=== PATIENT | male | born 1955 | race Caucasian/White ===

== ENCOUNTER 2018-11-18 12:45 | Outpatient (CLI) | payer MEDICARE, BC | END 2018-11-18 23:59 | disposition home health service (06) | LOC: WOU 12:45 | PROVIDERS: ATTEND Podiatrist Foot & Ankle Surgery | DX: E11.621 Type 2 diabetes mellitus with foot ulcer (principal); L97.516 Non-pressure chronic ulcer of other part of right foot with bone involvement without evidence of necrosis; Z79.84 Long term (current) use of oral hypoglycemic drugs; E11.42 Type 2 diabetes mellitus with diabetic polyneuropathy; E11.22 Type 2 diabetes mellitus with diabetic chronic kidney disease; I12.9 Hypertensive chronic kidney disease with stage 1 through stage 4 chronic kidney disease, or unspecified chronic kidney disease; N18.9 Chronic kidney disease, unspecified; Z95.5 Presence of coronary angioplasty implant and graft; Z89.411 Acquired absence of right great toe | CPT/HCPCS: 11043; 11046; 87070; 87077; 87186; A6402 ×2 ==

== ENCOUNTER 2018-11-24 12:46 | Outpatient (CLI) | payer MEDICARE, BC | END 2018-11-24 23:59 | disposition home or self-care (01) | LOC: MRI 12:46 | PROVIDERS: ATTEND Podiatrist Foot & Ankle Surgery | DX: M86.171 Other acute osteomyelitis, right ankle and foot (principal); M19.071 Primary osteoarthritis, right ankle and foot | CPT/HCPCS: 73718-TC ==

== ENCOUNTER 2018-12-02 13:09 | Outpatient (CLI) | payer MEDICARE, BC ==
[2018-12-02 14:32] LABS: BASOPHILS % (AUTO) 0.1 % (0.0-2.0); EOSINOPHILS % (AUTO) 1.5 % (0.0-6.0); HEMATOCRIT 30 % (39-51); HEMOGLOBIN 10.5 g/dL (13.5-17.5); LYMPHOCYTES # (AUTO) 1.2 /CMM (0.8-4.8); LYMPHOCYTES % (AUTO) 18.6 % (20.0-44.0); MEAN CORPUSCULAR HGB CONC 35 g/dl (31.0-36.0); MEAN CORPUSCULAR VOLUME 85 fL (80-96); MONOCYTES # (AUTO) 0.4 /CMM (0.1-1.30); MONOCYTES % (AUTO) 6.1 % (2.0-12.0); NEUTROPHILS # (AUTO) 4.7 /CMM (1.8-8.9); NEUTROPHILS % (AUTO) 73.7 % (43.0-81.0); PLATELET COUNT (AUTO) 224 /CMM (150-450); RED BLOOD CELL COUNT(AUTO) 3.55 MIL/uL (4.5-6.0); WHITE BLOOD COUNT (AUTO) 6.4 K/uL (4.3-11.0)
[2018-12-02 14:40] LABS: ALBUMIN 3.6 g/dL (3.4-5.0); CALCIUM, SERUM 8.9 mg/dL (8.5-10.1); CREATININE 2.8 mg/dL (0.6-1.3); POTASSIUM 5.8 mmol/L (3.5-5.1)
[2018-12-02 14:42] LABS: PREALBUMIN 36.6 MG/DL (18.0-35.7)
== END 2018-12-02 23:59 | disposition home health service (06) ==
LOC: WOU 13:09
PROVIDERS: ATTEND Podiatrist Foot & Ankle Surgery
DX: Z01.818 Encounter for other preprocedural examination (principal); E11.69 Type 2 diabetes mellitus with other specified complication; M86.371 Chronic multifocal osteomyelitis, right ankle and foot; E87.5 Hyperkalemia; Z87.891 Personal history of nicotine dependence; Z89.411 Acquired absence of right great toe; E11.22 Type 2 diabetes mellitus with diabetic chronic kidney disease; I12.9 Hypertensive chronic kidney disease with stage 1 through stage 4 chronic kidney disease, or unspecified chronic kidney disease; M1A.3 Chronic gout due to renal impairment; N18.9 Chronic kidney disease, unspecified; E11.621 Type 2 diabetes mellitus with foot ulcer; L97.413 Non-pressure chronic ulcer of right heel and midfoot with necrosis of muscle; E11.42 Type 2 diabetes mellitus with diabetic polyneuropathy; R60.0 Localized edema
CPT/HCPCS: 11043; 11046; 36415; 71046; 80048; 82040; 83036; 84134; 85025; 85652; 86140; A6402 ×2; G0463

== ENCOUNTER 2018-12-09 13:15 | Outpatient (CLI) | payer MEDICARE, BC | END 2018-12-09 23:59 | disposition home health service (06) | LOC: WOU 13:15 | PROVIDERS: ATTEND Podiatrist Foot & Ankle Surgery | DX: E11.621 Type 2 diabetes mellitus with foot ulcer (principal); L97.414 Non-pressure chronic ulcer of right heel and midfoot with necrosis of bone; E11.42 Type 2 diabetes mellitus with diabetic polyneuropathy; R60.0 Localized edema; E11.69 Type 2 diabetes mellitus with other specified complication; M86.671 Other chronic osteomyelitis, right ankle and foot; Z79.84 Long term (current) use of oral hypoglycemic drugs | CPT/HCPCS: 11044; 11047; A6197; A6402 ×2 ==

== ENCOUNTER 2018-12-16 13:00 | Outpatient (CLI) | payer MEDICARE, BC ==
[2019-01-01] MEDS ORDERED: FERR325T23 PO (13:02)
== END 2018-12-16 23:59 | disposition home health service (06) ==
LOC: WOU 13:00
PROVIDERS: ATTEND Podiatrist Foot & Ankle Surgery
DX: E11.621 Type 2 diabetes mellitus with foot ulcer (principal); L97.414 Non-pressure chronic ulcer of right heel and midfoot with necrosis of bone; E11.69 Type 2 diabetes mellitus with other specified complication; M86.371 Chronic multifocal osteomyelitis, right ankle and foot; M1A.3 Chronic gout due to renal impairment; Z79.84 Long term (current) use of oral hypoglycemic drugs; Z79.899 Other long term (current) drug therapy; R60.0 Localized edema
CPT/HCPCS: 11044; 11047; 87070; 87075; A6197 ×2; A6402 ×3; 87186-TC

== ENCOUNTER → 2018-12-23 | Outpatient (CLI) | payer MEDICARE, BC ==
[~2018-12-23] MED LIST: ASPI-605 PO; CEFTRIAXONE 1 G VIAL IM ONE; GLIM4TAB2 PO; HYDR-4077 PO; METO-357 PO
== END | disposition home health service (06) ==
LOC: WOU 13:00
PROVIDERS: ATTEND Podiatrist Foot & Ankle Surgery
DX: E11.621 Type 2 diabetes mellitus with foot ulcer (principal); L97.516 Non-pressure chronic ulcer of other part of right foot with bone involvement without evidence of necrosis; E11.42 Type 2 diabetes mellitus with diabetic polyneuropathy; M20.41 Other hammer toe(s) (acquired), right foot; L03.115 Cellulitis of right lower limb; Z89.411 Acquired absence of right great toe; E11.69 Type 2 diabetes mellitus with other specified complication; M86.671 Other chronic osteomyelitis, right ankle and foot; Z79.84 Long term (current) use of oral hypoglycemic drugs
CPT/HCPCS: 11043; 11046; 96372; A6197; A6402 ×2; J0696

== ENCOUNTER 2018-12-27 14:22 | Inpatient (IN) | payer MEDICARE, BC ==
[~2018-12-27] VITALS: Ht 180.3 cm; Wt 113.4 kg
--- NOTE | 2018-12-27 14:22 | NUR ---
PT BIBSELF FOR R FOOT R/O OSTEOMYLETIS; PT AAOX4, -SOB, NAD NOTED, PT TO BED 10, VSS, PENDING MD MARIE
--- NOTE | 2018-12-27 14:53 | NUR ---
CALLED DR YANEZ TO HAVE A DR TO CALL. AWAITING A CALL BACK. DR YANEZ # [phone]
[2018-12-27] MEDS ORDERED: VANCOMYCIN 1 GM in IV NS 0.9% 250 ML IV STA (15:00)
[2018-12-27] MEDS ORDERED: HYDR-4077 PO (15:07)
[2018-12-27] MEDS ORDERED: GLIM4TAB2 PO (15:07)
[2018-12-27] MEDS ORDERED: ASPI-605 PO (15:07)
[2018-12-27] MEDS ORDERED: METO-357 PO (15:07)
[2018-12-27 15:20] LABS: BASOPHILS % (AUTO) 0.3 % (0.0-2.0); EOSINOPHILS % (AUTO) 1.1 % (0.0-6.0); HEMATOCRIT 27 % (39-51); HEMOGLOBIN 9.2 g/dL (13.5-17.5); LYMPHOCYTES # (AUTO) 1.2 /CMM (0.8-4.8); LYMPHOCYTES % (AUTO) 13.4 % (20.0-44.0); MEAN CORPUSCULAR HGB CONC 34 g/dl (31.0-36.0); MEAN CORPUSCULAR VOLUME 87 fL (80-96); MONOCYTES # (AUTO) 0.5 /CMM (0.1-1.30); NEUTROPHILS # (AUTO) 7.3 /CMM (1.8-8.9); NEUTROPHILS % (AUTO) 80.2 % (43.0-81.0); RED BLOOD CELL COUNT(AUTO) 3.13 MIL/uL (4.5-6.0); WHITE BLOOD COUNT (AUTO) 9.1 K/uL (4.3-11.0)
--- NOTE | 2018-12-27 15:21 | NUR ---
TEXTED DR. PORTER FOR MRI APPROVAL.
[2018-12-27 15:26] LABS: CALCIUM, SERUM 8.5 mg/dL (8.5-10.1); CREATININE 2.1 mg/dL (0.6-1.3); POTASSIUM 4.5 mmol/L (3.5-5.1)
[2018-12-27 15:31] LABS: C-REACTIVE PROTEIN 1.6 mg/dL (0.0-0.9)
--- NOTE | 2018-12-27 15:46 | NUR ---
PLEASE CALL VAL AT [phone]. SHE IS WONDERING IF DOING THE MRI ON FRIDAY WILL BE ACCEPTABLE. WILL ADVISE WHEN DR YANZE RETURNS CALL.
[2018-12-27 16:00] LABS: PLATELET COUNT (AUTO) 368 /CMM (150-450)
--- NOTE | 2018-12-27 16:09 | NUR ---
CALLED [facility]. MICROCOMPUTER TECHNICIAN WAS PAGED
--- NOTE | 2018-12-27 16:13 | NUR ---
SPOKE TO VAL AND INFORMED HER THAT THE MRI WAS TO BE COMPLETED ON FRIDAY (12/28)
--- NOTE | 2018-12-27 16:23 | NUR ---
MS BED 200 GIVEN
[2018-12-27] MEDS ORDERED: HYDROCODONE/APAP 5/325MG 1 EACH TABLET PO PRN (17:00)
[2018-12-27] MEDS ORDERED: DEXTROSE 50%-WATER 50 ML DISP.SYRIN IV PRN (17:00)
[2018-12-27] MEDS ORDERED: ONDANSETRON HCL/PF 4 MG/2 ML VIAL IVP PRN (17:00)
[2018-12-27] MEDS ORDERED: MAGNESIUM HYDROXIDE 30 ML UDC PO PRN (17:00)
[2018-12-27] MEDS ORDERED: HYDROCODONE/APAP 10/325MG 1 EA TABLET PO PRN (17:00)
[2018-12-27] MEDS ORDERED: ACETAMINOPHEN 325 MG TABLET PO PRN (17:00)
[2018-12-27] MEDS: hydrALAZINE HCL 50 MG TABLET PO SCH (17:00)
[2018-12-27] MEDS ORDERED: Z GUARD REMEDY 2 OZ OINT TP PRN (17:00)
[2018-12-27] MEDS ORDERED: CEFTRIAXONE 2 G in IV D5W 100 ML IV SCH (17:00)
[2018-12-27] MEDS ORDERED: MAG HYDROX/AL HYDROX/SIMETH 30 ML UDC PO PRN (17:00)
--- NOTE | 2018-12-27 17:11 | NUR ---
MRI APPROVED,LEAD FURNACE OPERATOR IS GOING TO [facility] G[facility] LEAD FURNACE OPERATOR SPOKE TO NURSE EZEQUIEL BROOKS OK TO DO TOMORROW AM.
--- NOTE | 2018-12-27 17:12 | NUR ---
REPORT GIVEN TO CHRISTY WOLF FOR TITI; PT WILL BE TRANSPORTED TO [facility]IA [facility]
[2018-12-27] MEDS: BLOOD SUGAR DIAGNOSTIC 1 EACH STRIP VI SCH ×2 (17:30→21:46)
[2018-12-27] MEDS ORDERED: FEE PK DOSING 1 MIN EA MC ONE (17:34)
[2018-12-27 18:35] LABS: APPEARANCE,URINE CLEAR (CLEAR); BILIRUBIN,URINE NEGATIVE (NEGATIVE); BLOOD, URINE NEGATIVE Ery/uL (NEGATIVE); COLOR,URINE YELLOW (YELLOW); KETONES,URINE NEGATIVE (NEGATIVE); LEUKOCYTE ESTERASE ,URINE NEGATIVE (NEGATIVE); NITRITE, URINE NEGATIVE (NEGATIVE); PROTEIN,URINE NEGATIVE (NEGATIVE); UGLUCOSE NEGATIVE (NEGATIVE); UROBILINOGEN,URINE 0.2 EU/dL (0.2)
--- NOTE | 2018-12-27 18:35 | NUR ---
MS RN NOTES PATIENT ADMITTED TO UNIT, ARRIVED VIA GURNEY, REPORT RECEIVED FROM LONDON WOLF. PATIENT AWAKE, ALERT AND ORIENTED X 3, VERBALLY RESPONSIVE AND RESPONDS TO VERBAL AND TACTILE STIMULI. NO ACUTE DISTRESS. NO C/O PAIN OR DISCOMFORT. PATIENT ADMITTED UNDER MEDICAL SUPERVISION OF CHRISTOPHER SINCLAIR BREAD RACKER,MADE AWARE OF PATIENT ARRIVAL. PATIENT ORIENTED TO UNIT, STAFF, PLAN OF CARE AND VERBALIZED UNDERSTANDING. IV INTACT AND PATENT. WILL ENDORSE TO INCOMING SHIFT FOR TITI. BED LOCKED AND IN LOW POSITION. BILATERAL UPPER SIDE RAILS UP AND LOCKED. CALL LIGHT WITHIN EASY REACH
[2018-12-27] MEDS: IV NS 0.9% 1,000 ML IV PRN (18:46)
[2018-12-27] MEDS ORDERED: VANCOMYCIN 0.75 GM in IV D5W 250 ML IV ONE (19:00)
[2018-12-27] MEDS: AMPICILLIN 1 GM in IV NS 0.9% 50 ML IV SCH (20:59)
[2018-12-27] MEDS: ENOXAPARIN SODIUM 40 MG/0.4 ML DISP.SYRIN SQ SCH (20:59)
[2018-12-27] MEDS ORDERED: LINEZOLID RTU BAG 600 MG in PREMIX 1 EA IV SCH (21:00)
[2018-12-27] MEDS: INSULIN REGULAR, HUMAN 100 UNIT/ML 3 ML VIAL SQ PRN (21:47)
--- NOTE | 2018-12-27 23:38 | NUR ---
RN MS OPENING NOTES RECEIVED PT IN BED, AWAKE ALERT ORIENTED X4, BREATHING EVEN AND UNLABORED ON ROOM AIR. NO COMPLAINT OF PAIN OR DISCOMFORT AT THIS TIME. IV ACCESS ON THE R HAND 20G WITH NS @75ML/HR. BED IN LOCKED POSITION, CALL LIGHT WITHIN REACH AT ALL TIMES. WILL CONTINUE TO MONITOR FREQUENTLY
--- NOTE | 2018-12-28 06:08 | NUR ---
RN MS CLOSING NOTES PT REMAINS IN BED, SLEEPING, EASILY AROUSED TO NAME CALL, BREATHING EVEN AND UNLABORED ON ROOM AIR. NO COMPLAINT OF PAIN OR DISCOMFORT AT THIS TIME. IV ACCESS ON THE R HAND 20G WITH NS @75ML/HR. BED IN LOCKED POSITION, CALL LIGHT WITHIN REACH AT ALL TIMES. WILL ENDORSE TO DAY NURSE FOR TITI
[2018-12-28 06:30] LABS: BASOPHILS % (AUTO) 0.4 % (0.0-2.0); EOSINOPHILS % (AUTO) 2.2 % (0.0-6.0); HEMATOCRIT 27 % (39-51); HEMOGLOBIN 9.3 g/dL (13.5-17.5); LYMPHOCYTES # (AUTO) 0.8 /CMM (0.8-4.8); LYMPHOCYTES % (AUTO) 14.4 % (20.0-44.0); MEAN CORPUSCULAR HGB CONC 35 g/dl (31.0-36.0); MEAN CORPUSCULAR VOLUME 85 fL (80-96); MONOCYTES # (AUTO) 0.3 /CMM (0.1-1.30); NEUTROPHILS # (AUTO) 4.4 /CMM (1.8-8.9); PLATELET COUNT (AUTO) 239 /CMM (150-450); RED BLOOD CELL COUNT(AUTO) 3.15 MIL/uL (4.5-6.0); WHITE BLOOD COUNT (AUTO) 5.8 K/uL (4.3-11.0)
[2018-12-28 06:36] LABS: CALCIUM, SERUM 8.1 mg/dL (8.5-10.1); MAGNESIUM 2.1 mg/dL (1.8-2.4); PHOSPHORUS 4.1 mg/dL (2.5-4.9); POTASSIUM 4.5 mmol/L (3.5-5.1)
[2018-12-28] MEDS: AMPICILLIN 1 GM in IV NS 0.9% 50 ML IV SCH ×3 (06:42→20:20)
[2018-12-28] MEDS: BLOOD SUGAR DIAGNOSTIC 1 EACH STRIP VI SCH ×4 (06:43→22:11)
[2018-12-28 06:50] LABS: THYROID STIMULATING HORMONE 5.818 uIU/mL (0.358-3.74)
--- NOTE | 2018-12-28 07:25 | NUR ---
MS/RN OPENING NOTE RECEIVED THE PATIENT IN BED. PATIENT AWAKE. ALERT AND ORIENTED X4. IN ROOM AIR AND DENIES SOB. RESPIRATION REGULAR AND UNLABORED. DENIES PAIN. THE PATIENT IN NO APPARENT DISTRESS. RIGHT HAND G 20 PATENT AND NORMAL SALINE INFUSING AT 75ML/HR AND NO S/S INFILTRATION NOTED. BED LOW AND LOCKED. SIDE RAILS UP X2. CALL LIGHT WITHIN REACH. WILL CONTINUE TO MONITOR.
[2018-12-28 08:39] VITALS: BP 152/76
[2018-12-28] MEDS: ASPIRIN EC 81 MG TABLET.DR PO SCH ×2 (09:00→09:26)
[2018-12-28] MEDS: PANTOPRAZOLE 40 MG TABLET.DR PO SCH (09:26)
[2018-12-28] MEDS: METOPROLOL SUCCINATE 50 MG TAB.SR.24H PO SCH (09:28)
[2018-12-28] MEDS: hydrALAZINE HCL 50 MG TABLET PO SCH ×3 (09:29→18:21)
--- NOTE | 2018-12-28 12:01 | NUR ---
MS/RN NOTE RECEIVED NEW ORDER FROM DR ZARAGOZA FOR CARDIAC CLEARANCE BY DR MOSLEY. THE ORDER READ BACK, VERIFIED. NOTED AND CARRIED OUT. LEFT MESSAGE WITH DR MOSLEY`S OFFICE.
[2018-12-28] MEDS: INSULIN REGULAR, HUMAN 100 UNIT/ML 3 ML VIAL SQ PRN (12:25)
[2018-12-28] MEDS ORDERED: VANCOMYCIN 1.25 GM in IV D5W 500 ML IV SCH (14:00)
[2018-12-28 16:00] VITALS: BP 146/79
[2018-12-28] MEDS: IV NS 0.9% 1,000 ML IV PRN (18:23)
--- NOTE | 2018-12-28 18:35 | NUR ---
MS/RN CLOSING NOTE THE PATIENT IS ALERT AND ORIENTED X4. DENIES PAIN. RESPIRATION REGULAR AND UNLABORED. IN ROOM AIR AND SATURATION IS AT 98%. DENIES SOB. THE PATIENT IN NO APPARENT DISTRESS. RIGT HAND G 20 PATENT AND NORMAL SALINE INFUSING AT 75ML/HR AND NO S/S INFILTRATION NOTED. BED LOW AND LOCKED. SIDE RAILS UP X3. CALL LIGHT WITHIN REACH. WILL ENDORSE TO WOUND CARE CENTER CONSULTANT.
--- NOTE | 2018-12-28 19:20 | NUR ---
RN MS OPENING NOTES RECEIVED PT SITTING UP IN BED, AWAKE ALERT ORIENTED X4, BREATHING EVEN AND UNLABORED ON ROOM AIR. NO COMPLAINT OF PAIN OR DISCOMFORT AT THIS TIME. IV ACCESS ON THE R HAND 20G WITH NS @75ML/HR. BED IN LOCKED POSITION, CALL LIGHT WITHIN REACH AT ALL TIMES. WILL CONTINUE TO MONITOR FREQUENTLY
[2018-12-28 19:49] VITALS: BP 158/74
[2018-12-28] MEDS: ENOXAPARIN SODIUM 40 MG/0.4 ML DISP.SYRIN SQ SCH (20:35)
[2018-12-28 20:46] VITALS: BP 158/74
[2018-12-29] MEDS: AMPICILLIN 1 GM in IV NS 0.9% 50 ML IV SCH ×3 (04:58→20:08)
--- NOTE | 2018-12-29 06:03 | NUR ---
RN MS CLOSING NOTES PT REMAINS IN BED, SLEEPING, EASILY AROUSED TO NAME CALL, BREATHING EVEN AND UNLABORED ON ROOM AIR. NO COMPLAINT OF PAIN OR DISCOMFORT AT THIS TIME. NPO AFTER MIDNIGHT FOR SX. IV ACCESS ON THE R HAND 20G WITH NS @75ML/HR. BED IN LOCKED POSITION, CALL LIGHT WITHIN REACH AT ALL TIMES. WILL ENDORSE TO DAY NURSE FOR TITI
[2018-12-29 06:21] LABS: BASOPHILS % (AUTO) 0.3 % (0.0-2.0); EOSINOPHILS % (AUTO) 2.7 % (0.0-6.0); HEMATOCRIT 28 % (39-51); HEMOGLOBIN 9.5 g/dL (13.5-17.5); LYMPHOCYTES # (AUTO) 1.1 /CMM (0.8-4.8); LYMPHOCYTES % (AUTO) 18.3 % (20.0-44.0); MEAN CORPUSCULAR HGB CONC 35 g/dl (31.0-36.0); MEAN CORPUSCULAR VOLUME 86 fL (80-96); MONOCYTES # (AUTO) 0.4 /CMM (0.1-1.30); MONOCYTES % (AUTO) 6.4 % (2.0-12.0); NEUTROPHILS # (AUTO) 4.3 /CMM (1.8-8.9); NEUTROPHILS % (AUTO) 72.3 % (43.0-81.0); PLATELET COUNT (AUTO) 243 /CMM (150-450); RED BLOOD CELL COUNT(AUTO) 3.21 MIL/uL (4.5-6.0); WHITE BLOOD COUNT (AUTO) 5.9 K/uL (4.3-11.0)
[2018-12-29 06:37] LABS: CALCIUM, SERUM 8.3 mg/dL (8.5-10.1); MAGNESIUM 2.1 mg/dL (1.8-2.4); PHOSPHORUS 3.6 mg/dL (2.5-4.9); POTASSIUM 4.6 mmol/L (3.5-5.1)
[2018-12-29] MEDS: BLOOD SUGAR DIAGNOSTIC 1 EACH STRIP VI SCH ×4 (06:38→22:03)
[2018-12-29] MEDS ORDERED: LIDOCAINE HCL/PF 1% 30 ML SDV ONE (07:20)
[2018-12-29] MEDS ORDERED: BUPIVACAINE MPF 0.5% W/EPI INJ 30 ML VIAL ONE (07:20)
[2018-12-29] MEDS ORDERED: ANESTHESIA TRAY IN PYXIS 1 EA TRAY MC ONE (07:20)
--- NOTE | 2018-12-29 07:20 | NUR ---
RN MS NOTES Patient received on room air, no sob noted. Patient is A/O x4, no s/s of pain at this time. Patient was taken to OR for a wound debridement. Right hand IV NS @ 75 mL per hour, patent and free flowing. Bed at the lowest setting, call light within reach.
[2018-12-29] MEDS ORDERED: VANCOMYCIN 1 GM VIAL ONE (07:53)
[2018-12-29] MEDS: ASPIRIN EC 81 MG TABLET.DR PO SCH (09:58)
[2018-12-29] MEDS: METOPROLOL SUCCINATE 50 MG TAB.SR.24H PO SCH (09:58)
[2018-12-29] MEDS: PANTOPRAZOLE 40 MG TABLET.DR PO SCH (09:58)
[2018-12-29] MEDS: hydrALAZINE HCL 50 MG TABLET PO SCH ×3 (09:59→17:01)
[2018-12-29] MEDS: DAKINS QUARTER STRENGTH (0.125%) 480 ML BOTTLE TOP SCH (09:59)
[2018-12-29] MEDS: INSULIN REGULAR, HUMAN 100 UNIT/ML 3 ML VIAL SQ PRN ×3 (11:19→22:11)
[2018-12-29] MEDS: SOD FERRIC GLUC 125 MG in IV NS 0.9% 100 ML IV SCH (14:12)
[2018-12-29 16:34] VITALS: BP 146/76
--- NOTE | 2018-12-29 17:58 | NUR ---
RN MS CLOSING NOTES Patient remains on room air, no sob noted. Patient remains a/o x4. Patient seen walking around even though he was told by the surgeon to have bedrest and keep the right leg elevated. Patient's right leg shows some bleeding, patient states that the surgeon told him to not touch the dressing for 8 days, and that it was going to be handled by the wound care clinic. Right hand #20 NS @ 75 mL per hour remains flowing. Patient's bed remains at the lowest setting, call light within reach, will give report to RN for TITI bedside.
--- NOTE | 2018-12-29 19:25 | NUR ---
RN MS OPENING NOTES RECEIVED PT LAYING IN BED, RIGHT FOOT ELEVATED. AWAKE ALERT ORIENTED X4, BREATHING EVEN AND UNLABORED ON ROOM AIR. NO COMPLAINT OF PAIN OR DISCOMFORT AT THIS TIME. IV ACCESS ON THE R HAND 20G WITH NS @75ML/HR. BED IN LOCKED POSITION, RE ENFORCED TEACHING ABOUT KEEPING R FOOT ELEVATED AND NON WEIGHT BARING CALL LIGHT WITHIN REACH AT ALL TIMES. WILL CONTINUE TO MONITOR FREQUENTLY
[2018-12-29 20:00] VITALS: BP 140/72
[2018-12-29] MEDS: ENOXAPARIN SODIUM 40 MG/0.4 ML DISP.SYRIN SQ SCH (20:08)
[2018-12-30] MEDS: AMPICILLIN 1 GM in IV NS 0.9% 50 ML IV SCH ×3 (04:45→21:00)
[2018-12-30 06:41] LABS: BASOPHILS % (AUTO) 0.2 % (0.0-2.0); EOSINOPHILS % (AUTO) 0.3 % (0.0-6.0); HEMATOCRIT 24 % (39-51); HEMOGLOBIN 8.2 g/dL (13.5-17.5); LYMPHOCYTES # (AUTO) 1.4 /CMM (0.8-4.8); LYMPHOCYTES % (AUTO) 14.5 % (20.0-44.0); MEAN CORPUSCULAR HGB CONC 34 g/dl (31.0-36.0); MEAN CORPUSCULAR VOLUME 86 fL (80-96); MONOCYTES # (AUTO) 0.6 /CMM (0.1-1.30); MONOCYTES % (AUTO) 5.7 % (2.0-12.0); NEUTROPHILS # (AUTO) 7.8 /CMM (1.8-8.9); NEUTROPHILS % (AUTO) 79.3 % (43.0-81.0); PLATELET COUNT (AUTO) 221 /CMM (150-450); WHITE BLOOD COUNT (AUTO) 9.8 K/uL (4.3-11.0)
[2018-12-30 06:50] LABS: CALCIUM, SERUM 7.9 mg/dL (8.5-10.1); CREATININE 2.2 mg/dL (0.6-1.3); MAGNESIUM 2.1 mg/dL (1.8-2.4); PHOSPHORUS 3.5 mg/dL (2.5-4.9); POTASSIUM 4.7 mmol/L (3.5-5.1)
[2018-12-30] MEDS: BLOOD SUGAR DIAGNOSTIC 1 EACH STRIP VI SCH ×4 (07:16→21:03)
[2018-12-30] MEDS: INSULIN REGULAR, HUMAN 100 UNIT/ML 3 ML VIAL SQ PRN ×3 (07:16→17:40)
--- NOTE | 2018-12-30 07:40 | NUR ---
MS RN OPENING NOTE RECEIVED PT IN BED, ALERT AND ORIENTED X 4. DENIES CHEST PAIN, SOB, N/V, BREATHING IS EVEN AND UNLABORED ON ROOM AIR, NO ACUTE DISTRESS NOTED AT THIS TIME. RIGHT HAND #20G IS INFUSING NS @ 75ML/HR WITHOUT REDNESS OR SWELLING. RIGHT FOOT NOTED WITH DRESSING AND CARLTON BANDAGE WITH SCANT SATIATION ON THE HEEL AT THIS TIME. REVIEWED INSTRUCTION OF NWB ON THE RIGHT FOOT AND TO ELEVATE AT ALL TIMES. PT VERBALIZED UNDERSTANDING. ALL NEEDS ATTENDED TO. BED IS LOCKED AND IN LOWEST POSITION, SIDE RAILS UP X2, BED ALARM ON, CALL LIGHT AND POSSESSIONS WITHIN REACH.
[2018-12-30 08:00] VITALS: BP 164/76
[2018-12-30] MEDS: ASPIRIN EC 81 MG TABLET.DR PO SCH (08:49)
[2018-12-30] MEDS: METOPROLOL SUCCINATE 50 MG TAB.SR.24H PO SCH (08:50)
[2018-12-30] MEDS: PANTOPRAZOLE 40 MG TABLET.DR PO SCH (08:50)
[2018-12-30] MEDS: DAKINS QUARTER STRENGTH (0.125%) 480 ML BOTTLE TOP SCH (08:50)
[2018-12-30] MEDS: hydrALAZINE HCL 50 MG TABLET PO SCH ×3 (08:50→17:35)
[2018-12-30] MEDS ORDERED: EPOETIN ALFA (20,000 UNIT) 20,000 UNIT/ML VIAL SQ ONE (11:00)
--- NOTE | 2018-12-30 11:57 | NUR ---
MS RN NOTE REQUESTED EPOGEN FROM PHARMACIST, AWAITING RECEIPT.
--- NOTE | 2018-12-30 14:50 | NUR ---
MS RN NOTE REQUESTED FERRLECIT FROM PHARMACIST, AWAITING RECEIPT.
--- NOTE | 2018-12-30 15:37 | NUR ---
MS RN NOTE REQUESTED FERRLECIT FROM PHARMACIST AGAIN, AWAITING RECEIPT
[2018-12-30] MEDS: SOD FERRIC GLUC 125 MG in IV NS 0.9% 100 ML IV SCH (15:50)
[2018-12-30 16:00] VITALS: BP 138/70
--- NOTE | 2018-12-30 18:20 | NUR ---
MS RN CLOSING NOTE PT IN BED, ALERT AND ORIENTED X 4. DENIES CHEST PAIN, SOB, N/V, BREATHING IS EVEN AND UNLABORED ON ROOM AIR, NO ACUTE DISTRESS NOTED AT THIS TIME. RIGHT HAND #20G SALINE LOCKED WITHOUT REDNESS OR SWELLING. RIGHT FOOT NOTED WITH DRESSING AND CARLTON BANDAGE, CHANGED BY TODAY AND IS CLEAN, DRY AND INTACT. REVIEWED INSTRUCTION OF NWB ON THE RIGHT FOOT AND TO ELEVATE AT ALL TIMES. PT VERBALIZED UNDERSTANDING. ASSISTED WITH ADLS, ALL NEEDS ATTENDED TO. BED IS LOCKED AND IN LOWEST POSITION, SIDE RAILS UP X2, BED ALARM ON, CALL LIGHT AND POSSESSIONS WITHIN REACH. WILL ENDORSE TO TICKER INSTALLER NURSE FOR CONTINUITY OF CARE.
--- NOTE | 2018-12-30 19:35 | NUR ---
RN INITIAL NOTES: RECEIVED REPORT FROM JUAN WOLF. PT S/P DEBRIDEMENT OF RIGHT FOOT ON 12/29/18, S/P DRESSING CHANGED TODAY BY DR CALI ZARAGOZA, SPLINT IN PLACED AND COVERED WITH CARLTON DRESSING, NO NOTICEABLE BLEEDING OR DRAINAGE NOTED. PT SITTING, A/O X4, ON RA, REFUSED USING HOSPITAL GOWN AND MORE COMFORTABLE WITH HIS STREET CLOTHES. IV ACCESS PATENT AND FLUSHING WELL, ON HL. PT HAS ULNA BOOTS AT BED SIDE AND CRUTCHES, PER PT HE WAS INSTRUCTED TO USE THOSE AT HOME. ALSO REMIND PT ABOUT NWB ON RLE/RIGHT FOOT, HE CLAIMED HE EXPLAINED TO DR LEIVA ABOUT HIM USING HIS HEEL TO PIVOT AND TRANSFER. ENCOURAGE PT TO KEEP RLE ELEVATED. DISCUSSED PLAN OF CARE TO PT. UNDERSTAND AND AGREE. SAFETY PRECAUTIONS FOR FALL INITIATED, CALL LIGHT IN REACH, WILL CONTINUE MONITORING PT.
[2018-12-30 20:00] VITALS: BP 141/80
[2018-12-30] MEDS: *INSULIN REGULAR(HUMULIN R)HUM 100 UNIT/ML VIAL SQ PRN (21:05)
--- NOTE | 2018-12-30 21:05 | NUR ---
ACCU CHECK 187: BLOOD SUGAR 187, 3 UNITS OF INSULIN GIVEN PER SLIDING SCALE, PT REQUESTED FOR EGG SAND WHICH AFTERWARDS. WILL MONITOR PT FOR ANY S/ S OF HYPOGLYCEMIA AND HYPERGLYCEMIA.
[2018-12-30] MEDS: ENOXAPARIN SODIUM 40 MG/0.4 ML DISP.SYRIN SQ SCH (21:25)
[2018-12-30 21:52] VITALS: BP 141/80
[2018-12-31] VITALS (8 sets, daily range): BP systolic 150–182; BP diastolic 62–88
--- NOTE | 2018-12-31 02:27 | NUR ---
RN NOTES: SEEN PT SLEEPING, APPEARS CALM AND COMFORTABLE, RLE OFFLOADED ON PILLOWS, URINAL WITHIN REACH
[2018-12-31] MEDS: AMPICILLIN 1 GM in IV NS 0.9% 50 ML IV SCH ×3 (05:10→21:10)
[2018-12-31] MEDS: BLOOD SUGAR DIAGNOSTIC 1 EACH STRIP VI SCH ×4 (06:04→21:10)
--- NOTE | 2018-12-31 06:04 | NUR ---
ACCU CHECK 129: BLOOD SUGAR CHECKED AND RESULT OBTAINED IS 129, NO INSULIN COVERAGE GIVEN PER SLIDING SCALE.
[2018-12-31 06:35] LABS: BASOPHILS % (AUTO) 0.5 % (0.0-2.0); EOSINOPHILS % (AUTO) 1.6 % (0.0-6.0); HEMATOCRIT 25 % (39-51); HEMOGLOBIN 8.7 g/dL (13.5-17.5); LYMPHOCYTES # (AUTO) 1.6 /CMM (0.8-4.8); LYMPHOCYTES % (AUTO) 28.1 % (20.0-44.0); MEAN CORPUSCULAR HGB CONC 35 g/dl (31.0-36.0); MEAN CORPUSCULAR VOLUME 86 fL (80-96); MONOCYTES # (AUTO) 0.4 /CMM (0.1-1.30); MONOCYTES % (AUTO) 7.2 % (2.0-12.0); NEUTROPHILS # (AUTO) 3.6 /CMM (1.8-8.9); NEUTROPHILS % (AUTO) 62.6 % (43.0-81.0); PLATELET COUNT (AUTO) 208 /CMM (150-450); RED BLOOD CELL COUNT(AUTO) 2.91 MIL/uL (4.5-6.0); WHITE BLOOD COUNT (AUTO) 5.8 K/uL (4.3-11.0)
--- NOTE | 2018-12-31 06:47 | NUR ---
RN CLOSING NOTES: PT IN BED, AWAKE, RLE OFFLOADED ON PILLOWS. RIGHT FOOT DRESSING REMAINS C/D/I, NO ACTIVE BLEEDING NOTED. IV ACCESS REMAINS PATENT AND FLUSHING WELL, ON HL. VS REMAINS STABLE, URINAL AT BED SIDE. SAFETY PRECAUTIONS FOR FALL INITIATED, CALL LIGHT IN REACH, WILL ENDORSE TO DAY RN FOR CONTINUITY OF CARE.
[2018-12-31 06:49] LABS: CALCIUM, SERUM 8.4 mg/dL (8.5-10.1); MAGNESIUM 2.1 mg/dL (1.8-2.4); PHOSPHORUS 4.3 mg/dL (2.5-4.9); POTASSIUM 4.8 mmol/L (3.5-5.1)
--- NOTE | 2018-12-31 07:31 | NUR ---
MS RN OPENING NOTES RECEIVED PT SITTING UP AT THE EDGE OF BED. PT IS A/O X4, AFEBRILE. RESPIRATIONS ARE EVEN AND UNLABORED, NOT IN ANY ACUTE DISTRESS NOTED. PT DENIES ANY PAIN AT THIS TIME, NO C/O SOB, N/V. IV SITE TO R HAND INTACT, NO INFILTRATION NOTED. DRESSING KEPT CLEAN AND DRY. ENCOURAGED PT TO USE CRUTCHES WHEN AMBULATING. SAFETY MEASURES ARE IN PLACE. INSTRUCTED PT TO USE CALL LIGHT WHEN ASSISTANCE IS NEEDED, CALL LIGHT IS LEFT WITHIN REACH. WILL MONITOR THROUGHOUT SHIFT FOR CONTINUITY OF CARE.
[2018-12-31] MEDS: ASPIRIN EC 81 MG TABLET.DR PO SCH (08:24)
[2018-12-31] MEDS: PANTOPRAZOLE 40 MG TABLET.DR PO SCH (08:24)
[2018-12-31] MEDS: METOPROLOL SUCCINATE 50 MG TAB.SR.24H PO SCH (08:24)
[2018-12-31] MEDS: hydrALAZINE HCL 50 MG TABLET PO SCH ×3 (08:25→17:34)
--- NOTE | 2018-12-31 08:33 | NUR ---
MS RN NOTES-- STOOL FOR OB COLLECTED. NOTIFIED CAMILO FROM LAB FOR GARNETT MECHANIC.
[2018-12-31] MEDS: DAKINS QUARTER STRENGTH (0.125%) 480 ML BOTTLE TOP SCH (09:00)
[2018-12-31 09:33] LABS: OCCULT BLOOD STOOL NEGATIVE (NEGATIVE)
--- NOTE | 2018-12-31 10:18 | NUR ---
MS RN NOTES-- PT REFUSED WOUND TX TO RIGHT FOOT AT THIS TIME. PER PT, "DOCTOR WILL CHANGE EVERY 2 DAYS." INFORMED PT THAT PER ORDERS IT STATES "DAILY." PER PT, "NO ITS NOT DRAINING, LETS CHANGE TOMORROW." WILL MONITOR FOR DRAINAGE.
--- NOTE | 2018-12-31 10:32 | NUR ---
MS RN NOTES RECEIVED PATIENT IN BED ALERT ORIENTED X 4. REPORT GIVEN BY OLIVER WOLF. NO ACUTE DISTRESS NOTED. BREATHING UNLABORED. IV ACCESS PATENT AND INTACT, NO REDNESS NO SWELLING NOTED. SAFETY MEASURES IN PLACE. CALL LIGHT WITHIN REACH. WILL CONTINUE TO MONITOR ACCORDINGLY.
[2018-12-31] MEDS: INSULIN REGULAR, HUMAN 100 UNIT/ML 3 ML VIAL SQ PRN (12:10)
[2018-12-31] MEDS: SOD FERRIC GLUC 125 MG in IV NS 0.9% 100 ML IV SCH (14:53)
--- NOTE | 2018-12-31 15:00 | NUR ---
MS RN NOTES PICC LINE INSERTED DOUBLE LUMEN BY PICC LINE NURSE BRITTNI ON LEFT UPPER ARM SECURED WITH TRANSPARENT DRESSING SIGNED AND DATED. PER BRITTNI OK TO USE PICC LINE. PATIENT TOLERATED WELL.
--- NOTE | 2018-12-31 19:00 | NUR ---
MS RN NOTES PATIENT IN BED ALERT ORIENTED X 4. NO ACUTE DISTRESS NOTED. BREATHING UNLABORED. IV ACCESS PATENT AND INTACT, NO REDNESS NO SWELLING NOTED. DUE MEDICATIONS GIVEN, NO ASE NOTED. NEEDS ATTENDED AND ANTICIPATED. KEPT CLEAN DRY AND COMFORTABLE. SAFETY MEASURES IN PLACE. CALL LIGHT WITHIN REACH. WILL ENDORSE TO NIGHT NURSE FOR CONTINUITY OF CARE.
--- NOTE | 2018-12-31 19:35 | NUR ---
rn notes: received report from bhakti edmond. pt in bed, asleep, snoring, appears calm and comfortable, non facial grimace noted, s/p picc line insertion, cliff double lumen, good blood return noted, line flushing well, placed on hl. s/p right foot wound debridement on 12/29, by dr farmer, dressing changed done yesterday by dr cartwright, dressing c/d/i, no active bleeding noted, safety precautions for fall initiated, call light in reach, will continue monitoring pt.
--- NOTE | 2018-12-31 20:00 | NUR ---
rn notes: educated pt regarding nwb on right foot, pt seems to be non compliant as he always chose to ambulates to the bathroom instead of using the provided urinal at bed side. accdg to pt's explanation, he had a discussion with dr josephine cartwright about his choice of using his heel/putting pressure on his heel and not on the plantar aspect where surgery was performed. despite providing education, pt still insisted that he does not want to use his ulna boots nor his crutches, he claimed he compared himself to an elephant who cannot hop . per pt he's been doing what his doing for 6months now so he's used to it.
--- NOTE | 2018-12-31 20:30 | NUR ---
rn notes: pt complained about room being too cold, provided 2 warm blankets, placed work order for engineering, contacted engineering dept at [phone], no answer, left a message
[2018-12-31] MEDS: *INSULIN REGULAR(HUMULIN R)HUM 100 UNIT/ML VIAL SQ PRN (21:14)
[2018-12-31] MEDS: ENOXAPARIN SODIUM 40 MG/0.4 ML DISP.SYRIN SQ SCH (21:15)
[2018-12-31] MEDS ORDERED: hydrALAZINE HCL 25 MG TABLET PO ONE (22:00)
--- NOTE | 2018-12-31 22:01 | NUR ---
RN NOTES: CONTACTED EPIC MD BRAKE REPAIR MECHANIC, RELAYED ABOUT PT'S BP, SITTIN/76 HR 58, SUPINE: 158/70 HR 58, PT DENIES ANY PAIN OR DISCOMFORT, WATCHING NEWS, PER MD " TO GIVE HYDRALAZINE 25MG TAB PO X 1 DOSE", ORDER READ BACK AND CARRIED OUT.
--- NOTE | 2018-12-31 22:14 | NUR ---
ONE TIME DOSE HYDRALAZINE: HYDRALAZINE 25MG TAB PO X1 DOSE ADMINISTERED FOR HIGH BLOOD PRESSURE. WILL CONTINUE TO MONITOR AND REASSESS PT.
[2019-01-01] MEDS: AMPICILLIN 1 GM in IV NS 0.9% 50 ML IV SCH ×2 (05:09→13:11)
[2019-01-01] MEDS: BLOOD SUGAR DIAGNOSTIC 1 EACH STRIP VI SCH ×3 (06:11→17:47)
[2019-01-01] MEDS: INSULIN REGULAR, HUMAN 100 UNIT/ML 3 ML VIAL SQ PRN ×3 (06:12→17:49)
--- NOTE | 2019-01-01 06:16 | NUR ---
rn notes: contacted engineering again to f/u with work order posted last night, per engr they will f/u
--- NOTE | 2019-01-01 06:41 | NUR ---
rn closing notes: pt dressing remains c/d/i, no active bleeding noted, offloaded on pillows. pt sleeping, appears comfortable. no sob noted. cliff picc line remains in placed, with good blood return noted, on hl. vs remains stable, needs attended. awaiting for final result of wound culture. safety precautions for fall remains engaged, call [facility] in reach, will endorse to day rn for continuity of care.
[2019-01-01 06:46] LABS: BASOPHILS % (AUTO) 0.4 % (0.0-2.0); HEMATOCRIT 27 % (39-51); LYMPHOCYTES # (AUTO) 1.5 /CMM (0.8-4.8); LYMPHOCYTES % (AUTO) 21.3 % (20.0-44.0); MEAN CORPUSCULAR HGB CONC 34 g/dl (31.0-36.0); MEAN CORPUSCULAR VOLUME 86 fL (80-96); MONOCYTES # (AUTO) 0.5 /CMM (0.1-1.30); MONOCYTES % (AUTO) 6.5 % (2.0-12.0); NEUTROPHILS # (AUTO) 4.9 /CMM (1.8-8.9); NEUTROPHILS % (AUTO) 69.8 % (43.0-81.0); PLATELET COUNT (AUTO) 233 /CMM (150-450); RED BLOOD CELL COUNT(AUTO) 3.12 MIL/uL (4.5-6.0)
[2019-01-01 06:54] LABS: CALCIUM, SERUM 8.6 mg/dL (8.5-10.1); CREATININE 1.9 mg/dL (0.6-1.3); PHOSPHORUS 3.9 mg/dL (2.5-4.9); POTASSIUM 4.5 mmol/L (3.5-5.1)
--- NOTE | 2019-01-01 07:10 | NUR ---
MS RN NOTES PATIENT IN BED EYES CLOSED EASY TO AROUSE. RESPOND TO VERBAL AND TACTILE STIMULI. NO ACUTE DISTRESS NOTED. BREATHING UNLABORED. IV ACCESS PATENT AND INTACT, NO REDNESS NO SWELLING NOTED. SAFETY MEASURES IN PLACE. CALL LIGHT WITHIN REACH. WILL CONTINUE TO MONITOR ACCORDINGLY.
[2019-01-01] MEDS: PANTOPRAZOLE 40 MG TABLET.DR PO SCH (07:45)
[2019-01-01 08:00] VITALS: BP 161/68
[2019-01-01] MEDS: ASPIRIN EC 81 MG TABLET.DR PO SCH (08:23)
[2019-01-01] MEDS: hydrALAZINE HCL 25 MG TABLET PO SCH ×3 (08:25→16:44)
[2019-01-01] MEDS: METOPROLOL SUCCINATE 50 MG TAB.SR.24H PO SCH (08:25)
[2019-01-01] MEDS: DAKINS QUARTER STRENGTH (0.125%) 480 ML BOTTLE TOP SCH (09:00)
--- NOTE | 2019-01-01 09:00 | NUR ---
MS RN NOTES RIGHT LOWER EXTREMITY DRESSING CLEAN, DRY AND INTACT. PATIENT SAID HE WILL WAIT FOR MD TO CHANGE DRESSING.
[2019-01-01] MEDS ORDERED: FERR325T23 PO (13:02)
[2019-01-01] MEDS: SOD FERRIC GLUC 125 MG in IV NS 0.9% 100 ML IV SCH (14:48)
[2019-01-01 16:00] VITALS: BP 166/72
--- NOTE | 2019-01-01 16:44 | NUR ---
MS RN NOTES PATIENT NOTED WITH ELEVATED BLOOD PRESSURE 164/74, HYDRALAZINE 50 MG GIVEN ORDERED. NOTIFIED DR THOMSON SAID PATIENT CAN GO HOME WHEN SBP BELOW 160. PATIENT IN STABLE CONDITION, ALERT ORIENTED X 4. WILL CONTINUE TO MONITOR PATIENT.
--- NOTE | 2019-01-01 19:00 | NUR ---
MS RN NOTES PATIENT IN BED ALERT ORIENTED X 4. NO ACUTE DISTRESS NOTED. BREATHING UNLABORED. NO COMPLAINT OF PAIN. IV ACCESS PATENT AND INTACT, NO REDNESS NO SWELLING NOTED. DUE MEDICATIONS GIVEN, NO ASE NOTED. NEEDS ATTENDED AND ANTICIPATED. KEPT CLEAN DRY AND COMFORTABLE.SAFETY MEASURES IN PLACE. CALL LIGHT WITHIN REACH. PATIENT FOR DISCHARGE HOME NOTED TO HAVE ELEVATED BLOOD PRESSURE, DR ARDON NOTIFIED SAID PATIENT MAY GO HOME IF SBP BELOW 160 ,WILL ENDORSE TO NIGHT NURSE FOR CONTINUITY OF CARE AND DISCHARGE..
--- NOTE | 2019-01-01 19:55 | NUR ---
MS PHOTOGRAPHIC ENGINEER NOTES PATIENT BP 166/78 AND INSISTENT ON GOING HOME DESPITE EXPLANATION OF RISKS AND BENEFITS. PATIENT DISCHARGED VIA AMA TO HOME WITH HOME HEALTH SERVICES. PATIENT REMAINS ALERT ORIENTED X 4 WITH NO ACUTE DISTRESS NOTED. BREATHING UNLABORED. DISCHARGE INSTRUCTIONS GIVEN TO THE PATIENT INCLUDING NEW PRESCRIPTIONS, FOLLOW UP WITH WOUND CENTER AND FOLLOW UP WITH MD AND PODIATRY, VERBALIZED UNDERSTANDING. ALL BELONGINGS ACCOUNTED FOR. LEFT UPPER ARM PICC LINE PATENT AND INTACT WITH TRANSPARENT DRESSING, NO REDNESS, NO BLEEDING, NO SWELLING NOTED. PATIENT REFUSED PHOTO TAKEN. RIGHT LOWER EXTREMITY DRESSING CLEAN , DRY AND INTACT. REMINDED PATIENT REGARDING NON WEIGHT BEARING ON RIGHT FOOT. DISCHARGE WITH CRUCTHES AND BOOTS. ASSISTED TO THE LOBBY, PICKED UP VIA PRIVATE CAR IN STABLE CONDITION.
[2019-01-01 20:43] VITALS: BP 166/72
== END 2019-01-01 19:55 | disposition home health service (06) | DRG 907 ==
LOC: ER 14:22 → MEDSG2 16:49
PROVIDERS: ADMIT Registered Nurse; ATTEND Student in an Organized Health Care Education/Training Program
PROC: 0Y6M0Z9 Detachment at Right Foot, Partial 1st Ray, Open Approach (ICD-10-PCS; principal; 2018-12-29)
PROC: 0Y6M0ZB Detachment at Right Foot, Partial 2nd Ray, Open Approach (ICD-10-PCS; 2018-12-29)
PROC: 0Y6M0ZC Detachment at Right Foot, Partial 3rd Ray, Open Approach (ICD-10-PCS; 2018-12-29)
PROC: 0Y6M0ZD Detachment at Right Foot, Partial 4th Ray, Open Approach (ICD-10-PCS; 2018-12-29)
PROC: 02HV33Z Insertion of Infusion Device into Superior Vena Cava, Percutaneous Approach (ICD-10-PCS; 2018-12-31)
PROC: B548ZZA Ultrasonography of Superior Vena Cava, Guidance (ICD-10-PCS; 2018-12-31)
DX: T81.89XA Other complications of procedures, not elsewhere classified, initial encounter (principal); N17.0 Acute kidney failure with tubular necrosis; M86.8X7 Other osteomyelitis, ankle and foot; E11.621 Type 2 diabetes mellitus with foot ulcer; E11.69 Type 2 diabetes mellitus with other specified complication; E11.22 Type 2 diabetes mellitus with diabetic chronic kidney disease; L97.519 Non-pressure chronic ulcer of other part of right foot with unspecified severity; I12.9 Hypertensive chronic kidney disease with stage 1 through stage 4 chronic kidney disease, or unspecified chronic kidney disease; N18.9 Chronic kidney disease, unspecified; I25.10 Atherosclerotic heart disease of native coronary artery without angina pectoris; Z95.5 Presence of coronary angioplasty implant and graft; E66.9 Obesity, unspecified; Z68.34 Body mass index [BMI] 34.0-34.9, adult; E11.610 Type 2 diabetes mellitus with diabetic neuropathic arthropathy; E11.51 Type 2 diabetes mellitus with diabetic peripheral angiopathy without gangrene; E11.42 Type 2 diabetes mellitus with diabetic polyneuropathy; D50.9 Iron deficiency anemia, unspecified; Y83.9 Surgical procedure, unspecified as the cause of abnormal reaction of the patient, or of later complication, without mention of misadventure at the time of the procedure; Y92.89 Other specified places as the place of occurrence of the external cause
CPT/HCPCS: 36415; 71045-TC; 73630-TC; 73718-TC; 73721-TC; 80048-TC; 80061-TC; 80202-TC; 81000-TC; 82272-TC; 82728-TC; 82962-TC; 83540-TC; 83735-TC; 84100-TC; 84439-TC; 84443-TC; 85025-TC; 85610-TC; 85652-TC; 86140-TC; 86850-TC; 87070-TC; 87081-TC; 87186-TC; 88305-TC; 88311-TC; 88312-TC; 93307-TC; 97116-TC; 97530-TC; A4216; A6253; A6403; C1751; G0378; J0290; J0696; J0885; J1650; J1815; J2020; J2916; J3370; J3490; J7030; J7040; J7050; J7060

== ENCOUNTER 2019-01-05 10:30 | Outpatient (CLI) | payer MEDICARE, BC ==
[~2019-01-05 10:30] MED LIST changes: -CEFTRIAXONE 1 G VIAL IM ONE; +FERR325T23 PO
== END 2019-01-05 23:59 | disposition home health service (06) ==
LOC: WOU 10:30
PROVIDERS: ATTEND Podiatrist Foot & Ankle Surgery
DX: E11.621 Type 2 diabetes mellitus with foot ulcer (principal); L97.516 Non-pressure chronic ulcer of other part of right foot with bone involvement without evidence of necrosis; E11.69 Type 2 diabetes mellitus with other specified complication; M86.671 Other chronic osteomyelitis, right ankle and foot; E11.42 Type 2 diabetes mellitus with diabetic polyneuropathy; Z79.84 Long term (current) use of oral hypoglycemic drugs; Z91.19 Patient's noncompliance with other medical treatment and regimen
CPT/HCPCS: 11043; 11046; A6402

== ENCOUNTER 2019-01-08 09:48 | Outpatient (CLI) | payer MEDICARE, BC | END 2019-01-08 23:59 | disposition home health service (06) | LOC: WOU 09:48 | PROVIDERS: ATTEND Podiatrist Foot & Ankle Surgery | DX: E11.621 Type 2 diabetes mellitus with foot ulcer (principal); L97.515 Non-pressure chronic ulcer of other part of right foot with muscle involvement without evidence of necrosis; E11.42 Type 2 diabetes mellitus with diabetic polyneuropathy; T81.30XA Disruption of wound, unspecified, initial encounter; Z91.19 Patient's noncompliance with other medical treatment and regimen; E11.69 Type 2 diabetes mellitus with other specified complication; M86.8X7 Other osteomyelitis, ankle and foot; B95.2 Enterococcus as the cause of diseases classified elsewhere; Z79.84 Long term (current) use of oral hypoglycemic drugs | CPT/HCPCS: 11042; 11045; A6402 ×3 ==

== ENCOUNTER 2019-01-13 08:45 | Outpatient (CLI) | payer MEDICARE, BC ==
[2019-01-13 09:56] LABS: PREALBUMIN 28.9 MG/DL (18.0-35.7)
[2019-01-13 10:00] LABS: ALBUMIN 3.5 g/dL (3.4-5.0); BILIRUBIN,TOTAL 0.3 mg/dL (0.2-1.0); CALCIUM, SERUM 8.6 mg/dL (8.5-10.1); CREATININE 2.2 mg/dL (0.6-1.3); POTASSIUM 4.6 mmol/L (3.5-5.1); TOTAL PROTEIN, SERUM 6.5 g/dL (6.4-8.2)
== END 2019-01-13 23:59 | disposition home health service (06) ==
LOC: WOU 08:45
PROVIDERS: ATTEND Specialist
DX: E11.621 Type 2 diabetes mellitus with foot ulcer (principal); L97.515 Non-pressure chronic ulcer of other part of right foot with muscle involvement without evidence of necrosis; E11.22 Type 2 diabetes mellitus with diabetic chronic kidney disease; I12.9 Hypertensive chronic kidney disease with stage 1 through stage 4 chronic kidney disease, or unspecified chronic kidney disease; N18.9 Chronic kidney disease, unspecified; E11.42 Type 2 diabetes mellitus with diabetic polyneuropathy; E11.69 Type 2 diabetes mellitus with other specified complication; M86.371 Chronic multifocal osteomyelitis, right ankle and foot; Z89.421 Acquired absence of other right toe(s); Z87.891 Personal history of nicotine dependence; Z79.84 Long term (current) use of oral hypoglycemic drugs
CPT/HCPCS: 36415; 80053; 83036; 84134; A6402 ×2; G0463

== ENCOUNTER 2019-01-19 11:50 | Outpatient (CLI) | payer MEDICARE, BC | END 2019-01-19 23:59 | disposition home health service (06) | LOC: WOU 11:50 | PROVIDERS: ATTEND Podiatrist Foot & Ankle Surgery | DX: E11.621 Type 2 diabetes mellitus with foot ulcer (principal); L97.513 Non-pressure chronic ulcer of other part of right foot with necrosis of muscle; E11.42 Type 2 diabetes mellitus with diabetic polyneuropathy; E11.69 Type 2 diabetes mellitus with other specified complication; M86.371 Chronic multifocal osteomyelitis, right ankle and foot; E11.22 Type 2 diabetes mellitus with diabetic chronic kidney disease; N18.9 Chronic kidney disease, unspecified; Z79.84 Long term (current) use of oral hypoglycemic drugs; Z89.421 Acquired absence of other right toe(s) | CPT/HCPCS: 11043 ==

== ENCOUNTER 2019-01-26 08:00 | Outpatient (CLI) | payer MEDICARE, BC | END 2019-01-26 23:59 | disposition home health service (06) | LOC: WOU 08:00 | PROVIDERS: ATTEND Podiatrist Foot & Ankle Surgery | DX: E11.621 Type 2 diabetes mellitus with foot ulcer (principal); L97.513 Non-pressure chronic ulcer of other part of right foot with necrosis of muscle; E11.42 Type 2 diabetes mellitus with diabetic polyneuropathy; E11.69 Type 2 diabetes mellitus with other specified complication; E11.22 Type 2 diabetes mellitus with diabetic chronic kidney disease; N18.9 Chronic kidney disease, unspecified; M86.371 Chronic multifocal osteomyelitis, right ankle and foot; Z79.84 Long term (current) use of oral hypoglycemic drugs; Z89.421 Acquired absence of other right toe(s) | CPT/HCPCS: 11043; 11046; 87070; A6253; 87186-TC ==

== ENCOUNTER 2019-02-02 10:15 | Outpatient (CLI) | payer MEDICARE, BC | END 2019-02-02 23:59 | disposition home health service (06) | LOC: WOU 10:15 | PROVIDERS: ATTEND Podiatrist Foot & Ankle Surgery | DX: E11.621 Type 2 diabetes mellitus with foot ulcer (principal); L97.813 Non-pressure chronic ulcer of other part of right lower leg with necrosis of muscle; E11.42 Type 2 diabetes mellitus with diabetic polyneuropathy; E11.69 Type 2 diabetes mellitus with other specified complication; M86.671 Other chronic osteomyelitis, right ankle and foot; Z79.84 Long term (current) use of oral hypoglycemic drugs | CPT/HCPCS: 11043; 97605-TC ==

== ENCOUNTER 2019-02-10 12:04 | Outpatient (CLI) | payer MEDICARE, BC | END 2019-02-10 23:59 | disposition home health service (06) | LOC: WOU 12:04 | PROVIDERS: ATTEND Podiatrist Foot & Ankle Surgery | DX: E11.621 Type 2 diabetes mellitus with foot ulcer (principal); L97.413 Non-pressure chronic ulcer of right heel and midfoot with necrosis of muscle; E11.42 Type 2 diabetes mellitus with diabetic polyneuropathy; Z89.431 Acquired absence of right foot; E11.69 Type 2 diabetes mellitus with other specified complication; M86.371 Chronic multifocal osteomyelitis, right ankle and foot; T81.31XA Disruption of external operation (surgical) wound, not elsewhere classified, initial encounter; E11.22 Type 2 diabetes mellitus with diabetic chronic kidney disease; N18.9 Chronic kidney disease, unspecified; Z79.84 Long term (current) use of oral hypoglycemic drugs | CPT/HCPCS: 11043; 11046; 97605; A4364 ==

== ENCOUNTER 2019-02-16 10:00 | Outpatient (CLI) | payer MEDICARE, BC ==
[2019-02-16 11:22] LABS: BASOPHILS % (AUTO) 0.4 % (0.0-2.0); EOSINOPHILS % (AUTO) 1.4 % (0.0-6.0); HEMATOCRIT 30 % (39-51); LYMPHOCYTES # (AUTO) 1.2 /CMM (0.8-4.8); LYMPHOCYTES % (AUTO) 17.4 % (20.0-44.0); MEAN CORPUSCULAR HGB CONC 34 g/dl (31.0-36.0); MEAN CORPUSCULAR VOLUME 83 fL (80-96); MONOCYTES # (AUTO) 0.5 /CMM (0.1-1.30); MONOCYTES % (AUTO) 6.6 % (2.0-12.0); NEUTROPHILS # (AUTO) 5.1 /CMM (1.8-8.9); NEUTROPHILS % (AUTO) 74.2 % (43.0-81.0); PLATELET COUNT (AUTO) 198 /CMM (150-450); WHITE BLOOD COUNT (AUTO) 6.9 K/uL (4.3-11.0)
[2019-02-16 11:26] LABS: C-REACTIVE PROTEIN 0.3 mg/dL (0.0-0.9); PREALBUMIN 26.9 MG/DL (18.0-35.7)
[2019-02-16 11:36] LABS: ALBUMIN 3.6 g/dL (3.4-5.0); CALCIUM, SERUM 8.6 mg/dL (8.5-10.1); CREATININE 2.1 mg/dL (0.6-1.3); POTASSIUM 4.6 mmol/L (3.5-5.1)
== END 2019-02-16 23:59 | disposition home health service (06) ==
LOC: WOU 10:00
PROVIDERS: ATTEND Podiatrist Foot & Ankle Surgery
DX: E11.621 Type 2 diabetes mellitus with foot ulcer (principal); L97.513 Non-pressure chronic ulcer of other part of right foot with necrosis of muscle; E11.42 Type 2 diabetes mellitus with diabetic polyneuropathy; E11.69 Type 2 diabetes mellitus with other specified complication; E11.22 Type 2 diabetes mellitus with diabetic chronic kidney disease; I12.9 Hypertensive chronic kidney disease with stage 1 through stage 4 chronic kidney disease, or unspecified chronic kidney disease; M86.371 Chronic multifocal osteomyelitis, right ankle and foot; N18.9 Chronic kidney disease, unspecified; Z79.84 Long term (current) use of oral hypoglycemic drugs
CPT/HCPCS: 11043; 36415; 80048; 82040; 83036; 84134; 85025; 85652; 86140; 97605; A4364

== ENCOUNTER 2019-02-17 13:58 | Outpatient (CLI) | payer MEDICARE, BC | END 2019-02-17 23:59 | disposition home or self-care (01) | LOC: WOU 13:58 | PROVIDERS: ATTEND Registered Nurse | DX: E11.69 Type 2 diabetes mellitus with other specified complication (principal); M86.8X7 Other osteomyelitis, ankle and foot; B95.2 Enterococcus as the cause of diseases classified elsewhere; B96.1 Klebsiella pneumoniae [K. pneumoniae] as the cause of diseases classified elsewhere; B96.89 Other specified bacterial agents as the cause of diseases classified elsewhere; Z16.342 Resistance to multiple antimycobacterial drugs; Z89.411 Acquired absence of right great toe; E11.620 Type 2 diabetes mellitus with diabetic dermatitis; L97.819 Non-pressure chronic ulcer of other part of right lower leg with unspecified severity; E11.22 Type 2 diabetes mellitus with diabetic chronic kidney disease; N18.9 Chronic kidney disease, unspecified | CPT/HCPCS: G0463 ==

== ENCOUNTER 2019-02-24 10:00 | Outpatient (CLI) | payer MEDICARE, BC | END 2019-02-24 23:59 | disposition home health service (06) | LOC: WOU 10:00 | PROVIDERS: ATTEND Specialist | DX: T81.31XA Disruption of external operation (surgical) wound, not elsewhere classified, initial encounter (principal); E11.621 Type 2 diabetes mellitus with foot ulcer; L97.413 Non-pressure chronic ulcer of right heel and midfoot with necrosis of muscle; E11.42 Type 2 diabetes mellitus with diabetic polyneuropathy; Z91.19 Patient's noncompliance with other medical treatment and regimen; Z89.411 Acquired absence of right great toe; Z87.891 Personal history of nicotine dependence; E11.69 Type 2 diabetes mellitus with other specified complication; M86.371 Chronic multifocal osteomyelitis, right ankle and foot; Z79.84 Long term (current) use of oral hypoglycemic drugs | CPT/HCPCS: 11043; 87070; 87075; 87077; 87186 ×4; 97605; A4364; G0463 ==

== ENCOUNTER 2019-03-02 10:30 | Outpatient (CLI) | payer MEDICARE, BC | END 2019-03-02 23:59 | disposition home health service (06) | LOC: WOU 10:30 | PROVIDERS: ATTEND Podiatrist Foot & Ankle Surgery | DX: E11.621 Type 2 diabetes mellitus with foot ulcer (principal); L97.513 Non-pressure chronic ulcer of other part of right foot with necrosis of muscle; Z79.84 Long term (current) use of oral hypoglycemic drugs; E11.22 Type 2 diabetes mellitus with diabetic chronic kidney disease; E11.42 Type 2 diabetes mellitus with diabetic polyneuropathy; E11.69 Type 2 diabetes mellitus with other specified complication; I12.9 Hypertensive chronic kidney disease with stage 1 through stage 4 chronic kidney disease, or unspecified chronic kidney disease; M86.371 Chronic multifocal osteomyelitis, right ankle and foot; N18.9 Chronic kidney disease, unspecified; Z89.421 Acquired absence of other right toe(s) | CPT/HCPCS: 11043; 97605-TC ==

== ENCOUNTER 2019-03-09 10:00 | Outpatient (CLI) | payer MEDICARE, BC | END 2019-03-09 23:59 | disposition home health service (06) | LOC: WOU 10:00 | PROVIDERS: ATTEND Podiatrist Foot & Ankle Surgery | DX: E11.621 Type 2 diabetes mellitus with foot ulcer (principal); L97.513 Non-pressure chronic ulcer of other part of right foot with necrosis of muscle; E11.69 Type 2 diabetes mellitus with other specified complication; E11.42 Type 2 diabetes mellitus with diabetic polyneuropathy; M86.371 Chronic multifocal osteomyelitis, right ankle and foot; E11.22 Type 2 diabetes mellitus with diabetic chronic kidney disease; I12.9 Hypertensive chronic kidney disease with stage 1 through stage 4 chronic kidney disease, or unspecified chronic kidney disease; N18.9 Chronic kidney disease, unspecified; Z79.84 Long term (current) use of oral hypoglycemic drugs; Z89.421 Acquired absence of other right toe(s) | CPT/HCPCS: 11043; 97605-TC ==

== ENCOUNTER 2019-03-16 10:00 | Outpatient (CLI) | payer MEDICARE, BC | END 2019-03-16 23:59 | disposition home health service (06) | LOC: WOU 10:00 | PROVIDERS: ATTEND Podiatrist Foot & Ankle Surgery | DX: E11.621 Type 2 diabetes mellitus with foot ulcer (principal); L97.513 Non-pressure chronic ulcer of other part of right foot with necrosis of muscle; E11.22 Type 2 diabetes mellitus with diabetic chronic kidney disease; I12.9 Hypertensive chronic kidney disease with stage 1 through stage 4 chronic kidney disease, or unspecified chronic kidney disease; E11.42 Type 2 diabetes mellitus with diabetic polyneuropathy; E11.69 Type 2 diabetes mellitus with other specified complication; M86.371 Chronic multifocal osteomyelitis, right ankle and foot; Z79.84 Long term (current) use of oral hypoglycemic drugs; N18.9 Chronic kidney disease, unspecified; Z87.891 Personal history of nicotine dependence; Z89.411 Acquired absence of right great toe | CPT/HCPCS: 11043; 11046; 97605; A4364 ==

== ENCOUNTER 2019-03-18 12:47 | Outpatient (CLI) | payer MEDICARE, BC | END 2019-03-18 23:59 | disposition home or self-care (01) | LOC: MRI 12:47 | PROVIDERS: ATTEND Podiatrist Foot & Ankle Surgery | DX: M86.171 Other acute osteomyelitis, right ankle and foot (principal); E11.621 Type 2 diabetes mellitus with foot ulcer; L97.519 Non-pressure chronic ulcer of other part of right foot with unspecified severity; I10 Essential (primary) hypertension | CPT/HCPCS: 73718-TC ==

== ENCOUNTER 2019-03-23 10:20 | Outpatient (CLI) | payer MEDICARE, BC | END 2019-03-23 23:59 | disposition home health service (06) | LOC: WOU 10:20 | PROVIDERS: ATTEND Podiatrist Foot & Ankle Surgery | DX: E11.621 Type 2 diabetes mellitus with foot ulcer (principal); L97.513 Non-pressure chronic ulcer of other part of right foot with necrosis of muscle; E11.69 Type 2 diabetes mellitus with other specified complication; E11.42 Type 2 diabetes mellitus with diabetic polyneuropathy; E11.22 Type 2 diabetes mellitus with diabetic chronic kidney disease; I12.9 Hypertensive chronic kidney disease with stage 1 through stage 4 chronic kidney disease, or unspecified chronic kidney disease; M86.371 Chronic multifocal osteomyelitis, right ankle and foot; N18.9 Chronic kidney disease, unspecified; Z87.891 Personal history of nicotine dependence; Z79.84 Long term (current) use of oral hypoglycemic drugs; Z89.421 Acquired absence of other right toe(s) | CPT/HCPCS: 11043; 97605; A4364 ==

== ENCOUNTER 2019-03-30 10:00 | Outpatient (CLI) | payer MEDICARE, BC ==
[~2019-03-30 10:00] MED LIST changes: -GLIM4TAB2 PO; +GLIM4TAB4 PO
== END 2019-03-30 23:59 | disposition home health service (06) ==
LOC: WOU 10:00
PROVIDERS: ATTEND Podiatrist Foot & Ankle Surgery
DX: E11.621 Type 2 diabetes mellitus with foot ulcer (principal); L97.513 Non-pressure chronic ulcer of other part of right foot with necrosis of muscle; E11.42 Type 2 diabetes mellitus with diabetic polyneuropathy; E11.69 Type 2 diabetes mellitus with other specified complication; M86.8X7 Other osteomyelitis, ankle and foot; Z79.84 Long term (current) use of oral hypoglycemic drugs; Z89.411 Acquired absence of right great toe; B95.2 Enterococcus as the cause of diseases classified elsewhere; B96.89 Other specified bacterial agents as the cause of diseases classified elsewhere
CPT/HCPCS: 11043

== ENCOUNTER 2019-04-06 10:10 | Outpatient (CLI) | payer MEDICARE, BC | END 2019-04-06 23:59 | disposition home health service (06) | LOC: WOU 10:10 | PROVIDERS: ATTEND Podiatrist Foot & Ankle Surgery | DX: E11.621 Type 2 diabetes mellitus with foot ulcer (principal); L97.513 Non-pressure chronic ulcer of other part of right foot with necrosis of muscle; E11.22 Type 2 diabetes mellitus with diabetic chronic kidney disease; E11.69 Type 2 diabetes mellitus with other specified complication; E11.42 Type 2 diabetes mellitus with diabetic polyneuropathy; N18.9 Chronic kidney disease, unspecified; M86.371 Chronic multifocal osteomyelitis, right ankle and foot; Z79.84 Long term (current) use of oral hypoglycemic drugs; Z89.411 Acquired absence of right great toe; Z91.19 Patient's noncompliance with other medical treatment and regimen | CPT/HCPCS: 11043 ==

== ENCOUNTER 2019-04-13 10:00 | Outpatient (CLI) | payer MEDICARE, BC ==
[~2019-04-13 10:00] MED LIST changes: +GLIM4TAB2 PO; -GLIM4TAB4 PO
== END 2019-04-13 23:59 | disposition home health service (06) ==
LOC: WOU 10:00
PROVIDERS: ATTEND Podiatrist Foot & Ankle Surgery
DX: E11.621 Type 2 diabetes mellitus with foot ulcer (principal); L97.513 Non-pressure chronic ulcer of other part of right foot with necrosis of muscle; E11.42 Type 2 diabetes mellitus with diabetic polyneuropathy; E11.69 Type 2 diabetes mellitus with other specified complication; E11.22 Type 2 diabetes mellitus with diabetic chronic kidney disease; I12.9 Hypertensive chronic kidney disease with stage 1 through stage 4 chronic kidney disease, or unspecified chronic kidney disease; M86.371 Chronic multifocal osteomyelitis, right ankle and foot; N18.9 Chronic kidney disease, unspecified; Z87.891 Personal history of nicotine dependence; Z79.84 Long term (current) use of oral hypoglycemic drugs; Z89.421 Acquired absence of other right toe(s)
CPT/HCPCS: 11043; 82962-TC

== ENCOUNTER 2019-04-20 09:35 | Outpatient (CLI) | payer MEDICARE, BC ==
[~2019-04-20 09:35] MED LIST changes: -GLIM4TAB2 PO; +GLIM4TAB4 PO
== END 2019-04-20 23:59 | disposition home health service (06) ==
LOC: WOU 09:35
PROVIDERS: ATTEND Podiatrist Foot & Ankle Surgery
DX: E11.621 Type 2 diabetes mellitus with foot ulcer (principal); L97.513 Non-pressure chronic ulcer of other part of right foot with necrosis of muscle; E11.69 Type 2 diabetes mellitus with other specified complication; M86.371 Chronic multifocal osteomyelitis, right ankle and foot; E11.22 Type 2 diabetes mellitus with diabetic chronic kidney disease; I12.9 Hypertensive chronic kidney disease with stage 1 through stage 4 chronic kidney disease, or unspecified chronic kidney disease; N18.9 Chronic kidney disease, unspecified; Z87.891 Personal history of nicotine dependence; Z79.84 Long term (current) use of oral hypoglycemic drugs; Z89.411 Acquired absence of right great toe; Z79.2 Long term (current) use of antibiotics
CPT/HCPCS: 11043

== ENCOUNTER 2019-04-22 11:52 | Outpatient (CLI) | payer MEDICARE, BC ==
[~2019-04-22 11:52] MED LIST changes: +GLIM4TAB2 PO; -GLIM4TAB4 PO
== END 2019-04-22 23:59 | disposition home or self-care (01) ==
LOC: MRI 11:52
PROVIDERS: ATTEND Podiatrist Foot & Ankle Surgery
DX: E11.621 Type 2 diabetes mellitus with foot ulcer (principal); I10 Essential (primary) hypertension
CPT/HCPCS: 73718-TC

== ENCOUNTER 2019-04-27 10:20 | Outpatient (CLI) | payer MEDICARE, BC | END 2019-04-27 23:59 | disposition home health service (06) | LOC: WOU 10:20 | PROVIDERS: ATTEND Podiatrist Foot & Ankle Surgery | DX: E11.621 Type 2 diabetes mellitus with foot ulcer (principal); L97.513 Non-pressure chronic ulcer of other part of right foot with necrosis of muscle; E11.69 Type 2 diabetes mellitus with other specified complication; E11.42 Type 2 diabetes mellitus with diabetic polyneuropathy; M86.371 Chronic multifocal osteomyelitis, right ankle and foot; E11.22 Type 2 diabetes mellitus with diabetic chronic kidney disease; N18.9 Chronic kidney disease, unspecified; Z79.84 Long term (current) use of oral hypoglycemic drugs; Z89.421 Acquired absence of other right toe(s) | CPT/HCPCS: 11043 ==

== ENCOUNTER 2019-04-28 08:43 | Outpatient (CLI) | payer MEDICARE, BC ==
[2019-04-28 10:55] LABS: BASOPHILS % (AUTO) 0.2 % (0.0-2.0); EOSINOPHILS % (AUTO) 1.5 % (0.0-6.0); HEMATOCRIT 36 % (39-51); HEMOGLOBIN 12.2 g/dL (13.5-17.5); LYMPHOCYTES # (AUTO) 1.4 /CMM (0.8-4.8); LYMPHOCYTES % (AUTO) 19.5 % (20.0-44.0); MEAN CORPUSCULAR HGB CONC 34 g/dl (31.0-36.0); MEAN CORPUSCULAR VOLUME 80 fL (80-96); MONOCYTES # (AUTO) 0.4 /CMM (0.1-1.30); NEUTROPHILS # (AUTO) 5.5 /CMM (1.8-8.9); NEUTROPHILS % (AUTO) 73.8 % (43.0-81.0); PLATELET COUNT (AUTO) 207 /CMM (150-450); RED BLOOD CELL COUNT(AUTO) 4.56 MIL/uL (4.5-6.0); WHITE BLOOD COUNT (AUTO) 7.4 K/uL (4.3-11.0)
[2019-04-28 11:01] LABS: PREALBUMIN 31.4 MG/DL (18.0-35.7)
[2019-04-28 11:02] LABS: ALANINE AMINOTRANSFERASE 29 U/L (12-78); ALBUMIN 3.9 g/dL (3.4-5.0); ALKALINE PHOSPHATASE 94 U/L (46-116); ASPARTATE AMINOTRANSFERASE 19 U/L (15-37); BILIRUBIN,TOTAL 0.3 mg/dL (0.2-1.0); CALCIUM, SERUM 8.5 mg/dL (8.5-10.1); CARBON DIOXIDE 22 mmol/L (21-32); CHLORIDE 101 mmol/L (98-107); CREATININE 2.3 mg/dL (0.6-1.3); GLUCOSE 210 mg/dL (74-106); POTASSIUM 4.6 mmol/L (3.5-5.1); SODIUM SERUM 135 mmol/L (136-145); TOTAL PROTEIN, SERUM 7.7 g/dL (6.4-8.2); UREA NITROGEN, BLOOD 44 mg/dL (7-18)
[2019-04-28 11:12] LABS: C-REACTIVE PROTEIN < 0.2 mg/dL (0.0-0.9)
== END 2019-04-28 23:59 | disposition home or self-care (01) ==
LOC: LAB 08:43
PROVIDERS: ATTEND Podiatrist Foot & Ankle Surgery
DX: Z01.818 Encounter for other preprocedural examination (principal); E11.621 Type 2 diabetes mellitus with foot ulcer; I10 Essential (primary) hypertension; Z95.5 Presence of coronary angioplasty implant and graft
CPT/HCPCS: 36415; 80053-TC; 84134-TC; 85025-TC; 85652-TC; 85730-TC; 86140-TC

== ENCOUNTER 2019-05-07 05:41 | Inpatient (IN) | payer MEDICARE, BC ==
[~2019-05-07] VITALS: Ht 182.9 cm; Wt 116.8 kg
[~2019-05-07 05:41] MED LIST changes: -GLIM4TAB2 PO; +GLIM4TAB4 PO
[2019-05-07 05:50] VITALS: BP 126/56
--- NOTE | 2019-05-07 05:50 | NUR ---
RN NOTES RECEIVED PT. FROM DAY SURGERY FOR RIGHT FOOT DEBRIDEMENT, A/OX4, AMBULATORY,.. ADMISSION INSTRUCTIONS WAS RENDERED.... RIGHT FOOT WITH DRESSING BUT PT. OPTED NOT TO OPEN THE DRESSING, CALL LIGHT WITHIN REACH, [id number], CONTINUE TO MONITOR
[2019-05-07 06:51] VITALS: BP 126/56
--- NOTE | 2019-05-07 07:00 | NUR ---
RN NOTES pt. send to OR... not in distress, v/s stable
[2019-05-07] MEDS ORDERED: BUPIVACAINE MPF 0.5% W/EPI INJ 30 ML VIAL ONE (07:16)
[2019-05-07] MEDS ORDERED: ANESTHESIA TRAY IN PYXIS 1 EA TRAY MC ONE (07:16)
[2019-05-07] MEDS ORDERED: LIDOCAINE HCL/PF 1% 30 ML SDV ONE (07:16)
--- NOTE | 2019-05-07 07:29 | NUR ---
MS RN OPENING NOTES RECEIVED REPORT FROM AERONAUTICS TEACHER NURSE, PATIENT ALREADY IN SURGERY.
[2019-05-07] MEDS ORDERED: HYDROMORPHONE INJ 2 MG/ML DISP.SYRIN ONE (07:37)
[2019-05-07] MEDS ORDERED: VANCOMYCIN 1 GM VIAL ONE (07:45)
--- NOTE | 2019-05-07 11:10 | NUR ---
MS RN NOTES PATIENT ARRIVED AT 11:00 ON UNIT WITH 2 BONDING SUPERVISOR VIA KENYA FROM SURGERY, REPORT RECEIVED FROM CHIKA WOLF. A/O X 4. ON RA. WITH IV ACCESS ON LEFT HAND #20. PATENT AND INTACT. DRESSING ON RIGHT FOOT WITH SPLINT, CLEAN, DRY AND INTACT. NO ACUTE SIGNS OF DISTRESS NOTED AT THIS TIME. PATIENT DENIES ANY PAIN OR DISCOMFORT. PATIENT WITH NEW ORDERS FROM DR. YANEZ, NOTED AND CARRIED OUT. PATIENT MADE AWARE AND VERBALIZED UNDERSTANDING. WILL CONTINUE TO MONITOR.
[2019-05-07 11:42] VITALS: BP 135/62
[2019-05-07 11:54] LABS: CALCIUM, SERUM 8.1 mg/dL (8.5-10.1); CREATININE 2.7 mg/dL (0.6-1.3); POTASSIUM 5.3 mmol/L (3.5-5.1)
[2019-05-07] MEDS ORDERED: ZOSYN IVPB 3.375 G in IV D5W 50ml IV SCH (12:00)
[2019-05-07] MEDS ORDERED: CLON1PAT14 (12:25)
[2019-05-07] MEDS ORDERED: FURO40TA5 PO (12:25)
[2019-05-07] MEDS ORDERED: FEE PK DOSING 1 MIN EA MC ONE (13:31)
[2019-05-07] MEDS: ZOSYN IVPB 2.25 G in IV D5W 50ml IV SCH ×3 (13:59→23:20)
[2019-05-07] MEDS: VANCOMYCIN 1 GM in IV D5W 250ml IV SCH (14:47)
[2019-05-07 16:00] VITALS: BP 117/56
--- NOTE | 2019-05-07 18:39 | NUR ---
MS RN CLOSING NOTES PATIENT IN BED RESTING COMFORTABLY IN MODERATE HIGH BACK REST. A/O X 4. ON RA, TOLERATING WELL. WITH IV ACCESS ON LEFT HAND #20. PATENT AND INTACT. DRESSING ON RIGHT FOOT WITH SPLINT, CLEAN, DRY AND INTACT. NO ACUTE SIGNS OF DISTRESS NOTED THROUGHOUT THE SHIFT. ALL NURSING NEEDS ATTENDED. SAFETY MEASURES IN PLACE, BED IN LOW LOCKED POSITION WITH SIDE RAILS UP X2. CALL LIGHT WITHIN EASY REACH. WILL ENDORSE TO UTILITY HELICOPTER REPAIRER NURSE FOR TITI.
--- NOTE | 2019-05-07 19:30 | NUR ---
MS RN NOTE: PATIENT RESTING IN BED, NO ACUTE DISTRESS NOTED. BREATHING EVEN AND UNLABORED, NO SOB NOTED. DRESSING TO RIGHT FOOT/LEG IN PLACE, NO BLEEDING NOTED. IV TO LEFT HAND IN PLACE. BED LOCKED AND IN LOWEST POSITION, CALL LIGHT IN REACH. WILL CONTINUE TO MONITOR.
[2019-05-07 20:00] VITALS: BP 151/77
[2019-05-07] MEDS ORDERED: ONDANSETRON HCL/PF 4 MG/2 ML VIAL IV PRN (21:30)
[2019-05-07] MEDS ORDERED: HYDROMORPHONE 1 MG/1 ML DISP.SYRIN IV PRN (21:30)
[2019-05-07] MEDS ORDERED: DEXTROSE 50%-WATER 50 ML DISP.SYRIN IV PRN (21:30)
[2019-05-07] MEDS: BLOOD SUGAR DIAGNOSTIC 1 EACH STRIP IN SCH (21:32)
[2019-05-07] MEDS: INSULIN REGULAR, HUMAN 100 UNIT/ML 3 ML VIAL SQ PRN (21:39)
--- NOTE | 2019-05-07 21:45 | NUR ---
MS RN NOTE: PATIENT COMPLAINS OF PAIN TO RIGHT FOOT/LEG 03/09, DILAUDID 1MG IV GIVEN PER MD ORDER. PATIENT BLOOD SUGAR LEVEL 233MG/DL, PATIENT TO RECEIVE 4 UNITS OF INSULIN PER SLIDING SCALE., NO S/S OF HYPER/HYPOGLYCEMIA NOTED, WILL CONTINUE TO MONITOR.
[2019-05-08] MEDS: ZOSYN IVPB 2.25 G in IV D5W 50ml IV SCH ×4 (06:00→23:46)
[2019-05-08] MEDS: INSULIN REGULAR, HUMAN 100 UNIT/ML 3 ML VIAL SQ PRN ×4 (06:09→21:35)
--- NOTE | 2019-05-08 06:30 | NUR ---
MS RN NOTE: PATIENT RESTING IN BED, NO ACUTE DISTRESS NOTED. BREATHING EVEN AND UNLABORED, NO SOB NOTED. DRESSING TO RIGHT FOOT/LEG IN PLACE, NO BLEEDING NOTED. IV TO LEFT HAND IN PLACE. PATIENT BLOOD SUGAR LEVEL 187MG/DL, TO RECEIVE 3 UNITS OF INSULIN PER SLIDING SCALE, NO S/S OF HYPER/HYPOGLYCEMIA NOTED. BED LOCKED AND IN LOWEST POSITION, CALL LIGHT IN REACH. WILL ENDORSE TO DAY NURSE TO CONTINUE WITH PLAN OF CARE.
[2019-05-08 07:20] LABS: CREATININE 2.7 mg/dL (0.6-1.3); POTASSIUM 4.4 mmol/L (3.5-5.1)
[2019-05-08] MEDS: BLOOD SUGAR DIAGNOSTIC 1 EACH STRIP IN SCH ×4 (07:30→21:07)
--- NOTE | 2019-05-08 07:34 | NUR ---
MS RN OPENING NOTES RECEIVED PATIENT IN BED RESTING COMFORTABLY IN MODERATE HIGH BACK REST. A/O X 4. NOTED WITH IV ACCESS ON LEFT HAND #20. PATENT AND INTACT. S/P RIGHT FOOT DEBRIDEMENT WITH DRESSING AND SPLINT, CLEAN, DRY AND INTACT. NO ACUTE SIGNS OF DISTRESS NOTED AT THIS TIME. SAFETY MEASURES IN PLACE, BED IN LOW LOCKED POSITION WITH SIDE RAILS UP X2. CALL LIGHT WITHIN EASY REACH. WILL CONTINUE TO MONITOR.
[2019-05-08 08:00] VITALS: BP 123/57
[2019-05-08] MEDS: GLIMEPIRIDE 4 MG TABLET PO SCH ×2 (08:17→16:34)
[2019-05-08] MEDS: ASPIRIN EC 81 MG TABLET.DR PO SCH (08:17)
[2019-05-08] MEDS: FUROSEMIDE 40 MG TABLET PO SCH (08:17)
[2019-05-08] MEDS: hydrALAZINE HCL 50 MG TABLET PO SCH ×3 (08:21→16:40)
[2019-05-08] MEDS: METOPROLOL SUCCINATE 50 MG TAB.SR.24H PO SCH (08:21)
[2019-05-08] MEDS ORDERED: VANCOMYCIN 1 GM in IV D5W 250ml IV SCH (09:00)
[2019-05-08] MEDS: VANCOMYCIN 1 GM in IV D5W 250ml IV SCH (13:05)
[2019-05-08 16:14] VITALS: BP 127/67
--- NOTE | 2019-05-08 18:47 | NUR ---
MS RN CLOSING NOTES PATIENT IN BED RESTING COMFORTABLY IN MODERATE HIGH BACK REST. A/O X 4. IV ACCESS ON LEFT HAND #20. PATENT AND INTACT. NO ACUTE SIGNS OF DISTRESS NOTED THROUGHOUT THE SHIFT. ALL NURSING NEEDS ATTENDED. SAFETY MEASURES MAINTAINED, BED IN LOW LOCKED POSITION WITH SIDE RAILS UP X2. CALL LIGHT WITHIN EASY REACH. WILL ENDORSE TO ASSEMBLER WIRE GROUP NURSE FOR TITI.
[2019-05-08 20:00] VITALS: BP 131/56
--- NOTE | 2019-05-08 20:00 | NUR ---
RN NOTES RECEIVED PATIENT IN BED, ALERT AND ORIENTED X4, ROOM AIR, DENIES PAIN AT THIS TIME, RIGHT FOOT DIABETIC WOUND WITH DRESSING, DRY AND INTACT, AMBULATES, NWB TO RIGHT FOOT, USES URINAL TO VOID, KEPT SAFE, CALL LIGHT WITHIN REACH
[2019-05-09] MEDS: ZOSYN IVPB 2.25 G in IV D5W 50ml IV SCH ×4 (05:34→23:30)
[2019-05-09] MEDS: BLOOD SUGAR DIAGNOSTIC 1 EACH STRIP IN SCH ×4 (06:31→22:00)
[2019-05-09] MEDS: INSULIN REGULAR, HUMAN 100 UNIT/ML 3 ML VIAL SQ PRN ×4 (06:32→22:01)
[2019-05-09 07:00] LABS: BASOPHILS % (AUTO) 0.2 % (0.0-2.0); EOSINOPHILS % (AUTO) 1.1 % (0.0-6.0); HEMATOCRIT 26 % (39-51); HEMOGLOBIN 9.2 g/dL (13.5-17.5); LYMPHOCYTES % (AUTO) 17.7 % (20.0-44.0); MEAN CORPUSCULAR HGB CONC 35 g/dl (31.0-36.0); MEAN CORPUSCULAR VOLUME 80 fL (80-96); MONOCYTES # (AUTO) 0.5 /CMM (0.1-1.30); MONOCYTES % (AUTO) 9.1 % (2.0-12.0); NEUTROPHILS # (AUTO) 4.1 /CMM (1.8-8.9); NEUTROPHILS % (AUTO) 71.9 % (43.0-81.0); PLATELET COUNT (AUTO) 140 /CMM (150-450); RED BLOOD CELL COUNT(AUTO) 3.31 MIL/uL (4.5-6.0); WHITE BLOOD COUNT (AUTO) 5.8 K/uL (4.3-11.0)
[2019-05-09 07:06] LABS: CALCIUM, SERUM 8.6 mg/dL (8.5-10.1); CREATININE 2.5 mg/dL (0.6-1.3); POTASSIUM 4.7 mmol/L (3.5-5.1)
--- NOTE | 2019-05-09 07:18 | NUR ---
PATIENT ALERT AND ORIENTED X4, ROOM AIR, NO COMPLAIN OF PAIN, S/P RIGHT FOOT DEBRIDEMENT, NWB TO RIGHT FOOT, DRESSING DRY AND INTACT, OFFLOADED, USES URINAL, AM LABS, CONTINUE VANCOMYCIN AND ZOSYN, FOLLOW UP WOUND CULTURE
--- NOTE | 2019-05-09 07:28 | NUR ---
MS RN OPENING NOTES RECEIVED PATIENT IN BED RESTING COMFORTABLY IN MODERATE HIGH BACK REST. A/O X4. ON RA, TOLERATING WELL. NO SIGNS OF DISTRESS NOTED AT THIS TIME. IV ACCESS ON LEFT HAND #20, SL. PATENT AND INTACT. SAFETY MEASURES IN PLACE, BED IN LOW LOCKED POSITION WITH SIDE RAILS UP X2. CALL LIGHT WITHIN REACH. WILL CONTINUE TO MONITOR.
[2019-05-09 08:09] VITALS: BP_SYST 124; BP_SYST 148; BP_DIAS 72; BP_DIAS 82
[2019-05-09] MEDS: FUROSEMIDE 40 MG TABLET PO SCH (08:32)
[2019-05-09] MEDS: GLIMEPIRIDE 4 MG TABLET PO SCH ×2 (08:32→16:41)
[2019-05-09] MEDS: ASPIRIN EC 81 MG TABLET.DR PO SCH (08:32)
[2019-05-09] MEDS: hydrALAZINE HCL 50 MG TABLET PO SCH ×3 (08:49→16:41)
[2019-05-09] MEDS: METOPROLOL SUCCINATE 50 MG TAB.SR.24H PO SCH (08:50)
--- NOTE | 2019-05-09 08:50 | NUR ---
RN NOTES PATIENT REFUSED BP MEDICATION, PER PATIENT " PULSE IS TOO LOW". EXPLAINED THE RISKS AND BENEFITS. BP- 148/72, PULSE -51. WILL CONTINUE TO MONITOR.
[2019-05-09] MEDS: VANCOMYCIN 1 GM in IV D5W 250ml IV SCH (13:41)
[2019-05-09 16:03] VITALS: BP 155/74
[2019-05-09] MEDS: LACTOBACILLUS RHAMNOSUS GG 1 EACH CAP.SPRINK PO SCH (16:42)
--- NOTE | 2019-05-09 16:53 | NUR ---
RN NOTES PER PATIENT REQUESTS, HE WANTS TO TAKE HYDRALAZINE 50MG, PATIENT BP-155/74, PULSE - 53. PATIENT A/O X4. WILL CONTINUE TO MONITOR.
--- NOTE | 2019-05-09 18:28 | NUR ---
MS RN CLOSING NOTES PATIENT IN BED RESTING COMFORTABLY IN MODERATE HIGH BACK REST. A/O X4. ON RA, TOLERATING WELL. NO SIGNS OF DISTRESS NOTED THROUGHOUT THE SHIFT. IV ACCESS ON RIGHT FA #22, SL. PATENT AND INTACT. SAFETY MEASURES IN PLACE, BED IN LOW LOCKED POSITION WITH SIDE RAILS UP X2. CALL LIGHT WITHIN REACH. WILL ENDORSE TO GREASE MACHINE WORKER NURSE FOR TITI.
--- NOTE | 2019-05-09 19:55 | NUR ---
MS RN NOTES RECEIVED PATIENT IN BED RESTING COMFORTABLY IN MODERATE HIGH BACK REST. ALERT ORIENTED X4. ON RA, TOLERATING WELL. NO SIGNS OF DISTRESS NOTED AT THIS TIME. IV ACCESS ON LEFT HAND #20, SL. PATENT AND INTACT. SAFETY MEASURES IN PLACE, BED IN LOW LOCKED POSITION WITH SIDE RAILS UP X2. CALL LIGHT WITHIN EASY REACH. WILL CONTINUE TO MONITOR ACCORDINGLY.
[2019-05-09 20:00] VITALS: BP 149/75
[2019-05-09 20:46] VITALS: BP 149/75
[2019-05-10] MEDS: ZOSYN IVPB 2.25 G in IV D5W 50ml IV SCH ×4 (05:29→23:39)
[2019-05-10] MEDS: BLOOD SUGAR DIAGNOSTIC 1 EACH STRIP IN SCH ×4 (06:54→22:11)
[2019-05-10] MEDS: INSULIN REGULAR, HUMAN 100 UNIT/ML 3 ML VIAL SQ PRN ×4 (06:56→22:13)
[2019-05-10 07:06] LABS: BASOPHILS % (AUTO) 0.3 % (0.0-2.0); HEMATOCRIT 27 % (39-51); HEMOGLOBIN 9.1 g/dL (13.5-17.5); LYMPHOCYTES # (AUTO) 1.2 /CMM (0.8-4.8); LYMPHOCYTES % (AUTO) 20.8 % (20.0-44.0); MEAN CORPUSCULAR HGB CONC 34 g/dl (31.0-36.0); MEAN CORPUSCULAR VOLUME 79 fL (80-96); MONOCYTES # (AUTO) 0.4 /CMM (0.1-1.30); MONOCYTES % (AUTO) 7.1 % (2.0-12.0); NEUTROPHILS # (AUTO) 4.1 /CMM (1.8-8.9); NEUTROPHILS % (AUTO) 69.8 % (43.0-81.0); PLATELET COUNT (AUTO) 143 /CMM (150-450); WHITE BLOOD COUNT (AUTO) 5.8 K/uL (4.3-11.0)
[2019-05-10 07:16] LABS: CALCIUM, SERUM 8.5 mg/dL (8.5-10.1); CREATININE 2.3 mg/dL (0.6-1.3); POTASSIUM 4.3 mmol/L (3.5-5.1)
--- NOTE | 2019-05-10 07:23 | NUR ---
MS RN OPENING NOTES RECEIVED PATIENT IN BED RESTING COMFORTABLY IN MODERATE HIGH BACK REST. A/O X4. ON RA, TOLERATING WELL. NO SIGNS OF DISTRESS NOTED AT THIS TIME. IV ACCESS ON RIGHT FA #22, SL. PATENT AND INTACT. SAFETY MEASURES IN PLACE, BED IN LOW LOCKED POSITION WITH SIDE RAILS UP X2. CALL LIGHT WITHIN REACH. WILL CONTINUE TO MONITOR.
--- NOTE | 2019-05-10 07:25 | NUR ---
RN NOTES ALL NEED ATTENDED AND MET ABLE TO REST AND SLEPT AT INTERVALS, SAFETY MEASURES IN PLACE. CALL LIGHT WITHIN EASY REACH.ENDORSED TO AM NURSE FOR CONTINUITY OF CARE.
[2019-05-10 08:00] VITALS: BP 146/67
[2019-05-10] MEDS: LACTOBACILLUS RHAMNOSUS GG 1 EACH CAP.SPRINK PO SCH ×2 (08:13→16:51)
[2019-05-10] MEDS: VANCOMYCIN 1 GM in IV D5W 250ml IV SCH (08:13)
[2019-05-10] MEDS: FUROSEMIDE 40 MG TABLET PO SCH (08:13)
[2019-05-10] MEDS: GLIMEPIRIDE 4 MG TABLET PO SCH ×2 (08:13→16:51)
[2019-05-10] MEDS: ASPIRIN EC 81 MG TABLET.DR PO SCH (08:13)
[2019-05-10] MEDS: hydrALAZINE HCL 50 MG TABLET PO SCH ×3 (08:26→16:51)
[2019-05-10] MEDS: METOPROLOL SUCCINATE 50 MG TAB.SR.24H PO SCH (08:45)
[2019-05-10 15:56] VITALS: BP_SYST 139; BP_SYST 157; BP_DIAS 70; BP_DIAS 72
--- NOTE | 2019-05-10 18:45 | NUR ---
MS RN CLOSING NOTES PATIENT IN BED RESTING COMFORTABLY IN MODERATE HIGH BACK REST. A/O X4. ON RA, TOLERATING WELL. NO SIGNS OF DISTRESS NOTED THROUGHOUT THE SHIFT. IV ACCESS ON RIGHT WRIST #22. PATENT AND INTACT. ALL NURSING NEEDS ATTENDED. SAFETY MEASURES IN PLACE, BED IN LOW LOCKED POSITION WITH SIDE RAILS UP X2. CALL LIGHT WITHIN REACH. WILL ENDORSE TO PRINT CONTROLLER NURSE FOR TITI.
--- NOTE | 2019-05-10 19:50 | NUR ---
MS RN NOTES RECEIVED PATIENT IN BED RESTING COMFORTABLY IN MODERATE HIGH BACK REST. A/O X4. ON RA, TOLERATING WELL. NO SIGNS OF DISTRESS NOTED AT THIS TIME. IV ACCESS ON RIGHT WRIST #22, SL. PATENT AND INTACT. SAFETY MEASURES IN PLACE, BED IN LOW LOCKED POSITION WITH SIDE RAILS UP X2. CALL LIGHT WITHIN REACH. WILL CONTINUE TO MONITOR ACCORDINGLY.
[2019-05-10 20:58] VITALS: BP 156/77
[2019-05-11] MEDS: VANCOMYCIN 1 GM in IV D5W 250ml IV SCH ×2 (01:32→19:39)
[2019-05-11] MEDS: ZOSYN IVPB 2.25 G in IV D5W 50ml IV SCH ×4 (06:12→23:45)
[2019-05-11] MEDS: BLOOD SUGAR DIAGNOSTIC 1 EACH STRIP IN SCH ×4 (06:41→21:19)
[2019-05-11] MEDS: INSULIN REGULAR, HUMAN 100 UNIT/ML 3 ML VIAL SQ PRN ×4 (06:42→21:19)
[2019-05-11 06:43] LABS: BASOPHILS % (AUTO) 0.2 % (0.0-2.0); EOSINOPHILS % (AUTO) 1.8 % (0.0-6.0); HEMATOCRIT 28 % (39-51); HEMOGLOBIN 9.6 g/dL (13.5-17.5); LYMPHOCYTES # (AUTO) 1.1 /CMM (0.8-4.8); LYMPHOCYTES % (AUTO) 19.4 % (20.0-44.0); MEAN CORPUSCULAR HGB CONC 35 g/dl (31.0-36.0); MEAN CORPUSCULAR VOLUME 79 fL (80-96); MONOCYTES # (AUTO) 0.4 /CMM (0.1-1.30); MONOCYTES % (AUTO) 6.4 % (2.0-12.0); NEUTROPHILS # (AUTO) 4.3 /CMM (1.8-8.9); NEUTROPHILS % (AUTO) 72.2 % (43.0-81.0); PLATELET COUNT (AUTO) 170 /CMM (150-450); RED BLOOD CELL COUNT(AUTO) 3.51 MIL/uL (4.5-6.0); WHITE BLOOD COUNT (AUTO) 5.9 K/uL (4.3-11.0)
[2019-05-11 06:49] LABS: CALCIUM, SERUM 8.7 mg/dL (8.5-10.1); CREATININE 2.2 mg/dL (0.6-1.3); POTASSIUM 4.1 mmol/L (3.5-5.1)
--- NOTE | 2019-05-11 07:30 | NUR ---
m/s resource technician: initial assessment received pt in bed awake, a/ox4. right lower leg/foot splint dressing intact, clean, and dry. nwb to rle. pt aware and verbalized understanding. no c/o pain or any discomfort. instructed to call for assistance. will continue to monitor.
[2019-05-11 08:00] VITALS: BP 124/63
--- NOTE | 2019-05-11 08:00 | NUR ---
m/s portfolio manager: id f/u seen and examined by gene torres (nailhead puncher).
[2019-05-11] MEDS: LACTOBACILLUS RHAMNOSUS GG 1 EACH CAP.SPRINK PO SCH ×2 (08:50→17:19)
[2019-05-11] MEDS: METOPROLOL SUCCINATE 50 MG TAB.SR.24H PO SCH (08:50)
[2019-05-11] MEDS: ASPIRIN EC 81 MG TABLET.DR PO SCH (08:50)
[2019-05-11] MEDS: GLIMEPIRIDE 4 MG TABLET PO SCH ×2 (08:51→17:19)
[2019-05-11] MEDS: hydrALAZINE HCL 50 MG TABLET PO SCH ×3 (08:51→17:21)
[2019-05-11] MEDS: FUROSEMIDE 40 MG TABLET PO SCH (08:51)
--- NOTE | 2019-05-11 10:30 | NUR ---
m/s dishwasher busser: dpm f/u dr. farmer and p.a. with supplies at bedside and removed the splint dressing and re-dress right lower extremity. unable to take photo due to dressing was done quickly by curtain cleanertol. peralta. instructed to call for assistance. will monitor.
--- NOTE | 2019-05-11 11:00 | NUR ---
m/s epidemiology investigator: nephro f/u seen and examined by dr. dougherty.
--- NOTE | 2019-05-11 15:00 | NUR ---
m/s flower arranger: notes resting comfortable in bed. dressing to rle c/d/i. no c/o pain/discomfort. instructed to call for assistance.
[2019-05-11 16:00] VITALS: BP 133/57
--- NOTE | 2019-05-11 17:00 | NUR ---
m/s cloth hauler: notes family visiting at this time.
--- NOTE | 2019-05-11 19:14 | NUR ---
m/s degree clerk: notes bedside report given to robert (rn) for continuity of care.
--- NOTE | 2019-05-11 19:15 | NUR ---
MS RN OPENING NOTES Received patient A/Ox4, awake on bed. On RA, no respiratory distress noted. With RLE wrapped with bandage, no marked of drainage noted. Patient denies discomfort/pain at this time. Provided water with ice at bedside. Kept bed low and locked. Call light within easy reach. Will continue to monitor accordingly.
[2019-05-11 20:00] VITALS: BP 137/68
[2019-05-11 20:22] VITALS: BP 137/68
[2019-05-12] MEDS: ZOSYN IVPB 2.25 G in IV D5W 50ml IV SCH ×4 (05:18→23:03)
[2019-05-12] MEDS: INSULIN REGULAR, HUMAN 100 UNIT/ML 3 ML VIAL SQ PRN ×4 (06:36→22:57)
[2019-05-12] MEDS: BLOOD SUGAR DIAGNOSTIC 1 EACH STRIP IN SCH ×4 (06:38→22:53)
--- NOTE | 2019-05-12 06:46 | NUR ---
MS RN CLOSING NOTES Patient asleep, easily awaken. On RA, no SOB/respiratory distress noted. Afebrile the whole shift, no new complaints made. All nursing needs attended, due meds given as ordered. Kept on bed clean, dry and comfortable. Call light within easy reach. Endorsed to the next shift.
[2019-05-12 07:22] LABS: CALCIUM, SERUM 8.6 mg/dL (8.5-10.1); CREATININE 2.3 mg/dL (0.6-1.3); POTASSIUM 4.1 mmol/L (3.5-5.1)
--- NOTE | 2019-05-12 07:37 | NUR ---
MS RN OPENING NOTES PATIENT IN BED RESTING COMFORTABLY. PATIENT IN NO ACUTE DISTRESS. NO SOB NOTED. PATIENT BREATHING IS EVEN AND UNLABORED. PATIENT NEEDS AND CONCERNS ADDRESSED. PATIENT SAFETY PRECAUTIONS IN PLACE. BED ALARM IS ON. PATIENT BED IS LOCKED AND IN LOWEST POSITION. CALL LIGHT WITHIN REACH. WILL CONTINUE TO MONITOR.
[2019-05-12 08:00] VITALS: BP 128/57
[2019-05-12] MEDS: FUROSEMIDE 40 MG TABLET PO SCH (09:00)
[2019-05-12] MEDS: hydrALAZINE HCL 50 MG TABLET PO SCH ×3 (09:00→17:14)
[2019-05-12] MEDS: METOPROLOL SUCCINATE 50 MG TAB.SR.24H PO SCH (09:00)
[2019-05-12] MEDS: ASPIRIN EC 81 MG TABLET.DR PO SCH (09:12)
[2019-05-12] MEDS: LACTOBACILLUS RHAMNOSUS GG 1 EACH CAP.SPRINK PO SCH ×2 (09:12→17:14)
[2019-05-12] MEDS: GLIMEPIRIDE 4 MG TABLET PO SCH ×2 (09:12→17:14)
--- NOTE | 2019-05-12 09:22 | NUR ---
MS RN NOTES BP 128/57 AND HR 51. HELD METOPROLOL, LASIX, AND HYDRALAZINE.
[2019-05-12] MEDS: VANCOMYCIN 1 GM in IV D5W 250ml IV SCH (14:08)
--- NOTE | 2019-05-12 15:30 | NUR ---
MS RN NOTE PATIENT TOLERATED PICC LINE INSERTION WELL. IVS FLUSHING AND PATENT.
[2019-05-12 16:00] VITALS: BP 138/78
--- NOTE | 2019-05-12 18:15 | NUR ---
MS RN CLOSING NOTE PATIENT IN BED RESTING COMFORTABLY. PATIENT IN NO ACUTE DISTRESS. NO SOB NOTED. PATIENT BREATHING IS EVEN AND UNLABORED. PATIENT RIGHT LOWER EXTREMITY WRAPPED, NO SOILING NOTED. KEPT CLEAN AND DRY. DRESSING CHANGE TO BE DONE BY PODIATRY. PATIENT KEPT CLEAN AND DRY THROUGHOUT SHIFT. NEEDS AND CONCERNS ADDRESSED. SAFETY PRECAUTIONS IN PLACE. PATIENT BED IS LOCKED AND IN LOWEST POSITION. CALL LIGHT WITHIN REACH. WILL ENDORSE CARE TO PM SHIFT FOR TITI.
--- NOTE | 2019-05-12 19:40 | NUR ---
MS RN OPENING NOTES: RECEIVED PATIENT IN BED ALERT AND AWAKE, WATCHING TV. A/O X4. VERBALLY RESPONSIVE, ABLE TO MAKE NEEDS KNOWN. NO S/S OF ACUTE DISTRESS. NO SOB NOTED. ON ROOM AIR, PATIENT BREATHING EVEN AND UNLABORED. PICC LINE ON LEFT UPPER ARM PATENT AND INTACT. IV ACCESS ON THE RIGHT HAND WAS REMOVED PER PTS REQUEST. NO S/S OF INFILTRATION OR INFECTION. PATIENT SAFETY PRECAUTIONS ARE IN PLACE. BED ALARM IS ON. PATIENT BED IS LOCKED AND IN LOWEST POSITION. CALL LIGHT WITHIN REACH. WILL CONTINUE TO MONITOR ACCORDINGLY.
[2019-05-12 20:00] VITALS: BP 164/81
[2019-05-13] MEDS: ZOSYN IVPB 2.25 G in IV D5W 50ml IV SCH ×2 (06:04→12:33)
[2019-05-13] MEDS: BLOOD SUGAR DIAGNOSTIC 1 EACH STRIP IN SCH ×2 (06:37→11:49)
[2019-05-13] MEDS: INSULIN REGULAR, HUMAN 100 UNIT/ML 3 ML VIAL SQ PRN ×2 (06:40→12:16)
[2019-05-13 06:46] LABS: CALCIUM, SERUM 8.7 mg/dL (8.5-10.1); CREATININE 2.2 mg/dL (0.6-1.3); POTASSIUM 4.4 mmol/L (3.5-5.1)
--- NOTE | 2019-05-13 07:00 | NUR ---
MS RN CLOSING NOTE PATIENT IS IN BED RESTING COMFORTABLY AND STABLE. A/OX4. NO S/S OF ACUTE DISTRESS. NO SOB NOTED. BREATHING IS EVEN AND UNLABORED. PATIENT RIGHT LOWER EXTREMITY WRAPPED, NO SOILING NOTED. KEPT CLEAN AND DRY. DRESSING CHANGE SCHEDULED TO BE DONE BY PODIATRY. PATIENT KEPT CLEAN AND DRY AT ALL TIMES. ALL DUE MEDICATIONS GIVEN ORDERED. TOLERATED WELL. ALL NURSING NEEDS MET AND PERFORMED. SAFETY PRECAUTIONS IN PLACE. PATIENT BED IS LOCKED AND IN LOWEST POSITION. CALL LIGHT WITHIN REACH. WILL ENDORSE CARE TO DAY SHIFT FOR TITI.
--- NOTE | 2019-05-13 07:34 | NUR ---
RN MS OPENING NOTES Patient received on room air, no sob noted, a/o x4 and patient denies pain at this time. L upper arm PICC line remains intact. Patient in bed comfortably. Wound dressing remains clean with no residuals of any sort. Bed at the lowest setting, call light within reach, side rails up x2.
[2019-05-13 08:00] VITALS: BP 151/79
[2019-05-13] MEDS: hydrALAZINE HCL 50 MG TABLET PO SCH ×2 (08:34→12:40)
[2019-05-13] MEDS: GLIMEPIRIDE 4 MG TABLET PO SCH (08:35)
[2019-05-13] MEDS: LACTOBACILLUS RHAMNOSUS GG 1 EACH CAP.SPRINK PO SCH (08:35)
[2019-05-13] MEDS: FUROSEMIDE 40 MG TABLET PO SCH (08:35)
[2019-05-13] MEDS: ASPIRIN EC 81 MG TABLET.DR PO SCH (08:35)
[2019-05-13] MEDS: METOPROLOL SUCCINATE 50 MG TAB.SR.24H PO SCH (08:35)
[2019-05-13] MEDS: VANCOMYCIN 1 GM in IV D5W 250ml IV SCH (11:02)
[2019-05-13 12:40] VITALS: BP 133/76
--- NOTE | 2019-05-13 15:10 | NUR ---
RN MS NOTES Patient discharged at this time. Patient has all the paperwork with him, signed and has no further questions. Patient has all belongings with him, signed the paperwork as well, stated that he has everything with him. Patient picked up by friend. Patient stated that he wanted his old home health provider, and that he will pay whatever is needed that they will ask of him. PICC line remains in place.
== END 2019-05-13 15:18 | disposition home health service (06) | DRG 623 ==
LOC: DS 05:41 → MED 06:08
PROVIDERS: ADMIT Family Medicine; ATTEND Internal Medicine
PROC: 0KBV0ZZ Excision of Right Foot Muscle, Open Approach (ICD-10-PCS; principal; 2019-05-07)
PROC: 0QBN0ZZ Excision of Right Metatarsal, Open Approach (ICD-10-PCS; 2019-05-07)
PROC: 0KX Muscles, Transfer (ICD-10-PCS; 2019-05-07)
PROC: 02HV33Z Insertion of Infusion Device into Superior Vena Cava, Percutaneous Approach (ICD-10-PCS; 2019-05-12)
PROC: B548ZZA Ultrasonography of Superior Vena Cava, Guidance (ICD-10-PCS; 2019-05-12)
DX: E11.69 Type 2 diabetes mellitus with other specified complication (principal); E87.1 Hypo-osmolality and hyponatremia; M86.671 Other chronic osteomyelitis, right ankle and foot; E11.621 Type 2 diabetes mellitus with foot ulcer; E11.40 Type 2 diabetes mellitus with diabetic neuropathy, unspecified; N17.0 Acute kidney failure with tubular necrosis; E11.22 Type 2 diabetes mellitus with diabetic chronic kidney disease; I12.9 Hypertensive chronic kidney disease with stage 1 through stage 4 chronic kidney disease, or unspecified chronic kidney disease; L97.519 Non-pressure chronic ulcer of other part of right foot with unspecified severity; N18.3 Chronic kidney disease, stage 3 (moderate); E78.5 Hyperlipidemia, unspecified; E11.65 Type 2 diabetes mellitus with hyperglycemia; E11.42 Type 2 diabetes mellitus with diabetic polyneuropathy; E87.5 Hyperkalemia; Z87.891 Personal history of nicotine dependence; Z83.3 Family history of diabetes mellitus; Z95.5 Presence of coronary angioplasty implant and graft; I25.10 Atherosclerotic heart disease of native coronary artery without angina pectoris; E86.1 Hypovolemia; D63.8 Anemia in other chronic diseases classified elsewhere; Z79.84 Long term (current) use of oral hypoglycemic drugs
CPT/HCPCS: 36415; 80048-TC; 80202-TC; 82962-TC; 85025-TC; 87070-TC; 87081-TC; 88305-TC; 88311-TC; 88312-TC; 97116-TC; 97530-TC; A6253; A6403; C1751; G0378; J0690; J1170; J1200; J1815; J2405; J2543; J2704; J3370; J3490; J7050; J7060

== ENCOUNTER 2019-05-18 09:39 | Outpatient (CLI) | payer MEDICARE, BC ==
[~2019-05-18 09:39] MED LIST changes: +CLON1PAT14; -FERR325T23 PO; +FURO40TA5 PO
== END 2019-05-18 23:59 | disposition home health service (06) ==
LOC: WOU 09:39
PROVIDERS: ATTEND Podiatrist Foot & Ankle Surgery
DX: T81.31XD Disruption of external operation (surgical) wound, not elsewhere classified, subsequent encounter (principal); T81.89XD Other complications of procedures, not elsewhere classified, subsequent encounter; E11.22 Type 2 diabetes mellitus with diabetic chronic kidney disease; E11.42 Type 2 diabetes mellitus with diabetic polyneuropathy; E11.69 Type 2 diabetes mellitus with other specified complication; N18.9 Chronic kidney disease, unspecified; M86.371 Chronic multifocal osteomyelitis, right ankle and foot; Z79.4 Long term (current) use of insulin; R60.0 Localized edema; Z89.421 Acquired absence of other right toe(s)
CPT/HCPCS: 29581; A6207; A6209

== ENCOUNTER → 2019-05-25 | Outpatient (CLI) | payer MEDICARE, BC ==
[~2019-05-25] MED LIST changes: +GLIM4TAB37 PO; -GLIM4TAB4 PO
== END | disposition home health service (06) ==
LOC: WOU 10:05
PROVIDERS: ATTEND Podiatrist Foot & Ankle Surgery
DX: T81.31XD Disruption of external operation (surgical) wound, not elsewhere classified, subsequent encounter (principal); E11.42 Type 2 diabetes mellitus with diabetic polyneuropathy; E11.69 Type 2 diabetes mellitus with other specified complication; E11.22 Type 2 diabetes mellitus with diabetic chronic kidney disease; M86.371 Chronic multifocal osteomyelitis, right ankle and foot; N18.9 Chronic kidney disease, unspecified; Z79.4 Long term (current) use of insulin; Z89.411 Acquired absence of right great toe
CPT/HCPCS: A6207; A6209; G0463

== ENCOUNTER 2019-06-01 09:42 | Outpatient (CLI) | payer MEDICARE, BC | END 2019-06-01 23:59 | disposition home health service (06) | LOC: WOU 09:42 | PROVIDERS: ATTEND Podiatrist Foot & Ankle Surgery | DX: E11.621 Type 2 diabetes mellitus with foot ulcer (principal); L97.512 Non-pressure chronic ulcer of other part of right foot with fat layer exposed; L97.518 Non-pressure chronic ulcer of other part of right foot with other specified severity; E11.42 Type 2 diabetes mellitus with diabetic polyneuropathy; E11.69 Type 2 diabetes mellitus with other specified complication; M86.671 Other chronic osteomyelitis, right ankle and foot; Z79.4 Long term (current) use of insulin | CPT/HCPCS: 29581; A6207; A6209 ==

== ENCOUNTER 2019-06-08 10:10 | Outpatient (CLI) | payer MEDICARE, BC | END 2019-06-08 23:59 | disposition home health service (06) | LOC: WOU 10:10 | PROVIDERS: ATTEND Podiatrist Foot & Ankle Surgery | DX: Z47.89 Encounter for other orthopedic aftercare (principal); T81.31XA Disruption of external operation (surgical) wound, not elsewhere classified, initial encounter; T81.89XD Other complications of procedures, not elsewhere classified, subsequent encounter; R60.0 Localized edema; E11.42 Type 2 diabetes mellitus with diabetic polyneuropathy; Z79.4 Long term (current) use of insulin; Z87.39 Personal history of other diseases of the musculoskeletal system and connective tissue | CPT/HCPCS: 17250; A6207; A6209 ==

== ENCOUNTER 2019-06-15 09:37 | Outpatient (CLI) | payer MEDICARE, BC | END 2019-06-15 23:59 | disposition home health service (06) | LOC: WOU 09:37 | PROVIDERS: ATTEND Podiatrist Foot & Ankle Surgery | DX: E11.621 Type 2 diabetes mellitus with foot ulcer (principal); L97.512 Non-pressure chronic ulcer of other part of right foot with fat layer exposed; L97.518 Non-pressure chronic ulcer of other part of right foot with other specified severity; E11.22 Type 2 diabetes mellitus with diabetic chronic kidney disease; E11.42 Type 2 diabetes mellitus with diabetic polyneuropathy; E11.69 Type 2 diabetes mellitus with other specified complication; M86.371 Chronic multifocal osteomyelitis, right ankle and foot; I12.9 Hypertensive chronic kidney disease with stage 1 through stage 4 chronic kidney disease, or unspecified chronic kidney disease; N18.9 Chronic kidney disease, unspecified; Z87.891 Personal history of nicotine dependence; Z79.4 Long term (current) use of insulin; Z89.421 Acquired absence of other right toe(s); Z91.19 Patient's noncompliance with other medical treatment and regimen | CPT/HCPCS: 11042; A6207; A6209 ×2; G0463 ==

== ENCOUNTER 2019-06-16 13:42 | Outpatient (CLI) | payer MEDICARE, BC ==
[~2019-06-16 13:42] MED LIST changes: -GLIM4TAB37 PO; +GLIM4TAB4 PO
== END 2019-06-16 23:59 | disposition home or self-care (01) ==
LOC: MRI 13:42
PROVIDERS: ATTEND Podiatrist Foot & Ankle Surgery
DX: M86.8X7 Other osteomyelitis, ankle and foot (principal); R60.9 Edema, unspecified; L03.115 Cellulitis of right lower limb; M62.89 Other specified disorders of muscle; E11.621 Type 2 diabetes mellitus with foot ulcer; L97.419 Non-pressure chronic ulcer of right heel and midfoot with unspecified severity; I25.10 Atherosclerotic heart disease of native coronary artery without angina pectoris; I10 Essential (primary) hypertension
CPT/HCPCS: 73718-TC

== ENCOUNTER 2019-06-25 09:53 | Outpatient (CLI) | payer MEDICARE, BC | END 2019-06-25 23:59 | disposition home health service (06) | LOC: WOU 09:53 | PROVIDERS: ATTEND Podiatrist Foot & Ankle Surgery | DX: T81.31XA Disruption of external operation (surgical) wound, not elsewhere classified, initial encounter (principal); E11.69 Type 2 diabetes mellitus with other specified complication; E11.42 Type 2 diabetes mellitus with diabetic polyneuropathy; M86.371 Chronic multifocal osteomyelitis, right ankle and foot; Z89.421 Acquired absence of other right toe(s); I10 Essential (primary) hypertension; Z95.5 Presence of coronary angioplasty implant and graft; Z79.4 Long term (current) use of insulin | CPT/HCPCS: 11042; A6207; A6209 ==

== ENCOUNTER 2019-07-02 10:00 | Outpatient (CLI) | payer MEDICARE, BC | END 2019-07-02 23:59 | disposition home health service (06) | LOC: WOU 10:00 | PROVIDERS: ATTEND Podiatrist Foot & Ankle Surgery | DX: E11.621 Type 2 diabetes mellitus with foot ulcer (principal); L97.412 Non-pressure chronic ulcer of right heel and midfoot with fat layer exposed; E11.69 Type 2 diabetes mellitus with other specified complication; M86.371 Chronic multifocal osteomyelitis, right ankle and foot; E11.42 Type 2 diabetes mellitus with diabetic polyneuropathy; E11.22 Type 2 diabetes mellitus with diabetic chronic kidney disease; N18.9 Chronic kidney disease, unspecified; Z89.421 Acquired absence of other right toe(s); T81.31XA Disruption of external operation (surgical) wound, not elsewhere classified, initial encounter; Z79.4 Long term (current) use of insulin | CPT/HCPCS: 11042; A6207; A6209 ==

== ENCOUNTER 2019-07-09 09:55 | Outpatient (CLI) | payer MEDICARE, BC ==
[~2019-07-09 09:55] MED LIST changes: +GLIM4TAB37 PO; -GLIM4TAB4 PO
[2019-11-04] MEDS ORDERED: MERO500V21 IV (11:50)
[2019-11-04] MEDS ORDERED: DAPT500V2 IV (11:50)
== END 2019-07-09 23:59 | disposition home health service (06) ==
LOC: WOU 09:55
PROVIDERS: ATTEND Podiatrist Foot & Ankle Surgery
DX: E11.621 Type 2 diabetes mellitus with foot ulcer (principal); L97.512 Non-pressure chronic ulcer of other part of right foot with fat layer exposed; E11.42 Type 2 diabetes mellitus with diabetic polyneuropathy; Z89.411 Acquired absence of right great toe; Z79.4 Long term (current) use of insulin
CPT/HCPCS: 11042; A6207; A6209

== ENCOUNTER 2019-07-16 09:50 | Outpatient (CLI) | payer MEDICARE, BC | END 2019-07-16 23:59 | disposition home health service (06) | LOC: WOU 09:50 | PROVIDERS: ATTEND Podiatrist Foot & Ankle Surgery | DX: E11.621 Type 2 diabetes mellitus with foot ulcer (principal); L97.512 Non-pressure chronic ulcer of other part of right foot with fat layer exposed; E11.22 Type 2 diabetes mellitus with diabetic chronic kidney disease; N18.9 Chronic kidney disease, unspecified; Z89.421 Acquired absence of other right toe(s); E11.42 Type 2 diabetes mellitus with diabetic polyneuropathy; E11.69 Type 2 diabetes mellitus with other specified complication; M86.371 Chronic multifocal osteomyelitis, right ankle and foot; Z79.4 Long term (current) use of insulin | CPT/HCPCS: 11042; A6207; A6210; G0463 ==

== ENCOUNTER 2019-07-23 09:25 | Outpatient (CLI) | payer MEDICARE, BC | END 2019-07-23 23:59 | disposition home health service (06) | LOC: WOU 09:25 | PROVIDERS: ATTEND Podiatrist Foot & Ankle Surgery | DX: E11.621 Type 2 diabetes mellitus with foot ulcer (principal); L97.413 Non-pressure chronic ulcer of right heel and midfoot with necrosis of muscle; E11.42 Type 2 diabetes mellitus with diabetic polyneuropathy; T81.31XA Disruption of external operation (surgical) wound, not elsewhere classified, initial encounter; Z89.421 Acquired absence of other right toe(s); E11.22 Type 2 diabetes mellitus with diabetic chronic kidney disease; N18.9 Chronic kidney disease, unspecified; Z79.4 Long term (current) use of insulin | CPT/HCPCS: 11043; A6207; A6210 ==

== ENCOUNTER 2019-07-30 09:50 | Outpatient (CLI) | payer MEDICARE, BC ==
[2019-11-04] MEDS ORDERED: MERO500V21 IV (11:50)
[2019-11-04] MEDS ORDERED: DAPT500V2 IV (11:50)
== END 2019-07-30 23:59 | disposition home health service (06) ==
LOC: WOU 09:50
PROVIDERS: ATTEND Podiatrist Foot & Ankle Surgery
DX: E11.621 Type 2 diabetes mellitus with foot ulcer (principal); L97.412 Non-pressure chronic ulcer of right heel and midfoot with fat layer exposed; E11.42 Type 2 diabetes mellitus with diabetic polyneuropathy; E11.69 Type 2 diabetes mellitus with other specified complication; M86.371 Chronic multifocal osteomyelitis, right ankle and foot; R60.0 Localized edema; Z89.421 Acquired absence of other right toe(s); Z79.4 Long term (current) use of insulin
CPT/HCPCS: 11042; A6207; A6210

== ENCOUNTER 2019-08-06 09:25 | Outpatient (CLI) | payer MEDICARE, BC ==
[2019-11-04] MEDS ORDERED: MERO500V21 IV (11:50)
[2019-11-04] MEDS ORDERED: DAPT500V2 IV (11:50)
== END 2019-08-06 23:59 | disposition home health service (06) ==
LOC: WOU 09:25
PROVIDERS: ATTEND Podiatrist Foot & Ankle Surgery
DX: E11.621 Type 2 diabetes mellitus with foot ulcer (principal); L97.512 Non-pressure chronic ulcer of other part of right foot with fat layer exposed; E11.42 Type 2 diabetes mellitus with diabetic polyneuropathy; E11.22 Type 2 diabetes mellitus with diabetic chronic kidney disease; N18.9 Chronic kidney disease, unspecified; Z89.421 Acquired absence of other right toe(s); T81.31XA Disruption of external operation (surgical) wound, not elsewhere classified, initial encounter; E11.69 Type 2 diabetes mellitus with other specified complication; M86.371 Chronic multifocal osteomyelitis, right ankle and foot; Z79.84 Long term (current) use of oral hypoglycemic drugs
CPT/HCPCS: 11042; 11045; A6207

== ENCOUNTER 2019-08-13 09:55 | Outpatient (CLI) | payer MEDICARE, BC | END 2019-08-13 23:59 | disposition home health service (06) | LOC: WOU 09:55 | PROVIDERS: ATTEND Podiatrist Foot & Ankle Surgery | DX: E11.621 Type 2 diabetes mellitus with foot ulcer (principal); L97.412 Non-pressure chronic ulcer of right heel and midfoot with fat layer exposed; Z89.411 Acquired absence of right great toe; E11.42 Type 2 diabetes mellitus with diabetic polyneuropathy; E11.22 Type 2 diabetes mellitus with diabetic chronic kidney disease; N18.9 Chronic kidney disease, unspecified; Z79.4 Long term (current) use of insulin | CPT/HCPCS: 11042; A6207 ==

== ENCOUNTER 2019-08-20 09:45 | Outpatient (CLI) | payer MEDICARE, BC ==
[2019-11-04] MEDS ORDERED: DAPT500V2 IV (11:50)
[2019-11-04] MEDS ORDERED: MERO500V21 IV (11:50)
== END 2019-08-20 23:59 | disposition home health service (06) ==
LOC: WOU 09:45
PROVIDERS: ATTEND Podiatrist Foot & Ankle Surgery
DX: E11.621 Type 2 diabetes mellitus with foot ulcer (principal); L97.412 Non-pressure chronic ulcer of right heel and midfoot with fat layer exposed; T81.31XD Disruption of external operation (surgical) wound, not elsewhere classified, subsequent encounter; E11.22 Type 2 diabetes mellitus with diabetic chronic kidney disease; I12.9 Hypertensive chronic kidney disease with stage 1 through stage 4 chronic kidney disease, or unspecified chronic kidney disease; N18.9 Chronic kidney disease, unspecified; Z87.891 Personal history of nicotine dependence; Z79.4 Long term (current) use of insulin; E11.69 Type 2 diabetes mellitus with other specified complication; M86.371 Chronic multifocal osteomyelitis, right ankle and foot; Z89.421 Acquired absence of other right toe(s); E11.42 Type 2 diabetes mellitus with diabetic polyneuropathy
CPT/HCPCS: 11042; A6209 ×2

== ENCOUNTER 2019-08-27 09:54 | Outpatient (CLI) | payer MEDICARE, BC | END 2019-08-27 23:59 | disposition home health service (06) | LOC: WOU 09:54 | PROVIDERS: ATTEND Podiatrist Foot & Ankle Surgery | DX: E11.621 Type 2 diabetes mellitus with foot ulcer (principal); L97.512 Non-pressure chronic ulcer of other part of right foot with fat layer exposed; E11.22 Type 2 diabetes mellitus with diabetic chronic kidney disease; N18.9 Chronic kidney disease, unspecified; Z79.4 Long term (current) use of insulin; Z89.421 Acquired absence of other right toe(s); E11.42 Type 2 diabetes mellitus with diabetic polyneuropathy | CPT/HCPCS: 11042; A6207 ==

== ENCOUNTER 2019-08-31 11:50 | Outpatient (CLI) | payer MEDICARE, BC | END 2019-08-31 23:59 | disposition home or self-care (01) | LOC: MRI 11:50 | PROVIDERS: ATTEND Podiatrist Foot & Ankle Surgery | DX: M86.8X7 Other osteomyelitis, ankle and foot (principal); M24.674 Ankylosis, right foot; M79.89 Other specified soft tissue disorders; M62.571 Muscle wasting and atrophy, not elsewhere classified, right ankle and foot; R60.0 Localized edema; Z89.431 Acquired absence of right foot | CPT/HCPCS: 73718-TC ==

== ENCOUNTER 2019-09-03 09:40 | Outpatient (CLI) | payer MEDICARE, BC | END 2019-09-03 23:59 | disposition home health service (06) | LOC: WOU 09:40 | PROVIDERS: ATTEND Podiatrist Foot & Ankle Surgery | DX: E11.621 Type 2 diabetes mellitus with foot ulcer (principal); L97.512 Non-pressure chronic ulcer of other part of right foot with fat layer exposed; E11.42 Type 2 diabetes mellitus with diabetic polyneuropathy; E11.69 Type 2 diabetes mellitus with other specified complication; M86.371 Chronic multifocal osteomyelitis, right ankle and foot; T81.31XA Disruption of external operation (surgical) wound, not elsewhere classified, initial encounter; Z89.421 Acquired absence of other right toe(s); E11.22 Type 2 diabetes mellitus with diabetic chronic kidney disease; N18.9 Chronic kidney disease, unspecified | CPT/HCPCS: 11042; A6207; A6209 ==

== ENCOUNTER 2019-09-10 09:35 | Outpatient (CLI) | payer MEDICARE, BC | END 2019-09-10 23:59 | disposition home health service (06) | LOC: WOU 09:35 | PROVIDERS: ATTEND Podiatrist Foot & Ankle Surgery | DX: E11.621 Type 2 diabetes mellitus with foot ulcer (principal); L97.512 Non-pressure chronic ulcer of other part of right foot with fat layer exposed; T81.31XD Disruption of external operation (surgical) wound, not elsewhere classified, subsequent encounter; E11.42 Type 2 diabetes mellitus with diabetic polyneuropathy; Z89.421 Acquired absence of other right toe(s); E11.22 Type 2 diabetes mellitus with diabetic chronic kidney disease; I12.9 Hypertensive chronic kidney disease with stage 1 through stage 4 chronic kidney disease, or unspecified chronic kidney disease; N18.9 Chronic kidney disease, unspecified; Z87.891 Personal history of nicotine dependence | CPT/HCPCS: 11042; A6209 ==

== ENCOUNTER 2019-09-17 09:10 | Outpatient (CLI) | payer MEDICARE, BC | END 2019-09-17 23:59 | disposition home health service (06) | LOC: WOU 09:10 | PROVIDERS: ATTEND Podiatrist Foot & Ankle Surgery | DX: E11.621 Type 2 diabetes mellitus with foot ulcer (principal); L97.512 Non-pressure chronic ulcer of other part of right foot with fat layer exposed; E11.69 Type 2 diabetes mellitus with other specified complication; M86.371 Chronic multifocal osteomyelitis, right ankle and foot; E11.42 Type 2 diabetes mellitus with diabetic polyneuropathy; E11.22 Type 2 diabetes mellitus with diabetic chronic kidney disease; N18.9 Chronic kidney disease, unspecified; Z79.4 Long term (current) use of insulin; L84 Corns and callosities; B35.1 Tinea unguium; Z89.411 Acquired absence of right great toe; T81.31XA Disruption of external operation (surgical) wound, not elsewhere classified, initial encounter | CPT/HCPCS: A6209; G0463 ==

== ENCOUNTER 2019-09-24 09:20 | Outpatient (CLI) | payer MEDICARE, BC | END 2019-09-24 23:59 | disposition home health service (06) | LOC: WOU 09:20 | PROVIDERS: ATTEND Podiatrist Foot & Ankle Surgery | DX: E11.621 Type 2 diabetes mellitus with foot ulcer (principal); L97.512 Non-pressure chronic ulcer of other part of right foot with fat layer exposed; E11.22 Type 2 diabetes mellitus with diabetic chronic kidney disease; N18.9 Chronic kidney disease, unspecified; E11.69 Type 2 diabetes mellitus with other specified complication; M86.371 Chronic multifocal osteomyelitis, right ankle and foot; Z79.4 Long term (current) use of insulin; Z89.421 Acquired absence of other right toe(s); Z79.82 Long term (current) use of aspirin | CPT/HCPCS: G0463 ==

== ENCOUNTER 2019-10-01 09:20 | Outpatient (CLI) | payer MEDICARE, BC | END 2019-10-01 23:59 | disposition home health service (06) | LOC: WOU 09:20 | PROVIDERS: ATTEND Podiatrist Foot & Ankle Surgery | DX: S90.31XD Contusion of right foot, subsequent encounter (principal); X58.XXXD Exposure to other specified factors, subsequent encounter; L84 Corns and callosities; E11.42 Type 2 diabetes mellitus with diabetic polyneuropathy; E11.22 Type 2 diabetes mellitus with diabetic chronic kidney disease; N18.9 Chronic kidney disease, unspecified; Z79.4 Long term (current) use of insulin; Z89.411 Acquired absence of right great toe; Z79.82 Long term (current) use of aspirin | CPT/HCPCS: G0463 ==

== ENCOUNTER 2019-10-08 09:30 | Outpatient (CLI) | payer MEDICARE, BC | END 2019-10-08 23:59 | disposition home health service (06) | LOC: WOU 09:30 | PROVIDERS: ATTEND Podiatrist Foot & Ankle Surgery | DX: S90.31XD Contusion of right foot, subsequent encounter (principal); X58.XXXD Exposure to other specified factors, subsequent encounter; L84 Corns and callosities; E11.22 Type 2 diabetes mellitus with diabetic chronic kidney disease; E11.42 Type 2 diabetes mellitus with diabetic polyneuropathy; E11.69 Type 2 diabetes mellitus with other specified complication; N18.9 Chronic kidney disease, unspecified; M86.371 Chronic multifocal osteomyelitis, right ankle and foot; Z79.4 Long term (current) use of insulin | CPT/HCPCS: G0463 ==

== ENCOUNTER 2019-10-15 09:00 | Outpatient (CLI) | payer MEDICARE, BC | END 2019-10-15 23:59 | disposition home health service (06) | LOC: WOU 09:00 | DX: E11.621 Type 2 diabetes mellitus with foot ulcer (principal); L97.512 Non-pressure chronic ulcer of other part of right foot with fat layer exposed; E11.22 Type 2 diabetes mellitus with diabetic chronic kidney disease; E11.69 Type 2 diabetes mellitus with other specified complication; E11.42 Type 2 diabetes mellitus with diabetic polyneuropathy; I12.9 Hypertensive chronic kidney disease with stage 1 through stage 4 chronic kidney disease, or unspecified chronic kidney disease; M86.371 Chronic multifocal osteomyelitis, right ankle and foot; N18.9 Chronic kidney disease, unspecified; Z87.891 Personal history of nicotine dependence; Z79.4 Long term (current) use of insulin; L03.115 Cellulitis of right lower limb; T81.31XD Disruption of external operation (surgical) wound, not elsewhere classified, subsequent encounter; Z79.82 Long term (current) use of aspirin; Z89.411 Acquired absence of right great toe | CPT/HCPCS: 11042; 87070; 87077; 87186; A6209 ==

== ENCOUNTER 2019-10-22 09:30 | Outpatient (CLI) | payer MEDICARE, BC | END 2019-10-22 23:59 | disposition home health service (06) | LOC: WOU 09:30 | PROVIDERS: ATTEND Podiatrist Foot & Ankle Surgery | DX: E11.621 Type 2 diabetes mellitus with foot ulcer (principal); L97.512 Non-pressure chronic ulcer of other part of right foot with fat layer exposed; L03.115 Cellulitis of right lower limb; E11.69 Type 2 diabetes mellitus with other specified complication; E11.42 Type 2 diabetes mellitus with diabetic polyneuropathy; E11.22 Type 2 diabetes mellitus with diabetic chronic kidney disease; N18.9 Chronic kidney disease, unspecified; M86.371 Chronic multifocal osteomyelitis, right ankle and foot; Z79.4 Long term (current) use of insulin; T81.31XD Disruption of external operation (surgical) wound, not elsewhere classified, subsequent encounter; Z79.82 Long term (current) use of aspirin | CPT/HCPCS: 11042; A6209 ==

== ENCOUNTER 2019-10-29 08:45 | Outpatient (CLI) | payer MEDICARE, BC | END 2019-10-29 23:59 | disposition home health service (06) | LOC: WOU 08:45 | PROVIDERS: ATTEND Podiatrist Foot & Ankle Surgery | DX: E11.621 Type 2 diabetes mellitus with foot ulcer (principal); L97.512 Non-pressure chronic ulcer of other part of right foot with fat layer exposed; E11.42 Type 2 diabetes mellitus with diabetic polyneuropathy; E11.22 Type 2 diabetes mellitus with diabetic chronic kidney disease; N18.9 Chronic kidney disease, unspecified; Z79.4 Long term (current) use of insulin; R60.0 Localized edema; Z79.82 Long term (current) use of aspirin | CPT/HCPCS: 11042; A6209 ==

== ENCOUNTER 2019-11-01 08:39 | Inpatient (IN) | payer MEDICARE, BC ==
[~2019-11-01] VITALS: Ht 177.8 cm; Wt 99.8 kg
--- NOTE | 2019-11-01 08:50 | NUR ---
pt self presents to ed. ambulatory to er bed 02. was sent from wound care for pre opt labs and admission for surgery. vss. nad noted. awaiting md jacobo.
--- NOTE | 2019-11-01 08:55 | NUR ---
dr morgan at bedside for eval.
--- NOTE | 2019-11-01 08:56 | NUR ---
CALLED WOUND CARE... X 1994 FOR THE MD YANEZ TO CALL US BACK.
--- NOTE | 2019-11-01 09:05 | NUR ---
unable to provide urine sample at this time. will try later.
[2019-11-01 09:16] LABS: BASOPHILS # (AUTO) 0.1 /CMM (0.0-0.2); BASOPHILS % (AUTO) 1.8 % (0.0-2.0); EOSINOPHILS % (AUTO) 1.2 % (0.0-6.0); HEMATOCRIT 31 % (39-51); HEMOGLOBIN 10.7 g/dL (13.5-17.5); LYMPHOCYTES # (AUTO) 1.3 /CMM (0.8-4.8); LYMPHOCYTES % (AUTO) 18.5 % (20.0-44.0); MEAN CORPUSCULAR HGB CONC 35 g/dl (31.0-36.0); MEAN CORPUSCULAR VOLUME 85 fL (80-96); MONOCYTES # (AUTO) 0.4 /CMM (0.1-1.30); NEUTROPHILS % (AUTO) 72.5 % (43.0-81.0); PLATELET COUNT (AUTO) 186 /CMM (150-450); RED BLOOD CELL COUNT(AUTO) 3.65 MIL/uL (4.5-6.0); WHITE BLOOD COUNT (AUTO) 6.9 K/uL (4.3-11.0)
[2019-11-01 09:22] LABS: CALCIUM, SERUM 8.3 mg/dL (8.5-10.1); CREATININE 2.8 mg/dL (0.6-1.3); POTASSIUM 4.2 mmol/L (3.5-5.1)
--- NOTE | 2019-11-01 09:25 | NUR ---
radiology at bedside for chest xray.
[2019-11-01 09:28] LABS: ALBUMIN 3.5 g/dL (3.4-5.0); BILIRUBIN,DIRECT 0.1 mg/dL (0.0-0.2); BILIRUBIN,TOTAL 0.4 mg/dL (0.2-1.0); TOTAL PROTEIN, SERUM 6.8 g/dL (6.4-8.2)
--- NOTE | 2019-11-01 09:44 | NUR ---
MRI APPROVED/ TEXTED MEDICAL ADMINISTRATIVE SAADIA.
--- NOTE | 2019-11-01 10:45 | NUR ---
pt to radiology for R foot mri via wheelchair.
--- NOTE | 2019-11-01 11:24 | NUR ---
report given to Stephanie WOLF for manuel
--- NOTE | 2019-11-01 11:24 | NUR ---
patient came back from MRI
[2019-11-01] MEDS: MUPIROCIN OINT 2% 22 GM TUBE TP SCH ×2 (11:30→23:36)
--- NOTE | 2019-11-01 11:38 | NUR ---
R foot bandaged. endorsed to recieving nurse.
--- NOTE | 2019-11-01 11:59 | NUR ---
rn notes Patient received from ER at this time
[2019-11-01 12:00] VITALS: BP 138/66
[2019-11-01 16:00] VITALS: BP 165/78
--- NOTE | 2019-11-01 18:07 | NUR ---
rn closing notes Patient remains on room air, no sob noted, patient shows no pain at this time. Patients wound dressing changed with kerlix and cleaned with iodine. Patient signed consent form for tomorrows wound debridement, bone biopsy and possible closure. NPO after midnight. Patient on CCHO diet. R AC 20, NWB to right foot at this time. Bed at the lowest setting, call light within reach, side rails up x2. WIll give report to NOC RN for TITI bedside.
--- NOTE | 2019-11-01 19:05 | NUR ---
RN OPENING NOTES Received patient A/O x4, awake on bed. On RA, no SOB/respiratory distress noted at this time. No complaints of discomfort. Reminded to be on NPO after midnight. Medication list updated per patient's information. Kept R foot elevated, dressing intact. Kept on bed clean, dry and comfortable. Call light within easy reach. On fall and aspiration precautions.
[2019-11-01 20:00] VITALS: BP 157/95
[2019-11-01 20:38] VITALS: BP 157/95
[2019-11-01] MEDS ORDERED: IV NS 0.9% 1,000 ML IV PRN (20:45)
[2019-11-01] MEDS ORDERED: CARV6.252 PO (20:47)
[2019-11-01] MEDS ORDERED: INSU100I43 (20:47)
[2019-11-01] MEDS ORDERED: CLON0.3T PO (20:47)
[2019-11-01] MEDS ORDERED: INSU100I26 SQ (20:47)
[2019-11-01] MEDS ORDERED: FEE PK DOSING 1 MIN EA MC ONE (20:54)
[2019-11-01] MEDS ORDERED: DEXTROSE 50%-WATER 50 ML DISP.SYRIN IV PRN (21:00)
[2019-11-01] MEDS ORDERED: VANCOMYCIN 1 GM in IV D5W 250 ML IV SCH (21:00)
[2019-11-01] MEDS ORDERED: HYDROCODONE/APAP 10/325MG 1 EA TABLET PO PRN (21:00)
[2019-11-01] MEDS ORDERED: ONDANSETRON HCL/PF 4 MG/2 ML VIAL IVP PRN (21:00)
[2019-11-01] MEDS ORDERED: Z GUARD REMEDY 2 OZ OINT TP PRN (21:00)
[2019-11-01] MEDS ORDERED: CLONIDINE HCL 0.3 MG/24H PTWK 1 EA PATCH TD SCH (21:00)
[2019-11-01] MEDS ORDERED: ACETAMINOPHEN 325 MG TABLET PO PRN (21:00)
[2019-11-01] MEDS: MEROPENEM 500 MG in IV NS 0.9% 50 ML IV SCH (21:23)
[2019-11-01] MEDS: ZOLPIDEM TARTRATE 5 MG TABLET PO PRN (21:59)
[2019-11-01] MEDS: INSULIN GLARGINE, 100 UNIT/ML CARTRIDGE SQ SCH (21:59)
[2019-11-01] MEDS: BLOOD SUGAR DIAGNOSTIC 1 EACH STRIP IN SCH (21:59)
[2019-11-01] MEDS: INSULIN REGULAR, HUMAN 100 UNIT/ML 3 ML VIAL SQ PRN (22:09)
[2019-11-02 03:44] LABS: APPEARANCE,URINE CLEAR (CLEAR); BILIRUBIN,URINE NEGATIVE (NEGATIVE); BLOOD, URINE NEGATIVE Ery/uL (NEGATIVE); COLOR,URINE YELLOW (YELLOW); KETONES,URINE NEGATIVE (NEGATIVE); LEUKOCYTE ESTERASE ,URINE NEGATIVE (NEGATIVE); NITRITE, URINE NEGATIVE (NEGATIVE); PROTEIN,URINE NEGATIVE (NEGATIVE); UGLUCOSE NEGATIVE (NEGATIVE); UROBILINOGEN,URINE 0.2 EU/dL (0.2)
[2019-11-02] MEDS: INSULIN REGULAR, HUMAN 100 UNIT/ML 3 ML VIAL SQ PRN ×5 (06:49→23:05)
[2019-11-02] MEDS ORDERED: ANESTHESIA TRAY IN PYXIS 1 EA TRAY MC ONE (06:53)
[2019-11-02] MEDS: BLOOD SUGAR DIAGNOSTIC 1 EACH STRIP IN SCH ×4 (06:57→23:04)
[2019-11-02 06:58] VITALS: BP 186/82
--- NOTE | 2019-11-02 07:02 | NUR ---
RN CLOSING NOTES Patient asleep, easily awaken. On RA, no SOB/respiratory distress noted. On NPO since midnight. All nursing needs attended. Due meds given as ordered. Kept on bed clean, dry and comfortable. On fall and aspiration precautions, call light within easy reach. Endorsed.
[2019-11-02] MEDS: INSULIN LISPRO/ASPART 100 UNIT/ML CARTRIDGE SQ SCH ×4 (07:20→17:11)
[2019-11-02] MEDS ORDERED: LIDOCAINE HCL/MPF 1% 30 ML VIAL IJ ONE (07:21)
[2019-11-02] MEDS ORDERED: BACITRACIN 50000 UNITS/VIAL ONE (07:21)
[2019-11-02] MEDS ORDERED: BUPIVACAINE 0.5 % PF 150 MG/30 ML VIAL ONE (07:21)
[2019-11-02 07:25] LABS: BASOPHILS % (AUTO) 0.3 % (0.0-2.0); EOSINOPHILS % (AUTO) 1.5 % (0.0-6.0); HEMATOCRIT 33 % (39-51); HEMOGLOBIN 11.7 g/dL (13.5-17.5); LYMPHOCYTES # (AUTO) 0.5 /CMM (0.8-4.8); LYMPHOCYTES % (AUTO) 8.2 % (20.0-44.0); MEAN CORPUSCULAR HGB CONC 35 g/dl (31.0-36.0); MEAN CORPUSCULAR VOLUME 84 fL (80-96); MONOCYTES # (AUTO) 0.4 /CMM (0.1-1.30); MONOCYTES % (AUTO) 5.6 % (2.0-12.0); NEUTROPHILS # (AUTO) 5.5 /CMM (1.8-8.9); NEUTROPHILS % (AUTO) 84.4 % (43.0-81.0); PLATELET COUNT (AUTO) 179 /CMM (150-450); RED BLOOD CELL COUNT(AUTO) 3.94 MIL/uL (4.5-6.0); WHITE BLOOD COUNT (AUTO) 6.6 K/uL (4.3-11.0)
--- NOTE | 2019-11-02 07:30 | NUR ---
m/s associate marketing manager: notes o.r. nurse called and asked for merrem iv per anesthesiologist as stated. brought merrem in o.r. at this time.
[2019-11-02 07:47] LABS: ALBUMIN 3.5 g/dL (3.4-5.0); BILIRUBIN,TOTAL 0.4 mg/dL (0.2-1.0); CALCIUM, SERUM 8.5 mg/dL (8.5-10.1); CREATININE 2.5 mg/dL (0.6-1.3); MAGNESIUM 2.2 mg/dL (1.8-2.4); PHOSPHORUS 3.8 mg/dL (2.5-4.9); POTASSIUM 4.3 mmol/L (3.5-5.1); THYROID STIMULATING HORMONE 4.974 uIU/mL (0.358-3.74); TOTAL PROTEIN, SERUM 6.9 g/dL (6.4-8.2)
[2019-11-02] MEDS ORDERED: THROMBIN (BOVINE) 5,000 UNITS VIAL TP ONE (08:09)
[2019-11-02] MEDS ORDERED: GELATIN SPONGE,ABSORBABLE 1 SPONGE SPONGE TP ONE (08:09)
[2019-11-02] MEDS: MEROPENEM 500 MG in IV NS 0.9% 50 ML IV SCH ×2 (09:00→21:14)
[2019-11-02 09:35] VITALS: BP 170/75
--- NOTE | 2019-11-02 09:35 | NUR ---
m/s poultry farm laborer: notes received pt from recovery room with dx: s/p 1. Partial resection of fifth metatarsal bone with biopsy. 2. Excisional debridement of ulceration, fifth metatarsal plantar aspect, skin and subcutaneous tissue. surgical dressing with splint in place to right foot. instructed pt to non-weight bearing on right foot, pt verbalized understanding. no c/o pain or any discomfort. instructed to call for assistance. will continue to monitor.
[2019-11-02] MEDS: hydrALAZINE HCL 50 MG TABLET PO SCH ×3 (09:43→16:25)
[2019-11-02] MEDS: ASPIRIN EC 81 MG TABLET.DR PO SCH (09:43)
[2019-11-02] MEDS: GLIMEPIRIDE 4 MG TABLET PO SCH ×2 (09:43→16:25)
[2019-11-02] MEDS: CARVEDILOL 6.25 MG TABLET PO SCH ×2 (09:44→16:25)
--- NOTE | 2019-11-02 10:00 | NUR ---
m/s director life insurance: notes rounds made, pt in the bathroom at this time. teaching provided re: non-weight bearing on right foot, stated, "i know, i know." dr. farmer notified, left message to community relations representative. with a pt at this time. instructed to call for assistance. will continue to monitor.
[2019-11-02] MEDS: MUPIROCIN OINT 2% 22 GM TUBE TP SCH ×2 (11:20→23:55)
--- NOTE | 2019-11-02 11:20 | NUR ---
m/s loop tacker: notes surgical dressing with splint to right foot remains intact, elevated with pillow, remains non weight bearing to right foot, pt verbalized understanding. instructed to call for assistance.
--- NOTE | 2019-11-02 13:35 | NUR ---
m/s agronomist: dpm f/u dr. farmer at bedside and teaching provided on non weight bearing status to right foot. pt was sitting up at the edge of the bed watching a movie on his cell phone. also informed pt re: biopsy taken and culture results will be available in a couple days. pt verbalized understanding.
--- NOTE | 2019-11-02 16:00 | NUR ---
m/s caramel cutter hand: notes in bed resting comfortable. no distress noted. surgical dressing with splint to right foot intact. no active bleeding noted. instructed to call for assistance. will continue to monitor.
[2019-11-02 16:27] VITALS: BP 179/83
--- NOTE | 2019-11-02 17:15 | NUR ---
m/s cow buyer: notes pt once more walked to the bathroom. reminded pt that his right foot is non weight bearing, pt started arguing and insisted that he knows what he is doing. will continue to monitor.
--- NOTE | 2019-11-02 18:20 | NUR ---
m/s head animal keeper: vascular surgeon dr. long at bedside assessing and talking to pt.
--- NOTE | 2019-11-02 19:15 | NUR ---
MS RN NOTES Received patient in bed awake and able to make needs known. pt A/O x3. respirations even and unlabored with no s/s of acute distress or sob noted. no complaints of pain at this time. safety measures in place with bed in lowest locked position with side rails up x2. call light within reach. will continue to monitor.
[2019-11-02 20:00] VITALS: BP 179/84
[2019-11-02] MEDS ORDERED: CLONIDINE HCL 0.3 MG/24H PTWK 1 EA PATCH TD SCH (21:47)
[2019-11-02] MEDS: VANCOMYCIN 0.75 GM in IV D5W 250 ML IV SCH (21:52)
[2019-11-02] MEDS: hydrALAZINE HCL IV 20 MG VIAL IV PRN (22:43)
[2019-11-02] MEDS: INSULIN GLARGINE, 100 UNIT/ML CARTRIDGE SQ SCH (23:04)
[2019-11-03] VITALS: BP 158/86
[2019-11-03] MEDS: ZOLPIDEM TARTRATE 5 MG TABLET PO PRN (00:48)
--- NOTE | 2019-11-03 07:41 | NUR ---
MS RN NOTES patient in bed awake and able to make needs known. pt A/O x3. respirations even and unlabored with no s/s of acute distress or sob noted throughout shift. no complaints of pain at this time. safety measures in place with bed in lowest locked position with side rails up x2. call light within reach. will endorse to oncoming nurse for manuel.
[2019-11-03] MEDS: BLOOD SUGAR DIAGNOSTIC 1 EACH STRIP IN SCH ×4 (07:49→21:46)
[2019-11-03 07:57] LABS: BASOPHILS % (AUTO) 0.2 % (0.0-2.0); EOSINOPHILS % (AUTO) 0.2 % (0.0-6.0); HEMATOCRIT 30 % (39-51); HEMOGLOBIN 10.4 g/dL (13.5-17.5); LYMPHOCYTES # (AUTO) 0.9 /CMM (0.8-4.8); LYMPHOCYTES % (AUTO) 9.3 % (20.0-44.0); MEAN CORPUSCULAR HGB CONC 35 g/dl (31.0-36.0); MEAN CORPUSCULAR VOLUME 85 fL (80-96); MONOCYTES # (AUTO) 0.7 /CMM (0.1-1.30); MONOCYTES % (AUTO) 6.5 % (2.0-12.0); NEUTROPHILS # (AUTO) 8.5 /CMM (1.8-8.9); NEUTROPHILS % (AUTO) 83.8 % (43.0-81.0); PLATELET COUNT (AUTO) 186 /CMM (150-450); RED BLOOD CELL COUNT(AUTO) 3.55 MIL/uL (4.5-6.0); WHITE BLOOD COUNT (AUTO) 10.2 K/uL (4.3-11.0)
[2019-11-03 08:03] VITALS: BP 171/67
[2019-11-03] MEDS: INSULIN REGULAR, HUMAN 100 UNIT/ML 3 ML VIAL SQ PRN ×2 (08:24→13:08)
[2019-11-03] MEDS: INSULIN LISPRO/ASPART 100 UNIT/ML CARTRIDGE SQ SCH ×3 (08:26→17:30)
[2019-11-03 08:32] LABS: CALCIUM, SERUM 8.2 mg/dL (8.5-10.1); CREATININE 2.3 mg/dL (0.6-1.3); MAGNESIUM 2.2 mg/dL (1.8-2.4); PHOSPHORUS 3.5 mg/dL (2.5-4.9); POTASSIUM 4.2 mmol/L (3.5-5.1)
[2019-11-03] MEDS: GLIMEPIRIDE 4 MG TABLET PO SCH ×2 (08:59→17:51)
[2019-11-03] MEDS: ASPIRIN EC 81 MG TABLET.DR PO SCH (08:59)
[2019-11-03] MEDS: hydrALAZINE HCL 50 MG TABLET PO SCH ×3 (09:00→17:00)
[2019-11-03] MEDS: CARVEDILOL 6.25 MG TABLET PO SCH ×3 (09:00→18:59)
[2019-11-03] MEDS: MEROPENEM 500 MG in IV NS 0.9% 50 ML IV SCH ×2 (09:10→20:40)
[2019-11-03] MEDS: MUPIROCIN OINT 2% 22 GM TUBE TP SCH ×2 (11:30→23:43)
[2019-11-03] MEDS: hydrALAZINE HCL IV 20 MG VIAL IV PRN (16:21)
--- NOTE | 2019-11-03 16:39 | NUR ---
bp elevated.medicated with hydralazine iv.
[2019-11-03 18:03] VITALS: BP 171/79
[2019-11-03 19:30] VITALS: BP 139/69
--- NOTE | 2019-11-03 19:48 | NUR ---
MS RN NOTES PATIENT IN BED, AWAKE, ALERT AND ORIENTED X 3. BREATHING EVEN AND UNLABORED ON ROOM AIR. SHOWS NO SIGNS OF ACUTE RESPIRATORY DISTRESS. NO ACUTE PAIN. IV ON R FA 18G RUNNING NS AT 75ML/HR. SHOWS NO SIGNS OF INFILTRATION, NO REDNESS. SAFETY PRECAUTIONS IN PLACE. BED IN LOWEST POSITION, LOCKED, AND CALL LIGHT KEPT WITHIN REACH. WILL CONTINUE TO MONITOR.
[2019-11-03 20:00] VITALS: BP 139/69
[2019-11-03] MEDS: VANCOMYCIN 0.75 GM in IV D5W 250 ML IV SCH (21:46)
[2019-11-03] MEDS: INSULIN GLARGINE, 100 UNIT/ML CARTRIDGE SQ SCH (23:12)
--- NOTE | 2019-11-04 05:57 | NUR ---
MS RN NOTES PATIENT REFUSED IV FLUIDS AND REFUSED TO HAVE BED SHEETS CHANGED.
--- NOTE | 2019-11-04 06:51 | NUR ---
MS RN NOTES PATIENT IN BED,ASLEEP, ALERT AND ORIENTED X 3. BREATHING EVEN AND UNLABORED ON ROOM AIR. SHOWS NO SIGNS OF ACUTE RESPIRATORY DISTRESS. NO ACUTE PAIN. IV ON R FA 18G RUNNING NS AT 75ML/HR. SHOWS NO SIGNS OF INFILTRATION, NO REDNESS.ALL DUE MEDICATIONS GIVEN.SAFETY PRECAUTIONS IN PLACE. BED IN LOWEST POSITION, LOCKED, AND CALL LIGHT KEPT WITHIN REACH. WILL ENDORSE TO ONCOMING NURSE.
[2019-11-04] MEDS: BLOOD SUGAR DIAGNOSTIC 1 EACH STRIP IN SCH ×3 (06:56→16:57)
[2019-11-04] MEDS: INSULIN REGULAR, HUMAN 100 UNIT/ML 3 ML VIAL SQ PRN ×3 (06:58→17:06)
[2019-11-04] MEDS: INSULIN LISPRO/ASPART 100 UNIT/ML CARTRIDGE SQ SCH ×3 (07:28→17:45)
--- NOTE | 2019-11-04 07:35 | NUR ---
MS RN NOTES RECEIVED PATIENT IN BED,ASLEEP, ALERT AND ORIENTED X 3. NO SIGNS OF DISTRESS NOTED AT THIS TIME. IV ON R FA 18G, PATENT AND INTACT. PER LOFTER PATIENT REFUSED IV FLUIDS.SAFETY PRECAUTIONS IN PLACE. BED IN LOWEST POSITION, LOCKED, AND CALL LIGHT KEPT WITHIN REACH. WILL CONTINUE TO MONITOR.
[2019-11-04 08:00] VITALS: BP 154/74
[2019-11-04] MEDS: MEROPENEM 500 MG in IV NS 0.9% 50 ML IV SCH ×2 (08:03→20:00)
[2019-11-04 08:08] LABS: BASOPHILS % (AUTO) 0.2 % (0.0-2.0); EOSINOPHILS % (AUTO) 1.3 % (0.0-6.0); HEMATOCRIT 31 % (39-51); HEMOGLOBIN 10.7 g/dL (13.5-17.5); LYMPHOCYTES # (AUTO) 1.7 /CMM (0.8-4.8); LYMPHOCYTES % (AUTO) 23.4 % (20.0-44.0); MEAN CORPUSCULAR HGB CONC 35 g/dl (31.0-36.0); MEAN CORPUSCULAR VOLUME 84 fL (80-96); MONOCYTES # (AUTO) 0.5 /CMM (0.1-1.30); MONOCYTES % (AUTO) 7.3 % (2.0-12.0); NEUTROPHILS % (AUTO) 67.8 % (43.0-81.0); PLATELET COUNT (AUTO) 192 /CMM (150-450); RED BLOOD CELL COUNT(AUTO) 3.67 MIL/uL (4.5-6.0); WHITE BLOOD COUNT (AUTO) 7.4 K/uL (4.3-11.0)
[2019-11-04 08:28] LABS: CALCIUM, SERUM 8.4 mg/dL (8.5-10.1); CREATININE 2.2 mg/dL (0.6-1.3); MAGNESIUM 2.1 mg/dL (1.8-2.4); PHOSPHORUS 4.4 mg/dL (2.5-4.9); POTASSIUM 4.3 mmol/L (3.5-5.1)
[2019-11-04] MEDS: CARVEDILOL 6.25 MG TABLET PO SCH ×2 (08:41→16:45)
[2019-11-04] MEDS: hydrALAZINE HCL 50 MG TABLET PO SCH ×3 (08:42→16:45)
[2019-11-04] MEDS: GLIMEPIRIDE 4 MG TABLET PO SCH ×2 (08:42→16:45)
[2019-11-04] MEDS: ASPIRIN EC 81 MG TABLET.DR PO SCH (08:42)
[2019-11-04] MEDS ORDERED: DAPT500V2 IV (11:50)
[2019-11-04] MEDS ORDERED: MERO500V21 IV (11:50)
[2019-11-04] MEDS: MUPIROCIN OINT 2% 22 GM TUBE TP SCH (12:07)
[2019-11-04] MEDS ORDERED: VANCOMYCIN 1 GM in IV D5W 250 ML IV SCH (15:00)
[2019-11-04] MEDS ORDERED: NS 0.9% IV SCH (15:00)
[2019-11-04] MEDS ORDERED: DAPTOMYCIN IV SCH (15:00)
[2019-11-04 16:00] VITALS: BP 160/86
[2019-11-04 16:45] VITALS: BP 160/86
--- NOTE | 2019-11-04 18:45 | NUR ---
RN NOTES PATIENT IN BED RESTING COMFORTABLY IN MODERATE HIGH BACK REST, A/OX4. NO SIGNS OF DISTRESS NOTED THROUGHOUT THE SHIFT. NOTED WITH CORBY MIDLINE WITH NS RUNNING @75ML/HR, PATENT AND INTACT. PATIENT WILL BE DC TONIGHT AFTER MEROPENEM, PATIENT REFUSED SKIN ASSESSMENT AND PICTURES, DC PAPERS SIGNED.SAFETY PRECAUTIONS IN PLACE. BED IN LOWEST POSITION, LOCKED, AND CALL LIGHT KEPT WITHIN REACH. WILL ENDORSE TO OPS ANALYST FOR TITI.
--- NOTE | 2019-11-04 19:27 | NUR ---
MS/RN OPENING NOTES: RECEIVED PATIENT IN BED, RESTING. ALERT AND ORIENTED X 3. NO SOB NOTED. NO SIGNS OF DISTRESS AT THIS TIME. ON ROOM AIR, BREATHING EVEN AND UNLABORED. IV ON THE LEFT UA MIDLINE WITH NS RUNNING AT 75MLS/HR. PATIENT AWAITING FOR DISCHARGE TONIGHT. ALL PAPER WORKS AND CONSENTS SIGNED. PER DAY SHIFT RN REPORT, D/C AFTER MERREM IV ANTIBIOTIC INFUSED. SAFETY PRECAUTIONS IN PLACE. BED IN LOWEST POSITION, LOCKED, AND CALL LIGHT KEPT WITHIN REACH. WILL CONTINUE TO MONITOR.
--- NOTE | 2019-11-04 20:43 | NUR ---
MS/RN NOTES: MERREM ANTIBIOTIC INFUSED. PT. IS READY TO LEAVE. BELONGINGS ARE READY AND ALL PAPERS AND CONSENTS SIGNED.
--- NOTE | 2019-11-04 21:04 | NUR ---
MS/STORAGE SPECIALIST NOTES: PT. IS IN A NEWMAN TO LEAVE HOSPITAL. PT. HAS ALL BELONGINGS READY. SIGNED CONSENTS AND PAPER WORKS. WANTS TO WALK DOWNSTAIRS, EXPLAINED TO PT ABOUT RISKS OF FALL. CLAIMS HIS FRIEND IS ALREADY DOWNSTAIRS SO HE NEEDS TO LEAVE [place]. VS TAKEN. BP 157/89 HR:52. RR:20. TEMP 97.5 OS SAT 98% ON ROOM AIR. ARM BAND REMOVED. PT. LEFT UNIT IN STABLE CONDITION VIA WHEEL CHAIR. LEFT UPPER ARM MIDLINE PRESENT, INTACT AND PATENT, FLUSHING WELL. STILL WAITING FOR FRIEND TO PICK HIM UP DOWNSTAIRS.
== END 2019-11-04 21:00 | disposition home health service (06) | DRG 623 ==
LOC: ER 08:42 → MED 10:50
PROVIDERS: ADMIT Nurse Practitioner Acute Care; ATTEND Nurse Practitioner Acute Care
PROC: 0QBN0ZZ Excision of Right Metatarsal, Open Approach (ICD-10-PCS; principal; 2019-11-02)
PROC: 0JBQ0ZZ Excision of Right Foot Subcutaneous Tissue and Fascia, Open Approach (ICD-10-PCS; 2019-11-02)
DX: E11.621 Type 2 diabetes mellitus with foot ulcer (principal); E87.1 Hypo-osmolality and hyponatremia; M86.8X7 Other osteomyelitis, ankle and foot; I25.10 Atherosclerotic heart disease of native coronary artery without angina pectoris; E78.5 Hyperlipidemia, unspecified; G89.29 Other chronic pain; M54.5 Low back pain; Z87.891 Personal history of nicotine dependence; N17.0 Acute kidney failure with tubular necrosis; D63.8 Anemia in other chronic diseases classified elsewhere; E86.9 Volume depletion, unspecified; E86.1 Hypovolemia; N18.9 Chronic kidney disease, unspecified; I12.9 Hypertensive chronic kidney disease with stage 1 through stage 4 chronic kidney disease, or unspecified chronic kidney disease; E11.40 Type 2 diabetes mellitus with diabetic neuropathy, unspecified; E11.69 Type 2 diabetes mellitus with other specified complication; E11.22 Type 2 diabetes mellitus with diabetic chronic kidney disease; E11.51 Type 2 diabetes mellitus with diabetic peripheral angiopathy without gangrene; M89.9 Disorder of bone, unspecified; E11.610 Type 2 diabetes mellitus with diabetic neuropathic arthropathy; E66.01 Morbid (severe) obesity due to excess calories; Z68.31 Body mass index [BMI] 31.0-31.9, adult; L97.519 Non-pressure chronic ulcer of other part of right foot with unspecified severity; Z95.5 Presence of coronary angioplasty implant and graft; Z91.19 Patient's noncompliance with other medical treatment and regimen
CPT/HCPCS: 36415; 71045-TC; 73630-TC; 73718-TC; 76770-TC; 80048-TC; 80053-TC; 80061-TC; 80076-TC; 80202-TC; 81000-TC; 82962-TC; 83540-TC; 83605-TC; 83735-TC; 84100-TC; 84443-TC; 85025-TC; 85652-TC; 85730-TC; 86850-TC; 87040-TC; 87070-TC; 87081-TC; 88304-TC; 88311-TC; 93970-TC; A4216; A4217; A6209; G0378; J0360; J0878; J1100; J1815; J2185; J2405; J3370; J3490; J7060

== ENCOUNTER 2019-11-05 09:54 | Outpatient (CLI) | payer MEDICARE, BC ==
[~2019-11-05 09:54] MED LIST changes: +CARV6.252 PO; +CLON0.3T PO; +DAPT500V2 IV; +INSU100I26 SQ; +INSU100I43; +MERO500V21 IV
== END 2019-11-05 23:59 | disposition home health service (06) ==
LOC: WOU 09:54
PROVIDERS: ATTEND Podiatrist Foot & Ankle Surgery
DX: E11.621 Type 2 diabetes mellitus with foot ulcer (principal); L97.512 Non-pressure chronic ulcer of other part of right foot with fat layer exposed; Z79.4 Long term (current) use of insulin; T81.31XD Disruption of external operation (surgical) wound, not elsewhere classified, subsequent encounter; L84 Corns and callosities; Z79.82 Long term (current) use of aspirin
CPT/HCPCS: A6207; A6209; G0463

== ENCOUNTER 2019-11-12 09:25 | Outpatient (CLI) | payer MEDICARE, BC | END 2019-11-12 23:59 | disposition home health service (06) | LOC: WOU 09:25 | PROVIDERS: ATTEND Podiatrist Foot & Ankle Surgery | DX: E11.621 Type 2 diabetes mellitus with foot ulcer (principal); L97.512 Non-pressure chronic ulcer of other part of right foot with fat layer exposed; Z79.4 Long term (current) use of insulin; R60.0 Localized edema; R26.9 Unspecified abnormalities of gait and mobility; Z91.19 Patient's noncompliance with other medical treatment and regimen; Z79.82 Long term (current) use of aspirin | CPT/HCPCS: 29581; A6207; A6209 ==

== ENCOUNTER 2019-11-12 10:55 | Emergency (ER) | payer MEDICARE, BC ==
[~2019-11-12] VITALS: Ht 177.8 cm; Wt 99.8 kg
[2019-11-12 10:57] VITALS: BP 162/85
--- NOTE | 2019-11-12 11:12 | NUR ---
DR. CANCINO AT BEDSIDE FOR EVAL.
--- NOTE | 2019-11-12 11:46 | NUR ---
US DONE, NEGATIVE FOR COVID.
--- NOTE | 2019-11-12 11:55 | NUR ---
Patient discharged to home in stable condition. No bleeding noted at CORBY removal site. Written and verbal after care instructions given. Patient verbalizes understanding of instruction.
== END 2019-11-12 11:56 | disposition home or self-care (01) ==
LOC: ER 10:59
DX: T82.898A Other specified complication of vascular prosthetic devices, implants and grafts, initial encounter (principal); I10 Essential (primary) hypertension; E11.9 Type 2 diabetes mellitus without complications; Z98.890 Other specified postprocedural states; Z60.2 Problems related to living alone; Z79.899 Other long term (current) drug therapy; Z79.4 Long term (current) use of insulin; Z79.82 Long term (current) use of aspirin
CPT/HCPCS: 93971-TC

== ENCOUNTER 2019-11-19 09:00 | Outpatient (CLI) | payer MEDICARE, BC | END 2019-11-19 23:59 | disposition home health service (06) | LOC: WOU 09:00 | PROVIDERS: ATTEND Podiatrist Foot & Ankle Surgery | DX: M79.81 Nontraumatic hematoma of soft tissue (principal); E11.621 Type 2 diabetes mellitus with foot ulcer; L97.412 Non-pressure chronic ulcer of right heel and midfoot with fat layer exposed; L97.512 Non-pressure chronic ulcer of other part of right foot with fat layer exposed; E11.42 Type 2 diabetes mellitus with diabetic polyneuropathy; E11.22 Type 2 diabetes mellitus with diabetic chronic kidney disease; N18.9 Chronic kidney disease, unspecified; Z79.4 Long term (current) use of insulin; Z79.82 Long term (current) use of aspirin | CPT/HCPCS: 10140; 87070; 87077; 87186; A6207; A6209; A6407 ==

== ENCOUNTER 2019-11-26 09:40 | Outpatient (CLI) | payer MEDICARE, BC | END 2019-11-26 23:59 | disposition home health service (06) | LOC: WOU 09:40 | PROVIDERS: ATTEND Podiatrist Foot & Ankle Surgery | DX: E11.621 Type 2 diabetes mellitus with foot ulcer (principal); L97.412 Non-pressure chronic ulcer of right heel and midfoot with fat layer exposed; L97.512 Non-pressure chronic ulcer of other part of right foot with fat layer exposed; T81.31XA Disruption of external operation (surgical) wound, not elsewhere classified, initial encounter; E11.42 Type 2 diabetes mellitus with diabetic polyneuropathy; E11.69 Type 2 diabetes mellitus with other specified complication; M86.371 Chronic multifocal osteomyelitis, right ankle and foot; Z79.4 Long term (current) use of insulin; M79.81 Nontraumatic hematoma of soft tissue; R60.0 Localized edema; Z79.82 Long term (current) use of aspirin | CPT/HCPCS: A6207; A6209; G0463 ==

== ENCOUNTER 2019-12-03 09:30 | Outpatient (CLI) | payer MEDICARE, BC | END 2019-12-03 23:59 | disposition home health service (06) | LOC: WOU 09:30 | PROVIDERS: ATTEND Podiatrist Foot & Ankle Surgery | DX: E11.621 Type 2 diabetes mellitus with foot ulcer (principal); L97.412 Non-pressure chronic ulcer of right heel and midfoot with fat layer exposed; L97.512 Non-pressure chronic ulcer of other part of right foot with fat layer exposed; T81.31XD Disruption of external operation (surgical) wound, not elsewhere classified, subsequent encounter; E11.42 Type 2 diabetes mellitus with diabetic polyneuropathy; E11.69 Type 2 diabetes mellitus with other specified complication; E11.22 Type 2 diabetes mellitus with diabetic chronic kidney disease; M86.371 Chronic multifocal osteomyelitis, right ankle and foot; N18.9 Chronic kidney disease, unspecified; Z79.4 Long term (current) use of insulin; M79.81 Nontraumatic hematoma of soft tissue; R60.0 Localized edema; Z91.19 Patient's noncompliance with other medical treatment and regimen; Z79.82 Long term (current) use of aspirin | CPT/HCPCS: 11043; A6207; A6209 ==

== ENCOUNTER 2019-12-10 09:30 | Outpatient (CLI) | payer MEDICARE, BC | END 2019-12-10 23:59 | disposition home health service (06) | LOC: WOU 09:30 | PROVIDERS: ATTEND Podiatrist Foot & Ankle Surgery | DX: E11.621 Type 2 diabetes mellitus with foot ulcer (principal); L97.513 Non-pressure chronic ulcer of other part of right foot with necrosis of muscle; L97.412 Non-pressure chronic ulcer of right heel and midfoot with fat layer exposed; E11.42 Type 2 diabetes mellitus with diabetic polyneuropathy; E11.69 Type 2 diabetes mellitus with other specified complication; E11.22 Type 2 diabetes mellitus with diabetic chronic kidney disease; N18.9 Chronic kidney disease, unspecified; M86.371 Chronic multifocal osteomyelitis, right ankle and foot; M79.81 Nontraumatic hematoma of soft tissue; R60.0 Localized edema; Z79.4 Long term (current) use of insulin; Z79.82 Long term (current) use of aspirin | CPT/HCPCS: 11042; 11043; A6207; A6209; A6407 ==

== ENCOUNTER 2019-12-17 09:15 | Outpatient (CLI) | payer MEDICARE, BC | END 2019-12-17 23:59 | disposition home health service (06) | LOC: WOU 09:15 | PROVIDERS: ATTEND Podiatrist Foot & Ankle Surgery | DX: E11.621 Type 2 diabetes mellitus with foot ulcer (principal); L97.512 Non-pressure chronic ulcer of other part of right foot with fat layer exposed; T81.31XD Disruption of external operation (surgical) wound, not elsewhere classified, subsequent encounter; E11.42 Type 2 diabetes mellitus with diabetic polyneuropathy; E11.22 Type 2 diabetes mellitus with diabetic chronic kidney disease; E11.69 Type 2 diabetes mellitus with other specified complication; N18.9 Chronic kidney disease, unspecified; M86.371 Chronic multifocal osteomyelitis, right ankle and foot; Z79.4 Long term (current) use of insulin; Z79.82 Long term (current) use of aspirin | CPT/HCPCS: 11042; 87070 ×2; 87077; 87186; A6207; A6209 ==

== ENCOUNTER 2019-12-24 09:15 | Outpatient (CLI) | payer MEDICARE, BC | END 2019-12-24 23:59 | disposition home health service (06) | LOC: WOU 09:15 | PROVIDERS: ATTEND Podiatrist Foot & Ankle Surgery | DX: E11.621 Type 2 diabetes mellitus with foot ulcer (principal); L97.512 Non-pressure chronic ulcer of other part of right foot with fat layer exposed; L03.115 Cellulitis of right lower limb; B95.2 Enterococcus as the cause of diseases classified elsewhere; E11.42 Type 2 diabetes mellitus with diabetic polyneuropathy; E11.69 Type 2 diabetes mellitus with other specified complication; E11.22 Type 2 diabetes mellitus with diabetic chronic kidney disease; N18.9 Chronic kidney disease, unspecified; M86.371 Chronic multifocal osteomyelitis, right ankle and foot; T81.31XA Disruption of external operation (surgical) wound, not elsewhere classified, initial encounter; R60.0 Localized edema; Z79.4 Long term (current) use of insulin; Z79.82 Long term (current) use of aspirin | CPT/HCPCS: 11042; A6209; A6207 ==

== ENCOUNTER 2020-01-07 09:45 | Outpatient (CLI) | payer MEDICARE, BC | END 2020-01-07 23:59 | disposition home health service (06) | LOC: WOU 09:45 | PROVIDERS: ATTEND Podiatrist Foot & Ankle Surgery | DX: E11.621 Type 2 diabetes mellitus with foot ulcer (principal); L97.512 Non-pressure chronic ulcer of other part of right foot with fat layer exposed; L97.515 Non-pressure chronic ulcer of other part of right foot with muscle involvement without evidence of necrosis; E11.42 Type 2 diabetes mellitus with diabetic polyneuropathy; E11.69 Type 2 diabetes mellitus with other specified complication; E11.22 Type 2 diabetes mellitus with diabetic chronic kidney disease; N18.9 Chronic kidney disease, unspecified; M86.371 Chronic multifocal osteomyelitis, right ankle and foot; R60.0 Localized edema; Z79.4 Long term (current) use of insulin; Z79.82 Long term (current) use of aspirin | CPT/HCPCS: 11043; A6209 ==

== ENCOUNTER 2020-01-11 11:42 | Outpatient (CLI) | payer MEDICARE, BC | END 2020-01-11 23:59 | disposition home or self-care (01) | LOC: MRI 11:42 | PROVIDERS: ATTEND Podiatrist Foot & Ankle Surgery | DX: M19.071 Primary osteoarthritis, right ankle and foot (principal); E11.621 Type 2 diabetes mellitus with foot ulcer; M62.50 Muscle wasting and atrophy, not elsewhere classified, unspecified site; R60.0 Localized edema | CPT/HCPCS: 73718-TC ==

== ENCOUNTER 2020-01-14 09:27 | Outpatient (CLI) | payer MEDICARE, BC | END 2020-01-14 23:59 | disposition home health service (06) | LOC: WOU 09:27 | PROVIDERS: ATTEND Podiatrist Foot & Ankle Surgery | DX: E11.621 Type 2 diabetes mellitus with foot ulcer (principal); L97.515 Non-pressure chronic ulcer of other part of right foot with muscle involvement without evidence of necrosis; E11.42 Type 2 diabetes mellitus with diabetic polyneuropathy; E11.69 Type 2 diabetes mellitus with other specified complication; E11.22 Type 2 diabetes mellitus with diabetic chronic kidney disease; N18.9 Chronic kidney disease, unspecified; M86.371 Chronic multifocal osteomyelitis, right ankle and foot; Z79.4 Long term (current) use of insulin; R60.0 Localized edema; Z79.82 Long term (current) use of aspirin; Z79.899 Other long term (current) drug therapy | CPT/HCPCS: 11043; A6209; 11042 ==

== ENCOUNTER 2020-01-21 09:30 | Outpatient (CLI) | payer MEDICARE, BC | END 2020-01-21 23:59 | disposition home health service (06) | LOC: WOU 09:30 | PROVIDERS: ATTEND Podiatrist Foot & Ankle Surgery | DX: E11.42 Type 2 diabetes mellitus with diabetic polyneuropathy (principal); E11.69 Type 2 diabetes mellitus with other specified complication; E11.22 Type 2 diabetes mellitus with diabetic chronic kidney disease; N18.9 Chronic kidney disease, unspecified; M86.371 Chronic multifocal osteomyelitis, right ankle and foot; Z79.4 Long term (current) use of insulin; L84 Corns and callosities; R60.0 Localized edema; Z87.891 Personal history of nicotine dependence; Z89.411 Acquired absence of right great toe; Z79.82 Long term (current) use of aspirin | CPT/HCPCS: A6209; G0463; A6207 ==

== ENCOUNTER 2020-01-26 09:41 | Outpatient (CLI) | payer MEDICARE, BC | END 2020-01-26 23:59 | disposition home or self-care (01) | LOC: MSC 09:41 | PROVIDERS: ATTEND Internal Medicine | DX: E11.22 Type 2 diabetes mellitus with diabetic chronic kidney disease (principal); I12.9 Hypertensive chronic kidney disease with stage 1 through stage 4 chronic kidney disease, or unspecified chronic kidney disease; N18.4 Chronic kidney disease, stage 4 (severe); N17.9 Acute kidney failure, unspecified; Z79.4 Long term (current) use of insulin; E11.621 Type 2 diabetes mellitus with foot ulcer; E11.69 Type 2 diabetes mellitus with other specified complication; L97.519 Non-pressure chronic ulcer of other part of right foot with unspecified severity; M86.9 Osteomyelitis, unspecified; G47.30 Sleep apnea, unspecified; N25.81 Secondary hyperparathyroidism of renal origin; Z79.899 Other long term (current) drug therapy ==

== ENCOUNTER 2020-01-28 09:35 | Outpatient (CLI) | payer MEDICARE, BC | END 2020-01-28 23:59 | disposition home health service (06) | LOC: WOU 09:35 | PROVIDERS: ATTEND Podiatrist Foot & Ankle Surgery | DX: E11.69 Type 2 diabetes mellitus with other specified complication (principal); E11.42 Type 2 diabetes mellitus with diabetic polyneuropathy; E11.22 Type 2 diabetes mellitus with diabetic chronic kidney disease; I12.9 Hypertensive chronic kidney disease with stage 1 through stage 4 chronic kidney disease, or unspecified chronic kidney disease; N18.9 Chronic kidney disease, unspecified; M86.371 Chronic multifocal osteomyelitis, right ankle and foot; Z87.891 Personal history of nicotine dependence; Z79.4 Long term (current) use of insulin; L84 Corns and callosities; R60.0 Localized edema; Z79.82 Long term (current) use of aspirin | CPT/HCPCS: A6207; A6209; G0463 ==

== ENCOUNTER 2020-02-04 09:26 | Outpatient (CLI) | payer MEDICARE, BC | END 2020-02-04 23:59 | disposition home health service (06) | LOC: WOU 09:26 | PROVIDERS: ATTEND Podiatrist Foot & Ankle Surgery | DX: E11.621 Type 2 diabetes mellitus with foot ulcer (principal); L97.512 Non-pressure chronic ulcer of other part of right foot with fat layer exposed; E11.42 Type 2 diabetes mellitus with diabetic polyneuropathy; E11.69 Type 2 diabetes mellitus with other specified complication; E11.22 Type 2 diabetes mellitus with diabetic chronic kidney disease; N18.9 Chronic kidney disease, unspecified; M86.371 Chronic multifocal osteomyelitis, right ankle and foot; Z79.4 Long term (current) use of insulin; Z79.82 Long term (current) use of aspirin | CPT/HCPCS: 11042; A6209 ==

== ENCOUNTER 2020-02-09 09:45 | Outpatient (CLI) | payer MEDICARE, BC ==
[2020-02-09 13:10] LABS: ALBUMIN 3.7 g/dL (3.4-5.0); BILIRUBIN,TOTAL 0.5 mg/dL (0.2-1.0); CREATININE 2.3 mg/dL (0.6-1.3); MAGNESIUM 2.4 mg/dL (1.8-2.4); PHOSPHORUS 4.3 mg/dL (2.5-4.9); POTASSIUM 4.6 mmol/L (3.5-5.1); TOTAL PROTEIN, SERUM 6.9 g/dL (6.4-8.2)
[2020-02-09 13:17] LABS: CALCIUM, SERUM 8.6 mg/dL (8.5-10.1)
[2020-02-09 13:23] LABS: PROSTATE SPECIFIC ANTIGEN SCR 1.21 ng/mL (0.00-4.00)
[2020-02-09 13:26] LABS: BASOPHILS % (AUTO) 0.4 % (0.0-2.0); EOSINOPHILS % (AUTO) 2.1 % (0.0-6.0); HEMATOCRIT 31 % (39-51); HEMOGLOBIN 10.9 g/dL (13.5-17.5); LYMPHOCYTES # (AUTO) 1.4 /CMM (0.8-4.8); LYMPHOCYTES % (AUTO) 21.9 % (20.0-44.0); MEAN CORPUSCULAR HGB CONC 35 g/dl (31.0-36.0); MEAN CORPUSCULAR VOLUME 87 fL (80-96); MONOCYTES # (AUTO) 0.4 /CMM (0.1-1.30); NEUTROPHILS # (AUTO) 4.5 /CMM (1.8-8.9); NEUTROPHILS % (AUTO) 69.6 % (43.0-81.0); PLATELET COUNT (AUTO) 216 /CMM (150-450); WHITE BLOOD COUNT (AUTO) 6.4 K/uL (4.3-11.0)
== END 2020-02-09 23:59 | disposition home or self-care (01) ==
LOC: MSC 09:45
PROVIDERS: ATTEND Internal Medicine
DX: I12.9 Hypertensive chronic kidney disease with stage 1 through stage 4 chronic kidney disease, or unspecified chronic kidney disease (principal); E11.22 Type 2 diabetes mellitus with diabetic chronic kidney disease; N18.4 Chronic kidney disease, stage 4 (severe); Z79.4 Long term (current) use of insulin; N25.81 Secondary hyperparathyroidism of renal origin; E11.621 Type 2 diabetes mellitus with foot ulcer; L97.519 Non-pressure chronic ulcer of other part of right foot with unspecified severity; G47.30 Sleep apnea, unspecified; R35.1 Nocturia
CPT/HCPCS: 36415; 80053; 83735; 83970; 84100; 84153; 85025; G0463

== ENCOUNTER 2020-02-11 09:40 | Outpatient (CLI) | payer MEDICARE, BC | END 2020-02-11 23:59 | disposition home health service (06) | LOC: WOU 09:40 | PROVIDERS: ATTEND Podiatrist Foot & Ankle Surgery | DX: E11.621 Type 2 diabetes mellitus with foot ulcer (principal); L97.512 Non-pressure chronic ulcer of other part of right foot with fat layer exposed; E11.42 Type 2 diabetes mellitus with diabetic polyneuropathy; E11.69 Type 2 diabetes mellitus with other specified complication; E11.22 Type 2 diabetes mellitus with diabetic chronic kidney disease; N18.9 Chronic kidney disease, unspecified; M86.371 Chronic multifocal osteomyelitis, right ankle and foot; Z79.4 Long term (current) use of insulin; L84 Corns and callosities; Z79.82 Long term (current) use of aspirin | CPT/HCPCS: A6209; G0463 ==

== ENCOUNTER 2020-02-18 09:25 | Outpatient (CLI) | payer MEDICARE, BC | END 2020-02-18 23:59 | disposition home health service (06) | LOC: WOU 09:25 | PROVIDERS: ATTEND Podiatrist Foot & Ankle Surgery | DX: E11.621 Type 2 diabetes mellitus with foot ulcer (principal); L97.512 Non-pressure chronic ulcer of other part of right foot with fat layer exposed; E11.69 Type 2 diabetes mellitus with other specified complication; E11.42 Type 2 diabetes mellitus with diabetic polyneuropathy; E11.22 Type 2 diabetes mellitus with diabetic chronic kidney disease; N18.9 Chronic kidney disease, unspecified; M86.371 Chronic multifocal osteomyelitis, right ankle and foot; Z79.4 Long term (current) use of insulin; R60.0 Localized edema; Z79.82 Long term (current) use of aspirin | CPT/HCPCS: 11042; A6209 ==

== ENCOUNTER 2020-02-25 09:30 | Outpatient (CLI) | payer MEDICARE, BC | END 2020-02-25 23:59 | disposition home health service (06) | LOC: WOU 09:30 | PROVIDERS: ATTEND Podiatrist Foot & Ankle Surgery | DX: E11.621 Type 2 diabetes mellitus with foot ulcer (principal); L97.512 Non-pressure chronic ulcer of other part of right foot with fat layer exposed; E11.42 Type 2 diabetes mellitus with diabetic polyneuropathy; E11.69 Type 2 diabetes mellitus with other specified complication; E11.22 Type 2 diabetes mellitus with diabetic chronic kidney disease; N18.9 Chronic kidney disease, unspecified; M86.371 Chronic multifocal osteomyelitis, right ankle and foot; Z79.4 Long term (current) use of insulin; R60.0 Localized edema; Z79.82 Long term (current) use of aspirin | CPT/HCPCS: 11042; 87070; 87075; 87077; 87186 ×2; A6209 ==

== ENCOUNTER 2020-03-03 10:04 | Outpatient (CLI) | payer MEDICARE, BC | END 2020-03-03 23:59 | disposition home health service (06) | LOC: WOU 10:04 | PROVIDERS: ATTEND Podiatrist Foot & Ankle Surgery | DX: E11.621 Type 2 diabetes mellitus with foot ulcer (principal); L97.812 Non-pressure chronic ulcer of other part of right lower leg with fat layer exposed; E11.42 Type 2 diabetes mellitus with diabetic polyneuropathy; E11.22 Type 2 diabetes mellitus with diabetic chronic kidney disease; E11.69 Type 2 diabetes mellitus with other specified complication; N18.9 Chronic kidney disease, unspecified; M86.371 Chronic multifocal osteomyelitis, right ankle and foot; Z79.4 Long term (current) use of insulin; R60.1 Generalized edema; Z79.82 Long term (current) use of aspirin | CPT/HCPCS: A6209; G0463 ==

== ENCOUNTER 2020-03-10 09:00 | Outpatient (CLI) | payer MEDICARE, BC | END 2020-03-10 23:59 | disposition home health service (06) | LOC: WOU 09:00 | PROVIDERS: ATTEND Podiatrist Foot & Ankle Surgery | DX: E11.621 Type 2 diabetes mellitus with foot ulcer (principal); L97.512 Non-pressure chronic ulcer of other part of right foot with fat layer exposed; E11.42 Type 2 diabetes mellitus with diabetic polyneuropathy; E11.69 Type 2 diabetes mellitus with other specified complication; E11.22 Type 2 diabetes mellitus with diabetic chronic kidney disease; N18.9 Chronic kidney disease, unspecified; M86.371 Chronic multifocal osteomyelitis, right ankle and foot; Z79.4 Long term (current) use of insulin; L84 Corns and callosities; R60.1 Generalized edema; Z79.82 Long term (current) use of aspirin | CPT/HCPCS: A6209; G0463 ==

== ENCOUNTER 2020-03-27 09:55 | Outpatient (CLI) | payer MEDICARE, BC | END 2020-03-27 23:59 | disposition home or self-care (01) | LOC: RAD 09:55 | PROVIDERS: ATTEND Podiatrist Foot & Ankle Surgery | DX: M19.071 Primary osteoarthritis, right ankle and foot (principal); M77.31 Calcaneal spur, right foot; L97.518 Non-pressure chronic ulcer of other part of right foot with other specified severity; M79.89 Other specified soft tissue disorders | CPT/HCPCS: 73630-TC ==

== ENCOUNTER 2020-03-29 09:29 | Outpatient (CLI) | payer MEDICARE, BC | END 2020-03-29 23:59 | disposition home or self-care (01) | LOC: MSC 09:29 | PROVIDERS: ATTEND Internal Medicine | DX: E11.22 Type 2 diabetes mellitus with diabetic chronic kidney disease (principal); I12.9 Hypertensive chronic kidney disease with stage 1 through stage 4 chronic kidney disease, or unspecified chronic kidney disease; N18.4 Chronic kidney disease, stage 4 (severe); Z79.4 Long term (current) use of insulin; Z79.84 Long term (current) use of oral hypoglycemic drugs; E11.621 Type 2 diabetes mellitus with foot ulcer; E11.69 Type 2 diabetes mellitus with other specified complication; M86.9 Osteomyelitis, unspecified; G47.30 Sleep apnea, unspecified; R35.1 Nocturia; N25.81 Secondary hyperparathyroidism of renal origin; Z79.899 Other long term (current) drug therapy ==

== ENCOUNTER 2020-03-31 09:20 | Outpatient (CLI) | payer MEDICARE, BC | END 2020-03-31 23:59 | disposition home health service (06) | LOC: WOU 09:20 | PROVIDERS: ATTEND Podiatrist Foot & Ankle Surgery | DX: E11.621 Type 2 diabetes mellitus with foot ulcer (principal); L97.512 Non-pressure chronic ulcer of other part of right foot with fat layer exposed; E11.69 Type 2 diabetes mellitus with other specified complication; M86.371 Chronic multifocal osteomyelitis, right ankle and foot; E11.42 Type 2 diabetes mellitus with diabetic polyneuropathy; E11.22 Type 2 diabetes mellitus with diabetic chronic kidney disease; N18.9 Chronic kidney disease, unspecified; L84 Corns and callosities; R60.1 Generalized edema; Z79.4 Long term (current) use of insulin | CPT/HCPCS: 11042; A6209 ==

== ENCOUNTER 2020-04-03 11:53 | Outpatient (CLI) | payer MEDICARE, BC | END 2020-04-03 23:59 | disposition home or self-care (01) | LOC: MRI 11:53 | PROVIDERS: ATTEND Podiatrist Foot & Ankle Surgery | DX: L97.519 Non-pressure chronic ulcer of other part of right foot with unspecified severity (principal); M19.071 Primary osteoarthritis, right ankle and foot | CPT/HCPCS: 73718-TC ==

== ENCOUNTER 2020-04-07 09:11 | Outpatient (CLI) | payer MEDICARE, BC | END 2020-04-07 23:59 | disposition home health service (06) | LOC: WOU 09:11 | PROVIDERS: ATTEND Podiatrist Foot & Ankle Surgery | DX: E11.621 Type 2 diabetes mellitus with foot ulcer (principal); L97.512 Non-pressure chronic ulcer of other part of right foot with fat layer exposed; L84 Corns and callosities; E11.42 Type 2 diabetes mellitus with diabetic polyneuropathy; E11.22 Type 2 diabetes mellitus with diabetic chronic kidney disease; I12.9 Hypertensive chronic kidney disease with stage 1 through stage 4 chronic kidney disease, or unspecified chronic kidney disease; N18.9 Chronic kidney disease, unspecified; Z79.4 Long term (current) use of insulin; R60.1 Generalized edema | CPT/HCPCS: 11042; A6209 ==

== ENCOUNTER 2020-04-14 09:33 | Outpatient (CLI) | payer MEDICARE, BC | END 2020-04-14 23:59 | disposition home health service (06) | LOC: WOU 09:33 | PROVIDERS: ATTEND Podiatrist Foot & Ankle Surgery | DX: E11.42 Type 2 diabetes mellitus with diabetic polyneuropathy (principal); E11.22 Type 2 diabetes mellitus with diabetic chronic kidney disease; I12.9 Hypertensive chronic kidney disease with stage 1 through stage 4 chronic kidney disease, or unspecified chronic kidney disease; N18.9 Chronic kidney disease, unspecified; Z79.899 Other long term (current) drug therapy; Z79.4 Long term (current) use of insulin; L84 Corns and callosities; R60.1 Generalized edema; Z89.411 Acquired absence of right great toe; Z79.82 Long term (current) use of aspirin | CPT/HCPCS: A6209; G0463 ==

== ENCOUNTER 2020-04-28 09:25 | Outpatient (CLI) | payer MEDICARE, BC ==
[2020-04-28] MEDS ORDERED: UREA 10% -AHA 4% CREAM 57 GM TUBE ONE (09:44)
== END 2020-04-28 23:59 | disposition home health service (06) ==
LOC: WOU 09:25
PROVIDERS: ATTEND Podiatrist Foot & Ankle Surgery
DX: Z09 Encounter for follow-up examination after completed treatment for conditions other than malignant neoplasm (principal); Z86.31 Personal history of diabetic foot ulcer; E11.42 Type 2 diabetes mellitus with diabetic polyneuropathy; E11.22 Type 2 diabetes mellitus with diabetic chronic kidney disease; I12.9 Hypertensive chronic kidney disease with stage 1 through stage 4 chronic kidney disease, or unspecified chronic kidney disease; N18.9 Chronic kidney disease, unspecified; Z79.4 Long term (current) use of insulin; L84 Corns and callosities; R60.0 Localized edema; Z89.411 Acquired absence of right great toe
CPT/HCPCS: G0463

== ENCOUNTER 2020-06-02 08:45 | Outpatient (CLI) | payer MEDICARE, BC | END 2020-06-02 23:59 | disposition home health service (06) | LOC: WOU 08:45 | PROVIDERS: ATTEND Podiatrist Foot & Ankle Surgery | DX: E11.621 Type 2 diabetes mellitus with foot ulcer (principal); L97.512 Non-pressure chronic ulcer of other part of right foot with fat layer exposed; L03.115 Cellulitis of right lower limb; E11.42 Type 2 diabetes mellitus with diabetic polyneuropathy; E11.22 Type 2 diabetes mellitus with diabetic chronic kidney disease; Z79.4 Long term (current) use of insulin; N18.9 Chronic kidney disease, unspecified; Z79.82 Long term (current) use of aspirin; R60.0 Localized edema; L84 Corns and callosities | CPT/HCPCS: 11042; 87070; 87077; 87186 ×2; A6209 ==

== ENCOUNTER 2020-06-09 09:14 | Outpatient (CLI) | payer MEDICARE, BC | END 2020-06-09 23:59 | disposition home health service (06) | LOC: WOU 09:14 | PROVIDERS: ATTEND Podiatrist Foot & Ankle Surgery | DX: E11.621 Type 2 diabetes mellitus with foot ulcer (principal); L97.512 Non-pressure chronic ulcer of other part of right foot with fat layer exposed; E11.42 Type 2 diabetes mellitus with diabetic polyneuropathy; E11.22 Type 2 diabetes mellitus with diabetic chronic kidney disease; I12.9 Hypertensive chronic kidney disease with stage 1 through stage 4 chronic kidney disease, or unspecified chronic kidney disease; N18.9 Chronic kidney disease, unspecified; Z79.4 Long term (current) use of insulin; L84 Corns and callosities; R60.0 Localized edema; Z79.82 Long term (current) use of aspirin | CPT/HCPCS: 11043; A6209 ==

== ENCOUNTER 2020-07-05 14:00 | Outpatient (CLI) | payer MEDICARE, BC | END 2020-07-05 23:59 | disposition home health service (06) | LOC: WOU 14:00 | PROVIDERS: ATTEND Podiatrist Foot & Ankle Surgery | DX: E11.621 Type 2 diabetes mellitus with foot ulcer (principal); L97.512 Non-pressure chronic ulcer of other part of right foot with fat layer exposed; E11.42 Type 2 diabetes mellitus with diabetic polyneuropathy; E11.22 Type 2 diabetes mellitus with diabetic chronic kidney disease; N18.9 Chronic kidney disease, unspecified; Z79.4 Long term (current) use of insulin; L03.115 Cellulitis of right lower limb; R60.0 Localized edema; L84 Corns and callosities; Z79.82 Long term (current) use of aspirin | CPT/HCPCS: 11042; 87070; 87075; 87077; 87186; A6209 ==

== ENCOUNTER 2020-07-14 09:20 | Outpatient (CLI) | payer MEDICARE, BC | END 2020-07-14 23:59 | disposition home health service (06) | LOC: WOU 09:20 | PROVIDERS: ATTEND Podiatrist Foot & Ankle Surgery | DX: E11.621 Type 2 diabetes mellitus with foot ulcer (principal); L97.518 Non-pressure chronic ulcer of other part of right foot with other specified severity; E11.42 Type 2 diabetes mellitus with diabetic polyneuropathy; E11.22 Type 2 diabetes mellitus with diabetic chronic kidney disease; I12.9 Hypertensive chronic kidney disease with stage 1 through stage 4 chronic kidney disease, or unspecified chronic kidney disease; N18.9 Chronic kidney disease, unspecified; Z79.4 Long term (current) use of insulin; R60.0 Localized edema; L84 Corns and callosities; L03.115 Cellulitis of right lower limb | CPT/HCPCS: A6209; G0463 ==

== ENCOUNTER 2020-07-18 10:08 | Outpatient (CLI) | payer MEDICARE, BC | END 2020-07-18 23:59 | disposition home or self-care (01) | LOC: MRI 10:08 | PROVIDERS: ATTEND Podiatrist Foot & Ankle Surgery | DX: L97.519 Non-pressure chronic ulcer of other part of right foot with unspecified severity (principal); L03.115 Cellulitis of right lower limb; R60.0 Localized edema | CPT/HCPCS: 73718-TC ==

== ENCOUNTER 2020-07-21 09:40 | Outpatient (CLI) | payer MEDICARE, BC | END 2020-07-21 23:59 | disposition home health service (06) | LOC: WOU 09:40 | PROVIDERS: ATTEND Podiatrist Foot & Ankle Surgery | DX: E11.621 Type 2 diabetes mellitus with foot ulcer (principal); L97.525 Non-pressure chronic ulcer of other part of left foot with muscle involvement without evidence of necrosis; E11.42 Type 2 diabetes mellitus with diabetic polyneuropathy; E11.22 Type 2 diabetes mellitus with diabetic chronic kidney disease; N18.9 Chronic kidney disease, unspecified; Z79.4 Long term (current) use of insulin; R60.0 Localized edema; L84 Corns and callosities | CPT/HCPCS: 11043; 87070; 87077; 87186; A6209 ==

== ENCOUNTER 2020-07-28 09:30 | Outpatient (CLI) | payer MEDICARE, BC ==
[2020-07-28] MEDS ORDERED: GENTAMICIN 0.1% CREAM 15 GM TUBE ONE (10:04)
== END 2020-07-28 23:59 | disposition home health service (06) ==
LOC: WOU 09:30
PROVIDERS: ATTEND Podiatrist Foot & Ankle Surgery
DX: E11.621 Type 2 diabetes mellitus with foot ulcer (principal); L97.525 Non-pressure chronic ulcer of other part of left foot with muscle involvement without evidence of necrosis; E11.42 Type 2 diabetes mellitus with diabetic polyneuropathy; E11.22 Type 2 diabetes mellitus with diabetic chronic kidney disease; I12.9 Hypertensive chronic kidney disease with stage 1 through stage 4 chronic kidney disease, or unspecified chronic kidney disease; N18.9 Chronic kidney disease, unspecified; Z87.891 Personal history of nicotine dependence; Z79.4 Long term (current) use of insulin; L84 Corns and callosities; R60.0 Localized edema; Z79.82 Long term (current) use of aspirin
CPT/HCPCS: 11043; A6209

== ENCOUNTER 2020-08-04 09:15 | Outpatient (CLI) | payer MEDICARE, BC ==
[2020-08-04] MEDS ORDERED: GENTAMICIN 0.1% CREAM 15 GM TUBE ONE (10:00)
== END 2020-08-04 23:59 | disposition home health service (06) ==
LOC: WOU 09:15
PROVIDERS: ATTEND Podiatrist Foot & Ankle Surgery
DX: E11.621 Type 2 diabetes mellitus with foot ulcer (principal); L97.525 Non-pressure chronic ulcer of other part of left foot with muscle involvement without evidence of necrosis; E11.42 Type 2 diabetes mellitus with diabetic polyneuropathy; E11.22 Type 2 diabetes mellitus with diabetic chronic kidney disease; N18.9 Chronic kidney disease, unspecified; Z79.4 Long term (current) use of insulin; L84 Corns and callosities; R60.0 Localized edema; Z79.82 Long term (current) use of aspirin
CPT/HCPCS: 11043; 87070-TC; 87186-TC

== ENCOUNTER 2020-08-08 13:30 | Outpatient (CLI) | payer MEDICARE, BC | END 2020-08-08 23:59 | disposition home or self-care (01) | LOC: MRI 13:30 | PROVIDERS: ATTEND Podiatrist Foot & Ankle Surgery | DX: M20.12 Hallux valgus (acquired), left foot (principal); M86.8X7 Other osteomyelitis, ankle and foot; L97.529 Non-pressure chronic ulcer of other part of left foot with unspecified severity; L03.116 Cellulitis of left lower limb; M62.572 Muscle wasting and atrophy, not elsewhere classified, left ankle and foot | CPT/HCPCS: 73718-TC ==

== ENCOUNTER 2020-08-11 09:41 | Outpatient (CLI) | payer MEDICARE, BC ==
[2020-08-11] MEDS ORDERED: GENTAMICIN 0.1% CREAM 15 GM TUBE ONE (10:14)
== END 2020-08-11 23:59 | disposition home health service (06) ==
LOC: WOU 09:41
PROVIDERS: ATTEND Podiatrist Foot & Ankle Surgery
DX: E11.621 Type 2 diabetes mellitus with foot ulcer (principal); L97.515 Non-pressure chronic ulcer of other part of right foot with muscle involvement without evidence of necrosis; E11.42 Type 2 diabetes mellitus with diabetic polyneuropathy; E11.69 Type 2 diabetes mellitus with other specified complication; M86.672 Other chronic osteomyelitis, left ankle and foot; E11.22 Type 2 diabetes mellitus with diabetic chronic kidney disease; N18.9 Chronic kidney disease, unspecified; Z79.4 Long term (current) use of insulin; L03.116 Cellulitis of left lower limb; L84 Corns and callosities; R60.1 Generalized edema; Z79.82 Long term (current) use of aspirin
CPT/HCPCS: 11042; 11043

== ENCOUNTER 2020-08-15 11:45 | Outpatient (CLI) | payer MEDICARE, BC | END 2020-08-15 23:59 | disposition home or self-care (01) | LOC: WOU 11:45 | PROVIDERS: ATTEND Registered Nurse | DX: M86.8X7 Other osteomyelitis, ankle and foot (principal); B95.7 Other staphylococcus as the cause of diseases classified elsewhere; B95.2 Enterococcus as the cause of diseases classified elsewhere; I25.10 Atherosclerotic heart disease of native coronary artery without angina pectoris; E11.22 Type 2 diabetes mellitus with diabetic chronic kidney disease; I12.9 Hypertensive chronic kidney disease with stage 1 through stage 4 chronic kidney disease, or unspecified chronic kidney disease; N18.9 Chronic kidney disease, unspecified; Z87.891 Personal history of nicotine dependence; E78.5 Hyperlipidemia, unspecified; G89.29 Other chronic pain; M54.5 Low back pain; Z89.421 Acquired absence of other right toe(s) | CPT/HCPCS: G0463 ==

== ENCOUNTER 2020-08-16 11:00 | Outpatient (CLI) | payer MEDICARE, BC | END 2020-08-16 23:59 | disposition home or self-care (01) | LOC: WOU 11:00 | PROVIDERS: ATTEND Nurse Practitioner Acute Care | DX: Z45.2 Encounter for adjustment and management of vascular access device (principal); M86.8X7 Other osteomyelitis, ankle and foot | CPT/HCPCS: 36569; C1751 ==

== ENCOUNTER 2020-08-18 09:15 | Outpatient (CLI) | payer MEDICARE, BC ==
[2020-08-18] MEDS ORDERED: GENTAMICIN 0.1% CREAM 15 GM TUBE ONE (10:21)
== END 2020-08-18 23:59 | disposition home health service (06) ==
LOC: WOU 09:15
PROVIDERS: ATTEND Podiatrist Foot & Ankle Surgery
DX: E11.621 Type 2 diabetes mellitus with foot ulcer (principal); L97.525 Non-pressure chronic ulcer of other part of left foot with muscle involvement without evidence of necrosis; E11.69 Type 2 diabetes mellitus with other specified complication; E11.42 Type 2 diabetes mellitus with diabetic polyneuropathy; E11.22 Type 2 diabetes mellitus with diabetic chronic kidney disease; N18.9 Chronic kidney disease, unspecified; M86.672 Other chronic osteomyelitis, left ankle and foot; Z79.4 Long term (current) use of insulin; L03.116 Cellulitis of left lower limb; L84 Corns and callosities; Z89.421 Acquired absence of other right toe(s)
CPT/HCPCS: 11043

== ENCOUNTER 2020-08-25 09:20 | Outpatient (CLI) | payer MEDICARE, BC | END 2020-08-25 23:59 | disposition home health service (06) | LOC: WOU 09:20 | PROVIDERS: ATTEND Podiatrist Foot & Ankle Surgery | DX: E11.621 Type 2 diabetes mellitus with foot ulcer (principal); L97.525 Non-pressure chronic ulcer of other part of left foot with muscle involvement without evidence of necrosis; M79.81 Nontraumatic hematoma of soft tissue; E11.42 Type 2 diabetes mellitus with diabetic polyneuropathy; E11.69 Type 2 diabetes mellitus with other specified complication; E11.22 Type 2 diabetes mellitus with diabetic chronic kidney disease; I12.9 Hypertensive chronic kidney disease with stage 1 through stage 4 chronic kidney disease, or unspecified chronic kidney disease; N18.9 Chronic kidney disease, unspecified; M86.672 Other chronic osteomyelitis, left ankle and foot; Z87.891 Personal history of nicotine dependence; Z79.4 Long term (current) use of insulin; L03.116 Cellulitis of left lower limb; R60.0 Localized edema; L84 Corns and callosities; Z89.421 Acquired absence of other right toe(s); Z79.82 Long term (current) use of aspirin | CPT/HCPCS: 10060; 11043; 87070-TC; 87075-TC; 87186-TC ==

== ENCOUNTER 2020-08-29 09:49 | Outpatient (CLI) | payer MEDICARE, BC ==
[2020-08-29 10:42] LABS: BASOPHILS % (AUTO) 0.5 % (0.0-2.0); EOSINOPHILS % (AUTO) 1.4 % (0.0-6.0); HEMATOCRIT 34 % (39-51); HEMOGLOBIN 11.6 g/dL (13.5-17.5); LYMPHOCYTES % (AUTO) 18.6 % (20.0-44.0); MEAN CORPUSCULAR HGB CONC 34 g/dl (31.0-36.0); MEAN CORPUSCULAR VOLUME 88 fL (80-96); MONOCYTES # (AUTO) 0.3 /CMM (0.1-1.30); MONOCYTES % (AUTO) 6.4 % (2.0-12.0); NEUTROPHILS # (AUTO) 3.9 /CMM (1.8-8.9); NEUTROPHILS % (AUTO) 73.1 % (43.0-81.0); PLATELET COUNT (AUTO) 192 /CMM (150-450); WHITE BLOOD COUNT (AUTO) 5.4 K/uL (4.3-11.0)
[2020-08-29 11:06] LABS: C-REACTIVE PROTEIN 0.7 mg/dL (0.0-0.9)
[2020-08-29 11:07] LABS: CALCIUM, SERUM 8.8 mg/dL (8.5-10.1); CREATININE 2.7 mg/dL (0.6-1.3); POTASSIUM 4.7 mmol/L (3.5-5.1)
== END 2020-08-29 23:59 | disposition home or self-care (01) ==
LOC: LAB 09:49
PROVIDERS: ATTEND Podiatrist Foot & Ankle Surgery
DX: Z01.818 Encounter for other preprocedural examination (principal); R94.31 Abnormal electrocardiogram [ECG] [EKG]
CPT/HCPCS: 36415; 71046; 80048-TC; 84134-TC; 85025-TC; 85652-TC; 85730-TC; 86140-TC

== ENCOUNTER 2020-09-01 08:00 | Outpatient (CLI) | payer MEDICARE, BC | END 2020-09-01 23:59 | disposition home health service (06) | LOC: WOU 08:00 | PROVIDERS: ATTEND Podiatrist Foot & Ankle Surgery | DX: E11.621 Type 2 diabetes mellitus with foot ulcer (principal); L97.525 Non-pressure chronic ulcer of other part of left foot with muscle involvement without evidence of necrosis; L97.512 Non-pressure chronic ulcer of other part of right foot with fat layer exposed; E11.42 Type 2 diabetes mellitus with diabetic polyneuropathy; E11.69 Type 2 diabetes mellitus with other specified complication; E11.22 Type 2 diabetes mellitus with diabetic chronic kidney disease; N18.9 Chronic kidney disease, unspecified; M86.371 Chronic multifocal osteomyelitis, right ankle and foot; Z79.4 Long term (current) use of insulin; L84 Corns and callosities; R60.0 Localized edema; Z79.82 Long term (current) use of aspirin | CPT/HCPCS: 11043; A6209 ==

== ENCOUNTER 2020-09-15 09:25 | Outpatient (CLI) | payer MEDICARE, BC ==
[~2020-09-15 09:25] MED LIST changes: -INSU100I43; +INSU100I43 SQ
== END 2020-09-15 23:59 | disposition home health service (06) ==
LOC: WOU 09:25
PROVIDERS: ATTEND Podiatrist Foot & Ankle Surgery
DX: E11.621 Type 2 diabetes mellitus with foot ulcer (principal); L97.525 Non-pressure chronic ulcer of other part of left foot with muscle involvement without evidence of necrosis; L97.512 Non-pressure chronic ulcer of other part of right foot with fat layer exposed; E11.42 Type 2 diabetes mellitus with diabetic polyneuropathy; E11.22 Type 2 diabetes mellitus with diabetic chronic kidney disease; E11.69 Type 2 diabetes mellitus with other specified complication; I12.9 Hypertensive chronic kidney disease with stage 1 through stage 4 chronic kidney disease, or unspecified chronic kidney disease; N18.9 Chronic kidney disease, unspecified; M86.371 Chronic multifocal osteomyelitis, right ankle and foot; M86.672 Other chronic osteomyelitis, left ankle and foot; Z79.4 Long term (current) use of insulin; R60.0 Localized edema; L84 Corns and callosities; Z89.421 Acquired absence of other right toe(s); Z79.82 Long term (current) use of aspirin
CPT/HCPCS: 11042; 11043; A6209

== ENCOUNTER 2020-09-19 10:00 | Outpatient (CLI) | payer MEDICARE, BC ==
[2020-09-19] MEDS ORDERED: CLON0.2T PO (12:44)
[2020-09-19] MEDS ORDERED: CLOP75TA15 PO (12:44)
[2020-09-19] MEDS ORDERED: PRAV80TA21 PO (12:44)
== END 2020-09-19 23:59 | disposition home health service (06) ==
LOC: WOU 10:00
PROVIDERS: ATTEND Podiatrist Foot & Ankle Surgery
DX: E11.621 Type 2 diabetes mellitus with foot ulcer (principal); L97.525 Non-pressure chronic ulcer of other part of left foot with muscle involvement without evidence of necrosis; L97.512 Non-pressure chronic ulcer of other part of right foot with fat layer exposed; E11.69 Type 2 diabetes mellitus with other specified complication; M86.672 Other chronic osteomyelitis, left ankle and foot; E11.42 Type 2 diabetes mellitus with diabetic polyneuropathy; E11.22 Type 2 diabetes mellitus with diabetic chronic kidney disease; N18.9 Chronic kidney disease, unspecified; L84 Corns and callosities; R60.0 Localized edema; Z87.39 Personal history of other diseases of the musculoskeletal system and connective tissue; Z79.4 Long term (current) use of insulin; Z79.82 Long term (current) use of aspirin
CPT/HCPCS: 11043; A6209

== ENCOUNTER 2020-09-19 11:52 | Inpatient (IN) | payer MEDICARE, BC ==
[~2020-09-19] VITALS: Ht 182.9 cm; Wt 78.0 kg
--- NOTE | 2020-09-19 12:10 | NUR ---
PATIENT REFERRED BY DR. GIPSON. PATIENT A/OX4, BREATHING EVEN AND UNLABORED, NO SOB NOTED. NEEDS ATTENDED. PATIENT STS HE HAS CELLULITIS ON SMALL LEFT FOOT. PATIENT REFUSED TO REMOVE SHOE, HE SAID NEW BANDAGE WAS WARAPPED BY THE WOUND CENTER.
[2020-09-19] MEDS ORDERED: PIPERACILLIN /TAZOBACTAM 3.375 G in IV D5W 50 ML IV ONE (12:30)
[2020-09-19] MEDS ORDERED: VANCOMYCIN 1 GM in IV D5W 250 ML IV ONE (12:30)
[2020-09-19 12:40] LABS: BASOPHILS % (AUTO) 0.4 % (0.0-2.0); EOSINOPHILS % (AUTO) 3.1 % (0.0-6.0); HEMATOCRIT 29 % (39-51); HEMOGLOBIN 10.1 g/dL (13.5-17.5); LYMPHOCYTES # (AUTO) 1.1 /CMM (0.8-4.8); LYMPHOCYTES % (AUTO) 16.9 % (20.0-44.0); MEAN CORPUSCULAR HGB CONC 35 g/dl (31.0-36.0); MEAN CORPUSCULAR VOLUME 85 fL (80-96); MONOCYTES # (AUTO) 0.4 /CMM (0.1-1.30); MONOCYTES % (AUTO) 6.3 % (2.0-12.0); NEUTROPHILS # (AUTO) 4.7 /CMM (1.8-8.9); NEUTROPHILS % (AUTO) 73.3 % (43.0-81.0); PLATELET COUNT (AUTO) 169 /CMM (150-450); RED BLOOD CELL COUNT(AUTO) 3.41 MIL/uL (4.5-6.0); WHITE BLOOD COUNT (AUTO) 6.4 K/uL (4.3-11.0)
[2020-09-19] MEDS ORDERED: CLOP75TA15 PO (12:44)
[2020-09-19] MEDS ORDERED: CLON0.2T PO (12:44)
[2020-09-19] MEDS ORDERED: PRAV80TA21 PO (12:44)
[2020-09-19 12:48] LABS: CALCIUM, SERUM 8.7 mg/dL (8.5-10.1); POTASSIUM 4.4 mmol/L (3.5-5.1)
[2020-09-19 13:03] LABS: ALBUMIN 3.4 g/dL (3.4-5.0); BILIRUBIN,DIRECT 0.1 mg/dL (0.0-0.2); BILIRUBIN,TOTAL 0.3 mg/dL (0.2-1.0); TOTAL PROTEIN, SERUM 6.9 g/dL (6.4-8.2)
--- NOTE | 2020-09-19 13:55 | NUR ---
room 307-2
[2020-09-19] MEDS ORDERED: ZOLPIDEM TARTRATE 5 MG TABLET PO PRN (14:00)
[2020-09-19] MEDS ORDERED: MAG HYDROX/AL HYDROX/SIMETH 30 ML UDC PO PRN (14:00)
[2020-09-19] MEDS ORDERED: MAGNESIUM HYDROXIDE 30 ML UDC PO PRN (14:00)
[2020-09-19] MEDS ORDERED: Z GUARD REMEDY 2 OZ OINT TP PRN (14:00)
[2020-09-19] MEDS ORDERED: ONDANSETRON HCL/PF 4 MG/2 ML VIAL IVP PRN (14:00)
[2020-09-19] MEDS ORDERED: ACETAMINOPHEN 325 MG TABLET PO PRN (14:00)
[2020-09-19] MEDS ORDERED: HYDROCODONE/APAP 5/325MG TABLET PO PRN (14:00)
[2020-09-19] MEDS ORDERED: DEXTROSE 50%-WATER 50 ML DISP.SYRIN IV PRN (14:00)
--- NOTE | 2020-09-19 14:06 | NUR ---
report given to Sapphire WOLF for manuel
--- NOTE | 2020-09-19 14:12 | NUR ---
Patient resting, no distress noted. given urinal for voiding.
[2020-09-19 15:00] VITALS: BP 126/74
--- NOTE | 2020-09-19 15:00 | NUR ---
MS RN ADMITTING NOTE REPORT RECEIVED FROM EMETERIO WOLF,PATIENT TO BE TRANSFERRED IN ROOM 307-2 IN MS UNIT FROM ER. ORIENTED PATIENT TO HIS ROOM, UNIT, PRIMARY RN, AND ECONOMIC ANALYST. PATIENT MEDICALLY STABLE UPON ADMISSION. PATIENT REFUSED TO TAKE SOCKS OF AT THE MOMENT AND EXPOSE L FOOT WOUND. NO COMPLAINS OF PAIN/DISTRESS AT THIS TIME. PATIENT AMBULATORY. NO S/S OF RESPIRATORY DISTRESS. CORBY PICC LINE INTACT AND PATENT. SAFETY PRECAUTIONS IN PLACE. CALL LIGHT WITHIN REACH AND ENCOURAGED PATIENT TO USE CALL LIGHT IF IN NEED OF SOMETHING. WILL CONTINUE TO MONITOR
--- NOTE | 2020-09-19 15:10 | NUR ---
PATIENT TRANSFERRED TO [facility] FLOOR, IN STABLE CONDITION, NO DISTRESS NOTED. NEEDS ATTENDED.
[2020-09-19 16:00] VITALS: BP 153/74
--- NOTE | 2020-09-19 16:00 | NUR ---
MS NOTE PATIENT REFUSED WOUND CARE TX FOR LEFT FOOT OPEN WOUND HE STATES THAT DRESSING HAS JUST BEEN DONE TODAY AT THE WOUND CENTER. ALSO REFUSED WHEN ASKED TO TAKE PICTURE OF THE WOUND. HE SHOWED A PICTURE OF HIS WOUND FROM HIS PHONE INSTEAD. PATIENT AGREED TO HAVE DRESSING CHANGED TOMORROW. WILL CONTINUE TO MONITOR.
[2020-09-19] MEDS: ZOSYN IVPB 2.25 G in IV D5W 50ml IV SCH ×2 (17:37→23:45)
[2020-09-19] MEDS: hydrALAZINE HCL 50 MG TABLET PO SCH (17:38)
[2020-09-19] MEDS: FUROSEMIDE 40 MG TABLET PO SCH (17:38)
[2020-09-19] MEDS: BLOOD SUGAR DIAGNOSTIC 1 EACH STRIP VI SCH ×2 (17:38→21:11)
[2020-09-19] MEDS: INSULIN REGULAR, HUMAN 100 UNIT/ML 3 ML VIAL SQ PRN (17:43)
--- NOTE | 2020-09-19 19:01 | NUR ---
MS RN CLOSING NOTE PATIENT STABLE AT THIS TIME, NO COMPLAINS OF PAIN OR DISTRESS. IV ANTIBIOTIC ON GOING, NO ADVERSE REACTION REACTION NOTED. CORBY PICC LINE INTACT AND PATENT. WILL ENDORSE TO BUSINESS EXECUTIVE RN FOR TITI.
--- NOTE | 2020-09-19 19:06 | NUR ---
MS RN: CONTINUITY OF CARE Patient in bed, awake, A/O x4. Geo foot wound wrap in Kerlix gauze. Patient refused skin check in geo foot, refused to removed dressing, per patient wound care was done today 09/19/20 at wound center. Education provided, verbalized understanding, agreed to wound check tomorrow. Call light place within reach.
[2020-09-19 20:23] VITALS: BP 143/66
[2020-09-19 20:28] VITALS: BP 143/66
[2020-09-19] MEDS: INSULIN GLARGINE, 100 UNIT/ML CARTRIDGE SQ SCH (21:11)
[2020-09-19] MEDS: *INSULIN REGULAR(HUMULIN R)HUM 100 UNIT/ML VIAL SQ PRN (21:13)
--- NOTE | 2020-09-19 21:16 | NUR ---
MS RN: ACCU CHECK Blood sugar 211mg/dl Regular insulin 4 units given per SS. Lantus insulin 16 units at HS. Bedtime snack provided.
[2020-09-20] MEDS: ZOSYN IVPB 2.25 G in IV D5W 50ml IV SCH ×4 (05:26→23:35)
[2020-09-20 06:06] LABS: BASOPHILS % (AUTO) 0.6 % (0.0-2.0); EOSINOPHILS % (AUTO) 3.8 % (0.0-6.0); HEMATOCRIT 30 % (39-51); HEMOGLOBIN 10.8 g/dL (13.5-17.5); LYMPHOCYTES # (AUTO) 1.1 /CMM (0.8-4.8); LYMPHOCYTES % (AUTO) 16.9 % (20.0-44.0); MEAN CORPUSCULAR HGB CONC 35 g/dl (31.0-36.0); MEAN CORPUSCULAR VOLUME 85 fL (80-96); MONOCYTES # (AUTO) 0.4 /CMM (0.1-1.30); MONOCYTES % (AUTO) 5.5 % (2.0-12.0); NEUTROPHILS # (AUTO) 4.9 /CMM (1.8-8.9); NEUTROPHILS % (AUTO) 73.2 % (43.0-81.0); PLATELET COUNT (AUTO) 172 /CMM (150-450); RED BLOOD CELL COUNT(AUTO) 3.59 MIL/uL (4.5-6.0); WHITE BLOOD COUNT (AUTO) 6.7 K/uL (4.3-11.0)
[2020-09-20] MEDS: BLOOD SUGAR DIAGNOSTIC 1 EACH STRIP VI SCH ×4 (06:10→22:05)
[2020-09-20] MEDS: INSULIN REGULAR, HUMAN 100 UNIT/ML 3 ML VIAL SQ PRN ×3 (06:11→17:11)
--- NOTE | 2020-09-20 06:11 | NUR ---
MS RN: ACCU CHECK Blood glucose 196mg/dl Regular insulin 3 units given per SS.
[2020-09-20 06:45] LABS: CALCIUM, SERUM 8.2 mg/dL (8.5-10.1); MAGNESIUM 2.4 mg/dL (1.8-2.4); PHOSPHORUS 4.5 mg/dL (2.5-4.9)
--- NOTE | 2020-09-20 06:49 | NUR ---
MS RN: END OF SHIFT REPORT Stable Oxygen saturation on room air. Geo foot wound with Kerlex gauze, no c/o pain. On IV Zosyn, afebrile. Patient home medication at bedside, refused to endorse for hosp pharmacy to keep, patient is A/O x4 verbalized not to take home medication while inpatient hospitalization. Plan for possible Debridement wound with Dr. Javed Will endorse to oncoming RN.
[2020-09-20 08:00] VITALS: BP 152/69
--- NOTE | 2020-09-20 08:13 | NUR ---
MS RN OPENING NOTE RECEIVED PATIENT LYING IN BED, AWAKE. STABLE AT THIS TIME, NO COMPLAINTS OF PAIN OR DISTRESS. A/O X4. PICC LINE INTACT AND PATENT. WILL CONTINUE TO MONITOR.
[2020-09-20] MEDS: hydrALAZINE HCL 50 MG TABLET PO SCH ×2 (08:29→16:22)
[2020-09-20] MEDS: FUROSEMIDE 40 MG TABLET PO SCH ×2 (08:30→16:22)
[2020-09-20] MEDS: ATORVASTATIN 40 MG TABLET PO SCH (11:42)
[2020-09-20] MEDS: VANCOMYCIN 1.25 GM in IV D5W 250 ML IV SCH (12:25)
[2020-09-20] MEDS ORDERED: ANESTHESIA TRAY IN PYXIS 1 EA TRAY MC ONE (14:59)
[2020-09-20] MEDS ORDERED: MUPIROCIN OINT 2% 22 GM TUBE TP PRN (15:30)
[2020-09-20 16:00] VITALS: BP 188/84
--- NOTE | 2020-09-20 18:51 | NUR ---
MS RN CLOSING NOTES: PATIENT CURRENTLY LYING IN BED, AWAKE, WATCHING TV. A/O X4. ON ROOM AIR. NO PAIN OR RESPIRATORY DISTRESS NOTED. LEFT UPPER ARM PICC LINE INTACT, FLUSHED. AMBULATORY. PATIENT TO HAVE LEFT FOOT DEBRIDEMENT TOMORROW IN AM. CONSENT SIGNED. BOTH LEFT AND RIGHT FOOT WOUND CARE DONE THIS SHIFT. PATIENT HAS MEDICATION @ BEDSIDE BUT REFUSES TO GIVE IT TO PHARMACY (STATES HE WILL NOT TAKE IT). BED IN LOWEST AND LOCKED POSITION. SIDE RAILS X2. WILL ENDORSE TO GROCERY CASHIER NURSE.
--- NOTE | 2020-09-20 19:30 | NUR ---
MS RN NOTES RECEIVED RESTING COMFORTABLY ON BED,A/O X4,VERBALIZED NEEDS,DENIES PAIN DISCOMFORTS AT THE MOMENT,WITH RHINA PICC FOR MEDS.INSTRUCTED NPO POST MIDNIGHT FOR LEFT FOOT DEBRIDEMENT POSSIBLE AMPUTATION OF 5TH TOE,CONSENT SIGNED.CALL LIGHT IN REACH,NEEDS ANTICIPATED.
[2020-09-20 20:00] VITALS: BP 174/73
[2020-09-20] MEDS: CLONIDINE HCL 0.1 MG TABLET PO PRN (20:34)
--- NOTE | 2020-09-20 22:00 | NUR ---
MS RN NOTES ACCU-CHECK BLOOD SUGAR CHECK 267,COVERED WITH HUMULIN R 6 UNITS PER MODERATE SLIDING,ALONG WITH LANTUS 16 UNITS SCHEDULED.
[2020-09-20] MEDS: *INSULIN REGULAR(HUMULIN R)HUM 100 UNIT/ML VIAL SQ PRN (22:13)
[2020-09-20] MEDS: INSULIN GLARGINE, 100 UNIT/ML CARTRIDGE SQ SCH (22:14)
--- NOTE | 2020-09-21 02:00 | NUR ---
MS RN NOTES SLEEPING,KEPT WARM AND COMFORTABLE.
[2020-09-21] MEDS: ZOSYN IVPB 2.25 G in IV D5W 50ml IV SCH ×4 (05:20→23:32)
[2020-09-21] MEDS: BLOOD SUGAR DIAGNOSTIC 1 EACH STRIP VI SCH ×4 (05:20→21:25)
--- NOTE | 2020-09-21 05:30 | NUR ---
MS RN NOTES ACCU-CHECK BLOOD SUGAR CHECK 316,WITH COVERAGE OF REGULAR INSULIN 12UNITS,PATIENT FOR SURGERY.DR BLANK MADE AWARE WITH NEW ORDER TO JUST GIVE 8 UNITS OF SLOW ACTING INSULIN,NOTED AND CARRIED OUT.
[2020-09-21] MEDS: INSULIN REGULAR, HUMAN 100 UNIT/ML 3 ML VIAL SQ PRN ×4 (05:43→17:27)
[2020-09-21] MEDS ORDERED: LIDOCAINE 1% INJ 50 ML MDV IJ ONE (06:28)
[2020-09-21] MEDS ORDERED: VANCOMYCIN 1 GM VIAL ONE (06:28)
[2020-09-21] MEDS ORDERED: BUPIVACAINE 0.5 % PF 150 MG/30 ML VIAL ONE (06:28)
[2020-09-21] MEDS ORDERED: BACITRACIN 50000 UNITS/VIAL ONE (06:29)
--- NOTE | 2020-09-21 06:35 | NUR ---
MS RN NOTES HUMULIN R 8 UNITS ADMINISTER SQ ON LEFT DELTOID ORDERED BY DR BLANK BEFORE GOING TO SURGERY.
--- NOTE | 2020-09-21 06:50 | NUR ---
MS RN NOTES NUCLEAR INSTRUCTOR BY SURGICAL CREW IN STABLE CONDITION.
[2020-09-21 08:00] VITALS: BP 177/84
[2020-09-21] MEDS ORDERED: hydrALAZINE HCL IV 20 MG VIAL ONE (08:26)
[2020-09-21 08:28] LABS: BASOPHILS % (AUTO) 0.6 % (0.0-2.0); EOSINOPHILS % (AUTO) 3.7 % (0.0-6.0); HEMATOCRIT 30 % (39-51); HEMOGLOBIN 10.7 g/dL (13.5-17.5); LYMPHOCYTES % (AUTO) 17.2 % (20.0-44.0); MEAN CORPUSCULAR HGB CONC 35 g/dl (31.0-36.0); MEAN CORPUSCULAR VOLUME 85 fL (80-96); MONOCYTES # (AUTO) 0.4 /CMM (0.1-1.30); MONOCYTES % (AUTO) 7.8 % (2.0-12.0); NEUTROPHILS % (AUTO) 70.7 % (43.0-81.0); PLATELET COUNT (AUTO) 195 /CMM (150-450); WHITE BLOOD COUNT (AUTO) 5.7 K/uL (4.3-11.0)
[2020-09-21 08:39] LABS: CALCIUM, SERUM 8.7 mg/dL (8.5-10.1); CREATININE 3.2 mg/dL (0.6-1.3); POTASSIUM 4.1 mmol/L (3.5-5.1)
--- NOTE | 2020-09-21 08:58 | NUR ---
MS RN OPENING NOTES PT TRANSPORTED TO UNIT FROM PACU BY BED AT THIS TIME WITH ACLS PROTOCOL IN PLACE. RECEIVED REPORT FROM MARYANN NAVARRETE. PT IS S/P LEFT FOOT DEBRIDEMENT. A/O X4, PT ABLE TO MAKE NEEDS KNOWN, NO SOB NOTED, BREATHING EVEN AND UNLABORED. NO C/O PAIN AT THIS TIME. NO S/O ANY ACUTE DISTRESS NOTED. PT STABLE ON RA, SATURATING AT 98%. CORBY MIDLINE, INTACT PATENT AND FLUSHING WELL. P BED IN LOWEST LOCKED POSITION, HOB ELEVATED, SIDE RAILS UPX2, CALL LIGHT AND TABLE WITHIN REACH. WILL CONTINUE TO MONITOR
[2020-09-21] MEDS: ATORVASTATIN 40 MG TABLET PO SCH (09:26)
[2020-09-21] MEDS: FUROSEMIDE 40 MG TABLET PO SCH ×2 (09:26→17:23)
[2020-09-21] MEDS: hydrALAZINE HCL 50 MG TABLET PO SCH ×2 (09:26→17:23)
[2020-09-21] MEDS: ASPIRIN EC 81 MG TABLET.DR PO SCH (09:26)
[2020-09-21] MEDS: CLOPIDOGREL BISULFATE 75 MG TABLET PO SCH (09:26)
[2020-09-21 16:00] VITALS: BP 164/84
--- NOTE | 2020-09-21 18:46 | NUR ---
RN CLOSING NOTES PT AWAKE IN BED AT THIS TIME. PT REMAINED STABLE THROUGHOUT SHIFT. ALL CARE, NEEDS, MEDICATIONS AND TREATMENT ADMINISTERED ANTICIPATED PER ORDER. WOUND TREATMENT ADMINISTERED. PT MOTIVATED TO SELF CARE. SAFETY AND ASPIRATION PRECAUTIONS MAINTAINED AT ALL TIMES. BED IN LOWEST LOCKED POSITION, HOB ELEVATED, SIDE RAILS UPX2, CALL LIGHT AND TABLE WITHIN REACH. WILL ENDORSE TO STAFF NUCLEAR WEAPONS OFFICER NURSE FOR TITI
--- NOTE | 2020-09-21 19:45 | NUR ---
MS REJI INITIAL NOTES Received report from am nurse and seen pt in bed awake and alert watching TV at this time , denies any pain or nay discomfort. Dressing on his right foot dry and intact. offload on pillows. IVF still infusing on his CORBY PICC line. patent and intact. kept him warm and comfortable at all times. will continue monitoring. place call light at reach.
[2020-09-21 20:00] VITALS: BP 166/68
[2020-09-21] MEDS: INSULIN GLARGINE, 100 UNIT/ML CARTRIDGE SQ SCH (21:27)
--- NOTE | 2020-09-21 21:30 | NUR ---
ms richard notes' Blood sugar checked done 216, 4 units of regular insulin given as well as 16 units of lantus in different site. No signs of hyper glycemia noted.
[2020-09-21] MEDS: CLONIDINE HCL 0.1 MG TABLET PO PRN (21:39)
[2020-09-21] MEDS: *INSULIN REGULAR(HUMULIN R)HUM 100 UNIT/ML VIAL SQ PRN (22:30)
[2020-09-21] MEDS: VANCOMYCIN 1.25 GM in IV D5W 250 ML IV SCH (23:51)
[2020-09-22] MEDS: ZOSYN IVPB 2.25 G in IV D5W 50ml IV SCH ×3 (00:01→11:46)
[2020-09-22] MEDS: VANCOMYCIN 1.25 GM in IV D5W 250 ML IV SCH (00:01)
[2020-09-22 03:13] LABS: CREATININE, URINE 35.6 MG/DL (30.0-125.0)
[2020-09-22] MEDS: INSULIN REGULAR, HUMAN 100 UNIT/ML 3 ML VIAL SQ PRN ×2 (06:54→11:59)
[2020-09-22] MEDS: BLOOD SUGAR DIAGNOSTIC 1 EACH STRIP VI SCH ×2 (06:54→11:56)
[2020-09-22 06:56] LABS: BASOPHILS % (AUTO) 0.2 % (0.0-2.0); EOSINOPHILS % (AUTO) 1.8 % (0.0-6.0); HEMATOCRIT 35 % (39-51); HEMOGLOBIN 11.9 g/dL (13.5-17.5); LYMPHOCYTES # (AUTO) 1.3 /CMM (0.8-4.8); LYMPHOCYTES % (AUTO) 14.1 % (20.0-44.0); MEAN CORPUSCULAR HGB CONC 35 g/dl (31.0-36.0); MEAN CORPUSCULAR VOLUME 85 fL (80-96); MONOCYTES # (AUTO) 0.7 /CMM (0.1-1.30); MONOCYTES % (AUTO) 8.2 % (2.0-12.0); NEUTROPHILS # (AUTO) 6.8 /CMM (1.8-8.9); NEUTROPHILS % (AUTO) 75.7 % (43.0-81.0); PLATELET COUNT (AUTO) 206 /CMM (150-450); RED BLOOD CELL COUNT(AUTO) 4.04 MIL/uL (4.5-6.0)
--- NOTE | 2020-09-22 07:06 | NUR ---
MS RN OPENING NOTES RECEIVED PT AWAKE IN BED AT THIS TIME. A/O X4, PT ABLE TO VERBALIZE NEEDS, NO SOB NOTED, BREATHING EVEN AND UNLABORED. PT STABLE ON RA. NO C/O PAIN AT THIS TIME. NO S/O ANY ACUTE DISTRESS NOTED. CORBY PICC-LINE NOTED, INTACT PATENT AND FLUSHING WELL. P BED IN LOWEST LOCKED POSITION, HOB ELEVATED, SIDE RAILS UPX2, CALL LIGHT AND TABLE WITHIN REACH. WILL CONTINUE TO MONITOR
--- NOTE | 2020-09-22 07:25 | NUR ---
ms insulation worker interior surface closing notes pt seen awake , blood sugar checked done 282, no signs of hyper glycemia noted. 9 units of insulin given magno SQ as ordered. Stable throughout the night. all due meds given and all needs met. kept him warm and comfortable at all times. patient stated "thank you ". Endorse to am nurse for continuity of care. place call light at reach.
[2020-09-22 07:26] LABS: CALCIUM, SERUM 8.7 mg/dL (8.5-10.1); CREATININE 3.1 mg/dL (0.6-1.3); PHOSPHORUS 3.7 mg/dL (2.5-4.9)
[2020-09-22 08:00] VITALS: BP 191/75
[2020-09-22 08:51] LABS: ALBUMIN 3.5 g/dL (3.4-5.0); BILIRUBIN,TOTAL 0.7 mg/dL (0.2-1.0); TOTAL PROTEIN, SERUM 7.7 g/dL (6.4-8.2)
[2020-09-22] MEDS: ASPIRIN EC 81 MG TABLET.DR PO SCH (09:19)
[2020-09-22] MEDS: ATORVASTATIN 40 MG TABLET PO SCH (09:19)
[2020-09-22 09:22] VITALS: BP 191/75
[2020-09-22] MEDS: CLOPIDOGREL BISULFATE 75 MG TABLET PO SCH (09:22)
[2020-09-22] MEDS: FUROSEMIDE 40 MG TABLET PO SCH (09:22)
[2020-09-22] MEDS: hydrALAZINE HCL 50 MG TABLET PO SCH (09:22)
--- NOTE | 2020-09-22 15:40 | NUR ---
MS QUARTER SEAMER NOTES PT DISCHARGE HOME AT THIS TIME. PT MEDICALLY STABLE AND CLEARED FOR DISCHARGE BY DR MARRUFO. ALL DISCHARGE INSTRUCTIONS PROVIDED FOR. PT VERBALIZED UNDERSTANDING. ALL CARE, NEEDS, MEDICATIONS AND TREATMENT ADMINISTERED ANTICIPATED PER ORDER. PT REFUSED PICTURES TO BE TAKEN. PT KEPT CLEAN AND DRY. ID BAND REMOVED. BELONGINGS ACCOUNTED FOR, SIGNED BY PT, AND WITH PT. PT LEFT UNIT IN STABLE CONDITION, TRANSPORTED BY WHEEL CHAIR TO [facility] ACCOMPANIED BY CNA. VIANNEY LONDON, CHARGE NURSE AND DR MARRUFO AWARE
== END 2020-09-22 15:45 | disposition home health service (06) | DRG 617 ==
LOC: ER 11:58 → MED 14:34
PROVIDERS: ADMIT Internal Medicine; ATTEND Internal Medicine
PROC: 0QTP0ZZ Resection of Left Metatarsal, Open Approach (ICD-10-PCS; principal; 2020-09-21)
PROC: 0Y6Y0Z1 Detachment at Left 5th Toe, High, Open Approach (ICD-10-PCS; 2020-09-21)
PROC: 0KBW0ZZ Excision of Left Foot Muscle, Open Approach (ICD-10-PCS; 2020-09-21)
DX: E11.69 Type 2 diabetes mellitus with other specified complication (principal); M86.672 Other chronic osteomyelitis, left ankle and foot; L97.428 Non-pressure chronic ulcer of left heel and midfoot with other specified severity; L97.528 Non-pressure chronic ulcer of other part of left foot with other specified severity; Z79.4 Long term (current) use of insulin; N17.0 Acute kidney failure with tubular necrosis; I25.10 Atherosclerotic heart disease of native coronary artery without angina pectoris; E78.5 Hyperlipidemia, unspecified; I12.9 Hypertensive chronic kidney disease with stage 1 through stage 4 chronic kidney disease, or unspecified chronic kidney disease; N18.9 Chronic kidney disease, unspecified; E11.621 Type 2 diabetes mellitus with foot ulcer; E11.22 Type 2 diabetes mellitus with diabetic chronic kidney disease; D64.9 Anemia, unspecified; I27.20 Pulmonary hypertension, unspecified; Z79.82 Long term (current) use of aspirin; Z87.891 Personal history of nicotine dependence; Z20.822 Contact with and (suspected) exposure to COVID-19; E66.01 Morbid (severe) obesity due to excess calories; Z68.23 Body mass index [BMI] 23.0-23.9, adult; M19.90 Unspecified osteoarthritis, unspecified site; Z95.5 Presence of coronary angioplasty implant and graft; Z79.01 Long term (current) use of anticoagulants; E11.65 Type 2 diabetes mellitus with hyperglycemia; G47.33 Obstructive sleep apnea (adult) (pediatric)
CPT/HCPCS: 11043; 36415; 71045-TC; 73718-TC; 80048-TC; 80053-TC; 80076-TC; 80202-TC; 82570-TC; 82962-TC; 83605-TC; 83735-TC; 84100-TC; 84155-TC; 84300-TC; 85025-TC; 85730-TC; 87040-TC; 87070-TC; 87075-TC; 87081-TC; 87186-TC; 93307-TC; A6209; C9803; G0378; J0360; J1815; J2543; J3370; J3490; J7050; J7060

== ENCOUNTER 2020-09-29 09:25 | Outpatient (CLI) | payer MEDICARE, BC ==
[~2020-09-29 09:25] MED LIST changes: -CARV6.252 PO; +CLON0.2T PO; -CLON0.3T PO; -CLON1PAT14; +CLOP75TA15 PO; -DAPT500V2 IV; -MERO500V21 IV; -METO-357 PO; +PRAV80TA21 PO
== END 2020-09-29 23:59 | disposition home health service (06) ==
LOC: WOU 09:25
PROVIDERS: ATTEND Podiatrist Foot & Ankle Surgery
DX: Z48.817 Encounter for surgical aftercare following surgery on the skin and subcutaneous tissue (principal); E11.621 Type 2 diabetes mellitus with foot ulcer; L97.512 Non-pressure chronic ulcer of other part of right foot with fat layer exposed; L97.522 Non-pressure chronic ulcer of other part of left foot with fat layer exposed; E11.69 Type 2 diabetes mellitus with other specified complication; M86.371 Chronic multifocal osteomyelitis, right ankle and foot; M86.672 Other chronic osteomyelitis, left ankle and foot; E11.22 Type 2 diabetes mellitus with diabetic chronic kidney disease; N18.9 Chronic kidney disease, unspecified; E11.42 Type 2 diabetes mellitus with diabetic polyneuropathy; Z79.4 Long term (current) use of insulin; R60.0 Localized edema; L84 Corns and callosities; Z89.422 Acquired absence of other left toe(s); Z89.421 Acquired absence of other right toe(s)
CPT/HCPCS: A6209; G0463

== ENCOUNTER 2020-10-02 13:29 | Outpatient (CLI) | payer MEDICARE, BC | END 2020-10-02 23:59 | disposition home or self-care (01) | LOC: WOU 13:29 | PROVIDERS: ATTEND Registered Nurse | DX: E11.621 Type 2 diabetes mellitus with foot ulcer (principal); L97.509 Non-pressure chronic ulcer of other part of unspecified foot with unspecified severity; E11.69 Type 2 diabetes mellitus with other specified complication; M86.9 Osteomyelitis, unspecified; B95.8 Unspecified staphylococcus as the cause of diseases classified elsewhere; Z79.4 Long term (current) use of insulin; I25.10 Atherosclerotic heart disease of native coronary artery without angina pectoris; I10 Essential (primary) hypertension; Z87.891 Personal history of nicotine dependence; E78.5 Hyperlipidemia, unspecified; G89.29 Other chronic pain; M54.5 Low back pain; Z79.02 Long term (current) use of antithrombotics/antiplatelets; Z79.82 Long term (current) use of aspirin | CPT/HCPCS: G0463 ==

== ENCOUNTER 2020-10-04 09:20 | Outpatient (CLI) | payer MEDICARE, BC | END 2020-10-04 23:59 | disposition home health service (06) | LOC: WOU 09:20 | PROVIDERS: ATTEND Specialist | DX: E11.69 Type 2 diabetes mellitus with other specified complication (principal); M86.371 Chronic multifocal osteomyelitis, right ankle and foot; M86.672 Other chronic osteomyelitis, left ankle and foot; E11.621 Type 2 diabetes mellitus with foot ulcer; L97.525 Non-pressure chronic ulcer of other part of left foot with muscle involvement without evidence of necrosis; L97.512 Non-pressure chronic ulcer of other part of right foot with fat layer exposed; E11.42 Type 2 diabetes mellitus with diabetic polyneuropathy; E11.22 Type 2 diabetes mellitus with diabetic chronic kidney disease; I12.9 Hypertensive chronic kidney disease with stage 1 through stage 4 chronic kidney disease, or unspecified chronic kidney disease; N18.9 Chronic kidney disease, unspecified; Z87.891 Personal history of nicotine dependence; Z79.4 Long term (current) use of insulin; Z89.421 Acquired absence of other right toe(s); R60.0 Localized edema; L84 Corns and callosities | CPT/HCPCS: A6209; G0463 ==

== ENCOUNTER 2020-10-10 11:31 | Outpatient (CLI) | payer MEDICARE, BC ==
[2020-10-10] MEDS ORDERED: SILVER NITRATE APPLICATOR 1 EA BOX ONE (12:19)
== END 2020-10-10 23:59 | disposition home health service (06) ==
LOC: WOU 11:31
PROVIDERS: ATTEND Podiatrist Foot & Ankle Surgery
DX: E11.621 Type 2 diabetes mellitus with foot ulcer (principal); L97.522 Non-pressure chronic ulcer of other part of left foot with fat layer exposed; L97.512 Non-pressure chronic ulcer of other part of right foot with fat layer exposed; E11.22 Type 2 diabetes mellitus with diabetic chronic kidney disease; E11.42 Type 2 diabetes mellitus with diabetic polyneuropathy; E11.69 Type 2 diabetes mellitus with other specified complication; N18.9 Chronic kidney disease, unspecified; M86.672 Other chronic osteomyelitis, left ankle and foot; M86.371 Chronic multifocal osteomyelitis, right ankle and foot; Z79.4 Long term (current) use of insulin; T81.89XD Other complications of procedures, not elsewhere classified, subsequent encounter; L84 Corns and callosities; R60.0 Localized edema; Z79.82 Long term (current) use of aspirin
CPT/HCPCS: 11042; A6209

== ENCOUNTER 2020-10-17 10:40 | Outpatient (CLI) | payer MEDICARE, BC | END 2020-10-17 23:59 | disposition home health service (06) | LOC: WOU 10:40 | PROVIDERS: ATTEND Podiatrist Foot & Ankle Surgery | DX: E11.621 Type 2 diabetes mellitus with foot ulcer (principal); L97.522 Non-pressure chronic ulcer of other part of left foot with fat layer exposed; L97.528 Non-pressure chronic ulcer of other part of left foot with other specified severity; T81.31XA Disruption of external operation (surgical) wound, not elsewhere classified, initial encounter; E11.42 Type 2 diabetes mellitus with diabetic polyneuropathy; E11.69 Type 2 diabetes mellitus with other specified complication; M86.672 Other chronic osteomyelitis, left ankle and foot; M86.371 Chronic multifocal osteomyelitis, right ankle and foot; E11.22 Type 2 diabetes mellitus with diabetic chronic kidney disease; I12.9 Hypertensive chronic kidney disease with stage 1 through stage 4 chronic kidney disease, or unspecified chronic kidney disease; N18.9 Chronic kidney disease, unspecified; Z79.4 Long term (current) use of insulin; R60.0 Localized edema; L84 Corns and callosities; Z79.82 Long term (current) use of aspirin | CPT/HCPCS: 11042; A6209 ==

== ENCOUNTER 2020-10-24 11:30 | Outpatient (CLI) | payer MEDICARE, BC | END 2020-10-24 23:59 | disposition home health service (06) | LOC: WOU 11:30 | PROVIDERS: ATTEND Podiatrist Foot & Ankle Surgery | DX: E11.621 Type 2 diabetes mellitus with foot ulcer (principal); L97.522 Non-pressure chronic ulcer of other part of left foot with fat layer exposed; L97.528 Non-pressure chronic ulcer of other part of left foot with other specified severity; T81.31XA Disruption of external operation (surgical) wound, not elsewhere classified, initial encounter; E11.42 Type 2 diabetes mellitus with diabetic polyneuropathy; E11.69 Type 2 diabetes mellitus with other specified complication; M86.672 Other chronic osteomyelitis, left ankle and foot; E11.22 Type 2 diabetes mellitus with diabetic chronic kidney disease; I12.9 Hypertensive chronic kidney disease with stage 1 through stage 4 chronic kidney disease, or unspecified chronic kidney disease; N18.9 Chronic kidney disease, unspecified; Z87.891 Personal history of nicotine dependence; Z79.4 Long term (current) use of insulin; R60.0 Localized edema; L84 Corns and callosities; Z79.82 Long term (current) use of aspirin | CPT/HCPCS: 11042; A6209 ==

== ENCOUNTER 2020-10-25 11:58 | Outpatient (CLI) | payer MEDICARE, BC ==
[2020-10-25 12:49] LABS: PREALBUMIN 41.5 MG/DL (18.0-35.7)
[2020-10-25 12:52] LABS: ALBUMIN 3.8 g/dL (3.4-5.0); BILIRUBIN,TOTAL 0.3 mg/dL (0.2-1.0); CALCIUM, SERUM 8.9 mg/dL (8.5-10.1); CREATININE 3.8 mg/dL (0.6-1.3); MAGNESIUM 2.4 mg/dL (1.8-2.4); PHOSPHORUS 4.5 mg/dL (2.5-4.9); POTASSIUM 4.4 mmol/L (3.5-5.1); TOTAL PROTEIN, SERUM 7.2 g/dL (6.4-8.2)
[2020-10-25 13:32] LABS: BASOPHILS % (AUTO) 0.3 % (0.0-2.0); EOSINOPHILS % (AUTO) 1.7 % (0.0-6.0); HEMATOCRIT 24 % (39-51); HEMOGLOBIN 8.6 g/dL (13.5-17.5); LYMPHOCYTES % (AUTO) 18.2 % (20.0-44.0); MEAN CORPUSCULAR HGB CONC 35 g/dl (31.0-36.0); MEAN CORPUSCULAR VOLUME 87 fL (80-96); MONOCYTES # (AUTO) 0.2 /CMM (0.1-1.30); MONOCYTES % (AUTO) 4.2 % (2.0-12.0); NEUTROPHILS # (AUTO) 4.3 /CMM (1.8-8.9); NEUTROPHILS % (AUTO) 75.6 % (43.0-81.0); RED BLOOD CELL COUNT(AUTO) 2.82 MIL/uL (4.5-6.0); WHITE BLOOD COUNT (AUTO) 5.7 K/uL (4.3-11.0)
[2020-10-25 13:50] LABS: PLATELET COUNT (AUTO) 40 /CMM (150-450)
[2020-10-25 14:42] LABS: EOSINOPHILS % (MANUAL) 4 % (0-4); LYMPHOCYTES % (MANUAL) 16 % (16-48); MONOCYTES % (MANUAL) 5 % (0-11.0); NEUTROPHILS % (MANUAL) 75 (42-76)
== END 2020-10-25 23:59 | disposition home or self-care (01) ==
LOC: LAB 11:58
PROVIDERS: ATTEND Internal Medicine
DX: I12.9 Hypertensive chronic kidney disease with stage 1 through stage 4 chronic kidney disease, or unspecified chronic kidney disease (principal); E11.22 Type 2 diabetes mellitus with diabetic chronic kidney disease; N18.9 Chronic kidney disease, unspecified
CPT/HCPCS: 36415; 80053-TC; 83735-TC; 84100-TC; 84134-TC; 85025-TC

== ENCOUNTER 2020-10-31 11:25 | Outpatient (CLI) | payer MEDICARE, BC | END 2020-10-31 23:59 | disposition home health service (06) | LOC: WOU 11:25 | PROVIDERS: ATTEND Podiatrist Foot & Ankle Surgery | DX: E11.621 Type 2 diabetes mellitus with foot ulcer (principal); L97.522 Non-pressure chronic ulcer of other part of left foot with fat layer exposed; L97.528 Non-pressure chronic ulcer of other part of left foot with other specified severity; T81.31XA Disruption of external operation (surgical) wound, not elsewhere classified, initial encounter; E11.69 Type 2 diabetes mellitus with other specified complication; M86.672 Other chronic osteomyelitis, left ankle and foot; E11.42 Type 2 diabetes mellitus with diabetic polyneuropathy; E11.22 Type 2 diabetes mellitus with diabetic chronic kidney disease; I12.9 Hypertensive chronic kidney disease with stage 1 through stage 4 chronic kidney disease, or unspecified chronic kidney disease; N18.9 Chronic kidney disease, unspecified; Z79.4 Long term (current) use of insulin; R60.0 Localized edema; L84 Corns and callosities; Z89.421 Acquired absence of other right toe(s) | CPT/HCPCS: 11042; A6209 ==

== ENCOUNTER 2020-11-07 11:15 | Outpatient (CLI) | payer MEDICARE, BC | END 2020-11-07 23:59 | disposition home health service (06) | LOC: WOU 11:15 | PROVIDERS: ATTEND Podiatrist Foot & Ankle Surgery | DX: E11.621 Type 2 diabetes mellitus with foot ulcer (principal); L97.522 Non-pressure chronic ulcer of other part of left foot with fat layer exposed; L97.528 Non-pressure chronic ulcer of other part of left foot with other specified severity; E11.42 Type 2 diabetes mellitus with diabetic polyneuropathy; E11.22 Type 2 diabetes mellitus with diabetic chronic kidney disease; N18.9 Chronic kidney disease, unspecified; E11.69 Type 2 diabetes mellitus with other specified complication; M86.672 Other chronic osteomyelitis, left ankle and foot; Z79.4 Long term (current) use of insulin; Z79.82 Long term (current) use of aspirin; R60.0 Localized edema; Z89.421 Acquired absence of other right toe(s); L84 Corns and callosities | CPT/HCPCS: 11042; A6209 ==

== ENCOUNTER 2020-11-09 10:47 | Outpatient (CLI) | payer MEDICARE, BC ==
[2020-11-09 12:04] LABS: BASOPHILS % (AUTO) 0.2 % (0.0-2.0); EOSINOPHILS % (AUTO) 0.3 % (0.0-6.0); LYMPHOCYTES # (AUTO) 0.7 /CMM (0.8-4.8); LYMPHOCYTES % (AUTO) 12.9 % (20.0-44.0); MEAN CORPUSCULAR HGB CONC 36 g/dl (31.0-36.0); MEAN CORPUSCULAR VOLUME 84 fL (80-96); MONOCYTES # (AUTO) 0.3 /CMM (0.1-1.30); MONOCYTES % (AUTO) 4.9 % (2.0-12.0); NEUTROPHILS # (AUTO) 4.2 /CMM (1.8-8.9); NEUTROPHILS % (AUTO) 81.7 % (43.0-81.0); PLATELET COUNT (AUTO) 94 /CMM (150-450); RED BLOOD CELL COUNT(AUTO) 2.25 MIL/uL (4.5-6.0); WHITE BLOOD COUNT (AUTO) 5.2 K/uL (4.3-11.0)
[2020-11-09 12:08] LABS: BILIRUBIN,URINE NEGATIVE (NEGATIVE); LEUKOCYTE ESTERASE ,URINE NEGATIVE (NEGATIVE); NITRITE, URINE NEGATIVE (NEGATIVE); PROTEIN,URINE TRACE mg/dl (NEGATIVE); UGLUCOSE NEGATIVE (NEGATIVE); UROBILINOGEN,URINE 0.2 EU/dL (0.2)
[2020-11-09 12:14] LABS: COLOR,URINE STRAW (YELLOW)
[2020-11-09 12:19] LABS: HEMATOCRIT 19 % (39-51); HEMOGLOBIN 6.8 g/dL (13.5-17.5)
[2020-11-09 12:52] LABS: CALCIUM, SERUM 8.6 mg/dL (8.5-10.1); CREATININE 4.2 mg/dL (0.6-1.3); PHOSPHORUS 3.9 mg/dL (2.5-4.9); POTASSIUM 4.4 mmol/L (3.5-5.1)
[2020-11-09 13:04] LABS: BACTERIA,URINE None seen /HPF (None Seen); RBC,URINE NONE SEEN /HPF (0-2); SQUAMOUS EPITHELIAL CELL,UR Few /HPF (None Seen); WBC,URINE NONE SEEN /HPF (0-3)
[2020-11-09 13:06] LABS: LYMPHOCYTES % (MANUAL) 8 % (16-48); MONOCYTES % (MANUAL) 3 % (0-11.0); NEUTROPHILS % (MANUAL) 89 (42-76)
[2020-11-09 13:09] LABS: C-REACTIVE PROTEIN 0.2 mg/dL (0.0-0.9); FREE T4 (FREE THYROXINE) 1.01 ng/dL (0.76-1.46)
[2020-11-09 15:03] LABS: ALBUMIN 4.1 g/dL (3.4-5.0); BILIRUBIN,TOTAL 0.4 mg/dL (0.2-1.0); TOTAL PROTEIN, SERUM 7.4 g/dL (6.4-8.2)
[2020-11-10 09:07] LABS: *ANA ANTI-CENTROMERE B AB <0.2 AI (0.0-0.9); *ANA ANTI-DNA(DS) AB, QN 3 IU/mL (0-9); *ANA ANTI-JO-1 <0.2 AI (0.0-0.9); *ANA ANTICHROMATIN ANTIBODY <0.2 AI (0.0-0.9); *ANA RNP ANTIBODIES 0.7 AI (0.0-0.9); *ANA SJOGREN'S ANTI-SS-A <0.2 AI (0.0-0.9); *ANA SJOGREN'S ANTI-SS-B <0.2 AI (0.0-0.9); *ANAANTI-SCLERODERMA-70 AB <0.2 AI (0.0-0.9); *ANASMITH AB <0.2 AI (0.0-0.9)
[2020-11-10] MEDS ORDERED: GLIP5TAB13 PO (11:27)
[2020-11-10] MEDS ORDERED: LINE600T13 PO (11:28)
[2020-11-12] MEDS ORDERED: HYDR-4077 PO (13:28)
[2020-11-12] MEDS ORDERED: NIFE-35 PO (13:31)
== END 2020-11-09 23:59 | disposition home or self-care (01) ==
LOC: MSC 10:47
PROVIDERS: ATTEND Internal Medicine
DX: E11.22 Type 2 diabetes mellitus with diabetic chronic kidney disease (principal); I12.9 Hypertensive chronic kidney disease with stage 1 through stage 4 chronic kidney disease, or unspecified chronic kidney disease; N18.4 Chronic kidney disease, stage 4 (severe); Z79.4 Long term (current) use of insulin; E11.621 Type 2 diabetes mellitus with foot ulcer; L97.509 Non-pressure chronic ulcer of other part of unspecified foot with unspecified severity; G47.30 Sleep apnea, unspecified; N25.81 Secondary hyperparathyroidism of renal origin; R35.1 Nocturia; Z79.899 Other long term (current) drug therapy
CPT/HCPCS: 36415; 80053; 81001; 82043; 82570; 82728; 83540; 83735; 83970; 84100; 84155; 84439; 85007; 85025; 85652; 86140; 86225; 86235 ×8; G0463

== ENCOUNTER 2020-11-10 10:36 | Inpatient (IN) | payer MEDICARE, BC ==
[~2020-11-10] VITALS: Ht 182.9 cm; Wt 127.0 kg
--- NOTE | 2020-11-10 10:55 | NUR ---
Patient came in to the er sent by PMD due to low H/H. On room air, breathing evenly and unlabored. connected to the monitor and pulse ox. kept comfortable, will continue to monitor accordingly.
--- NOTE | 2020-11-10 10:55 | NUR ---
IV access strated and bllod drawned and sent to lab
[2020-11-10 10:58] LABS: EOSINOPHILS % (AUTO) 0.4 % (0.0-6.0); MEAN CORPUSCULAR HGB CONC 35 g/dl (31.0-36.0); MONOCYTES # (AUTO) 0.3 /CMM (0.1-1.30); NEUTROPHILS # (AUTO) 6.2 /CMM (1.8-8.9); RED BLOOD CELL COUNT(AUTO) 2.27 MIL/uL (4.5-6.0)
[2020-11-10 11:01] LABS: BASOPHILS % (AUTO) 0.2 % (0.0-2.0); LYMPHOCYTES # (AUTO) 1.1 /CMM (0.8-4.8); LYMPHOCYTES % (AUTO) 14.5 % (20.0-44.0); MEAN CORPUSCULAR VOLUME 84 fL (80-96); NEUTROPHILS % (AUTO) 80.9 % (43.0-81.0); PLATELET COUNT (AUTO) 127 /CMM (150-450); WHITE BLOOD COUNT (AUTO) 7.6 K/uL (4.3-11.0)
[2020-11-10 11:06] LABS: HEMATOCRIT 19 % (39-51); HEMOGLOBIN 6.8 g/dL (13.5-17.5)
[2020-11-10 11:09] LABS: CALCIUM, SERUM 8.6 mg/dL (8.5-10.1); CREATININE 4.5 mg/dL (0.6-1.3); POTASSIUM 4.6 mmol/L (3.5-5.1)
[2020-11-10 11:15] LABS: ALBUMIN 3.9 g/dL (3.4-5.0); BILIRUBIN,DIRECT 0.2 mg/dL (0.0-0.2); BILIRUBIN,TOTAL 0.4 mg/dL (0.2-1.0); TOTAL PROTEIN, SERUM 7.2 g/dL (6.4-8.2)
[2020-11-10] MEDS ORDERED: GLIP5TAB13 PO (11:27)
[2020-11-10] MEDS ORDERED: LINE600T13 PO (11:28)
--- NOTE | 2020-11-10 11:36 | NUR ---
covid swab collected and sent to lab
[2020-11-10] MEDS ORDERED: IV NS 0.9% 500 ML BAG IV ONE (12:00)
--- NOTE | 2020-11-10 12:36 | NUR ---
NURSING SUP GAVE 307-2.
--- NOTE | 2020-11-10 12:55 | NUR ---
report given to stevan WOLF for manuel
--- NOTE | 2020-11-10 13:10 | NUR ---
BLOOD TRANSFUSION INFUSING WHILE PT IS BEING TRANSPORTED TO UNIT.
--- NOTE | 2020-11-10 13:10 | NUR ---
Pt transproted to unit on gurney with emt and rn at bedside w/ acls protocol. nad noted during transport
[2020-11-10 13:11] VITALS: BP 130/72
--- NOTE | 2020-11-10 13:11 | NUR ---
MS TRACK BROOM OPERATOR NOTE RECEIVED PATIENT FROM ER. PATIENT CAME IN FOR LOW HEMOGLOBIN/HEMATOCRIT. PATIENT HAS BEEN HERE BEFORE AND IS A PATIENT OF DR. YANEZ. A/O X4. ON ROOM AIR - TOLERATING WELL. PATIENT IS AMBULATORY. USES BRP AND URINAL. LEFT FOOT WOUND, RIGHT TOE AMPUTATION AND RIGHT FOOT BLISTER. SKIN INTACT OTHERWISE. IV ACCESS TO RIGHT AC #20 - CURRENTLY INFUSING BLOOD TRANSFUSION. NO PAIN NOTED. PATIENT IS NOT IN ANY DISTRESS. CALL LIGHT WITHIN REACH. WILL CONTINUE TO MONITOR.
[2020-11-10 13:30] VITALS: BP 130/60
[2020-11-10] MEDS ORDERED: Z GUARD REMEDY 2 OZ OINT TP PRN (13:30)
[2020-11-10] MEDS ORDERED: ONDANSETRON HCL/PF 4 MG/2 ML VIAL IVP PRN (13:30)
[2020-11-10] MEDS ORDERED: CLONIDINE HCL 0.1 MG TABLET PO PRN (13:30)
[2020-11-10] MEDS ORDERED: ZOLPIDEM TARTRATE 5 MG TABLET PO PRN (13:30)
[2020-11-10] MEDS ORDERED: hydrALAZINE HCL 50 MG TABLET PO PRN (13:30)
[2020-11-10] MEDS ORDERED: ACETAMINOPHEN 325 MG TABLET PO PRN (13:30)
[2020-11-10 13:45] VITALS: BP 129/66
[2020-11-10 14:47] VITALS: BP 135/63
--- NOTE | 2020-11-10 14:54 | NUR ---
SPLICER MACHINE OPERATOR NOTE BLOOD TRANSFUSION COMPLETE. VITALS STABLE. PATIENT IN NO DISTRESS. NO TRANSFUSION REACTION.
--- NOTE | 2020-11-10 14:55 | NUR ---
MECHANICAL DRAFTER NOTE NOT ABLE TO ''END'' TRANSFUSION ON SPREADSHEET SINCE BLOOD WAS NOT VERIFIED ON THE FLOOR. BLOOD WAS ALREADY TRANSFUSING WHEN THE PATIENT GOT TO ME. VITALS MONITORED FOR THE REMAINDER OF TRANSFUSION. PATIENT STABLE.
--- NOTE | 2020-11-10 15:00 | NUR ---
ANDROID ARCHITECT NOTE LEFT FOOT WOUND CLOSURE & DRESSING CHANGE DONE BY DR. ZARAGOZA. PICTURES TAKEN AND PLACED IN CHART.
[2020-11-10 15:44] LABS: THYROID STIMULATING HORMONE 2.674 uIU/mL (0.358-3.74); URIC ACID 9.9 mg/dL (2.6-7.2)
[2020-11-10 15:56] LABS: CREATININE 4.1 mg/dL (0.6-1.3); POTASSIUM 4.8 mmol/L (3.5-5.1)
[2020-11-10 15:59] LABS: PHOSPHORUS 4.3 mg/dL (2.5-4.9)
[2020-11-10] MEDS: glipiZIDE 5 MG TABLET PO SCH (16:50)
[2020-11-10] MEDS ORDERED: FUROSEMIDE 20 MG TABLET PO SCH (17:00)
--- NOTE | 2020-11-10 18:28 | NUR ---
DISPATCHER RADIO CLOSING NOTE PATIENT CURRENTLY SITTING AT EDGE OF BED, AWAKE, FINISHING DINNER. A/O X4. ON ROOM AIR - TOLERATING WELL. PATIENT IS AMBULATORY. USES BRP AND URINAL. LEFT FOOT WOUND - DRESSING CHANGED BY DR. ZARAGOZA. SKIN INTACT OTHERWISE. IV ACCESS TO RIGHT AC #20 - INTACT AND PATENT, SALINE LOCKED. PENDING URINE SAMPLE TO SEND TO LAB - PATIENT IS AWARE. NO PAIN NOTED AT THIS TIME. PATIENT IS NOT IN ANY DISTRESS. CALL LIGHT WITHIN REACH. WILL ENDORSE TO DIRECTIONAL DRILL OPERATOR FOR TITI.
[2020-11-10] MEDS ORDERED: DEXTROSE 50%-WATER 50 ML DISP.SYRIN IV PRN (19:30)
[2020-11-10 20:00] VITALS: BP 158/62
--- NOTE | 2020-11-10 20:00 | NUR ---
TRANSPORTATION SUPERVISOR OPENING NOTE RECEIVED PATIENT AWAKE IN BED. A/O X4. PATIENT IS STABLE ON ROOM AIR. NO SOB NOTED. NO S/S OF RESPIRATORY DISTRESS. PT IS ON EXTERNAL MANAGER PROGRAMMING READING SR 63, 1ST DEGREE BLOCK. PT IS AMBULATORY WITH BRP. PT HAS NO C/O PAIN AT THIS TIME. IV ACCESS NOTED IN AC #20 S/L, INTACT AND PATENT. SAFETY MEASURES MAINTAINED. BED IN LOWEST LOCKED POSITION, HOB ELEVATED, SIDE RAILS UP X2. CALL LIGHT AND TABLE WITHIN REACH. WILL CONTINUE WITH PLAN OF CARE.
[2020-11-10] MEDS: BLOOD SUGAR DIAGNOSTIC 1 EACH STRIP IN SCH (21:37)
[2020-11-10] MEDS: INSULIN REGULAR, HUMAN 100 UNIT/ML 3 ML VIAL SQ PRN (21:41)
--- NOTE | 2020-11-10 21:41 | NUR ---
BS NOTED AT 183. 3 UNITS OF REGULAR INSULIN GIVEN PER SLIDING SCALE.
[2020-11-11] VITALS (10 sets, daily range): BP systolic 139–190; BP diastolic 51–93
[2020-11-11 06:21] LABS: BASOPHILS % (AUTO) 0.2 % (0.0-2.0); EOSINOPHILS % (AUTO) 0.4 % (0.0-6.0); LYMPHOCYTES # (AUTO) 0.9 /CMM (0.8-4.8); LYMPHOCYTES % (AUTO) 15.1 % (20.0-44.0); MEAN CORPUSCULAR HGB CONC 36 g/dl (31.0-36.0); MEAN CORPUSCULAR VOLUME 85 fL (80-96); MONOCYTES # (AUTO) 0.4 /CMM (0.1-1.30); MONOCYTES % (AUTO) 6.2 % (2.0-12.0); NEUTROPHILS # (AUTO) 4.6 /CMM (1.8-8.9); NEUTROPHILS % (AUTO) 78.1 % (43.0-81.0); PLATELET COUNT (AUTO) 85 /CMM (150-450); RED BLOOD CELL COUNT(AUTO) 2.22 MIL/uL (4.5-6.0); WHITE BLOOD COUNT (AUTO) 5.8 K/uL (4.3-11.0)
[2020-11-11] MEDS: BLOOD SUGAR DIAGNOSTIC 1 EACH STRIP IN SCH ×4 (06:32→21:18)
--- NOTE | 2020-11-11 06:32 | NUR ---
BS NOTED AT 120. NO INSULIN COVERAGE GIVEN PER SLIDING SCALE.
[2020-11-11 06:33] LABS: BILIRUBIN,URINE NEGATIVE (NEGATIVE); COLOR,URINE YELLOW (YELLOW); LEUKOCYTE ESTERASE ,URINE NEGATIVE (NEGATIVE); NITRITE, URINE NEGATIVE (NEGATIVE); PH,URINE 5.5 (5.0-8.0); PROTEIN,URINE 30 mg/dl (NEGATIVE); UGLUCOSE NEGATIVE (NEGATIVE); UROBILINOGEN,URINE 0.2 EU/dL (0.2)
[2020-11-11 06:34] LABS: HEMATOCRIT 19 % (39-51); HEMOGLOBIN 6.8 g/dL (13.5-17.5)
--- NOTE | 2020-11-11 06:34 | NUR ---
RECEIVED CRITICAL LAB VALUE FOR HGB 6.8. LAB REPORTED BY LEEANN FROM LAB. READ BACK PROVIDED. CLAUDETTE, CHARGE NURSE AND DR. THURMAN MADE AWARE. AWAITING ORDERS. WILL ENDORSE TO ONCOMING NURSE.
--- NOTE | 2020-11-11 06:51 | NUR ---
BRIM BUSTER CLOSING NOTE PATIENT IS AWAKE IN BED AT THIS TIME. A/O X4. PATIENT IS STABLE ON ROOM AIR. NO SOB NOTED. NO S/S OF RESPIRATORY DISTRESS. PT IS ON EXTERNAL BRAKE DRUM LATHE OPERATOR READING SR 64, 1ST DEGREE BLOCK. PT IS AMBULATORY WITH BRP. PT HAS NO C/O PAIN AT THIS TIME. IV ACCESS IS INTACT, PATENT, AND FLUSHING WELL. ALL NEEDS HAVE BEEN MET. SAFETY PRECAUTIONS MAINTAINED AT ALL TIMES. BED IN LOWEST LOCKED POSITION, HOB ELEVATED, SIDE RAILS UP X2. CALL LIGHT AND TABLE WITHIN REACH. WILL ENDORSE TO ONCOMING NURSE FOR CONTINUITY OF CARE.
[2020-11-11 06:57] LABS: BACTERIA,URINE None seen /HPF (None Seen); RBC,URINE NONE SEEN /HPF (0-2); SQUAMOUS EPITHELIAL CELL,UR Rare /HPF (None Seen); WBC,URINE NONE SEEN /HPF (0-3)
[2020-11-11 07:43] LABS: ALBUMIN 3.4 g/dL (3.4-5.0); BILIRUBIN,TOTAL 0.3 mg/dL (0.2-1.0); CREATININE 3.9 mg/dL (0.6-1.3); MAGNESIUM 2.7 mg/dL (1.8-2.4); PHOSPHORUS 4.5 mg/dL (2.5-4.9); POTASSIUM 4.8 mmol/L (3.5-5.1); TOTAL PROTEIN, SERUM 6.3 g/dL (6.4-8.2)
[2020-11-11 07:52] LABS: CALCIUM, SERUM 8.1 mg/dL (8.5-10.1)
--- NOTE | 2020-11-11 07:52 | NUR ---
WOMEN SPECIALIST OPENING NOTE PATIENT IS IN BED RESTING, PATIENT IS IN NO ACUTE DISTRESS, NO SOB NOTED. PATIENT IS ON TELE MONITOR READING SR 80s WITH FIRST DEGREE BLOCK. PATIENT IS AMBULATORY. SAFETY PRECAUTIONS ARE ON, BED IS LOCKED IN THE LOWEST POSITION, WITH SIDE RAILS UP, CALL LIGHT WITHIN REACH, WILL CONTINUE TO MONITOR CLOSELY THROUGHOUT THE SHIFT.
[2020-11-11 08:17] LABS: EOSINOPHIL,URINE None Seen
[2020-11-11 08:20] LABS: EOSINOPHILS % (MANUAL) 1 % (0-4); LYMPHOCYTES % (MANUAL) 10 % (16-48); MONOCYTES % (MANUAL) 4 % (0-11.0); NEUTROPHILS % (MANUAL) 85 (42-76)
--- NOTE | 2020-11-11 08:33 | NUR ---
VOLUNTEER FIREFIGHTER NOTE PATIENT BLOOD PRESSURE IS 190/93, HEART RATE 77, NOTIFIED DR. MOSLEY HYDRALAZINE PRN GIVEN. WILL REASSESS.
[2020-11-11] MEDS: glipiZIDE 5 MG TABLET PO SCH ×2 (08:35→17:42)
[2020-11-11] MEDS: ASPIRIN EC 81 MG TABLET.DR PO SCH ×2 (08:35→08:43)
[2020-11-11] MEDS: ATORVASTATIN 10 MG TABLET PO SCH (08:35)
[2020-11-11] MEDS: GENTAMICIN 0.1% OINT 15 GM TUBE TP SCH (08:35)
[2020-11-11] MEDS: CLOPIDOGREL BISULFATE 75 MG TABLET PO SCH (08:36)
--- NOTE | 2020-11-11 08:37 | NUR ---
ELECTRICAL ENGINEERING TEACHER NOTE PATIENT HEMOGLOBIN IS 6.8, HEMATOCRIT 19, PLATELETS 85, DID NOT ADMINISTER SCHEDULED PLAVIX.
--- NOTE | 2020-11-11 08:44 | NUR ---
ELECTRONEURODIAGNOSTIC TECHNICIAN NOTE PATIENT HEMOGLOBIN IS 6.8, HEMATOCRIT 19, PLATELETS 85, DID NOT ADMINISTER SCHEDULED ASPIRIN
[2020-11-11] MEDS: hydrALAZINE HCL 50 MG TABLET PO SCH ×3 (09:30→17:43)
--- NOTE | 2020-11-11 09:32 | NUR ---
MS RN NOTE PATIENT HAD HYDRALAZINE 50MG PRN DUE TO INCREASED BLOOD PRESSURE IN THE MORNING, DR. MOSLEY SCHEDULED HYDRALAZINE 100MG TID. WILL HOLD MORNING DOSE.
[2020-11-11] MEDS: NITROGLYCERIN 30 GM TUBE TP SCH ×2 (11:08→21:15)
[2020-11-11] MEDS: INSULIN REGULAR, HUMAN 100 UNIT/ML 3 ML VIAL SQ PRN ×2 (12:59→21:19)
[2020-11-11 13:52] LABS: URINE TOTAL PROTEIN 41.1 mg/dL (0-11.9)
[2020-11-11 13:53] LABS: CREATININE, URINE 58.5 MG/DL (30.0-125.0)
--- NOTE | 2020-11-11 17:25 | NUR ---
MS RN NOTE PATIENT BLOOD TRANSFUSION STARTED, PATIENT TOLERATING WELL.
--- NOTE | 2020-11-11 19:35 | NUR ---
MS RN OPENING NOTES: 307 RECEIVED RESIDENT AWAKE IN BED, ALAER AND ORIENTED X 4,AMBULATORY WITH ASSISTANCE AND ABLE TO MAKE NEEDS KNOWN, BED IN LOW POSITION, CALL LIGHTS WITHIN REACH, NO COMPLAIN OF PAIN AND DISCOMFORT AT THIS TIME. WITH IV LINE AT L FA #20, WITH ONGOING BT OF PRBC INFUSING WELL, PATIENT HAS HX ANEMIA WITH HGB=5.8, PATIENT KEPT CLEAN AND DRY, ALL NEEDS MET, WILL CONTINUE TO MONITOR.
--- NOTE | 2020-11-11 19:50 | NUR ---
MS RN CLOSING NOTE PATIENT IS IN BED RESTING, PATIENT IS IN NO ACUTE DISTRESS, NO SOB NOTED. PATIENT IS STILL TRANSFUSING 1 UNIT OF PRBC AT THIS TIME. PATIENT IS AMBULATORY. SAFETY PRECAUTIONS ARE ON, BED IS LOCKED IN THE LOWEST POSITION, WITH SIDE RAILS UP, CALL LIGHT WITHIN REACH, ENDORSE PATIENT TO INVOICING SPECIALIST NURSE FOR TITI.
--- NOTE | 2020-11-11 20:55 | NUR ---
RN NOTES: BLOOD TRANSFUSION DONE @2049 WITH NO S/E OBSERVED, SUGAR CHECK-183, 3 UNITS INSULIN GIVEN., ALL DUE MEDS GIVEN, VITALS ARE WITHIN NORMAL RANGE, PATIENT WAS PLACED IN BED COMFORTABLY, KEPT CLEAN AND DRY,REMIND THE RESIDENT TO USE THE CALL LIGHTS WHEN NEEDED ASSISTANCE, WILL CONTINUE TO MONITOR.
[2020-11-12] MEDS ORDERED: IV NS 0.9% 1,000 ML IV PRN (01:30)
[2020-11-12] MEDS: INSULIN REGULAR, HUMAN 100 UNIT/ML 3 ML VIAL SQ PRN ×2 (06:35→11:45)
--- NOTE | 2020-11-12 06:50 | NUR ---
MS RN CLOSING NOTES-307 PATIENT PLACED IN BED SLEEPING BUT AROUSABLE TO STIMULI, NO COMPLAIN OF PAIN AND DISCMOFORT AT THIS TIME, AMBULATORY WITH SUPERVISION, A/OX4 , ABLE TO MAKE NEED KNOWN, ON IV HYDRATION OF .09NSS@75CC/HR INFUSING WELL, BT DONE WITH NO S/E NOTED, BED IN LOQ POSITION, CALL LIGHTS WITHIN REACH, ENDORSE TO INCOMING SHIFT.
--- NOTE | 2020-11-12 07:50 | NUR ---
SATELLITE INSTALLATION TECHNICIAN OPENING NOTE PATIENT IS IN BED RESTING, PATIENT IS IN NO ACUTE DISTRESS, NO SOB NOTED. PATIENT IS AMBULATORY. SAFETY PRECAUTIONS ARE ON, BED IS LOCKED IN THE LOWEST POSITION, WITH SIDE RAILS UP, CALL LIGHT WITHIN REACH, WILL CONTINUE TO MONITOR CLOSELY THROUGHOUT THE SHIFT.
[2020-11-12] MEDS: BLOOD SUGAR DIAGNOSTIC 1 EACH STRIP IN SCH ×2 (08:09→12:57)
[2020-11-12] MEDS: ASPIRIN EC 81 MG TABLET.DR PO SCH (09:00)
[2020-11-12] MEDS: CLOPIDOGREL BISULFATE 75 MG TABLET PO SCH (09:00)
[2020-11-12 09:17] VITALS: BP 175/84
[2020-11-12] MEDS: ATORVASTATIN 10 MG TABLET PO SCH (09:46)
[2020-11-12] MEDS: glipiZIDE 5 MG TABLET PO SCH (09:47)
[2020-11-12] MEDS: hydrALAZINE HCL 50 MG TABLET PO SCH ×2 (09:47→12:57)
[2020-11-12] MEDS: NITROGLYCERIN 30 GM TUBE TP SCH (09:52)
[2020-11-12] MEDS: GENTAMICIN 0.1% OINT 15 GM TUBE TP SCH (10:04)
--- NOTE | 2020-11-12 10:05 | NUR ---
MS RN NOTE DID NOT ADMINISTER PLAVIX AND ASPIRIN TO THE PATIENT DUE TO LOW HEMOGLOBIN 6.8 AND HEMATOCRIT 19, PLATELETS 85.
--- NOTE | 2020-11-12 10:10 | NUR ---
RN NOTE RESIEVED PATIENT FROM [facility]. PT IN STABLE CONDITION WILL CONTINUE TO MONITOR.
[2020-11-12 11:24] LABS: BASOPHILS % (AUTO) 0.3 % (0.0-2.0); EOSINOPHILS % (AUTO) 0.6 % (0.0-6.0); HEMATOCRIT 22 % (39-51); HEMOGLOBIN 7.6 g/dL (13.5-17.5); LYMPHOCYTES # (AUTO) 0.6 /CMM (0.8-4.8); LYMPHOCYTES % (AUTO) 10.6 % (20.0-44.0); MEAN CORPUSCULAR HGB CONC 35 g/dl (31.0-36.0); MEAN CORPUSCULAR VOLUME 87 fL (80-96); MONOCYTES # (AUTO) 0.4 /CMM (0.1-1.30); MONOCYTES % (AUTO) 7.4 % (2.0-12.0); NEUTROPHILS # (AUTO) 4.7 /CMM (1.8-8.9); NEUTROPHILS % (AUTO) 81.1 % (43.0-81.0); PLATELET COUNT (AUTO) 93 /CMM (150-450); WHITE BLOOD COUNT (AUTO) 5.7 K/uL (4.3-11.0)
[2020-11-12 11:44] LABS: CALCIUM, SERUM 8.1 mg/dL (8.5-10.1); CREATININE 3.4 mg/dL (0.6-1.3); MAGNESIUM 2.6 mg/dL (1.8-2.4); PHOSPHORUS 3.4 mg/dL (2.5-4.9); POTASSIUM 4.7 mmol/L (3.5-5.1)
[2020-11-12] MEDS ORDERED: NIFEdipine XL (30MG) 30 MG TAB PO SCH (12:00)
[2020-11-12 12:08] LABS: ALBUMIN 3.5 g/dL (3.4-5.0); BILIRUBIN,TOTAL 0.4 mg/dL (0.2-1.0); TOTAL PROTEIN, SERUM 6.6 g/dL (6.4-8.2)
[2020-11-12 12:41] LABS: EOSINOPHILS % (MANUAL) 1 % (0-4); LYMPHOCYTES % (MANUAL) 12 % (16-48); MONOCYTES % (MANUAL) 8 % (0-11.0); NEUTROPHILS % (MANUAL) 79 (42-76)
[2020-11-12 12:57] VITALS: BP 147/81
[2020-11-12] MEDS ORDERED: HYDR-4077 PO (13:28)
[2020-11-12] MEDS ORDERED: NIFE-35 PO (13:31)
--- NOTE | 2020-11-12 15:00 | NUR ---
RN NOTE PATIENT REFUSED WOUND PICTURE PRIOR TO DISCHARGE, STATING THAT HE WANTS TO GO HOME.
--- NOTE | 2020-11-12 15:05 | NUR ---
BIOMASS PLANT MANAGER NOTE PATIENT DISCHARGED HOME VIA OWN PRIVATE CAR. EXITCARE UTILIZED AND EDUCAION GIVEN. NEW PRESCRIPTIONS VERIED AND GIVEN TO PATIENT. NEW PRESCRIPTION INFORMATION GIVEN. BELONGINGS CHECKED AND GIVEN TO PATIENT. IV LINE REMOVED. ID BAND REMOVED. PATIENT ESCORTED TO VEHICLE.
== END 2020-11-12 15:00 | disposition home health service (06) | DRG 682 ==
LOC: ER 10:37 → TELE 12:47 → MED 11-11 10:13
PROVIDERS: ADMIT Nurse Practitioner Acute Care; ATTEND Nurse Practitioner Acute Care
PROC: 30233N1 Transfusion of Nonautologous Red Blood Cells into Peripheral Vein, Percutaneous Approach (ICD-10-PCS; principal; 2020-11-10)
DX: I12.9 Hypertensive chronic kidney disease with stage 1 through stage 4 chronic kidney disease, or unspecified chronic kidney disease (principal); N17.0 Acute kidney failure with tubular necrosis; Z68.41 Body mass index [BMI] 40.0-44.9, adult; N18.4 Chronic kidney disease, stage 4 (severe); E87.1 Hypo-osmolality and hyponatremia; D63.1 Anemia in chronic kidney disease; Z20.822 Contact with and (suspected) exposure to COVID-19; E11.22 Type 2 diabetes mellitus with diabetic chronic kidney disease; E11.42 Type 2 diabetes mellitus with diabetic polyneuropathy; E11.51 Type 2 diabetes mellitus with diabetic peripheral angiopathy without gangrene; E11.621 Type 2 diabetes mellitus with foot ulcer; E66.01 Morbid (severe) obesity due to excess calories; Z68.38 Body mass index [BMI] 38.0-38.9, adult; Z79.02 Long term (current) use of antithrombotics/antiplatelets; Z79.82 Long term (current) use of aspirin; Z79.899 Other long term (current) drug therapy; Z89.411 Acquired absence of right great toe; Z95.5 Presence of coronary angioplasty implant and graft; Z79.4 Long term (current) use of insulin; Z87.891 Personal history of nicotine dependence; L97.529 Non-pressure chronic ulcer of other part of left foot with unspecified severity; M89.9 Disorder of bone, unspecified; I25.10 Atherosclerotic heart disease of native coronary artery without angina pectoris; E78.5 Hyperlipidemia, unspecified; G47.30 Sleep apnea, unspecified; I27.20 Pulmonary hypertension, unspecified
CPT/HCPCS: 36415; 71045-TC; 74018; 76770-TC; 80048-TC; 80053-TC; 80061-TC; 80076-TC; 81001; 82533; 82570-TC; 82728-TC; 82962-TC; 83540-TC; 83735-TC; 83970; 84100-TC; 84155-TC; 84300-TC; 84439-TC; 84443-TC; 84550-TC; 85025-TC; 85652-TC; 85730-TC; 86140-TC; 86225; 86235; 86850-TC; 87081-TC; A6403; C9803; G0378; J1815; J7030; J7040; J7042; J7050; P9016

== ENCOUNTER → 2020-11-14 | Outpatient (CLI) | payer MEDICARE, BC ==
[~2020-11-14] MED LIST changes: -GLIM4TAB37 PO; +GLIP5TAB13 PO; -INSU100I26 SQ; -INSU100I43 SQ; +LINE600T13 PO; +NIFE-35 PO
[2020-11-14 13:16] LABS: BASOPHILS % (AUTO) 0.3 % (0.0-2.0); EOSINOPHILS % (AUTO) 0.6 % (0.0-6.0); LYMPHOCYTES # (AUTO) 0.7 /CMM (0.8-4.8); MONOCYTES # (AUTO) 0.5 /CMM (0.1-1.30); NEUTROPHILS # (AUTO) 3.4 /CMM (1.8-8.9); RED BLOOD CELL COUNT(AUTO) 2.32 MIL/uL (4.5-6.0); WHITE BLOOD COUNT (AUTO) 4.7 K/uL (4.3-11.0)
[2020-11-14 13:22] LABS: LYMPHOCYTES % (AUTO) 15.4 % (20.0-44.0); MEAN CORPUSCULAR HGB CONC 35 g/dl (31.0-36.0); MEAN CORPUSCULAR VOLUME 87 fL (80-96); MONOCYTES % (AUTO) 11.4 % (2.0-12.0); NEUTROPHILS % (AUTO) 72.3 % (43.0-81.0); PLATELET COUNT (AUTO) 86 /CMM (150-450)
[2020-11-14 13:25] LABS: HEMATOCRIT 20 % (39-51)
[2020-11-14 13:46] LABS: EOSINOPHILS % (MANUAL) 2 % (0-4); LYMPHOCYTES % (MANUAL) 19 % (16-48); MONOCYTES % (MANUAL) 7 % (0-11.0); NEUTROPHILS % (MANUAL) 72 (42-76)
[2020-11-14 13:59] LABS: ALBUMIN 3.8 g/dL (3.4-5.0); BILIRUBIN,TOTAL 0.4 mg/dL (0.2-1.0); CALCIUM, SERUM 8.5 mg/dL (8.5-10.1); CREATININE 3.5 mg/dL (0.6-1.3); MAGNESIUM 2.4 mg/dL (1.8-2.4); PHOSPHORUS 4.1 mg/dL (2.5-4.9); POTASSIUM 4.9 mmol/L (3.5-5.1); TOTAL PROTEIN, SERUM 6.9 g/dL (6.4-8.2)
== END | disposition home or self-care (01) ==
LOC: MSC 11:23
PROVIDERS: ATTEND Internal Medicine
DX: D64.9 Anemia, unspecified (principal); E11.22 Type 2 diabetes mellitus with diabetic chronic kidney disease; I12.9 Hypertensive chronic kidney disease with stage 1 through stage 4 chronic kidney disease, or unspecified chronic kidney disease; N18.4 Chronic kidney disease, stage 4 (severe); N17.9 Acute kidney failure, unspecified; Z79.4 Long term (current) use of insulin; G47.30 Sleep apnea, unspecified; N25.81 Secondary hyperparathyroidism of renal origin; E11.621 Type 2 diabetes mellitus with foot ulcer; L97.509 Non-pressure chronic ulcer of other part of unspecified foot with unspecified severity; R35.1 Nocturia; Z79.82 Long term (current) use of aspirin; Z79.899 Other long term (current) drug therapy
CPT/HCPCS: 80053; 80061; 82607; 82728; 83540; 83735; 84100; 85007; 85025; 86038; G0463; 36415

== ENCOUNTER → 2020-11-14 | Outpatient (CLI) | payer MEDICARE, BC | END | disposition home health service (06) | LOC: WOU 10:27 | PROVIDERS: ATTEND Podiatrist Foot & Ankle Surgery | DX: E11.621 Type 2 diabetes mellitus with foot ulcer (principal); L97.522 Non-pressure chronic ulcer of other part of left foot with fat layer exposed; L97.528 Non-pressure chronic ulcer of other part of left foot with other specified severity; E11.69 Type 2 diabetes mellitus with other specified complication; M86.672 Other chronic osteomyelitis, left ankle and foot; E11.42 Type 2 diabetes mellitus with diabetic polyneuropathy; E11.22 Type 2 diabetes mellitus with diabetic chronic kidney disease; I12.9 Hypertensive chronic kidney disease with stage 1 through stage 4 chronic kidney disease, or unspecified chronic kidney disease; N18.9 Chronic kidney disease, unspecified; Z79.4 Long term (current) use of insulin; R60.0 Localized edema; L84 Corns and callosities; Z89.421 Acquired absence of other right toe(s) | CPT/HCPCS: 11042; A6209 ==

== ENCOUNTER 2020-11-16 10:15 | Outpatient (CLI) | payer MEDICARE, BC | END 2020-11-16 23:59 | disposition home or self-care (01) | LOC: MSC 10:15 | PROVIDERS: ATTEND Internal Medicine | DX: E11.22 Type 2 diabetes mellitus with diabetic chronic kidney disease (principal); I12.9 Hypertensive chronic kidney disease with stage 1 through stage 4 chronic kidney disease, or unspecified chronic kidney disease; N18.4 Chronic kidney disease, stage 4 (severe); N17.9 Acute kidney failure, unspecified; Z79.4 Long term (current) use of insulin; D64.9 Anemia, unspecified; G47.30 Sleep apnea, unspecified; N25.81 Secondary hyperparathyroidism of renal origin; E11.621 Type 2 diabetes mellitus with foot ulcer; E11.69 Type 2 diabetes mellitus with other specified complication; L97.509 Non-pressure chronic ulcer of other part of unspecified foot with unspecified severity; M86.9 Osteomyelitis, unspecified; R35.1 Nocturia; Z79.899 Other long term (current) drug therapy ==

== ENCOUNTER 2020-11-21 09:33 | Outpatient (CLI) | payer MEDICARE, BC ==
[2020-11-27] MEDS ORDERED: EPOE1VIA15 IJ (12:41)
[2020-11-27] MEDS ORDERED: DEXL60CA3 PO (12:41)
== END 2020-11-21 23:59 | disposition home health service (06) ==
LOC: WOU 09:33
PROVIDERS: ATTEND Podiatrist Foot & Ankle Surgery
DX: E11.69 Type 2 diabetes mellitus with other specified complication (principal); M86.672 Other chronic osteomyelitis, left ankle and foot; M86.371 Chronic multifocal osteomyelitis, right ankle and foot; E11.42 Type 2 diabetes mellitus with diabetic polyneuropathy; E11.22 Type 2 diabetes mellitus with diabetic chronic kidney disease; I12.9 Hypertensive chronic kidney disease with stage 1 through stage 4 chronic kidney disease, or unspecified chronic kidney disease; N18.9 Chronic kidney disease, unspecified; Z79.4 Long term (current) use of insulin; L84 Corns and callosities; R60.0 Localized edema; Z89.421 Acquired absence of other right toe(s); Z79.82 Long term (current) use of aspirin
CPT/HCPCS: A6209; G0463

== ENCOUNTER 2020-11-21 10:34 | Outpatient (CLI) | payer MEDICARE, BC ==
[2020-11-21 10:57] LABS: BASOPHILS % (AUTO) 0.2 % (0.0-2.0); EOSINOPHILS % (AUTO) 0.8 % (0.0-6.0); LYMPHOCYTES # (AUTO) 0.8 /CMM (0.8-4.8); LYMPHOCYTES % (AUTO) 15.5 % (20.0-44.0); MEAN CORPUSCULAR HGB CONC 35 g/dl (31.0-36.0); MEAN CORPUSCULAR VOLUME 86 fL (80-96); MONOCYTES # (AUTO) 0.2 /CMM (0.1-1.30); MONOCYTES % (AUTO) 4.2 % (2.0-12.0); NEUTROPHILS # (AUTO) 4.2 /CMM (1.8-8.9); NEUTROPHILS % (AUTO) 79.3 % (43.0-81.0); PLATELET COUNT (AUTO) 93 /CMM (150-450); RED BLOOD CELL COUNT(AUTO) 2.08 MIL/uL (4.5-6.0); WHITE BLOOD COUNT (AUTO) 5.3 K/uL (4.3-11.0)
[2020-11-21 11:08] LABS: HEMATOCRIT 18 % (39-51); HEMOGLOBIN 6.3 g/dL (13.5-17.5)
[2020-11-21 11:37] LABS: ALBUMIN 3.7 g/dL (3.4-5.0); BILIRUBIN,TOTAL 0.4 mg/dL (0.2-1.0); CALCIUM, SERUM 8.1 mg/dL (8.5-10.1); CREATININE 3.6 mg/dL (0.6-1.3); TOTAL PROTEIN, SERUM 6.7 g/dL (6.4-8.2)
[2020-11-21 13:32] LABS: LYMPHOCYTES % (MANUAL) 22 % (16-48); MONOCYTES % (MANUAL) 3 % (0-11.0); NEUTROPHILS % (MANUAL) 75 (42-76)
== END 2020-11-21 23:59 | disposition home or self-care (01) ==
LOC: LAB 10:34
PROVIDERS: ATTEND Internal Medicine
DX: E11.22 Type 2 diabetes mellitus with diabetic chronic kidney disease (principal); N18.4 Chronic kidney disease, stage 4 (severe)
CPT/HCPCS: 36415; 80053-TC; 85025-TC

== ENCOUNTER 2020-11-25 16:31 | Inpatient (IN) | payer MEDICARE, BC ==
[~2020-11-25] VITALS: Ht 182.9 cm; Wt 125.6 kg
--- NOTE | 2020-11-25 17:30 | NUR ---
THE PATIENT BIB HER FRIEND FOR C/O WEAKNESS AND LOW IN ENERGY. DENIES PAIN. RESPIRATION REGULAR AND UNLABORED. IN ROOM AIR AND DENIES SOB. ATTACHED TO THE MONITOR. WILL CONTINUE TO MONITOR THE PATIENT.
[2020-11-25 18:46] LABS: CALCIUM, SERUM 8.1 mg/dL (8.5-10.1); CREATININE 3.5 mg/dL (0.6-1.3); POTASSIUM 5.9 mmol/L (3.5-5.1)
[2020-11-25 19:01] LABS: BILIRUBIN,DIRECT 0.2 mg/dL (0.0-0.2); BILIRUBIN,TOTAL 0.4 mg/dL (0.2-1.0); TOTAL PROTEIN, SERUM 6.9 g/dL (6.4-8.2)
[2020-11-25 19:53] LABS: BASOPHILS % (AUTO) 0.2 % (0.0-2.0); EOSINOPHILS % (AUTO) 0.3 % (0.0-6.0); LYMPHOCYTES # (AUTO) 0.7 /CMM (0.8-4.8); LYMPHOCYTES % (AUTO) 6.7 % (20.0-44.0); MEAN CORPUSCULAR HGB CONC 35 g/dl (31.0-36.0); MEAN CORPUSCULAR VOLUME 88 fL (80-96); MONOCYTES # (AUTO) 0.7 /CMM (0.1-1.30); MONOCYTES % (AUTO) 7.1 % (2.0-12.0); NEUTROPHILS # (AUTO) 8.4 /CMM (1.8-8.9); NEUTROPHILS % (AUTO) 85.7 % (43.0-81.0); PLATELET COUNT (AUTO) 100 /CMM (150-450); RED BLOOD CELL COUNT(AUTO) 2.11 MIL/uL (4.5-6.0); WHITE BLOOD COUNT (AUTO) 9.8 K/uL (4.3-11.0)
[2020-11-25 20:00] LABS: HEMATOCRIT 19 % (39-51); HEMOGLOBIN 6.5 g/dL (13.5-17.5)
--- NOTE | 2020-11-25 20:00 | NUR ---
HGB 6.5 HCT 19
[2020-11-25 20:08] LABS: BAND % (MANUAL) 2 % (0.0-5.0); EOSINOPHILS % (MANUAL) 2 % (0-4); LYMPHOCYTES % (MANUAL) 7 % (16-48); MONOCYTES % (MANUAL) 6 % (0-11.0); NEUTROPHILS % (MANUAL) 83 (42-76)
--- NOTE | 2020-11-25 20:26 | NUR ---
JOHNNYID SWABBED, SENT TO LAB.
--- NOTE | 2020-11-25 20:41 | NUR ---
SURYA GAONA AT BEDSIDE SPEAKING TO PT REGARDING PLAN OF CARE.
--- NOTE | 2020-11-25 21:13 | NUR ---
TELE 110
--- NOTE | 2020-11-25 21:20 | NUR ---
REPORT GIVEN TO SUZAN WOLF FOR TITI
[2020-11-25] MEDS ORDERED: DEXTROSE 50%-WATER 50 ML DISP.SYRIN IV PRN (21:30)
[2020-11-25] MEDS ORDERED: ONDANSETRON HCL/PF 4 MG/2 ML VIAL IVP PRN (21:30)
[2020-11-25] MEDS ORDERED: MAGNESIUM HYDROXIDE 30 ML UDC PO PRN (21:30)
[2020-11-25] MEDS ORDERED: HYDROCODONE/APAP 5/325MG TABLET PO PRN (21:30)
[2020-11-25] MEDS ORDERED: SODIUM POLYSTYRENE SULFONATE 15 G/60 ML BOTTLE PO ONE (21:30)
[2020-11-25] MEDS ORDERED: MAG HYDROX/AL HYDROX/SIMETH 30 ML UDC PO PRN (21:30)
[2020-11-25] MEDS ORDERED: TEMAZEPAM 15 MG CAPSULE PO PRN (21:30)
[2020-11-25] MEDS ORDERED: ACETAMINOPHEN 325 MG TABLET PO PRN (21:30)
[2020-11-25] MEDS ORDERED: Z GUARD REMEDY 2 OZ OINT TP PRN (21:30)
[2020-11-25 22:00] VITALS: BP 166/77
--- NOTE | 2020-11-25 22:00 | NUR ---
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 OFFERED TO TAKE PICTURE PER PROTOCOL ON ADMISSION,STILL REFUSED.OBESE AND REFUSE TO WEAR HOSPITAL GOWN.WITH EGAN ON HAND $492.00 WITH PATIENT,REFUSED TO KEEP IT ON SAFE,ALONG OF HIS HOME MEDICATIONS.CALL LIGHT IN REACH,NEEDS ANTICIPATED.
[2020-11-25] MEDS: BLOOD SUGAR DIAGNOSTIC 1 EACH STRIP IN SCH (22:40)
[2020-11-25] MEDS: INSULIN REGULAR, HUMAN 100 UNIT/ML 3 ML VIAL SQ PRN (22:50)
[2020-11-25] MEDS ORDERED: SODIUM POLYSTYRENE SULFONATE 15 G/60 ML BOTTLE ONE (23:12)
--- NOTE | 2020-11-25 23:14 | NUR ---
NAUMKEAG OPERATOR NOTES POTASSIUM LEVEL 5.9,GIVEN KAYEXALATE 60GRAMS/30ML ORDERED.WILL MONITOR FOR BOWEL MOVEMENT.
[2020-11-26] VITALS (16 sets, daily range): BP systolic 119–175; BP diastolic 55–91
--- NOTE | 2020-11-26 | NUR ---
TELE1 MARYANN NOTES ACCU-CHECK BLOOD SUGAR CHECK 125,NO INSULIN COVERAGE. Addendum: 11/26/20 at 0312 by KYRIE BRUNO RN BLOOD SUGAR CHECK 200 AT 0000,COVERED WITH HUMULIN 3 UNITS PER MILD SLIDING SCALE.
--- NOTE | 2020-11-26 00:01 | NUR ---
TELE1 RN NOTES H/H 6.11/15,STARTED ON BLOOD TRANSFUSION 1 UNIT OF PRBC 336 ML WITH ORDER,INFUSING VIA IV PUMP ON RIGHT AC SALINE LOCK. VITAL SIGNS WITH IN NORMAL LIMITS.
--- NOTE | 2020-11-26 03:03 | NUR ---
HOME HEALTH SPEECH THERAPIST NOTES BLOOD TRANSFUSION COMPLETED WITHOUT ADVERSE SIDE EFFECTS NOTED,NO SOB,NO FEVER NOTED.NS FLUSHING DONE.VITAL SIGNS WITH IN NORMAL LIMITS.
[2020-11-26] MEDS: HYDROCODONE/APAP 10/325MG TABLET PO PRN ×2 (06:25→15:19)
--- NOTE | 2020-11-26 06:25 | NUR ---
AMMUNITION ASSEMBLY I LABORER NOTES PAIN MANAGEMENT C/O TAIL BONE PAIN 8/10 ON PAIN SCALE,NORCO 10/325MG,1TAB PO GIVEN FOR SEVERE PAIN
--- NOTE | 2020-11-26 06:47 | NUR ---
ARCHIVAL STUDIES PROFESSOR NOTES SR 60 ON TELE MONITOR,LYING COMFORTABLY ON BED,HAD BM X3,WITH KAYEXALATE 60 GMS GIVEN FOR POTASSIUM LEVEL OF 5.6.IN NO ACUTE DISTRESS.WILL ENDORSE TO DAY NURSE FOR TITI.
[2020-11-26 07:25] LABS: CALCIUM, SERUM 7.6 mg/dL (8.5-10.1); CREATININE 3.2 mg/dL (0.6-1.3); MAGNESIUM 2.1 mg/dL (1.8-2.4); PHOSPHORUS 3.4 mg/dL (2.5-4.9); POTASSIUM 4.7 mmol/L (3.5-5.1)
[2020-11-26] MEDS ORDERED: CLONIDINE HCL 0.1 MG TABLET PO PRN (07:30)
--- NOTE | 2020-11-26 07:30 | NUR ---
RN OPENING NOTE PATIENT PRESENT IN BED, AWAKE, A/OX4, ABLE TO MAKE NEEDS KNOWN, ON ROOM AIR, TOLERATING WELL, SPO2 99%, DENIES PAIN OR DISCOMFORT, AMBULATORY AND INDEPENDENT,NSR ON TELE-MONITOR , HR 74-76 AT THIS TIME, IV LINE L AC, PATENT, FLUSHED , INTACT,SAFETY PRECAUTIONS IN PLACE, BED LOCKED, IN LOWEST POSITION, HOB ELEVATED, CALL LIGHT IN REACH, WILL CONT TO MONITOR
[2020-11-26] MEDS: BLOOD SUGAR DIAGNOSTIC 1 EACH STRIP IN SCH ×4 (07:42→21:33)
[2020-11-26 07:59] LABS: BASOPHILS % (AUTO) 0.2 % (0.0-2.0); EOSINOPHILS % (AUTO) 0.7 % (0.0-6.0); LYMPHOCYTES # (AUTO) 1.1 /CMM (0.8-4.8); LYMPHOCYTES % (AUTO) 12.7 % (20.0-44.0); MEAN CORPUSCULAR HGB CONC 35 g/dl (31.0-36.0); MEAN CORPUSCULAR VOLUME 87 fL (80-96); MONOCYTES # (AUTO) 0.8 /CMM (0.1-1.30); MONOCYTES % (AUTO) 9.5 % (2.0-12.0); NEUTROPHILS # (AUTO) 6.6 /CMM (1.8-8.9); NEUTROPHILS % (AUTO) 76.9 % (43.0-81.0); PLATELET COUNT (AUTO) 96 /CMM (150-450); RED BLOOD CELL COUNT(AUTO) 2.08 MIL/uL (4.5-6.0); WHITE BLOOD COUNT (AUTO) 8.5 K/uL (4.3-11.0)
[2020-11-26] MEDS: hydrALAZINE HCL 50 MG TABLET PO SCH ×3 (08:07→16:48)
[2020-11-26] MEDS: glipiZIDE 5 MG TABLET PO SCH ×2 (08:07→16:47)
[2020-11-26] MEDS: PANTOPRAZOLE 40 MG TABLET.DR PO SCH (08:07)
[2020-11-26] MEDS: ASPIRIN EC 81 MG TABLET.DR PO SCH (08:09)
[2020-11-26] MEDS: NIFEdipine XL (30MG) 30 MG TAB PO SCH (08:09)
[2020-11-26] MEDS: CLOPIDOGREL BISULFATE 75 MG TABLET PO SCH (08:09)
[2020-11-26] MEDS: INSULIN REGULAR, HUMAN 100 UNIT/ML 3 ML VIAL SQ PRN ×4 (08:10→21:33)
[2020-11-26] MEDS: FUROSEMIDE 40 MG TABLET PO SCH ×2 (08:13→16:47)
[2020-11-26 08:23] LABS: HEMATOCRIT 18 % (39-51); HEMOGLOBIN 6.4 g/dL (13.5-17.5)
--- NOTE | 2020-11-26 08:55 | NUR ---
RECEIVED CRITICAL FOR HGB 6.4, PAGE DR INDERJIT CASTAÑEDA THROUGH [facility]
--- NOTE | 2020-11-26 10:30 | NUR ---
REFUSED TO TAKE PICTURES ON WOUNDS, STATING HE IS TREATING IN OUR [facility] AND DOESN'T WANT TO REMOVE DRESSINGS , EDUCATION PROVIDED, STILL REFUSING
[2020-11-26 12:19] LABS: BILIRUBIN,URINE NEGATIVE (NEGATIVE); COLOR,URINE YELLOW (YELLOW); LEUKOCYTE ESTERASE ,URINE NEGATIVE (NEGATIVE); NITRITE, URINE NEGATIVE (NEGATIVE); PROTEIN,URINE TRACE mg/dl (NEGATIVE); UGLUCOSE NEGATIVE (NEGATIVE); UROBILINOGEN,URINE 0.2 EU/dL (0.2)
[2020-11-26 12:48] LABS: CREATININE, URINE 16.8 MG/DL (30.0-125.0); URINE TOTAL PROTEIN 22.4 mg/dL (0-11.9)
[2020-11-26 13:22] LABS: BACTERIA,URINE Rare /HPF (None Seen); RBC,URINE NONE SEEN /HPF (0-2); SQUAMOUS EPITHELIAL CELL,UR Rare /HPF (None Seen); WBC,URINE 0-2 /HPF (0-3)
[2020-11-26 13:25] LABS: EOSINOPHIL,URINE None Seen
--- NOTE | 2020-11-26 13:52 | NUR ---
Blood picked up from blood bank, initiated blood transfusion
[2020-11-26] MEDS ORDERED: PEG 3350/NA SULF,BICARB,CL/KCL 4,000 ML BOTTLE PO ONE (15:00)
--- NOTE | 2020-11-26 15:46 | NUR ---
Consent forms signed, patient is aware of upcoming treatment plan , agreed to proceed
[2020-11-26] MEDS ORDERED: FUROSEMIDE 40 MG/4 ML VIAL IV ONE (16:00)
--- NOTE | 2020-11-26 17:10 | NUR ---
went to blood bank to pick 2nd unit of PRBC, blood bank lab Emma not there , will be calling us then she is available
--- NOTE | 2020-11-26 18:47 | NUR ---
RN CLOSING NOTE PATIENT REMAINS IN BED, STABLE, TOLERATING BLOOD TRANSFUSION WELL, VS STABLE, MEDICATIONS GIVEN, WILL ENDORSE TO PM SHIFT RN FOR TITI
--- NOTE | 2020-11-26 19:40 | NUR ---
RN NOTES, PATIENT GETTING BLOOD TRANSFUSION AT THIS TIME TOLERATING WELL, WILL INTAKE GOLYTELY AND WILL BE NPO FOR EGD/COLONOSCOPY IN AM, EDUCATION PROVIDED, AND AWARE THAT NEEDS TO BE NPO.
[2020-11-26] MEDS ORDERED: FUROSEMIDE 40 MG/4 ML VIAL ONE (20:45)
--- NOTE | 2020-11-26 21:40 | NUR ---
RN NOTES, ENDORSED PATIENT TO WILMER FOR CONTINUATION OF CARE, PLASMA WILL BE READY FROM LAB SOON TO INFUSE.
--- NOTE | 2020-11-26 21:45 | NUR ---
RN NOTE PT ALERT AND ORIENTED, VERBALLY RESPONSIVE. NO DISTRESS NOTED. PT ON GOLYTELY. AWAITING FOR PLASMA TRANSFUSION, WILL CONTINUE TO MONITOR.
[2020-11-26] MEDS ORDERED: ATORVASTATIN 10 MG TABLET PO SCH (22:00)
--- NOTE | 2020-11-26 22:07 | NUR ---
RN NOTES, REGULAR INSULIN PER SS NOT ADMINISTRATED PATIENT NPO FOR PROCEDURE IN AM.
--- NOTE | 2020-11-26 23:45 | NUR ---
RN NOTES PLASMA TRANSFUSION STARTED. PT AFEBRILE. WILL MONITOR FOR ANY REACTIONS. BP 132/91 T 98.9 P 78 R 18
[2020-11-27] VITALS (9 sets, daily range): BP systolic 144–167; BP diastolic 64–74
--- NOTE | 2020-11-27 00:30 | NUR ---
RN NOTES PT STILL ON HALF BOTTLE ON GOLCelePost. ENCOURAGE PT TO FINISH IT, PER PT HE IS BLOATED AND HAVING HARD TIME TO FINISH AND PER PT HE HAVE NOTHING TO BM BECAUSE HE HAS NOT BEEN EATING A LOT FOR PAST DAYS. HAD BIG BM THIS AFTERNOON. WILL CONTINUE TO ENCOURAGE.
--- NOTE | 2020-11-27 00:50 | NUR ---
RN NOTE PT BP WENT UP TO 166/72 RECHECKED, 162/64 HR 80. PULLED OUT CLONIDINE FROM PXYIS. PT HAVE RECHECKED BP WHEN ABOUT TO GIVE CLONIDINE, BP IS 145/74. PATIENT AWARE ABOUT HIS MEDS AND REGARDING BP. AGREED NOT TO TAKE IT. WILL CONTINUE TO MONITOR. PT CONTINUE WITH PLASMA TRANSFUSION, NO REACTIONS NOTED.
--- NOTE | 2020-11-27 02:00 | NUR ---
RN NOTE PT DOES NOT WANT TO FINISH GOLYTELY ANYMORE. PER PT HE CAN NOT TAKE IT ANY MORE. NO BM PER PT. CHARGE NURSE MADE AWARE.
--- NOTE | 2020-11-27 02:37 | NUR ---
RN NOTE PLASMA TRANSFUSION DONE. NO REACTIONS NOTED. NO DISTRESS NOTED. BP 151/68 RR 18 P 85 T 99.3.
--- NOTE | 2020-11-27 04:23 | NUR ---
RN NOTE PT REFUSED TO HAVE LEFT LEG WOUND CHECK AND PICTURE TAKEN. DRESSING CLEAN DRY AND INTACT.
[2020-11-27 06:25] LABS: BASOPHILS % (AUTO) 0.3 % (0.0-2.0); EOSINOPHILS % (AUTO) 0.8 % (0.0-6.0); HEMATOCRIT 23 % (39-51); HEMOGLOBIN 7.9 g/dL (13.5-17.5); LYMPHOCYTES # (AUTO) 0.9 /CMM (0.8-4.8); LYMPHOCYTES % (AUTO) 6.2 % (20.0-44.0); MEAN CORPUSCULAR HGB CONC 35 g/dl (31.0-36.0); MEAN CORPUSCULAR VOLUME 87 fL (80-96); MONOCYTES # (AUTO) 1.1 /CMM (0.1-1.30); MONOCYTES % (AUTO) 8.2 % (2.0-12.0); NEUTROPHILS # (AUTO) 11.6 /CMM (1.8-8.9); NEUTROPHILS % (AUTO) 84.5 % (43.0-81.0); PLATELET COUNT (AUTO) 145 /CMM (150-450); RED BLOOD CELL COUNT(AUTO) 2.62 MIL/uL (4.5-6.0); WHITE BLOOD COUNT (AUTO) 13.7 K/uL (4.3-11.0)
[2020-11-27 06:44] LABS: ALBUMIN 3.9 g/dL (3.4-5.0); CALCIUM, SERUM 8.4 mg/dL (8.5-10.1); MAGNESIUM 1.8 mg/dL (1.8-2.4); POTASSIUM 4.2 mmol/L (3.5-5.1); TOTAL PROTEIN, SERUM 6.7 g/dL (6.4-8.2)
--- NOTE | 2020-11-27 06:53 | NUR ---
rn note pt sleeping, arouses easily. pt reported he's having loose watery stool. able to finish about 3/4 of golytely. SR on tele monitor. denies any pain. iv remain patent and intact. afebrile. Will endorse to next shift nurse for manuel.
[2020-11-27] MEDS: BLOOD SUGAR DIAGNOSTIC 1 EACH STRIP IN SCH ×2 (07:29→12:21)
--- NOTE | 2020-11-27 07:30 | NUR ---
ENERGY ENGINEER NOTES RECEIVED PT IN BED, AO X 4, AMBULATORY, ON ROOM AIR, O2 SAT AT 96%, NOT IN ANY DISTRESS, NO SOB, RESPIRATION UNLABORED. DENIES PAIN AT THIS TIME. RT AC G 20 FLUSHES WELL, SITE CLEAR. NPO FOR NOW, PATIENT FOR SCHEDULED EGD AND COLONOSCOPY TODAY, CONSENTS SIGNED, PT REFUSED TO FURTHER TAKE GOLYTELY, STATED, HE WILL VOMIT. EXPLAINED TO HIM THE IMPORTANCE OF GOOD BOWEL PREP, BUT STILL REFUSED. PATIENT HAS SKIN ISSUED TO LEFT LEG AND RT BIG TOE BUT REFUSED TO HAVE IT ASSESSED. POC EXPLAINED AND VERBALIZED UNDERSTANDING. SAFETY MEASURES IN PLACE. BED LOW LOCKED. CALL LIGHT WITHIN REACH. WILL CONT TO MONITOR
--- NOTE | 2020-11-27 07:45 | NUR ---
RN NOTES BS 191 MG/DL, NO INSULIN GIVEN, PT HAVE BEEN NPO.
[2020-11-27] MEDS: PANTOPRAZOLE 40 MG TABLET.DR PO SCH (07:48)
[2020-11-27] MEDS: ASPIRIN EC 81 MG TABLET.DR PO SCH (08:42)
[2020-11-27] MEDS: CLOPIDOGREL BISULFATE 75 MG TABLET PO SCH (08:43)
[2020-11-27] MEDS: glipiZIDE 5 MG TABLET PO SCH (09:32)
[2020-11-27] MEDS: hydrALAZINE HCL 50 MG TABLET PO SCH ×2 (09:33→12:22)
[2020-11-27] MEDS: FUROSEMIDE 40 MG TABLET PO SCH (09:33)
[2020-11-27] MEDS: NIFEdipine XL (30MG) 30 MG TAB PO SCH (09:34)
[2020-11-27 10:00] LABS: EOSINOPHILS % (MANUAL) 2 % (0-4); LYMPHOCYTES % (MANUAL) 9 % (16-48); MONOCYTES % (MANUAL) 6 % (0-11.0); MYELOCYTES % 2 % (0-0); NEUTROPHILS % (MANUAL) 81 (42-76)
--- NOTE | 2020-11-27 11:22 | NUR ---
RN NOTES PATIENT BACK FROM SURGERY. AO X 4. VS WNL
--- NOTE | 2020-11-27 12:31 | NUR ---
RN NOTES ACCUCHECK BS 217 MG/DL. 4 UNITS HUM R GIVEN PER SLIDING SCALE.
[2020-11-27] MEDS: INSULIN REGULAR, HUMAN 100 UNIT/ML 3 ML VIAL SQ PRN (12:33)
[2020-11-27] MEDS ORDERED: DEXL60CA3 PO (12:41)
[2020-11-27] MEDS ORDERED: EPOE1VIA15 IJ (12:41)
--- NOTE | 2020-11-27 14:44 | NUR ---
RN NOTES PATIENT FOR DISCHARGE TO HOME TODAY PER MD IN STABLE CONDITION. PROVIDED DC INSTRUCTIONS, HEALTH TEACHINGS AND MED RECON LIST. PATIENT TO FOLLOW UP WITH PCP IN 1 WEEK AND WILL MAKE OWN APPOINTMENT. DR. INDERJIT CASTAÑEDA AT BEDSIDE EARLIER AND GAVE INSTRUCTIONS TO PATIENT WELL. ALL BELONGINGS CHECKED AND RETURNED. ALL PAPERWORKS SIGNED. PATIENT WILL BE PICKED UP BY FAMILY AND WILL BE TRANSPORTED TO HOME VIA PRIVATE CAR.
--- NOTE | 2020-11-27 15:21 | NUR ---
RN NOTES IV ACCESS TO LEFT AC REMOVED. CATH TIP COMPLETE. APPLIED PRESSURE, NO BLEEDING, DRESSING IN PLACE. PATIENT PICKED UP BY FAMILY. ACCOMPANIED BY WHITLEY ZAMBRANO TO LOBBY VIA WHEELCHAIR.
[2020-11-28 07:06] LABS: PTH, INTACT 197 pg/mL (15-65)
[2020-11-29 05:08] LABS: *SPE A/G RATIO 1.4 (0.7-1.7); *SPE ALBUMIN 3.6 g/dL (2.9-4.4); *SPE ALPHA-1-GLOBULIN 0.2 g/dL (0.0-0.4); *SPE ALPHA-2-GLOBULIN 0.6 g/dL (0.4-1.0); *SPE BETA GLOBULIN 0.9 g/dL (0.7-1.3); *SPE GLOBULIN, TOTAL 2.5 g/dL (2.2-3.9); *SPE M-SPIKE Not Observed g/dL (Not Observed); *SPEGAMMA GLOBULIN 0.8 g/dL (0.4-1.8)
== END 2020-11-27 15:23 | disposition home or self-care (01) | DRG 682 ==
LOC: ER 16:34 → MEDSG1 21:40 → TELE1 22:38
PROVIDERS: ADMIT Nurse Practitioner Acute Care; ATTEND Nurse Practitioner Acute Care
PROC: 30233K1 Transfusion of Nonautologous Frozen Plasma into Peripheral Vein, Percutaneous Approach (ICD-10-PCS; principal; 2020-11-26)
PROC: 30233N1 Transfusion of Nonautologous Red Blood Cells into Peripheral Vein, Percutaneous Approach (ICD-10-PCS; 2020-11-26)
PROC: 0DB68ZX Excision of Stomach, Via Natural or Artificial Opening Endoscopic, Diagnostic (ICD-10-PCS; 2020-11-26)
PROC: 0DBN8ZZ Excision of Sigmoid Colon, Via Natural or Artificial Opening Endoscopic (ICD-10-PCS; 2020-11-26)
PROC: 0DB98ZX Excision of Duodenum, Via Natural or Artificial Opening Endoscopic, Diagnostic (ICD-10-PCS; 2020-11-26)
DX: I12.9 Hypertensive chronic kidney disease with stage 1 through stage 4 chronic kidney disease, or unspecified chronic kidney disease (principal); N17.0 Acute kidney failure with tubular necrosis; E87.1 Hypo-osmolality and hyponatremia; N18.4 Chronic kidney disease, stage 4 (severe); E87.5 Hyperkalemia; E66.01 Morbid (severe) obesity due to excess calories; Z68.37 Body mass index [BMI] 37.0-37.9, adult; G47.33 Obstructive sleep apnea (adult) (pediatric); I16.0 Hypertensive urgency; E11.22 Type 2 diabetes mellitus with diabetic chronic kidney disease; E11.51 Type 2 diabetes mellitus with diabetic peripheral angiopathy without gangrene; E78.5 Hyperlipidemia, unspecified; I25.10 Atherosclerotic heart disease of native coronary artery without angina pectoris; Z95.5 Presence of coronary angioplasty implant and graft; Z89.411 Acquired absence of right great toe; Z87.891 Personal history of nicotine dependence; Z79.82 Long term (current) use of aspirin; E11.69 Type 2 diabetes mellitus with other specified complication; E11.621 Type 2 diabetes mellitus with foot ulcer; L97.529 Non-pressure chronic ulcer of other part of left foot with unspecified severity; Z20.822 Contact with and (suspected) exposure to COVID-19; R53.1 Weakness; B96.81 Helicobacter pylori [H. pylori] as the cause of diseases classified elsewhere; K20.90 Esophagitis, unspecified without bleeding; K29.70 Gastritis, unspecified, without bleeding; Z79.84 Long term (current) use of oral hypoglycemic drugs; D63.1 Anemia in chronic kidney disease; D12.5 Benign neoplasm of sigmoid colon
CPT/HCPCS: 36415; 71045-TC; 80048-TC; 80053-TC; 80076-TC; 81001; 82550-TC; 82570-TC; 82962-TC; 83735-TC; 83880; 83970; 84100-TC; 84155; 84155-TC; 84165; 84300-TC; 84484-TC; 85025-TC; 86850-TC; 87081-TC; 88305-TC; 88313-TC; 88342; C9803; G0378; J1815; J1940; J2704; J3490; J7040; J7050; P9016; P9017

== ENCOUNTER 2020-11-28 08:45 | Outpatient (CLI) | payer MEDICARE, BC ==
[~2020-11-28 08:45] MED LIST changes: +DEXL60CA3 PO; +EPOE1VIA15 IJ; -LINE600T13 PO
== END 2020-11-28 23:59 | disposition home health service (06) ==
LOC: WOU 08:45
PROVIDERS: ATTEND Podiatrist Foot & Ankle Surgery
DX: E11.42 Type 2 diabetes mellitus with diabetic polyneuropathy (principal); E11.69 Type 2 diabetes mellitus with other specified complication; E11.22 Type 2 diabetes mellitus with diabetic chronic kidney disease; M86.672 Other chronic osteomyelitis, left ankle and foot; N18.9 Chronic kidney disease, unspecified; Z79.4 Long term (current) use of insulin; L84 Corns and callosities; Z79.82 Long term (current) use of aspirin; R60.0 Localized edema
CPT/HCPCS: A6209; G0463

== ENCOUNTER 2020-12-05 09:30 | Outpatient (CLI) | payer MEDICARE, BC ==
[2020-12-05 11:04] LABS: BASOPHILS % (AUTO) 0.5 % (0.0-2.0); EOSINOPHILS % (AUTO) 2.1 % (0.0-6.0); HEMATOCRIT 26 % (39-51); HEMOGLOBIN 8.8 g/dL (13.5-17.5); LYMPHOCYTES # (AUTO) 0.9 /CMM (0.8-4.8); LYMPHOCYTES % (AUTO) 15.8 % (20.0-44.0); MEAN CORPUSCULAR HGB CONC 34 g/dl (31.0-36.0); MEAN CORPUSCULAR VOLUME 90 fL (80-96); MONOCYTES # (AUTO) 0.4 /CMM (0.1-1.30); MONOCYTES % (AUTO) 6.3 % (2.0-12.0); NEUTROPHILS # (AUTO) 4.3 /CMM (1.8-8.9); NEUTROPHILS % (AUTO) 75.3 % (43.0-81.0); PLATELET COUNT (AUTO) 221 /CMM (150-450); RED BLOOD CELL COUNT(AUTO) 2.94 MIL/uL (4.5-6.0); WHITE BLOOD COUNT (AUTO) 5.7 K/uL (4.3-11.0)
[2020-12-05 11:42] LABS: C-REACTIVE PROTEIN 1.4 mg/dL (0.0-0.9)
== END 2020-12-05 23:59 | disposition home health service (06) ==
LOC: WOU 09:30
PROVIDERS: ATTEND Podiatrist Foot & Ankle Surgery
DX: E11.621 Type 2 diabetes mellitus with foot ulcer (principal); L97.511 Non-pressure chronic ulcer of other part of right foot limited to breakdown of skin; E11.42 Type 2 diabetes mellitus with diabetic polyneuropathy; E11.69 Type 2 diabetes mellitus with other specified complication; M86.672 Other chronic osteomyelitis, left ankle and foot; E11.22 Type 2 diabetes mellitus with diabetic chronic kidney disease; I12.9 Hypertensive chronic kidney disease with stage 1 through stage 4 chronic kidney disease, or unspecified chronic kidney disease; N18.9 Chronic kidney disease, unspecified; Z79.4 Long term (current) use of insulin; L84 Corns and callosities; R60.0 Localized edema; Z89.411 Acquired absence of right great toe
CPT/HCPCS: 11042; 36415; 83036; 84134; 85025; 85652; 86140; A6209

== ENCOUNTER 2020-12-12 09:25 | Outpatient (CLI) | payer MEDICARE, BC | END 2020-12-12 23:59 | disposition home or self-care (01) | LOC: WOU 09:25 | PROVIDERS: ATTEND Podiatrist Foot & Ankle Surgery | DX: E11.42 Type 2 diabetes mellitus with diabetic polyneuropathy (principal); E11.69 Type 2 diabetes mellitus with other specified complication; M86.672 Other chronic osteomyelitis, left ankle and foot; E11.22 Type 2 diabetes mellitus with diabetic chronic kidney disease; N18.9 Chronic kidney disease, unspecified; Z79.4 Long term (current) use of insulin; Z79.82 Long term (current) use of aspirin | CPT/HCPCS: A6209; G0463 ==

== ENCOUNTER 2020-12-19 09:30 | Outpatient (CLI) | payer MEDICARE, BC | END 2020-12-19 23:59 | disposition home or self-care (01) | LOC: WOU 09:30 | PROVIDERS: ATTEND Podiatrist Foot & Ankle Surgery | DX: Z09 Encounter for follow-up examination after completed treatment for conditions other than malignant neoplasm (principal); Z86.31 Personal history of diabetic foot ulcer; E11.42 Type 2 diabetes mellitus with diabetic polyneuropathy; E11.22 Type 2 diabetes mellitus with diabetic chronic kidney disease; I12.9 Hypertensive chronic kidney disease with stage 1 through stage 4 chronic kidney disease, or unspecified chronic kidney disease; N18.9 Chronic kidney disease, unspecified; E11.69 Type 2 diabetes mellitus with other specified complication; M86.672 Other chronic osteomyelitis, left ankle and foot; R60.1 Generalized edema; R60.0 Localized edema; Z79.4 Long term (current) use of insulin; Z79.82 Long term (current) use of aspirin | CPT/HCPCS: G0463 ==

== ENCOUNTER → 2020-12-19 | Outpatient (CLI) | payer MEDICARE, BC | END | disposition home or self-care (01) | LOC: MRI 10:20 | PROVIDERS: ATTEND Podiatrist Foot & Ankle Surgery | DX: M19.072 Primary osteoarthritis, left ankle and foot (principal); M20.12 Hallux valgus (acquired), left foot; M62.572 Muscle wasting and atrophy, not elsewhere classified, left ankle and foot; M86.8X7 Other osteomyelitis, ankle and foot | CPT/HCPCS: 73718-TC ==

== ENCOUNTER 2021-01-09 09:30 | Outpatient (CLI) | payer MEDICARE, BC | END 2021-01-09 23:59 | disposition home or self-care (01) | LOC: WOU 09:30 | PROVIDERS: ATTEND Podiatrist Foot & Ankle Surgery | DX: E11.621 Type 2 diabetes mellitus with foot ulcer (principal); L97.512 Non-pressure chronic ulcer of other part of right foot with fat layer exposed; E11.42 Type 2 diabetes mellitus with diabetic polyneuropathy; E11.69 Type 2 diabetes mellitus with other specified complication; M86.672 Other chronic osteomyelitis, left ankle and foot; Z79.4 Long term (current) use of insulin; R60.0 Localized edema; L84 Corns and callosities; Z89.421 Acquired absence of other right toe(s); Z79.82 Long term (current) use of aspirin | CPT/HCPCS: 11042; A6209 ==

== ENCOUNTER 2021-01-16 13:20 | Outpatient (CLI) | payer MEDICARE, BC | END 2021-01-16 23:59 | disposition home health service (06) | LOC: WOU 13:20 | PROVIDERS: ATTEND Podiatrist Foot & Ankle Surgery | DX: E11.621 Type 2 diabetes mellitus with foot ulcer (principal); L97.512 Non-pressure chronic ulcer of other part of right foot with fat layer exposed; E11.42 Type 2 diabetes mellitus with diabetic polyneuropathy; E11.69 Type 2 diabetes mellitus with other specified complication; M86.672 Other chronic osteomyelitis, left ankle and foot; I10 Essential (primary) hypertension; L84 Corns and callosities; Z89.421 Acquired absence of other right toe(s); R60.0 Localized edema; Z79.4 Long term (current) use of insulin; Z79.82 Long term (current) use of aspirin | CPT/HCPCS: 11042 ==

== ENCOUNTER 2021-01-23 09:30 | Outpatient (CLI) | payer MEDICARE, BC | END 2021-01-23 23:59 | disposition home health service (06) | LOC: WOU 09:30 | PROVIDERS: ATTEND Podiatrist Foot & Ankle Surgery | DX: E11.621 Type 2 diabetes mellitus with foot ulcer (principal); L97.413 Non-pressure chronic ulcer of right heel and midfoot with necrosis of muscle; E11.42 Type 2 diabetes mellitus with diabetic polyneuropathy; R60.0 Localized edema; E11.22 Type 2 diabetes mellitus with diabetic chronic kidney disease; I12.9 Hypertensive chronic kidney disease with stage 1 through stage 4 chronic kidney disease, or unspecified chronic kidney disease; N18.9 Chronic kidney disease, unspecified; Z87.891 Personal history of nicotine dependence; Z79.4 Long term (current) use of insulin; Z79.82 Long term (current) use of aspirin | CPT/HCPCS: 11043; 87070; 87075; 87077; 87186; A6209; A6407 ==

== ENCOUNTER 2021-01-30 09:20 | Outpatient (CLI) | payer MEDICARE, BC ==
[2021-01-30] MEDS ORDERED: GENTAMICIN 0.1% CREAM 15 GM TUBE ONE (10:33)
[2021-01-30 11:04] LABS: BASOPHILS % (AUTO) 0.5 % (0.0-2.0); HEMATOCRIT 29 % (39-51); HEMOGLOBIN 10.1 g/dL (13.5-17.5); LYMPHOCYTES # (AUTO) 1.1 K/uL (0.8-4.8); LYMPHOCYTES % (AUTO) 14.5 % (20.0-44.0); MEAN CORPUSCULAR HGB CONC 35 g/dl (31.0-36.0); MEAN CORPUSCULAR VOLUME 89 fL (80-96); MONOCYTES # (AUTO) 0.4 K/uL (0.1-1.30); MONOCYTES % (AUTO) 5.6 % (2.0-12.0); NEUTROPHILS # (AUTO) 6.1 K/uL (1.8-8.9); NEUTROPHILS % (AUTO) 78.4 % (43.0-81.0); PLATELET COUNT (AUTO) 201 K/uL (150-450); RED BLOOD CELL COUNT(AUTO) 3.27 MIL/uL (4.5-6.0); WHITE BLOOD COUNT (AUTO) 7.8 K/uL (4.3-11.0)
[2021-01-30 11:22] LABS: ALBUMIN 3.3 g/dL (3.4-5.0); CALCIUM, SERUM 7.8 mg/dL (8.5-10.1); CREATININE 3.4 mg/dL (0.6-1.3); POTASSIUM 4.8 mmol/L (3.5-5.1); PREALBUMIN 27.4 MG/DL (18.0-35.7)
[2021-01-30 11:23] LABS: C-REACTIVE PROTEIN 1.4 mg/dL (0.0-0.9)
== END 2021-01-30 23:59 | disposition home health service (06) ==
LOC: WOU 09:20
PROVIDERS: ATTEND Podiatrist Foot & Ankle Surgery
DX: E11.621 Type 2 diabetes mellitus with foot ulcer (principal); L97.415 Non-pressure chronic ulcer of right heel and midfoot with muscle involvement without evidence of necrosis; L97.513 Non-pressure chronic ulcer of other part of right foot with necrosis of muscle; L03.115 Cellulitis of right lower limb; L02.611 Cutaneous abscess of right foot; E11.42 Type 2 diabetes mellitus with diabetic polyneuropathy; E11.22 Type 2 diabetes mellitus with diabetic chronic kidney disease; I12.9 Hypertensive chronic kidney disease with stage 1 through stage 4 chronic kidney disease, or unspecified chronic kidney disease; N18.9 Chronic kidney disease, unspecified; Z87.891 Personal history of nicotine dependence; Z79.4 Long term (current) use of insulin; L84 Corns and callosities; R60.0 Localized edema; Z89.421 Acquired absence of other right toe(s)
CPT/HCPCS: 11042; 11043; 36415; 80048-TC; 82040-TC; 84134-TC; 85025-TC; 85652-TC; 86140-TC; 87070-TC; 87075-TC

== ENCOUNTER 2021-02-06 09:20 | Outpatient (CLI) | payer MEDICARE, BC | END 2021-02-06 23:59 | disposition home health service (06) | LOC: WOU 09:20 | PROVIDERS: ATTEND Podiatrist Foot & Ankle Surgery | DX: E11.621 Type 2 diabetes mellitus with foot ulcer (principal); L97.413 Non-pressure chronic ulcer of right heel and midfoot with necrosis of muscle; L97.512 Non-pressure chronic ulcer of other part of right foot with fat layer exposed; E11.42 Type 2 diabetes mellitus with diabetic polyneuropathy; B95.7 Other staphylococcus as the cause of diseases classified elsewhere; Z89.421 Acquired absence of other right toe(s); Z87.891 Personal history of nicotine dependence; Z95.5 Presence of coronary angioplasty implant and graft; R60.0 Localized edema; E11.22 Type 2 diabetes mellitus with diabetic chronic kidney disease; N18.9 Chronic kidney disease, unspecified; Z79.4 Long term (current) use of insulin; Z79.899 Other long term (current) drug therapy | CPT/HCPCS: 11042; A6209 ==

== ENCOUNTER 2021-02-07 11:00 | Outpatient (CLI) | payer MEDICARE, BC | END 2021-02-07 23:59 | disposition home or self-care (01) | LOC: WOU 11:00 | PROVIDERS: ATTEND Specialist | DX: Z01.818 Encounter for other preprocedural examination (principal); E11.69 Type 2 diabetes mellitus with other specified complication; M86.672 Other chronic osteomyelitis, left ankle and foot; M86.671 Other chronic osteomyelitis, right ankle and foot; E11.42 Type 2 diabetes mellitus with diabetic polyneuropathy; E11.621 Type 2 diabetes mellitus with foot ulcer; L97.514 Non-pressure chronic ulcer of other part of right foot with necrosis of bone; Z86.31 Personal history of diabetic foot ulcer; Z89.421 Acquired absence of other right toe(s); R60.0 Localized edema; L84 Corns and callosities; E11.22 Type 2 diabetes mellitus with diabetic chronic kidney disease; I12.9 Hypertensive chronic kidney disease with stage 1 through stage 4 chronic kidney disease, or unspecified chronic kidney disease; N18.9 Chronic kidney disease, unspecified; Z95.5 Presence of coronary angioplasty implant and graft; Z87.891 Personal history of nicotine dependence; Z79.84 Long term (current) use of oral hypoglycemic drugs; Z79.899 Other long term (current) drug therapy | CPT/HCPCS: G0463 ==

== ENCOUNTER 2021-02-07 12:50 | Outpatient (CLI) | payer MEDICARE, BC | END 2021-02-07 23:59 | disposition home or self-care (01) | LOC: MRI 12:50 | PROVIDERS: ATTEND Podiatrist Foot & Ankle Surgery | DX: E11.621 Type 2 diabetes mellitus with foot ulcer (principal); M62.50 Muscle wasting and atrophy, not elsewhere classified, unspecified site | CPT/HCPCS: 73718-TC ==

== ENCOUNTER 2021-02-09 12:00 | Outpatient (CLI) | payer MEDICARE, BC ==
[2021-03-22] MEDS ORDERED: AMOX250C PO (07:48)
[2021-03-22] MEDS ORDERED: CLAR-45 PO (07:48)
[2021-03-22] MEDS ORDERED: Linezolid PO (07:48)
[2021-03-22] MEDS ORDERED: MERO500V23 IV (07:48)
== END 2021-02-09 23:59 | disposition home or self-care (01) ==
LOC: WOU 12:00
PROVIDERS: ATTEND Registered Nurse
DX: E11.69 Type 2 diabetes mellitus with other specified complication (principal); M86.8X7 Other osteomyelitis, ankle and foot; B95.2 Enterococcus as the cause of diseases classified elsewhere; B95.8 Unspecified staphylococcus as the cause of diseases classified elsewhere; I25.10 Atherosclerotic heart disease of native coronary artery without angina pectoris; I10 Essential (primary) hypertension; E78.5 Hyperlipidemia, unspecified; G89.29 Other chronic pain; M54.5 Low back pain; Z87.891 Personal history of nicotine dependence; Z79.84 Long term (current) use of oral hypoglycemic drugs; Z79.82 Long term (current) use of aspirin
CPT/HCPCS: G0463

== ENCOUNTER 2021-02-13 11:00 | Outpatient (CLI) | payer MEDICARE, BC ==
[2021-03-22] MEDS ORDERED: AMOX250C PO (07:48)
[2021-03-22] MEDS ORDERED: CLAR-45 PO (07:48)
[2021-03-22] MEDS ORDERED: Linezolid PO (07:48)
[2021-03-22] MEDS ORDERED: MERO500V23 IV (07:48)
== END 2021-02-13 23:59 | disposition home health service (06) ==
LOC: WOU 11:00
PROVIDERS: ATTEND Podiatrist Foot & Ankle Surgery
DX: E11.621 Type 2 diabetes mellitus with foot ulcer (principal); L97.412 Non-pressure chronic ulcer of right heel and midfoot with fat layer exposed; E11.42 Type 2 diabetes mellitus with diabetic polyneuropathy; E11.69 Type 2 diabetes mellitus with other specified complication; M86.671 Other chronic osteomyelitis, right ankle and foot; Z79.4 Long term (current) use of insulin; Z79.82 Long term (current) use of aspirin; Z89.421 Acquired absence of other right toe(s)
CPT/HCPCS: 11042; A6209

== ENCOUNTER 2021-02-15 09:22 | Outpatient (CLI) | payer MEDICARE, BC | END 2021-02-15 23:59 | disposition home or self-care (01) | LOC: WOU 09:22 | PROVIDERS: ATTEND Nurse Practitioner Acute Care | DX: Z46.89 Encounter for fitting and adjustment of other specified devices (principal); M86.9 Osteomyelitis, unspecified | CPT/HCPCS: 36569; 71045-TC ==

== ENCOUNTER 2021-02-20 10:10 | Outpatient (CLI) | payer MEDICARE, BC ==
[2021-02-20] MEDS ORDERED: SILVER NITRATE APPLICATOR 1 EA BOX ONE (10:51)
== END 2021-02-20 23:59 | disposition home health service (06) ==
LOC: WOU 10:10
PROVIDERS: ATTEND Podiatrist Foot & Ankle Surgery
DX: E11.621 Type 2 diabetes mellitus with foot ulcer (principal); L97.512 Non-pressure chronic ulcer of other part of right foot with fat layer exposed; E11.22 Type 2 diabetes mellitus with diabetic chronic kidney disease; E11.69 Type 2 diabetes mellitus with other specified complication; E11.42 Type 2 diabetes mellitus with diabetic polyneuropathy; N18.9 Chronic kidney disease, unspecified; M86.171 Other acute osteomyelitis, right ankle and foot; M86.671 Other chronic osteomyelitis, right ankle and foot; Z79.4 Long term (current) use of insulin; R60.0 Localized edema; L84 Corns and callosities
CPT/HCPCS: 11042; A6209

== ENCOUNTER 2021-02-27 11:20 | Outpatient (CLI) | payer MEDICARE, BC | END 2021-02-27 23:59 | disposition home health service (06) | LOC: WOU 11:20 | PROVIDERS: ATTEND Podiatrist Foot & Ankle Surgery | DX: E11.621 Type 2 diabetes mellitus with foot ulcer (principal); L97.514 Non-pressure chronic ulcer of other part of right foot with necrosis of bone; E11.69 Type 2 diabetes mellitus with other specified complication; M86.671 Other chronic osteomyelitis, right ankle and foot; Z89.421 Acquired absence of other right toe(s); Z86.31 Personal history of diabetic foot ulcer; E11.42 Type 2 diabetes mellitus with diabetic polyneuropathy; E11.22 Type 2 diabetes mellitus with diabetic chronic kidney disease; I12.9 Hypertensive chronic kidney disease with stage 1 through stage 4 chronic kidney disease, or unspecified chronic kidney disease; N18.9 Chronic kidney disease, unspecified; Z79.4 Long term (current) use of insulin; Z87.891 Personal history of nicotine dependence; Z95.5 Presence of coronary angioplasty implant and graft | CPT/HCPCS: 11043; 87070-TC; 87075-TC; 87186-TC; 88304-TC ==

== ENCOUNTER 2021-03-06 11:20 | Outpatient (CLI) | payer MEDICARE, BC ==
[2021-03-22] MEDS ORDERED: CLAR-45 PO (07:48)
[2021-03-22] MEDS ORDERED: Linezolid PO (07:48)
[2021-03-22] MEDS ORDERED: MERO500V23 IV (07:48)
[2021-03-22] MEDS ORDERED: AMOX250C PO (07:48)
== END 2021-03-06 23:59 | disposition home health service (06) ==
LOC: WOU 11:20
PROVIDERS: ATTEND Podiatrist Foot & Ankle Surgery
DX: E11.621 Type 2 diabetes mellitus with foot ulcer (principal); L97.514 Non-pressure chronic ulcer of other part of right foot with necrosis of bone; E11.42 Type 2 diabetes mellitus with diabetic polyneuropathy; E11.22 Type 2 diabetes mellitus with diabetic chronic kidney disease; E11.69 Type 2 diabetes mellitus with other specified complication; N18.9 Chronic kidney disease, unspecified; M86.671 Other chronic osteomyelitis, right ankle and foot; Z79.4 Long term (current) use of insulin; R60.0 Localized edema; L84 Corns and callosities; Z89.421 Acquired absence of other right toe(s); Z79.82 Long term (current) use of aspirin
CPT/HCPCS: 11043; G0277

== ENCOUNTER 2021-03-13 10:54 | Outpatient (CLI) | payer MEDICARE, BC ==
[2021-03-22] MEDS ORDERED: AMOX250C PO (07:48)
[2021-03-22] MEDS ORDERED: Linezolid PO (07:48)
[2021-03-22] MEDS ORDERED: CLAR-45 PO (07:48)
[2021-03-22] MEDS ORDERED: MERO500V23 IV (07:48)
== END 2021-03-13 23:59 | disposition home health service (06) ==
LOC: WOU 10:54
PROVIDERS: ATTEND Podiatrist Foot & Ankle Surgery
DX: E11.621 Type 2 diabetes mellitus with foot ulcer (principal); L97.514 Non-pressure chronic ulcer of other part of right foot with necrosis of bone; E11.69 Type 2 diabetes mellitus with other specified complication; E11.42 Type 2 diabetes mellitus with diabetic polyneuropathy; E11.22 Type 2 diabetes mellitus with diabetic chronic kidney disease; I12.9 Hypertensive chronic kidney disease with stage 1 through stage 4 chronic kidney disease, or unspecified chronic kidney disease; M86.671 Other chronic osteomyelitis, right ankle and foot; N18.9 Chronic kidney disease, unspecified; Z79.4 Long term (current) use of insulin; Z87.891 Personal history of nicotine dependence; L84 Corns and callosities; R60.1 Generalized edema
CPT/HCPCS: 11043; 87070; 87075; 87077; 87186 ×2; A6197

== ENCOUNTER 2021-03-16 09:05 | Outpatient (CLI) | payer MEDICARE, BC ==
[2021-03-22] MEDS ORDERED: Linezolid PO (07:48)
[2021-03-22] MEDS ORDERED: CLAR-45 PO (07:48)
[2021-03-22] MEDS ORDERED: MERO500V23 IV (07:48)
[2021-03-22] MEDS ORDERED: AMOX250C PO (07:48)
== END 2021-03-16 23:59 | disposition home or self-care (01) ==
LOC: LAB 09:05
PROVIDERS: ATTEND Podiatrist Foot & Ankle Surgery
DX: Z75.3 Unavailability and inaccessibility of health-care facilities (principal)
CPT/HCPCS: C9803; U0003

== ENCOUNTER 2021-03-16 09:29 | Outpatient (CLI) | payer MEDICARE, BC ==
[2021-03-16 10:02] LABS: BASOPHILS % (AUTO) 0.2 % (0.0-2.0); EOSINOPHILS % (AUTO) 2.3 % (0.0-6.0); HEMATOCRIT 29 % (39-51); HEMOGLOBIN 10.3 g/dL (13.5-17.5); LYMPHOCYTES % (AUTO) 15.9 % (20.0-44.0); MEAN CORPUSCULAR HGB CONC 35 g/dl (31.0-36.0); MEAN CORPUSCULAR VOLUME 86 fL (80-96); MONOCYTES # (AUTO) 0.4 K/uL (0.1-1.30); MONOCYTES % (AUTO) 6.3 % (2.0-12.0); NEUTROPHILS # (AUTO) 4.6 K/uL (1.8-8.9); NEUTROPHILS % (AUTO) 75.3 % (43.0-81.0); PLATELET COUNT (AUTO) 172 K/uL (150-450); RED BLOOD CELL COUNT(AUTO) 3.41 MIL/uL (4.5-6.0); WHITE BLOOD COUNT (AUTO) 6.1 K/uL (4.3-11.0)
[2021-03-16 10:09] LABS: ALBUMIN 3.6 g/dL (3.4-5.0); BILIRUBIN,TOTAL 0.4 mg/dL (0.2-1.0); CALCIUM, SERUM 7.9 mg/dL (8.5-10.1); CREATININE 3.8 mg/dL (0.6-1.3); MAGNESIUM 2.5 mg/dL (1.8-2.4); PHOSPHORUS 5.1 mg/dL (2.5-4.9); POTASSIUM 4.4 mmol/L (3.5-5.1); TOTAL PROTEIN, SERUM 7.4 g/dL (6.4-8.2)
[2021-03-22] MEDS ORDERED: AMOX250C PO (07:48)
[2021-03-22] MEDS ORDERED: CLAR-45 PO (07:48)
[2021-03-22] MEDS ORDERED: MERO500V23 IV (07:48)
[2021-03-22] MEDS ORDERED: Linezolid PO (07:48)
== END 2021-03-16 23:59 | disposition home or self-care (01) ==
LOC: LAB 09:29
PROVIDERS: ATTEND Internal Medicine
DX: Z75.3 Unavailability and inaccessibility of health-care facilities (principal)
CPT/HCPCS: 36415; 80053-TC; 83735-TC; 84100-TC; 85025-TC

== ENCOUNTER 2021-03-19 09:55 | Inpatient (IN) | payer MEDICARE, BC ==
[~2021-03-19] VITALS: Ht 182.9 cm; Wt 121.6 kg
--- NOTE | 2021-03-19 09:55 | NUR ---
PT BIB SELF SENT BY FOR WOUND EVAL AND FOR POSSIBLE WOUND DEBRIMENT. PT IS AAOX4, NOT IN RESPIRATORY DISTRESS, V/S STABLE, KEPT RESTED AND COMFORTABLE. WILL CONTINUE TO MONITOR.
--- NOTE | 2021-03-19 10:22 | NUR ---
SEEN AND EXMAINED BY .
--- NOTE | 2021-03-19 10:28 | NUR ---
SEWER AND INSPECTOR AT BEDSIDE FOR EVAL.
[2021-03-19] MEDS ORDERED: HYDR-4077 PO (11:00)
[2021-03-19 11:16] LABS: BASOPHILS % (AUTO) 0.3 % (0.0-2.0); EOSINOPHILS % (AUTO) 1.3 % (0.0-6.0); HEMATOCRIT 27 % (39-51); HEMOGLOBIN 9.2 g/dL (13.5-17.5); MEAN CORPUSCULAR HGB CONC 34 g/dl (31.0-36.0); MEAN CORPUSCULAR VOLUME 87 fL (80-96); MONOCYTES # (AUTO) 0.4 K/uL (0.1-1.30); MONOCYTES % (AUTO) 6.1 % (2.0-12.0); NEUTROPHILS # (AUTO) 4.8 K/uL (1.8-8.9); NEUTROPHILS % (AUTO) 76.3 % (43.0-81.0); PLATELET COUNT (AUTO) 182 K/uL (150-450); RED BLOOD CELL COUNT(AUTO) 3.09 MIL/uL (4.5-6.0); WHITE BLOOD COUNT (AUTO) 6.2 K/uL (4.3-11.0)
--- NOTE | 2021-03-19 11:22 | NUR ---
ROOM 321-2
[2021-03-19 11:24] LABS: CALCIUM, SERUM 8.2 mg/dL (8.5-10.1); CARBON DIOXIDE 24 mmol/L (21-32); CHLORIDE 104 mmol/L (98-107); CREATININE 3.4 mg/dL (0.6-1.3); GLUCOSE 133 mg/dL (74-106); POTASSIUM 4.4 mmol/L (3.5-5.1); SODIUM SERUM 137 mmol/L (136-145); UREA NITROGEN, BLOOD 57 mg/dL (7-18)
--- NOTE | 2021-03-19 11:27 | NUR ---
REPORT GIVEN TO NURSE KAYE
[2021-03-19 11:30] LABS: ALANINE AMINOTRANSFERASE 31 U/L (12-78); ALBUMIN 3.4 g/dL (3.4-5.0); ALKALINE PHOSPHATASE 88 U/L (46-116); ASPARTATE AMINOTRANSFERASE 29 U/L (15-37); BILIRUBIN,DIRECT 0.1 mg/dL (0.0-0.2); BILIRUBIN,TOTAL 0.3 mg/dL (0.2-1.0); TOTAL PROTEIN, SERUM 6.9 g/dL (6.4-8.2)
--- NOTE | 2021-03-19 11:31 | NUR ---
AT BEDSIDE FOR EVAL.
[2021-03-19 11:32] LABS: BILIRUBIN,URINE Negative (NEGATIVE); COLOR,URINE YELLOW (YELLOW); LEUKOCYTE ESTERASE ,URINE Negative (NEGATIVE); NITRITE, URINE Negative (NEGATIVE); PH,URINE 5.5 (5.0-8.0); PROTEIN,URINE 100 mg/dl (NEGATIVE); UGLUCOSE Negative (NEGATIVE); UROBILINOGEN,URINE 0.2 EU/dL (0.2)
[2021-03-19 11:44] LABS: BACTERIA,URINE Rare /HPF (None Seen); SQUAMOUS EPITHELIAL CELL,UR 0-2 /HPF (None Seen); WBC,URINE 0-2 /HPF (0-3)
[2021-03-19] MEDS ORDERED: AMPI1VIA6 IV (11:45)
[2021-03-19] MEDS: PIPERACILLIN /TAZOBACTAM 2.25 G in IV D5W 50 ML IV SCH ×2 (12:00→17:37)
[2021-03-19] MEDS ORDERED: Z GUARD REMEDY 2 OZ OINT TP PRN (12:00)
[2021-03-19] MEDS: ENOXAPARIN SODIUM 40 MG/0.4 ML DISP.SYRIN SQ SCH (12:00)
[2021-03-19] MEDS ORDERED: ONDANSETRON HCL/PF 4 MG/2 ML VIAL IVP PRN (12:00)
--- NOTE | 2021-03-19 12:02 | NUR ---
COVID SWAB DONE AND SENT TO THE LAB
--- NOTE | 2021-03-19 12:02 | NUR ---
RECEIVED THE FOLLOWING ORDERS FROM DR BOWER: MRI RIGHT FOOT WITHOUT, CRP, PROCALCITONIN AND SED RATE. THE ORDERS ARE READ BACK, VERIFIED. NOTED AND CARRIED OUT.
[2021-03-19] MEDS ORDERED: CLONIDINE HCL 0.1 MG TABLET PO PRN (12:30)
[2021-03-19] MEDS ORDERED: DEXTROSE 50%-WATER 50 ML DISP.SYRIN IV PRN (12:30)
--- NOTE | 2021-03-19 12:45 | NUR ---
MS RN NOTES RECEIVED PATIENT FROM ER. PATIENT IS ALERT AND ORIENTED WITH NO SIGN OF DISTRESS. PATIENT'S ON ROOM AIR WITH NO RESPIRATORY DISTRESS NOTED. PATIENT HAS A RHINA PICC LINE, PATENT AND INTACT. PATIENT'S IN NO ACUTE DISTRESS AT THIS TIME. PATIENT REFUSING BODY CHECK AND INVENTORY CHECK. SAFETY MEASURES IN PLACE: BED LOCKED, SIDE RAILS UPX2, AND CALL LIGHT WITHIN REACH OF THE PATIENT. WILL CONTINUE TO MONITOR THE PATIENT.
[2021-03-19] MEDS: hydrALAZINE HCL 50 MG TABLET PO SCH ×3 (13:00→20:33)
--- NOTE | 2021-03-19 13:20 | NUR ---
RN NOTE PATIENT PICKED UP BY RADIOLOGY DEPARTMENT FOR MRI OF THE FOOT.
--- NOTE | 2021-03-19 15:17 | NUR ---
MS RN NOTE PATEINT BACK FROM MRI. IN STABLE CONDITION.
[2021-03-19 16:00] VITALS: BP 168/90
[2021-03-19] MEDS: glipiZIDE 5 MG TABLET PO SCH (16:38)
[2021-03-19] MEDS: FUROSEMIDE 40 MG TABLET PO SCH (16:39)
[2021-03-19] MEDS: DOCUSATE SODIUM 100 MG CAPSULE PO SCH (16:39)
[2021-03-19] MEDS: BLOOD SUGAR DIAGNOSTIC 1 EACH STRIP VI SCH ×2 (17:30→22:23)
--- NOTE | 2021-03-19 19:00 | NUR ---
MS RN NOTES PATIENT IS ALERT AND ORIENTED WITH NO SIGN OF DISTRESS. PATIENT'S ON ROOM AIR WITH NO RESPIRATORY DISTRESS NOTED. PATIENT HAS A RHINA PICC LINE, PATENT AND INTACT. PATIENT'S IN NO ACUTE DISTRESS AT THIS TIME. PATIENT STILL REFUSING BODY CHECK. SAFETY MEASURES IN PLACE: BED LOCKED, SIDE RAILS UPX2, AND CALL LIGHT WITHIN REACH OF THE PATIENT. WILL ENDORSE PATIENT FOR CONTINUITY OF CARE.
[2021-03-19] MEDS ORDERED: ANESTHESIA TRAY IN PYXIS 1 EA TRAY MC ONE (19:49)
[2021-03-19 20:00] VITALS: BP 147/62
--- NOTE | 2021-03-19 20:00 | NUR ---
MS RN OPENING NOTES PT WAS LAST SEEN AWAKE IN BED RESTING. PATIENT'S A/O X4. PATIENT'S ON ROOM AIR WITH NO RESPIRATORY DISTRESS NOTED. PATIENT HAS A RHINA PICC LINE WHICH IS INTACT, PATENT, AND FLUSHING WELL. PATIENT'S IN NO ACUTE DISTRESS AT THIS TIME. SAFETY MEASURES IN PLACE: BED LOCKED, SIDE RAILS UPX2, AND CALL LIGHT WITHIN REACH OF THE PATIENT. WILL CONTINUE TO MONITOR THE PATIENT.
[2021-03-19] MEDS: MEROPENEM 500 MG in IV NS 0.9% 50 ML IV SCH (20:32)
[2021-03-19] MEDS: LINEZOLID 600 MG TABLET PO SCH (20:33)
--- NOTE | 2021-03-19 22:00 | NUR ---
MS RN Notes Patient's blood sugar at 2156 was 142mg/dL.
[2021-03-19] MEDS: *INSULIN REGULAR(HUMULIN R)HUM 100 UNIT/ML VIAL SQ PRN (22:10)
[2021-03-20] MEDS: ACETAMINOPHEN 325 MG TABLET PO PRN ×2 (02:51→19:53)
--- NOTE | 2021-03-20 06:05 | NUR ---
MS RN NOTES Patient's blood sugar= 111mg/dL. Will continue to monitor the patient.
[2021-03-20 07:20] LABS: BASOPHILS % (AUTO) 0.2 % (0.0-2.0); EOSINOPHILS % (AUTO) 1.6 % (0.0-6.0); HEMATOCRIT 27 % (39-51); HEMOGLOBIN 9.5 g/dL (13.5-17.5); LYMPHOCYTES # (AUTO) 0.9 K/uL (0.8-4.8); LYMPHOCYTES % (AUTO) 13.3 % (20.0-44.0); MEAN CORPUSCULAR HGB CONC 35 g/dl (31.0-36.0); MEAN CORPUSCULAR VOLUME 87 fL (80-96); MONOCYTES # (AUTO) 0.4 K/uL (0.1-1.30); MONOCYTES % (AUTO) 6.3 % (2.0-12.0); NEUTROPHILS # (AUTO) 5.4 K/uL (1.8-8.9); NEUTROPHILS % (AUTO) 78.6 % (43.0-81.0); PLATELET COUNT (AUTO) 182 K/uL (150-450); RED BLOOD CELL COUNT(AUTO) 3.15 MIL/uL (4.5-6.0); WHITE BLOOD COUNT (AUTO) 6.8 K/uL (4.3-11.0)
--- NOTE | 2021-03-20 07:25 | NUR ---
LEFT FOR SURG.
[2021-03-20] MEDS ORDERED: FENTANYL PF 100MCG/2ML AMPUL ONE (07:28)
[2021-03-20] MEDS: BLOOD SUGAR DIAGNOSTIC 1 EACH STRIP VI SCH ×4 (07:29→22:16)
[2021-03-20] MEDS ORDERED: GENTAMICIN 80 MG/2 ML VIAL ONE (08:00)
[2021-03-20] MEDS ORDERED: CELLULOSE,OXIDIZED 1 EA PACK MC ONE (08:03)
[2021-03-20 08:40] LABS: C-REACTIVE PROTEIN 0.2 mg/dL (0.0-0.9)
[2021-03-20 08:43] LABS: ALBUMIN 3.4 g/dL (3.4-5.0); BILIRUBIN,TOTAL 0.4 mg/dL (0.2-1.0); CALCIUM, SERUM 8.1 mg/dL (8.5-10.1); CREATININE 3.3 mg/dL (0.6-1.3); MAGNESIUM 2.4 mg/dL (1.8-2.4); PHOSPHORUS 4.9 mg/dL (2.5-4.9); POTASSIUM 4.5 mmol/L (3.5-5.1); TOTAL PROTEIN, SERUM 6.8 g/dL (6.4-8.2)
--- NOTE | 2021-03-20 08:48 | NUR ---
RETURNED TO RM. FROM OR.RT. FOOT DRESSING DRY AND INTACT.FOOT ELEVATED ON 3 PILLOWS.CALL THOMAS WITHIN REACH.SIDE RAILS UP.
[2021-03-20] MEDS: glipiZIDE 5 MG TABLET PO SCH ×2 (09:00→17:00)
[2021-03-20 10:15] VITALS: BP 152/89
[2021-03-20] MEDS: CLOPIDOGREL BISULFATE 75 MG TABLET PO SCH (11:24)
[2021-03-20] MEDS: ATORVASTATIN 10 MG TABLET PO SCH (11:24)
[2021-03-20] MEDS: hydrALAZINE HCL 50 MG TABLET PO SCH ×4 (11:25→20:49)
[2021-03-20] MEDS: FUROSEMIDE 40 MG TABLET PO SCH ×2 (11:25→16:56)
[2021-03-20] MEDS: MEROPENEM 500 MG in IV NS 0.9% 50 ML IV SCH ×2 (11:26→19:59)
[2021-03-20] MEDS: ASPIRIN EC 81 MG TABLET.DR PO SCH (11:26)
[2021-03-20] MEDS: LINEZOLID 600 MG TABLET PO SCH ×2 (11:26→20:46)
[2021-03-20] MEDS: DOCUSATE SODIUM 100 MG CAPSULE PO SCH ×2 (11:26→16:57)
[2021-03-20] MEDS: INSULIN REGULAR, HUMAN 100 UNIT/ML 3 ML VIAL SQ PRN ×2 (11:57→18:15)
--- NOTE | 2021-03-20 13:12 | NUR ---
reinforced spot of blood,pt. insisted on walking to bathrm.would not use commode,assisted by 2 nurses.some slight bleed thru on dressing.
--- NOTE | 2021-03-20 13:17 | NUR ---
pt. did not have 1300 apresoline as just had it at 1225 pm.
[2021-03-20] MEDS: ENOXAPARIN SODIUM 40 MG/0.4 ML DISP.SYRIN SQ SCH (15:26)
[2021-03-20 16:30] VITALS: BP 170/73
--- NOTE | 2021-03-20 18:30 | NUR ---
REMAINS WITH SMALL AMT. OF BLOOD ON RT. FT. DRESSING.CONTINUES TO HAVE FEET IN DEPENDENT POSITION OVER SIDE OF BED ALTHOUGH ADVISED OTHERWISE.
[2021-03-20 20:00] VITALS: BP 168/68
[2021-03-20] MEDS: AMOXICILLIN TRIHYDRATE 250 MG CAPSULE PO SCH (20:46)
[2021-03-20] MEDS: CLARITHROMYCIN 500 MG TABLET PO SCH (21:43)
[2021-03-20] MEDS: *INSULIN REGULAR(HUMULIN R)HUM 100 UNIT/ML VIAL SQ PRN (22:15)
--- NOTE | 2021-03-21 00:05 | NUR ---
RN NOTES PT REFUSING TO ELEVATE R FOOT AND CONTINUES TO STAND UP PUTTING WEIGHT ON THE RIGHT FOOT. PT WAS REMINDED SEVERAL TIMES THAT HE SHOULD NOT BE PLACING WAIT ON THAT FOOT AND KEEPING IT ELEVATED. RISK AND BENEFITS EXPLAINED X3 PT STILL CONTINUES TO BE NON COMPLIANT. WILL CONTINUE TO MONITOR.
--- NOTE | 2021-03-21 06:42 | NUR ---
RN NOTES PT IN BED A/O X4 NO PAIN OR RESPIRATORY DISTRESS NOTED AT THIS TIME. CALL LIGHT WITHIN REACH. TABLE WITHIN REACH. PT CONTINUES TO BE NON COMPLIANT WITH ELEVATING HIS LEFT AND NOT BEARING WEIGHT ON IT DESPITE REMINDERS. ALL DUE MEDS GIVEN AND TOLERATED WELL. ALL NURSING NEEDS MET. WILL ENDORSE CARE TO DYA SHIFT NURSE.
[2021-03-21 06:46] LABS: BASOPHILS % (AUTO) 0.3 % (0.0-2.0); EOSINOPHILS % (AUTO) 1.4 % (0.0-6.0); HEMATOCRIT 29 % (39-51); HEMOGLOBIN 10.3 g/dL (13.5-17.5); LYMPHOCYTES # (AUTO) 0.6 K/uL (0.8-4.8); LYMPHOCYTES % (AUTO) 10.5 % (20.0-44.0); MEAN CORPUSCULAR HGB CONC 35 g/dl (31.0-36.0); MEAN CORPUSCULAR VOLUME 86 fL (80-96); MONOCYTES # (AUTO) 0.4 K/uL (0.1-1.30); MONOCYTES % (AUTO) 6.9 % (2.0-12.0); NEUTROPHILS # (AUTO) 4.7 K/uL (1.8-8.9); NEUTROPHILS % (AUTO) 80.9 % (43.0-81.0); PLATELET COUNT (AUTO) 187 K/uL (150-450); RED BLOOD CELL COUNT(AUTO) 3.44 MIL/uL (4.5-6.0); WHITE BLOOD COUNT (AUTO) 5.8 K/uL (4.3-11.0)
[2021-03-21 06:58] LABS: CREATININE 3.6 mg/dL (0.6-1.3); POTASSIUM 4.2 mmol/L (3.5-5.1)
[2021-03-21] MEDS ORDERED: EPOETIN ALFA (10,000 UNIT) 10,000 UNIT/ML VIAL SQ SCH (07:00)
--- NOTE | 2021-03-21 07:42 | NUR ---
RN OPENING NOTE- PT IN BED A/O X4 NO PAIN OR RESPIRATORY DISTRESS NOTED AT THIS TIME. CALL LIGHT WITHIN REACH. TABLE WITHIN REACH. PT REMINDED TO BE NON COMPLIANT WITH ELEVATING HIS LEFT AND NOT BEARING WEIGHT ON IT. DRESSING ON RT FOOT INTACT. WILL MONITOR AND ASSIST
[2021-03-21] MEDS: BLOOD SUGAR DIAGNOSTIC 1 EACH STRIP VI SCH ×4 (07:52→21:57)
[2021-03-21 08:00] VITALS: BP 175/67
[2021-03-21] MEDS: MEROPENEM 500 MG in IV NS 0.9% 50 ML IV SCH ×2 (08:42→20:01)
[2021-03-21] MEDS: CLOPIDOGREL BISULFATE 75 MG TABLET PO SCH (08:43)
[2021-03-21] MEDS: FUROSEMIDE 40 MG TABLET PO SCH ×2 (08:43→17:55)
[2021-03-21] MEDS: DOCUSATE SODIUM 100 MG CAPSULE PO SCH ×2 (08:43→17:55)
[2021-03-21] MEDS: AMOXICILLIN TRIHYDRATE 250 MG CAPSULE PO SCH ×2 (08:43→21:20)
[2021-03-21] MEDS: LINEZOLID 600 MG TABLET PO SCH ×2 (08:43→21:20)
[2021-03-21] MEDS: glipiZIDE 5 MG TABLET PO SCH ×2 (08:43→17:55)
[2021-03-21] MEDS: PANTOPRAZOLE 40 MG TABLET.DR PO SCH ×2 (08:43→21:20)
[2021-03-21] MEDS: ASPIRIN EC 81 MG TABLET.DR PO SCH (08:43)
[2021-03-21] MEDS: ATORVASTATIN 10 MG TABLET PO SCH (08:44)
[2021-03-21] MEDS: CLARITHROMYCIN 500 MG TABLET PO SCH ×2 (08:46→21:20)
[2021-03-21] MEDS: hydrALAZINE HCL 50 MG TABLET PO SCH ×4 (08:47→21:21)
[2021-03-21] MEDS ORDERED: CELLULOSE,OXIDIZED 1 EA PACK MC STA (10:19)
[2021-03-21] MEDS: INSULIN REGULAR, HUMAN 100 UNIT/ML 3 ML VIAL SQ PRN ×2 (11:56→17:56)
[2021-03-21] MEDS: ENOXAPARIN SODIUM 40 MG/0.4 ML DISP.SYRIN SQ SCH (11:59)
--- NOTE | 2021-03-21 15:00 | NUR ---
RN NOTE-- DR RUST ON UNIT. DRESSING CHANGE COMPLETED WHILE DOCTOR AT BEDSIDE. CLEANSED W NS, SURGICELL APPLIED TO WOUND BED, COVERED W STERILE 4X4, ABD TO COVER, WRAPPED W KERLIX AND CARLTON WRAP.
[2021-03-21 16:00] VITALS: BP 145/67
--- NOTE | 2021-03-21 19:01 | NUR ---
RN CLOSING NOTE- PT IN BED A/O X4 NO PAIN OR RESPIRATORY DISTRESS NOTED AT THIS TIME. CALL LIGHT WITHIN REACH. TABLE WITHIN REACH. ENCOURAGED TO BE COMPLIANT WITH ELEVATING HIS LEFT AND NOT BEARING WEIGHT. DRESSING INTACT AND DRY. ALL DUE MEDS GIVEN AND TOLERATED WELL. ALL NURSING NEEDS MET.
--- NOTE | 2021-03-21 19:30 | NUR ---
MS RN NOTES RECEIVED LAYING COMFORTABLY ON BED,A/O X4,BREATHING REGULAR,NOT IN ANY FORM OF DISTRESS,WITH RIGHT UPPER ARM PICC LINE INTACT AND PATENT.WOUND DRESSING TO RIGHT FOOT INTACT AND DRY.CALL LIGHT IN REACH,NEEDS ANTICIPATED.
[2021-03-21 20:00] VITALS: BP 178/75
--- NOTE | 2021-03-21 22:00 | NUR ---
MS RN NOTES ACCU-CHECK BLOOD SUGAR CHECK 163MG/DL, COVERED WITH HUMULIN R 3 UNITS PER SLIDING SCALE.
[2021-03-21] MEDS: *INSULIN REGULAR(HUMULIN R)HUM 100 UNIT/ML VIAL SQ PRN (22:11)
--- NOTE | 2021-03-22 05:30 | NUR ---
MS RN NOTES ACCU-CHECK BLOOD SUGAR CHECK 117,NO INSULIN COVERAGE
[2021-03-22] MEDS: BLOOD SUGAR DIAGNOSTIC 1 EACH STRIP VI SCH ×2 (05:49→12:19)
[2021-03-22 06:32] LABS: BASOPHILS % (AUTO) 0.4 % (0.0-2.0); EOSINOPHILS % (AUTO) 1.5 % (0.0-6.0); HEMATOCRIT 30 % (39-51); HEMOGLOBIN 10.2 g/dL (13.5-17.5); LYMPHOCYTES # (AUTO) 0.9 K/uL (0.8-4.8); LYMPHOCYTES % (AUTO) 12.6 % (20.0-44.0); MEAN CORPUSCULAR HGB CONC 34 g/dl (31.0-36.0); MEAN CORPUSCULAR VOLUME 86 fL (80-96); MONOCYTES # (AUTO) 0.6 K/uL (0.1-1.30); MONOCYTES % (AUTO) 7.9 % (2.0-12.0); NEUTROPHILS # (AUTO) 5.5 K/uL (1.8-8.9); NEUTROPHILS % (AUTO) 77.6 % (43.0-81.0); PLATELET COUNT (AUTO) 202 K/uL (150-450); RED BLOOD CELL COUNT(AUTO) 3.46 MIL/uL (4.5-6.0); WHITE BLOOD COUNT (AUTO) 7.1 K/uL (4.3-11.0)
[2021-03-22 06:48] LABS: CALCIUM, SERUM 8.2 mg/dL (8.5-10.1); CREATININE 3.8 mg/dL (0.6-1.3); POTASSIUM 4.3 mmol/L (3.5-5.1)
--- NOTE | 2021-03-22 07:30 | NUR ---
MS RN OPENING NOTES RECEIVED PT IN BED, AWAKE, A/O X4 NO PAIN OR RESPIRATORY DISTRESS NOTED AT THIS TIME. IV ACCESS ON R UPPER ARM PICC LINE, PATENT AND INTACT, DRESSING ON RT FOOT INTACT. SAFETY PRECAUTIONS ON PLACE: BED ON LOWEST LOCKED POSITION, SIDE RAILS UP X 2, CALL LIGHT WITHIN EASY REACH. WILL CONTINUE TO MONITOR AND ASSIST ACCORDINGLY.
[2021-03-22] MEDS: MEROPENEM 500 MG in IV NS 0.9% 50 ML IV SCH (07:36)
--- NOTE | 2021-03-22 07:37 | NUR ---
MS RN NOTES NO SIGNIFICANT CHANGE IN STATUS,DUE MEDS ADMINISTERED,CENTRAL LINE DRESSING CHANGE DONE ASEPTICALLY,FELIZ PAIN.POSSIBLE DISCHARGE TO HOME TODAY.
[2021-03-22] MEDS ORDERED: MERO500V23 IV (07:48)
[2021-03-22] MEDS ORDERED: AMOX250C PO (07:48)
[2021-03-22] MEDS ORDERED: CLAR-45 PO (07:48)
[2021-03-22] MEDS ORDERED: Linezolid PO (07:48)
[2021-03-22 08:00] VITALS: BP 170/83
[2021-03-22] MEDS: DOCUSATE SODIUM 100 MG CAPSULE PO SCH (08:26)
[2021-03-22] MEDS: AMOXICILLIN TRIHYDRATE 250 MG CAPSULE PO SCH (08:26)
[2021-03-22] MEDS: ASPIRIN EC 81 MG TABLET.DR PO SCH (08:26)
[2021-03-22] MEDS: CLOPIDOGREL BISULFATE 75 MG TABLET PO SCH (08:27)
[2021-03-22] MEDS: LINEZOLID 600 MG TABLET PO SCH (08:27)
[2021-03-22] MEDS: PANTOPRAZOLE 40 MG TABLET.DR PO SCH (08:27)
[2021-03-22] MEDS: glipiZIDE 5 MG TABLET PO SCH (08:27)
[2021-03-22] MEDS: ATORVASTATIN 10 MG TABLET PO SCH (08:27)
[2021-03-22] MEDS: FUROSEMIDE 40 MG TABLET PO SCH (08:28)
[2021-03-22] MEDS: hydrALAZINE HCL 50 MG TABLET PO SCH ×2 (08:28→13:18)
[2021-03-22] MEDS: CLARITHROMYCIN 500 MG TABLET PO SCH (08:32)
--- NOTE | 2021-03-22 08:37 | NUR ---
RN NOTES INFORMED GEORGE REDD (ID) REGARDING PATIENT'S DISCHARGE ORDER TO VERIFY THE ANTIBIOTICS PATIENT IS TAKING AT HOME PER MARIBELL'S INSTRUCTIONS. ACKNOWLEDGED. AWAITING WOUND CULTURE RESULT. DR. REYNA MADE AWARE.
[2021-03-22] MEDS: INSULIN REGULAR, HUMAN 100 UNIT/ML 3 ML VIAL SQ PRN (12:21)
[2021-03-22] MEDS: ENOXAPARIN SODIUM 40 MG/0.4 ML DISP.SYRIN SQ SCH (12:22)
[2021-03-22 13:18] VITALS: BP 159/86
--- NOTE | 2021-03-22 13:41 | NUR ---
RN NOTES WOUND CULTURE RESULT IN, INFORMED ID DOCTOR WITH ORDER MADE AND CARRIED OUT. DISCHARGE ANTIBIOTIC DOXYCYCLINE 100 MG 1 CAPSULE BY MOUTH BID X [address] REYNA MADE AWARE.
--- NOTE | 2021-03-22 16:44 | NUR ---
MS FAMILY PSYCHOLOGIST NOTES DISCHARGED PATIENT IN STABLE CONDITION. VITAL SIGNS WITHIN NORMAL LIMITS. HOME MEDICATIONS INSTRUCTIONS AND FOLLOW UP INSTRUCTIONS PROVIDED TO PATIENT. PATIENT VERBALIZED UNDERSTANDING. PRESCRIPTION GIVEN TO PATIENT. PATIENT REFUSED TO HAVE PICTURE ON THE R FOOT TAKEN. ARMBAND REMOVED. WHEELED PATIENT TO LOBBY ACCOMPANIED BY LITA ZAMBRANO. PATIENT WAS THEN PICKED UP BY RELATIVE. LEFT UNIT IN STABLE CONDITION. CHARGE NURSE AND MD INFORMED OF DC.
[2021-03-23] MEDS ORDERED: DOXYCYCLINE HYCLATE (100 MG) 100 MG TABLET PO SCH (09:00)
== END 2021-03-22 16:45 | disposition home health service (06) | DRG 602 ==
LOC: ER 09:57 → MED 11:27
PROVIDERS: ADMIT Internal Medicine; ATTEND Family Medicine
PROC: 0J9Q0ZX Drainage of Right Foot Subcutaneous Tissue and Fascia, Open Approach, Diagnostic (ICD-10-PCS; principal; 2021-03-20)
DX: L03.115 Cellulitis of right lower limb (principal); N17.0 Acute kidney failure with tubular necrosis; L02.611 Cutaneous abscess of right foot; N18.4 Chronic kidney disease, stage 4 (severe); E11.621 Type 2 diabetes mellitus with foot ulcer; Z20.822 Contact with and (suspected) exposure to COVID-19; I12.9 Hypertensive chronic kidney disease with stage 1 through stage 4 chronic kidney disease, or unspecified chronic kidney disease; E11.22 Type 2 diabetes mellitus with diabetic chronic kidney disease; E11.42 Type 2 diabetes mellitus with diabetic polyneuropathy; E11.51 Type 2 diabetes mellitus with diabetic peripheral angiopathy without gangrene; E78.5 Hyperlipidemia, unspecified; D63.8 Anemia in other chronic diseases classified elsewhere; I25.10 Atherosclerotic heart disease of native coronary artery without angina pectoris; Z79.84 Long term (current) use of oral hypoglycemic drugs; Z79.02 Long term (current) use of antithrombotics/antiplatelets; Z79.82 Long term (current) use of aspirin; Z79.899 Other long term (current) drug therapy; G47.33 Obstructive sleep apnea (adult) (pediatric); B96.81 Helicobacter pylori [H. pylori] as the cause of diseases classified elsewhere; E66.01 Morbid (severe) obesity due to excess calories; Z68.36 Body mass index [BMI] 36.0-36.9, adult; E11.65 Type 2 diabetes mellitus with hyperglycemia; Z91.19 Patient's noncompliance with other medical treatment and regimen; Z95.5 Presence of coronary angioplasty implant and graft; Z89.421 Acquired absence of other right toe(s); K63.5 Polyp of colon; K29.50 Unspecified chronic gastritis without bleeding; Z87.891 Personal history of nicotine dependence; L97.519 Non-pressure chronic ulcer of other part of right foot with unspecified severity
CPT/HCPCS: 36415; 71045-TC; 73718-TC; 80048-TC; 80053-TC; 80061-TC; 80076-TC; 81001; 82962-TC; 83540-TC; 83605-TC; 83735-TC; 84100-TC; 84484-TC; 85025-TC; 85652-TC; 85730-TC; 86140-TC; 87040-TC; 87070-TC; 87075-TC; 87081-TC; 87086-TC; 87186-TC; 88304-TC; 93307-TC; 93926-TC; A4217; A6253; A6403; C9803; G0378; J0690; J1580; J1650; J1815; J2185; J2543; J2704; J3010; J3490; J7030; J7040; J7060; U0003

== ENCOUNTER 2021-03-27 09:20 | Outpatient (CLI) | payer MEDICARE, BC ==
[~2021-03-27 09:20] MED LIST changes: +AMOX250C PO; +CLAR-45 PO; -DEXL60CA3 PO; -EPOE1VIA15 IJ; +Linezolid PO; +MERO500V23 IV; -NIFE-35 PO
== END 2021-03-27 23:59 | disposition home health service (06) ==
LOC: WOU 09:20
PROVIDERS: ATTEND Podiatrist Foot & Ankle Surgery
DX: E11.621 Type 2 diabetes mellitus with foot ulcer (principal); L97.513 Non-pressure chronic ulcer of other part of right foot with necrosis of muscle; E11.22 Type 2 diabetes mellitus with diabetic chronic kidney disease; I12.9 Hypertensive chronic kidney disease with stage 1 through stage 4 chronic kidney disease, or unspecified chronic kidney disease; N18.9 Chronic kidney disease, unspecified; Z87.891 Personal history of nicotine dependence; Z79.4 Long term (current) use of insulin; E11.42 Type 2 diabetes mellitus with diabetic polyneuropathy; L84 Corns and callosities; R60.1 Generalized edema; Z89.421 Acquired absence of other right toe(s); Z79.82 Long term (current) use of aspirin
CPT/HCPCS: 11043; A6197

== ENCOUNTER 2021-04-03 09:20 | Outpatient (CLI) | payer MEDICARE, BC | END 2021-04-03 23:59 | disposition home health service (06) | LOC: WOU 09:20 | PROVIDERS: ATTEND Podiatrist Foot & Ankle Surgery | DX: E11.621 Type 2 diabetes mellitus with foot ulcer (principal); L97.513 Non-pressure chronic ulcer of other part of right foot with necrosis of muscle; E11.22 Type 2 diabetes mellitus with diabetic chronic kidney disease; E11.42 Type 2 diabetes mellitus with diabetic polyneuropathy; E11.69 Type 2 diabetes mellitus with other specified complication; I12.9 Hypertensive chronic kidney disease with stage 1 through stage 4 chronic kidney disease, or unspecified chronic kidney disease; M86.671 Other chronic osteomyelitis, right ankle and foot; N18.9 Chronic kidney disease, unspecified; Z87.891 Personal history of nicotine dependence; Z79.4 Long term (current) use of insulin; L84 Corns and callosities; Z89.421 Acquired absence of other right toe(s); R60.0 Localized edema | CPT/HCPCS: 11043; A6197 ==

== ENCOUNTER 2021-04-10 09:30 | Outpatient (CLI) | payer MEDICARE, BC | END 2021-04-10 23:59 | disposition home health service (06) | LOC: WOU 09:30 | PROVIDERS: ATTEND Podiatrist Foot & Ankle Surgery | DX: E11.621 Type 2 diabetes mellitus with foot ulcer (principal); L97.513 Non-pressure chronic ulcer of other part of right foot with necrosis of muscle; E11.69 Type 2 diabetes mellitus with other specified complication; M86.671 Other chronic osteomyelitis, right ankle and foot; L84 Corns and callosities; R60.0 Localized edema; Z89.411 Acquired absence of right great toe; R26.89 Other abnormalities of gait and mobility; Z91.19 Patient's noncompliance with other medical treatment and regimen; Z79.4 Long term (current) use of insulin; Z79.82 Long term (current) use of aspirin; Z79.899 Other long term (current) drug therapy; Z87.891 Personal history of nicotine dependence | CPT/HCPCS: 11043 ==

== ENCOUNTER 2021-04-17 09:30 | Outpatient (CLI) | payer MEDICARE, BC | END 2021-04-17 23:59 | disposition home health service (06) | LOC: WOU 09:30 | PROVIDERS: ATTEND Podiatrist Foot & Ankle Surgery | DX: E11.621 Type 2 diabetes mellitus with foot ulcer (principal); L97.515 Non-pressure chronic ulcer of other part of right foot with muscle involvement without evidence of necrosis; E11.42 Type 2 diabetes mellitus with diabetic polyneuropathy; E11.22 Type 2 diabetes mellitus with diabetic chronic kidney disease; E11.69 Type 2 diabetes mellitus with other specified complication; I12.9 Hypertensive chronic kidney disease with stage 1 through stage 4 chronic kidney disease, or unspecified chronic kidney disease; M86.671 Other chronic osteomyelitis, right ankle and foot; N18.9 Chronic kidney disease, unspecified; Z87.891 Personal history of nicotine dependence; Z79.4 Long term (current) use of insulin; Z79.82 Long term (current) use of aspirin; L84 Corns and callosities; R60.0 Localized edema | CPT/HCPCS: 11043; A6197 ==

== ENCOUNTER 2021-04-19 12:33 | Inpatient (IN) | payer MEDICARE, BC ==
[~2021-04-19] VITALS: Ht 182.9 cm; Wt 116.1 kg
[2021-04-19] MEDS ORDERED: PIPERACILLIN /TAZOBACTAM 3.375 G in IV D5W 50 ML IV ONE (13:00)
[2021-04-19] MEDS ORDERED: VANCOMYCIN 1 GM in IV D5W 250 ML IV ONE (13:00)
--- NOTE | 2021-04-19 13:00 | NUR ---
THE PATIENT BIBS DUE TO BEING SENT HERE BY DR YANEZ DUE TO WORSENING RIGHT FOOT WOUND. DENIES PAIN AT THIS TIME. WILL CONTINUE TO MONITOR THE PATIENT.
--- NOTE | 2021-04-19 13:10 | NUR ---
URINE COLLECTED AND SENT TO THE LAB
[2021-04-19 13:20] LABS: BASOPHILS # (AUTO) 0.1 K/uL (0.0-0.2); BASOPHILS % (AUTO) 1.7 % (0.0-2.0); EOSINOPHILS % (AUTO) 1.3 % (0.0-6.0); HEMATOCRIT 27 % (39-51); HEMOGLOBIN 9.1 g/dL (13.5-17.5); LYMPHOCYTES # (AUTO) 0.8 K/uL (0.8-4.8); LYMPHOCYTES % (AUTO) 10.1 % (20.0-44.0); MEAN CORPUSCULAR HGB CONC 34 g/dl (31.0-36.0); MEAN CORPUSCULAR VOLUME 87 fL (80-96); MONOCYTES # (AUTO) 0.3 K/uL (0.1-1.30); NEUTROPHILS # (AUTO) 6.4 K/uL (1.8-8.9); NEUTROPHILS % (AUTO) 82.9 % (43.0-81.0); PLATELET COUNT (AUTO) 189 K/uL (150-450); RED BLOOD CELL COUNT(AUTO) 3.11 MIL/uL (4.5-6.0); WHITE BLOOD COUNT (AUTO) 7.7 K/uL (4.3-11.0)
[2021-04-19] MEDS ORDERED: ASCO-352 PO (13:22)
[2021-04-19] MEDS ORDERED: FERR325T23 PO (13:22)
[2021-04-19] MEDS ORDERED: MULT-447 PO (13:22)
[2021-04-19 13:32] LABS: CALCIUM, SERUM 8.3 mg/dL (8.5-10.1); CREATININE 3.1 mg/dL (0.6-1.3); POTASSIUM 4.4 mmol/L (3.5-5.1)
[2021-04-19 13:46] LABS: ALBUMIN 3.5 g/dL (3.4-5.0); BILIRUBIN,TOTAL 0.4 mg/dL (0.2-1.0); C-REACTIVE PROTEIN 3.2 mg/dL (0.0-0.9); TOTAL PROTEIN, SERUM 7.3 g/dL (6.4-8.2)
--- NOTE | 2021-04-19 14:13 | NUR ---
[facility] PAGED
--- NOTE | 2021-04-19 14:25 | NUR ---
THE PATIENT REFUSED GETTING VANCO. DR ARTHUR MADE AWARE.
--- NOTE | 2021-04-19 14:29 | NUR ---
REPORT GIVEN AND THE PATIENT IS TRANSFERED TO [facility] IN STABLE CONDITION AND PER POLICY.
--- NOTE | 2021-04-19 14:30 | NUR ---
MS/RN RECEIVING NOTES RECEIVED PATIENT FROM ER VIA [facility]. PATIENT IS ALERT AND ORIENTED X4, ABLE TO MAKE NEEDS KNOWN. STABLE ON ROOM AIR. AMBULATORY AND STEADY. WOUND ON POSTERIOR RIGHT FOOT IS WRAPPED IN A BANDAGE AND PATIENT REFUSED FOR RN TO LOOK AT IT OR TAKE A PHOTO FOR DOCUMENTATION. PER PATIENT, HE JUST DID WOUND CARE THIS MORNING AND SHOWED RN PHOTO OF HIS WOUND FROM PATIENT'S PHONE. IV ACCESS ON RIGHT UPPER ARM PICC IS INTACT AND PATENT ON SALINE LOCK. ORIENTED PATIENT TO THE UNIT. ABLE TO UNDERSTOOD TEACHINGS. SAFETY PRECAUTIONS IN PLACED: BED LOCKED ON LOWEST POSITION, SIDE RAILS UPX2, CALL LIGHT WITHIN EASY REACH. WILL CONTINUE TO MONITOR PATIENT.
[2021-04-19] MEDS ORDERED: HYDROCODONE/APAP 5/325MG TABLET PO PRN (17:00)
[2021-04-19] MEDS ORDERED: DEXTROSE 50%-WATER 50 ML DISP.SYRIN IV PRN (17:00)
[2021-04-19] MEDS ORDERED: ZOLPIDEM TARTRATE 5 MG TABLET PO PRN (17:00)
[2021-04-19] MEDS ORDERED: MAG HYDROX/AL HYDROX/SIMETH 30 ML UDC PO PRN (17:00)
[2021-04-19] MEDS ORDERED: ONDANSETRON HCL/PF 4 MG/2 ML VIAL IVP PRN (17:00)
[2021-04-19] MEDS ORDERED: Z GUARD REMEDY 2 OZ OINT TP PRN (17:00)
[2021-04-19] MEDS ORDERED: MAGNESIUM HYDROXIDE 30 ML UDC PO PRN (17:00)
[2021-04-19] MEDS: hydrALAZINE HCL 50 MG TABLET PO SCH ×2 (18:00→21:06)
[2021-04-19] MEDS: glipiZIDE 5 MG TABLET PO SCH (18:00)
[2021-04-19] MEDS: FUROSEMIDE 40 MG TABLET PO SCH (18:01)
[2021-04-19] MEDS: BLOOD SUGAR DIAGNOSTIC 1 EACH STRIP IN SCH ×2 (18:02→21:07)
[2021-04-19] MEDS: ENOXAPARIN SODIUM 30 MG/0.3 ML DISP.SYRIN SQ SCH (18:03)
[2021-04-19] MEDS: ZOSYN IVPB 2.25 G in IV D5W 50ml IV SCH (18:24)
--- NOTE | 2021-04-19 19:26 | NUR ---
MS/RN CLOSING NOTES PATIENT KEPT COMFORTABLE. STABLE ON ROOM AIR. ALL NEEDS MET. WILL ENDORSE TO THE NEXT SHIFT FOR TITI.
[2021-04-19] MEDS: INSULIN REGULAR, HUMAN 100 UNIT/ML 3 ML VIAL SQ PRN ×2 (19:30→21:24)
--- NOTE | 2021-04-19 19:30 | NUR ---
MS RN NOTES RECEIVED SITTING ON EDGE OF BED,A/O X4,VERBALIZED NEEDS,RIGHT FOOT DRESSING INTACT AND DRY,PAIN 4/10 PN PAIN SCALE,TOLERABLE AT THE MOMENT.RIGHT UPPER ARM PICC LINE INTACT AND PATENT.CALL LIGHT IN REACH,NEEDS ANTICIPATED.
[2021-04-19 20:00] VITALS: BP 134/64
[2021-04-19 20:35] VITALS: BP 134/64
[2021-04-19] MEDS: ATORVASTATIN 40 MG TABLET PO SCH (21:07)
--- NOTE | 2021-04-19 21:30 | NUR ---
MS RN NOTES ACCU-CHECK BLOOD SUGAR CHECK 227,COVERED WITH HUMULIN R 4 UNITS PER SLIDING SCALE
[2021-04-20] MEDS: ZOSYN IVPB 2.25 G in IV D5W 50ml IV SCH ×5 (00:01→23:48)
--- NOTE | 2021-04-20 06:00 | NUR ---
MS RN NOTES ACCU-CHECK BLOOD SUGAR CHECK 93,NO INSULIN COVERAGE.
[2021-04-20] MEDS: BLOOD SUGAR DIAGNOSTIC 1 EACH STRIP IN SCH ×4 (06:18→22:52)
--- NOTE | 2021-04-20 06:36 | NUR ---
MS RN NOTES STABLE THRU OUT SHIFT,NO COMPLAINTS OF PAIN,DUE MED ADMINISTERED.BLOOD SUGAR LEVEL WITH IN NORMAL LIMITS THIS MORNING.IN NO ACUTE DISTRESS.
[2021-04-20 07:29] LABS: CALCIUM, SERUM 8.1 mg/dL (8.5-10.1); CREATININE 3.4 mg/dL (0.6-1.3); MAGNESIUM 2.2 mg/dL (1.8-2.4); PHOSPHORUS 5.2 mg/dL (2.5-4.9); POTASSIUM 4.2 mmol/L (3.5-5.1)
--- NOTE | 2021-04-20 07:32 | NUR ---
RN OPENING NOTE PT AWAKE IN BED RESTING. ON RA WITH NO SOB OR RESPIRATORY DISTRESS PRESENT. A/O X4 AND [place] SPEAKING. NO COMPLAINT OF PAIN OR NAUSEA. NO DREDGE OR BARGE SHORE HAND PRESENT. NO EDEMA PRESENT. SELF AMBULATORY WITH BATHROOM PRIVILEGES. URINAL AT BEDSIDE. SKIN ISSUES PRESENT, PICTURES IN CHART, WOUND CARE ORDERED. PICC LINE PRESENT ON R UPPER ARM AND FLUSHES WELL. SALINE LOCKED. LABS AND ORDERS REVIEWED. SAFETY MEASURES IN PLACE. SIDE RAILS RAISED. BED LOWERED. CALL LIGHT WITHIN REACH. WILL CONTINUE TO MONITOR.
[2021-04-20 07:40] LABS: BASOPHILS % (AUTO) 0.2 % (0.0-2.0); EOSINOPHILS % (AUTO) 1.3 % (0.0-6.0); HEMATOCRIT 23 % (39-51); HEMOGLOBIN 7.9 g/dL (13.5-17.5); LYMPHOCYTES # (AUTO) 0.8 K/uL (0.8-4.8); LYMPHOCYTES % (AUTO) 10.7 % (20.0-44.0); MEAN CORPUSCULAR HGB CONC 35 g/dl (31.0-36.0); MEAN CORPUSCULAR VOLUME 85 fL (80-96); MONOCYTES # (AUTO) 0.4 K/uL (0.1-1.30); MONOCYTES % (AUTO) 5.6 % (2.0-12.0); NEUTROPHILS # (AUTO) 6.3 K/uL (1.8-8.9); NEUTROPHILS % (AUTO) 82.2 % (43.0-81.0); PLATELET COUNT (AUTO) 158 K/uL (150-450); RED BLOOD CELL COUNT(AUTO) 2.64 MIL/uL (4.5-6.0); THYROID STIMULATING HORMONE 2.967 uIU/mL (0.358-3.74); WHITE BLOOD COUNT (AUTO) 7.6 K/uL (4.3-11.0)
[2021-04-20 08:00] VITALS: BP 145/73
[2021-04-20] MEDS: hydrALAZINE HCL 50 MG TABLET PO SCH ×4 (09:11→22:05)
[2021-04-20] MEDS: PANTOPRAZOLE 40 MG TABLET.DR PO SCH (09:11)
[2021-04-20] MEDS: glipiZIDE 5 MG TABLET PO SCH ×2 (09:12→17:27)
[2021-04-20] MEDS: ASCORBIC ACID 500 MG TABLET PO SCH (09:12)
[2021-04-20] MEDS: FERROUS SULFATE (325 MG) 325 MG/TAB TABLET PO SCH (09:12)
[2021-04-20] MEDS: FUROSEMIDE 40 MG TABLET PO SCH ×2 (09:12→17:30)
[2021-04-20] MEDS: CLOPIDOGREL BISULFATE 75 MG TABLET PO SCH (09:12)
[2021-04-20] MEDS: MULTIVIT W/MINERALS 1 TAB TABLET PO SCH (09:12)
[2021-04-20] MEDS: DAKINS QUARTER STRENGTH (0.125%) 480 ML BOTTLE TOP SCH (09:21)
[2021-04-20] MEDS: ACETAMINOPHEN 325 MG TABLET PO PRN (09:21)
[2021-04-20] MEDS: INSULIN REGULAR, HUMAN 100 UNIT/ML 3 ML VIAL SQ PRN ×3 (12:38→22:52)
--- NOTE | 2021-04-20 12:58 | NUR ---
RN NOTE PT DOWNSTAIRS FOR MRI.
[2021-04-20] MEDS: ENOXAPARIN SODIUM 30 MG/0.3 ML DISP.SYRIN SQ SCH (17:33)
--- NOTE | 2021-04-20 18:28 | NUR ---
RN CLOSING NOTE PT AWAKE IN BED RESTING. ON RA WITH NO SOB OR RESPIRATORY DISTRESS PRESENT. A/O X4 AND MONEGASQUE SPEAKING. NO COMPLAINT OF PAIN OR NAUSEA. NO ROOMING HOUSE OPERATOR PRESENT. NO EDEMA PRESENT. SELF AMBULATORY WITH BATHROOM PRIVILEGES. URINAL AT BEDSIDE. SKIN ISSUES PRESENT, PICTURES IN CHART, WOUND CARE ORDERED. PICC LINE PRESENT ON R UPPER ARM AND FLUSHES WELL. SALINE LOCKED. LABS AND ORDERS REVIEWED. SAFETY MEASURES IN PLACE. SIDE RAILS RAISED. BED LOWERED. CALL LIGHT WITHIN REACH. WILL GIVE REPORT TO NIGHT NURSE FOR TITI.
--- NOTE | 2021-04-20 18:33 | NUR ---
RN NOTE HOME HEALTH AGENCY INFO: [email or web address] PHONE FAX:
--- NOTE | 2021-04-20 19:50 | NUR ---
RN OPENING NOTE PT AWAKE IN BED, RESTING. AOx4. ON RA AND TOLERATING WELL. NO SOB NOTED. NO S/SX OF RESPIRATORY DISTRESS PRESENT. A/O X4 NO COMPLAINT OF PAIN AT THIS TIME. IV ACCESS IN RHINA PICC LINE PRESENT . IV INTACT, PATENT AND FLUSHES WELL. SAFETY MEASURES IN PLACE:BRAKES ON, SIDERAILS UPx2, BED IN LOWEST, LOCKED POSITION. CALL LIGHT AND TABLE WITHIN REACH. WILL CONTINUE TO MONITOR.
[2021-04-20 20:00] VITALS: BP 144/52
[2021-04-20] MEDS ORDERED: EPOETIN ALFA-EPBX 10,000 UNIT/ML VIAL SQ SCH (21:00)
[2021-04-20] MEDS: ATORVASTATIN 40 MG TABLET PO SCH (22:05)
--- NOTE | 2021-04-20 22:52 | NUR ---
PATIENTS BLOOD SUGAR IS 127. NO COVERAGE NEEDED. WILL CONTINUE TO MONITOR.
[2021-04-21] MEDS: ZOSYN IVPB 2.25 G in IV D5W 50ml IV SCH ×4 (05:15→23:38)
[2021-04-21] MEDS: BLOOD SUGAR DIAGNOSTIC 1 EACH STRIP IN SCH ×4 (05:57→21:41)
[2021-04-21] MEDS: INSULIN REGULAR, HUMAN 100 UNIT/ML 3 ML VIAL SQ PRN ×3 (06:26→21:47)
--- NOTE | 2021-04-21 06:41 | NUR ---
MS RN CLOSING NOTES PT AWAKE IN BED, RESTING. AOx4. ON RA AND TOLERATING WELL. NO SOB NOTED. NO S/SX OF RESPIRATORY DISTRESS PRESENT. NO COMPLAINT OF PAIN THROUGHOUT SHIFT. IV ACCESS IN RHINA PICC LINE. IV INTACT, PATENT AND FLUSHES WELL. ALL NEEDS MET. PT KEPT CLEAN AND DRY. PROVIDED WOUND CARE TO RIGHT FOOT. SAFETY MEASURES IN PLACE:BRAKES ON, SIDERAILS UPx2, BED IN LOWEST, LOCKED POSITION. CALL LIGHT AND TABLE WITHIN REACH. WILL ENDORSE TO ONCOMING SHIFT.
[2021-04-21 06:54] LABS: ALBUMIN 2.9 g/dL (3.4-5.0); BILIRUBIN,TOTAL 0.6 mg/dL (0.2-1.0); CALCIUM, SERUM 8.3 mg/dL (8.5-10.1); CREATININE 3.9 mg/dL (0.6-1.3); MAGNESIUM 2.2 mg/dL (1.8-2.4); PHOSPHORUS 4.4 mg/dL (2.5-4.9); POTASSIUM 4.2 mmol/L (3.5-5.1); TOTAL PROTEIN, SERUM 6.9 g/dL (6.4-8.2)
--- NOTE | 2021-04-21 07:30 | NUR ---
MS RN OPENING NOTES RECEIVED PATIENT AWAKE ON BED AND AO x4. ON ROOM AIR,TOLERATING WELL. NO SOB NOTED. NO S/SX OF RESPIRATORY DISTRESS PRESENT. WITH NO NO COMPLAINTS OF PAIN THROUGHOUT THE SHIFT. WITH IV ACCESS AT RHINA PICC LINE, INTACT, PATENT AND FLUSHES WELL. ABLE TO MAKE NEEDS KNOWN. SAFETY MEASURES IN PLACE. CALL LIGHT WITHIN REACH. BED ON LOWEST AND LOCKED POSITION, SIDE RAILS UP X2. WILL CONTINUE TO MONITOR.
[2021-04-21 08:05] LABS: BASOPHILS # (AUTO) 0.1 K/uL (0.0-0.2); BASOPHILS % (AUTO) 0.8 % (0.0-2.0); EOSINOPHILS % (AUTO) 0.7 % (0.0-6.0); HEMATOCRIT 24 % (39-51); HEMOGLOBIN 8.4 g/dL (13.5-17.5); LYMPHOCYTES # (AUTO) 0.9 K/uL (0.8-4.8); LYMPHOCYTES % (AUTO) 13.7 % (20.0-44.0); MEAN CORPUSCULAR HGB CONC 35 g/dl (31.0-36.0); MEAN CORPUSCULAR VOLUME 86 fL (80-96); MONOCYTES # (AUTO) 0.6 K/uL (0.1-1.30); NEUTROPHILS # (AUTO) 5.3 K/uL (1.8-8.9); NEUTROPHILS % (AUTO) 76.8 % (43.0-81.0); PLATELET COUNT (AUTO) 147 K/uL (150-450); RED BLOOD CELL COUNT(AUTO) 2.78 MIL/uL (4.5-6.0); WHITE BLOOD COUNT (AUTO) 6.9 K/uL (4.3-11.0)
[2021-04-21] MEDS: PANTOPRAZOLE 40 MG TABLET.DR PO SCH (08:06)
[2021-04-21] MEDS: FUROSEMIDE 40 MG TABLET PO SCH ×2 (08:07→17:00)
[2021-04-21] MEDS: ASCORBIC ACID 500 MG TABLET PO SCH (08:07)
[2021-04-21] MEDS: FERROUS SULFATE (325 MG) 325 MG/TAB TABLET PO SCH (08:07)
[2021-04-21] MEDS: CLOPIDOGREL BISULFATE 75 MG TABLET PO SCH (08:07)
[2021-04-21] MEDS: hydrALAZINE HCL 50 MG TABLET PO SCH ×4 (08:08→21:03)
[2021-04-21] MEDS: glipiZIDE 5 MG TABLET PO SCH ×2 (08:09→19:06)
[2021-04-21] MEDS: MULTIVIT W/MINERALS 1 TAB TABLET PO SCH (08:20)
[2021-04-21] MEDS: DAKINS QUARTER STRENGTH (0.125%) 480 ML BOTTLE TOP SCH (08:21)
[2021-04-21 08:30] VITALS: BP 190/86
[2021-04-21] MEDS ORDERED: BUPIVACAINE MPF W/EPI 0.25% 30 ML VIAL ONE (12:48)
[2021-04-21] MEDS ORDERED: LIDOCAINE 1% INJ 50 ML MDV IJ ONE (12:49)
--- NOTE | 2021-04-21 13:40 | NUR ---
MS RN NOTES PATIENT WAS PICKED UP BY OR PERSONNEL FOR SURGICAL DEBRIDEMENT OF INFECTED BONE ON SOFT TISSUE WITH ANTIBIOTIC BEAD PLACEMENT ON RIGHT FOOT PROCEDURE. CHECKLIST COMPLETED AND CONSENTS WERE SIGNED BY THE PATIENT.
[2021-04-21] MEDS ORDERED: BUPIVACAINE 0.25% 75 MG/30 ML VIAL ONE (15:55)
[2021-04-21 16:00] VITALS: BP 174/68
[2021-04-21] MEDS: ENOXAPARIN SODIUM 30 MG/0.3 ML DISP.SYRIN SQ SCH (17:00)
--- NOTE | 2021-04-21 18:50 | NUR ---
MS RN NOTES RECEIVED PATIENT FROM OR ENDORSED BY NURSE ROBERTS. VITAL SIGNS TAKEN-STABLE. ON CCHO DIET.
--- NOTE | 2021-04-21 19:00 | NUR ---
RECEIVED PATIENT IN HIS BED ALERT AND ORIENTATED X4 TALKING ON THE PHONE AND LAUGHING RIGHT FOOT ELEVATED ON 2 PILLOWS AND DRESSING CLEAN AND DRY
--- NOTE | 2021-04-21 19:25 | NUR ---
MS RN CLOSING NOTES PATIENT POST-OP, ON BED AND AO x4. ON ROOM AIR,TOLERATING WELL. NO SOB NOTED. NO S/SX OF RESPIRATORY DISTRESS PRESENT. WITH NO NO COMPLAINTS OF PAIN THROUGHOUT THE SHIFT. WITH IV ACCESS AT RHINA PICC LINE, INTACT, PATENT AND FLUSHES WELL. ABLE TO MAKE NEEDS KNOWN. SAFETY MEASURES IN PLACE. CALL LIGHT WITHIN REACH. BED ON LOWEST AND LOCKED POSITION, SIDE RAILS UP X2. WILL ENDORSE TO NEXT SHIFT FOR TITI.
[2021-04-21 20:00] VITALS: BP 142/89
[2021-04-21] MEDS: ATORVASTATIN 40 MG TABLET PO SCH (21:03)
[2021-04-21 22:00] VITALS: BP 142/89
--- NOTE | 2021-04-22 04:46 | NUR ---
closing notes: slept thru the night beginning of the shift cooperative and talkative hs snack served and consumed 100% right foot dressing CDI pt not willing to keep elevated on pillow WHEN ASLEEP KICKS THE PILLOWS TO THE FLOOR DENIES PAIN WHEN ASKED
[2021-04-22] MEDS: ZOSYN IVPB 2.25 G in IV D5W 50ml IV SCH ×2 (05:39→13:14)
[2021-04-22 06:25] LABS: BILIRUBIN,TOTAL 0.6 mg/dL (0.2-1.0); CALCIUM, SERUM 7.4 mg/dL (8.5-10.1); CREATININE 4.5 mg/dL (0.6-1.3); MAGNESIUM 1.8 mg/dL (1.8-2.4); PHOSPHORUS 2.8 mg/dL (2.5-4.9); TOTAL PROTEIN, SERUM 6.9 g/dL (6.4-8.2)
[2021-04-22] MEDS: BLOOD SUGAR DIAGNOSTIC 1 EACH STRIP IN SCH ×2 (06:32→11:43)
[2021-04-22 06:49] LABS: BASOPHILS # (AUTO) 0.1 K/uL (0.0-0.2); BASOPHILS % (AUTO) 0.9 % (0.0-2.0); EOSINOPHILS % (AUTO) 0.1 % (0.0-6.0); HEMATOCRIT 22 % (39-51); LYMPHOCYTES # (AUTO) 0.4 K/uL (0.8-4.8); LYMPHOCYTES % (AUTO) 5.3 % (20.0-44.0); MEAN CORPUSCULAR HGB CONC 36 g/dl (31.0-36.0); MEAN CORPUSCULAR VOLUME 85 fL (80-96); MONOCYTES # (AUTO) 0.6 K/uL (0.1-1.30); MONOCYTES % (AUTO) 7.4 % (2.0-12.0); NEUTROPHILS % (AUTO) 86.3 % (43.0-81.0); PLATELET COUNT (AUTO) 150 K/uL (150-450); RED BLOOD CELL COUNT(AUTO) 2.63 MIL/uL (4.5-6.0); WHITE BLOOD COUNT (AUTO) 8.1 K/uL (4.3-11.0)
--- NOTE | 2021-04-22 07:15 | NUR ---
RN OPENING NOTE RECEIVED PATIENT IN BED, AWAKE. A/O X4. ON ROOM AIR, TOLERATING WELL . NO SOB NOTED. IN NO APPARENT DISTRESS. DENIES ANY PAIN AT THIS TIME. IV ACCESS ON RHINA PICC LINE, INTACT AND PATENT. SAFETY MEASURES MAINTAINED. BED IN LOWEST POSITION, BRAKES LOCKED. SIDE RAILS UP X2. CALL LIGHT WITHIN REACH. WILL CONTINUE PLAN OF CARE.
[2021-04-22 08:00] VITALS: BP 143/59
[2021-04-22] MEDS: FERROUS SULFATE (325 MG) 325 MG/TAB TABLET PO SCH (08:15)
[2021-04-22] MEDS: PANTOPRAZOLE 40 MG TABLET.DR PO SCH (08:15)
[2021-04-22] MEDS: ASCORBIC ACID 500 MG TABLET PO SCH (08:15)
[2021-04-22] MEDS: FUROSEMIDE 40 MG TABLET PO SCH (08:16)
[2021-04-22] MEDS: CLOPIDOGREL BISULFATE 75 MG TABLET PO SCH (08:16)
[2021-04-22] MEDS: MULTIVIT W/MINERALS 1 TAB TABLET PO SCH (08:17)
[2021-04-22] MEDS: hydrALAZINE HCL 50 MG TABLET PO SCH ×2 (08:17→13:14)
[2021-04-22] MEDS: glipiZIDE 5 MG TABLET PO SCH (08:17)
[2021-04-22] MEDS: ACETAMINOPHEN 325 MG TABLET PO PRN (09:47)
[2021-04-22] MEDS: DAKINS QUARTER STRENGTH (0.125%) 480 ML BOTTLE TOP SCH (09:51)
[2021-04-22] MEDS: INSULIN REGULAR, HUMAN 100 UNIT/ML 3 ML VIAL SQ PRN (11:42)
[2021-04-22 13:14] VITALS: BP 143/59
--- NOTE | 2021-04-22 15:30 | NUR ---
DISCHARGE NOTE PATIENT WAS DISCHARGED AND PICKED UP BY A FRIEND NAMED PRICE. HEALTH TEACHING AND DISCHARGE INSTRUCTIONS GIVEN. PATIENT VERBALIZED UNDERSTANDING. LEFT THE PICC LINE SINCE THE PATIENT IS GOING HOME WITH HOME HEALTH FOR CONTINUATION OF ANTIBIOTICS. REMOVED ID [id number]. DISCHARGE PHOTO WAS NOT DONE SINCE DRESSING ON THE RIGHT FOOT IS INTACT AND ONLY MD CAN OPEN OR CHANGE THE DRESSING. BELONGINGS WAS GIVEN TO THE PT. ALL FORMS SIGNED.
[2021-04-23 09:06] LABS: COMPLEMENT C3, SERUM 127 mg/dL (82-167); COMPLEMENT C4, SERUM 29 mg/dL (12-38)
[2021-04-24 07:06] LABS: *SPE A/G RATIO 0.9 (0.7-1.7); *SPE ALPHA-1-GLOBULIN 0.3 g/dL (0.0-0.4); *SPE ALPHA-2-GLOBULIN 0.8 g/dL (0.4-1.0); *SPE M-SPIKE Not Observed g/dL (Not Observed)
[2021-04-24 09:09] LABS: *ANA ANTI-CENTROMERE B AB <0.2 AI (0.0-0.9); *ANA ANTI-DNA(DS) AB, QN 2 IU/mL (0-9); *ANA ANTI-JO-1 <0.2 AI (0.0-0.9); *ANA ANTICHROMATIN ANTIBODY <0.2 AI (0.0-0.9); *ANA RNP ANTIBODIES 0.7 AI (0.0-0.9); *ANA SJOGREN'S ANTI-SS-A <0.2 AI (0.0-0.9); *ANA SJOGREN'S ANTI-SS-B <0.2 AI (0.0-0.9); *ANAANTI-SCLERODERMA-70 AB <0.2 AI (0.0-0.9); *ANASMITH AB <0.2 AI (0.0-0.9)
== END 2021-04-22 15:30 | disposition home health service (06) | DRG 623 ==
LOC: ER 12:53 → MED 14:23
PROC: 0QBN0ZZ Excision of Right Metatarsal, Open Approach (ICD-10-PCS; principal; 2021-04-21)
PROC: 0HXMXZZ Transfer Right Foot Skin, External Approach (ICD-10-PCS; 2021-04-21)
PROC: 0QBQ0ZZ Excision of Right Toe Phalanx, Open Approach (ICD-10-PCS; 2021-04-21)
PROC: 3E0V329 Introduction of Other Anti-infective into Bones, Percutaneous Approach (ICD-10-PCS; 2021-04-21)
DX: E11.621 Type 2 diabetes mellitus with foot ulcer (principal); M86.671 Other chronic osteomyelitis, right ankle and foot; E11.69 Type 2 diabetes mellitus with other specified complication; E11.22 Type 2 diabetes mellitus with diabetic chronic kidney disease; E11.42 Type 2 diabetes mellitus with diabetic polyneuropathy; I12.9 Hypertensive chronic kidney disease with stage 1 through stage 4 chronic kidney disease, or unspecified chronic kidney disease; E11.65 Type 2 diabetes mellitus with hyperglycemia; I25.10 Atherosclerotic heart disease of native coronary artery without angina pectoris; L97.519 Non-pressure chronic ulcer of other part of right foot with unspecified severity; N18.4 Chronic kidney disease, stage 4 (severe); Z20.822 Contact with and (suspected) exposure to COVID-19; B96.81 Helicobacter pylori [H. pylori] as the cause of diseases classified elsewhere; D63.8 Anemia in other chronic diseases classified elsewhere; E78.5 Hyperlipidemia, unspecified; Z79.84 Long term (current) use of oral hypoglycemic drugs; Z95.5 Presence of coronary angioplasty implant and graft; D64.9 Anemia, unspecified; G47.33 Obstructive sleep apnea (adult) (pediatric); Z68.34 Body mass index [BMI] 34.0-34.9, adult; N17.0 Acute kidney failure with tubular necrosis
CPT/HCPCS: 36415; 71045-TC; 73630-TC; 73718-TC; 76770-TC; 80048-TC; 80053-TC; 80061-TC; 82550-TC; 82962-TC; 83605-TC; 83735-TC; 83970; 84100-TC; 84155; 84165; 84443-TC; 85025-TC; 85610-TC; 85652-TC; 86140-TC; 86225; 86235; 86706; 86803; 86850-TC; 87040-TC; 87070-TC; 87075-TC; 87081-TC; 87186-TC; 87340; 88304-TC; 88311-TC; A6209; A6253; A6403; C1713; C9803; G0378; J0690; J0885; J1650; J1815; J2250; J2405; J2543; J2704; J2765; J3010; J3370; J3490; J7030; J7050; J7060

== ENCOUNTER 2021-04-24 09:30 | Outpatient (CLI) | payer MEDICARE, BC ==
[~2021-04-24 09:30] MED LIST changes: -AMOX250C PO; +ASCO-352 PO; -ASPI-605 PO; -CLAR-45 PO; +FAMOTIDINE/PF INJ 20 MG/2 ML VIAL IV ONE; +FENTANYL PF 100MCG/2ML AMPUL ONE; +FERR325T23 PO; -Linezolid PO; -MERO500V23 IV; +MIDAZOLAM HCL 2 MG/2ML VIAL ONE; +MULT-447 PO; +VANCOMYCIN 1 GM VIAL ONE
== END 2021-04-24 23:59 | disposition home health service (06) ==
LOC: WOU 09:30
PROVIDERS: ATTEND Podiatrist Foot & Ankle Surgery
DX: E11.621 Type 2 diabetes mellitus with foot ulcer (principal); L97.518 Non-pressure chronic ulcer of other part of right foot with other specified severity; E11.42 Type 2 diabetes mellitus with diabetic polyneuropathy; E11.22 Type 2 diabetes mellitus with diabetic chronic kidney disease; E11.69 Type 2 diabetes mellitus with other specified complication; N18.9 Chronic kidney disease, unspecified; M86.671 Other chronic osteomyelitis, right ankle and foot; B95.2 Enterococcus as the cause of diseases classified elsewhere; Z79.4 Long term (current) use of insulin; R60.0 Localized edema; Z89.421 Acquired absence of other right toe(s); Z79.82 Long term (current) use of aspirin
CPT/HCPCS: 87077; 87186; G0463; 87070-TC; 87075-TC; A6197; J2250; J3010; J3370; J3490

== ENCOUNTER 2021-04-27 09:20 | Outpatient (CLI) | payer MEDICARE, BC ==
[~2021-04-27 09:20] MED LIST changes: -FAMOTIDINE/PF INJ 20 MG/2 ML VIAL IV ONE; -FENTANYL PF 100MCG/2ML AMPUL ONE; -MIDAZOLAM HCL 2 MG/2ML VIAL ONE; -VANCOMYCIN 1 GM VIAL ONE
[2021-04-27] MEDS ORDERED: BENZOIN COMPOUND TINCT 60 ML BOTTLE ONE (10:02)
== END 2021-04-27 23:59 | disposition home health service (06) ==
LOC: WOU 09:20
PROVIDERS: ATTEND Podiatrist Foot & Ankle Surgery
DX: E11.621 Type 2 diabetes mellitus with foot ulcer (principal); L97.525 Non-pressure chronic ulcer of other part of left foot with muscle involvement without evidence of necrosis; E11.22 Type 2 diabetes mellitus with diabetic chronic kidney disease; E11.42 Type 2 diabetes mellitus with diabetic polyneuropathy; E11.69 Type 2 diabetes mellitus with other specified complication; I12.9 Hypertensive chronic kidney disease with stage 1 through stage 4 chronic kidney disease, or unspecified chronic kidney disease; N18.9 Chronic kidney disease, unspecified; Z79.82 Long term (current) use of aspirin; Z87.891 Personal history of nicotine dependence; Z79.4 Long term (current) use of insulin; M86.672 Other chronic osteomyelitis, left ankle and foot
CPT/HCPCS: G0463

== ENCOUNTER 2021-05-01 09:30 | Outpatient (CLI) | payer MEDICARE, BC ==
[~2021-05-01 09:30] MED LIST changes: +AMOX250C PO; +ASPI-605 PO; +CLAR-45 PO; +Linezolid PO; +MERO500V23 IV
== END 2021-05-01 23:59 | disposition home health service (06) ==
LOC: WOU 09:30
PROVIDERS: ATTEND Podiatrist Foot & Ankle Surgery
DX: E11.621 Type 2 diabetes mellitus with foot ulcer (principal); L97.415 Non-pressure chronic ulcer of right heel and midfoot with muscle involvement without evidence of necrosis; E11.22 Type 2 diabetes mellitus with diabetic chronic kidney disease; E11.69 Type 2 diabetes mellitus with other specified complication; E11.42 Type 2 diabetes mellitus with diabetic polyneuropathy; I12.9 Hypertensive chronic kidney disease with stage 1 through stage 4 chronic kidney disease, or unspecified chronic kidney disease; M86.671 Other chronic osteomyelitis, right ankle and foot; N18.9 Chronic kidney disease, unspecified; Z87.891 Personal history of nicotine dependence; Z79.4 Long term (current) use of insulin; L84 Corns and callosities; R60.0 Localized edema; Z91.19 Patient's noncompliance with other medical treatment and regimen
CPT/HCPCS: G0463

== ENCOUNTER 2021-05-04 09:20 | Outpatient (CLI) | payer MEDICARE, BC ==
[~2021-05-04 09:20] MED LIST changes: -AMOX250C PO; -ASPI-605 PO; -CLAR-45 PO; -Linezolid PO; -MERO500V23 IV
[2021-05-04] MEDS ORDERED: COLLAGENASE 5 GM TUBE UD TP ONE (10:23)
== END 2021-05-04 23:59 | disposition home health service (06) ==
LOC: WOU 09:20
PROVIDERS: ATTEND Podiatrist Foot & Ankle Surgery
DX: E11.621 Type 2 diabetes mellitus with foot ulcer (principal); L97.415 Non-pressure chronic ulcer of right heel and midfoot with muscle involvement without evidence of necrosis; E11.22 Type 2 diabetes mellitus with diabetic chronic kidney disease; E11.42 Type 2 diabetes mellitus with diabetic polyneuropathy; E11.69 Type 2 diabetes mellitus with other specified complication; N18.6 End stage renal disease; M86.671 Other chronic osteomyelitis, right ankle and foot; Z79.4 Long term (current) use of insulin; L84 Corns and callosities; R60.0 Localized edema; Z89.421 Acquired absence of other right toe(s)
CPT/HCPCS: G0463

== ENCOUNTER 2021-05-08 09:20 | Outpatient (CLI) | payer MEDICARE, BC | END 2021-05-08 23:59 | disposition home health service (06) | LOC: WOU 09:20 | PROVIDERS: ATTEND Podiatrist Foot & Ankle Surgery | DX: E11.621 Type 2 diabetes mellitus with foot ulcer (principal); L97.525 Non-pressure chronic ulcer of other part of left foot with muscle involvement without evidence of necrosis; E11.42 Type 2 diabetes mellitus with diabetic polyneuropathy; E11.22 Type 2 diabetes mellitus with diabetic chronic kidney disease; I12.9 Hypertensive chronic kidney disease with stage 1 through stage 4 chronic kidney disease, or unspecified chronic kidney disease; N18.9 Chronic kidney disease, unspecified; E11.69 Type 2 diabetes mellitus with other specified complication; M86.671 Other chronic osteomyelitis, right ankle and foot; Z79.4 Long term (current) use of insulin; R60.0 Localized edema; L84 Corns and callosities | CPT/HCPCS: A6197; G0463 ==

== ENCOUNTER 2021-05-11 09:20 | Outpatient (CLI) | payer MEDICARE, BC | END 2021-05-11 23:59 | disposition home health service (06) | LOC: WOU 09:20 | PROVIDERS: ATTEND Podiatrist Foot & Ankle Surgery | DX: E11.621 Type 2 diabetes mellitus with foot ulcer (principal); L97.415 Non-pressure chronic ulcer of right heel and midfoot with muscle involvement without evidence of necrosis; L97.515 Non-pressure chronic ulcer of other part of right foot with muscle involvement without evidence of necrosis; E11.22 Type 2 diabetes mellitus with diabetic chronic kidney disease; E11.69 Type 2 diabetes mellitus with other specified complication; E11.42 Type 2 diabetes mellitus with diabetic polyneuropathy; I12.9 Hypertensive chronic kidney disease with stage 1 through stage 4 chronic kidney disease, or unspecified chronic kidney disease; M86.671 Other chronic osteomyelitis, right ankle and foot; N18.9 Chronic kidney disease, unspecified; Z87.891 Personal history of nicotine dependence; Z79.4 Long term (current) use of insulin; Z79.84 Long term (current) use of oral hypoglycemic drugs; Z79.82 Long term (current) use of aspirin; Z91.19 Patient's noncompliance with other medical treatment and regimen | CPT/HCPCS: 11043; 11046; 87070 ×2; 87075 ×2; 87077; 87186 ×2; A6197 ==

== ENCOUNTER 2021-05-15 09:20 | Outpatient (CLI) | payer MEDICARE, BC | END 2021-05-15 23:59 | disposition home health service (06) | LOC: WOU 09:20 | PROVIDERS: ATTEND Podiatrist Foot & Ankle Surgery | DX: E11.621 Type 2 diabetes mellitus with foot ulcer (principal); L97.415 Non-pressure chronic ulcer of right heel and midfoot with muscle involvement without evidence of necrosis; L97.515 Non-pressure chronic ulcer of other part of right foot with muscle involvement without evidence of necrosis; E11.22 Type 2 diabetes mellitus with diabetic chronic kidney disease; E11.42 Type 2 diabetes mellitus with diabetic polyneuropathy; E11.69 Type 2 diabetes mellitus with other specified complication; I12.9 Hypertensive chronic kidney disease with stage 1 through stage 4 chronic kidney disease, or unspecified chronic kidney disease; M86.671 Other chronic osteomyelitis, right ankle and foot; N18.9 Chronic kidney disease, unspecified; Z87.891 Personal history of nicotine dependence; Z79.4 Long term (current) use of insulin; Z79.84 Long term (current) use of oral hypoglycemic drugs; L84 Corns and callosities; R60.0 Localized edema; Z89.421 Acquired absence of other right toe(s); Z91.19 Patient's noncompliance with other medical treatment and regimen; Z79.82 Long term (current) use of aspirin | CPT/HCPCS: 11043; 11046; A6197 ==

== ENCOUNTER 2021-05-18 09:20 | Outpatient (CLI) | payer MEDICARE, BC ==
[2021-05-18 10:53] LABS: BASOPHILS % (AUTO) 0.5 % (0.0-2.0); EOSINOPHILS % (AUTO) 1.3 % (0.0-6.0); HEMATOCRIT 30 % (39-51); HEMOGLOBIN 10.2 g/dL (13.5-17.5); LYMPHOCYTES # (AUTO) 1.1 K/uL (0.8-4.8); LYMPHOCYTES % (AUTO) 15.8 % (20.0-44.0); MEAN CORPUSCULAR HGB CONC 34 g/dl (31.0-36.0); MEAN CORPUSCULAR VOLUME 87 fL (80-96); MONOCYTES # (AUTO) 0.3 K/uL (0.1-1.30); MONOCYTES % (AUTO) 4.4 % (2.0-12.0); NEUTROPHILS # (AUTO) 5.3 K/uL (1.8-8.9); PLATELET COUNT (AUTO) 194 K/uL (150-450); RED BLOOD CELL COUNT(AUTO) 3.48 MIL/uL (4.5-6.0); WHITE BLOOD COUNT (AUTO) 6.8 K/uL (4.3-11.0)
== END 2021-05-18 23:59 | disposition home health service (06) ==
LOC: WOU 09:20
PROVIDERS: ATTEND Podiatrist Foot & Ankle Surgery
DX: E11.621 Type 2 diabetes mellitus with foot ulcer (principal); L97.415 Non-pressure chronic ulcer of right heel and midfoot with muscle involvement without evidence of necrosis; L97.515 Non-pressure chronic ulcer of other part of right foot with muscle involvement without evidence of necrosis; E11.42 Type 2 diabetes mellitus with diabetic polyneuropathy; E11.22 Type 2 diabetes mellitus with diabetic chronic kidney disease; E11.69 Type 2 diabetes mellitus with other specified complication; I12.9 Hypertensive chronic kidney disease with stage 1 through stage 4 chronic kidney disease, or unspecified chronic kidney disease; M86.671 Other chronic osteomyelitis, right ankle and foot; N18.9 Chronic kidney disease, unspecified; Z87.891 Personal history of nicotine dependence; Z79.4 Long term (current) use of insulin; Z79.84 Long term (current) use of oral hypoglycemic drugs; L84 Corns and callosities; R60.0 Localized edema; Z91.19 Patient's noncompliance with other medical treatment and regimen; Z89.421 Acquired absence of other right toe(s)
CPT/HCPCS: 11043; 11046; 36415; 84145; 85025; 85652; 86140; 87070 ×2; 87186; A6197

== ENCOUNTER 2021-05-22 09:20 | Outpatient (CLI) | payer MEDICARE, BC | END 2021-05-22 23:59 | disposition home health service (06) | LOC: WOU 09:20 | PROVIDERS: ATTEND Podiatrist Foot & Ankle Surgery | DX: E11.621 Type 2 diabetes mellitus with foot ulcer (principal); L97.515 Non-pressure chronic ulcer of other part of right foot with muscle involvement without evidence of necrosis; E11.22 Type 2 diabetes mellitus with diabetic chronic kidney disease; E11.69 Type 2 diabetes mellitus with other specified complication; E11.42 Type 2 diabetes mellitus with diabetic polyneuropathy; I12.9 Hypertensive chronic kidney disease with stage 1 through stage 4 chronic kidney disease, or unspecified chronic kidney disease; M86.671 Other chronic osteomyelitis, right ankle and foot; N18.9 Chronic kidney disease, unspecified; Z87.891 Personal history of nicotine dependence; Z79.4 Long term (current) use of insulin; Z79.84 Long term (current) use of oral hypoglycemic drugs; R60.0 Localized edema; L84 Corns and callosities; Z91.19 Patient's noncompliance with other medical treatment and regimen; Z79.82 Long term (current) use of aspirin | CPT/HCPCS: 11043; 11046; A6197; J7040 ==

== ENCOUNTER 2021-05-29 09:35 | Outpatient (CLI) | payer MEDICARE, BC ==
[2021-05-29] MEDS ORDERED: GENTAMICIN 0.1% CREAM 15 GM TUBE ONE ×2 (10:17→10:18)
== END 2021-05-29 23:59 | disposition home health service (06) ==
LOC: WOU 09:35
PROVIDERS: ATTEND Podiatrist Foot & Ankle Surgery
DX: E11.621 Type 2 diabetes mellitus with foot ulcer (principal); L97.415 Non-pressure chronic ulcer of right heel and midfoot with muscle involvement without evidence of necrosis; L97.515 Non-pressure chronic ulcer of other part of right foot with muscle involvement without evidence of necrosis; E11.22 Type 2 diabetes mellitus with diabetic chronic kidney disease; E11.42 Type 2 diabetes mellitus with diabetic polyneuropathy; E11.69 Type 2 diabetes mellitus with other specified complication; N18.9 Chronic kidney disease, unspecified; M86.671 Other chronic osteomyelitis, right ankle and foot; Z87.891 Personal history of nicotine dependence; Z79.4 Long term (current) use of insulin; Z79.84 Long term (current) use of oral hypoglycemic drugs; Z79.82 Long term (current) use of aspirin; Z91.19 Patient's noncompliance with other medical treatment and regimen; R60.0 Localized edema
CPT/HCPCS: 11043; A6197

== ENCOUNTER 2021-06-01 09:30 | Outpatient (CLI) | payer MEDICARE, BC | END 2021-06-01 23:59 | disposition home health service (06) | LOC: WOU 09:30 | PROVIDERS: ATTEND Podiatrist Foot & Ankle Surgery | DX: E11.621 Type 2 diabetes mellitus with foot ulcer (principal); L97.415 Non-pressure chronic ulcer of right heel and midfoot with muscle involvement without evidence of necrosis; L97.515 Non-pressure chronic ulcer of other part of right foot with muscle involvement without evidence of necrosis; E11.22 Type 2 diabetes mellitus with diabetic chronic kidney disease; E11.69 Type 2 diabetes mellitus with other specified complication; E11.42 Type 2 diabetes mellitus with diabetic polyneuropathy; I12.9 Hypertensive chronic kidney disease with stage 1 through stage 4 chronic kidney disease, or unspecified chronic kidney disease; M86.671 Other chronic osteomyelitis, right ankle and foot; N18.9 Chronic kidney disease, unspecified; Z87.891 Personal history of nicotine dependence; Z79.4 Long term (current) use of insulin; Z79.84 Long term (current) use of oral hypoglycemic drugs; L84 Corns and callosities; R60.0 Localized edema; Z79.82 Long term (current) use of aspirin | CPT/HCPCS: 11043 ==

== ENCOUNTER 2021-06-05 09:30 | Outpatient (CLI) | payer MEDICARE, BC ==
[2021-06-05] MEDS ORDERED: GENTAMICIN 0.1% CREAM 15 GM TUBE ONE (10:20)
== END 2021-06-05 23:59 | disposition home health service (06) ==
LOC: WOU 09:30
PROVIDERS: ATTEND Podiatrist Foot & Ankle Surgery
DX: E11.621 Type 2 diabetes mellitus with foot ulcer (principal); L97.415 Non-pressure chronic ulcer of right heel and midfoot with muscle involvement without evidence of necrosis; L97.515 Non-pressure chronic ulcer of other part of right foot with muscle involvement without evidence of necrosis; E11.22 Type 2 diabetes mellitus with diabetic chronic kidney disease; E11.42 Type 2 diabetes mellitus with diabetic polyneuropathy; I12.9 Hypertensive chronic kidney disease with stage 1 through stage 4 chronic kidney disease, or unspecified chronic kidney disease; E11.69 Type 2 diabetes mellitus with other specified complication; N18.9 Chronic kidney disease, unspecified; M86.671 Other chronic osteomyelitis, right ankle and foot; Z87.891 Personal history of nicotine dependence; Z79.4 Long term (current) use of insulin; Z79.84 Long term (current) use of oral hypoglycemic drugs; Z79.82 Long term (current) use of aspirin; L84 Corns and callosities
CPT/HCPCS: 11043; 87070-TC; 87075-TC; 87186-TC

== ENCOUNTER 2021-06-08 09:30 | Outpatient (CLI) | payer MEDICARE, BC ==
[2021-06-08] MEDS ORDERED: GENTAMICIN 0.1% CREAM 15 GM TUBE ONE (10:24)
== END 2021-06-08 23:59 | disposition home health service (06) ==
LOC: WOU 09:30
PROVIDERS: ATTEND Podiatrist Foot & Ankle Surgery
DX: E11.621 Type 2 diabetes mellitus with foot ulcer (principal); L97.415 Non-pressure chronic ulcer of right heel and midfoot with muscle involvement without evidence of necrosis; L97.515 Non-pressure chronic ulcer of other part of right foot with muscle involvement without evidence of necrosis; E11.22 Type 2 diabetes mellitus with diabetic chronic kidney disease; E11.69 Type 2 diabetes mellitus with other specified complication; E11.42 Type 2 diabetes mellitus with diabetic polyneuropathy; I12.9 Hypertensive chronic kidney disease with stage 1 through stage 4 chronic kidney disease, or unspecified chronic kidney disease; M86.671 Other chronic osteomyelitis, right ankle and foot; N18.9 Chronic kidney disease, unspecified; Z87.891 Personal history of nicotine dependence; Z79.4 Long term (current) use of insulin; Z79.84 Long term (current) use of oral hypoglycemic drugs; Z79.82 Long term (current) use of aspirin; Z79.899 Other long term (current) drug therapy; R60.0 Localized edema; L84 Corns and callosities; Z89.421 Acquired absence of other right toe(s)
CPT/HCPCS: 11043; 87070-TC; 87075-TC; 87186-TC

== ENCOUNTER 2021-06-12 09:40 | Outpatient (CLI) | payer MEDICARE, BC ==
[2021-06-12] MEDS ORDERED: CADEXOMER IODINE UD 5 GM TUBE ONE (10:09)
== END 2021-06-12 23:59 | disposition home health service (06) ==
LOC: WOU 09:40
PROVIDERS: ATTEND Podiatrist Foot & Ankle Surgery
DX: E11.621 Type 2 diabetes mellitus with foot ulcer (principal); L97.412 Non-pressure chronic ulcer of right heel and midfoot with fat layer exposed; L97.512 Non-pressure chronic ulcer of other part of right foot with fat layer exposed; E11.42 Type 2 diabetes mellitus with diabetic polyneuropathy; E11.22 Type 2 diabetes mellitus with diabetic chronic kidney disease; E11.69 Type 2 diabetes mellitus with other specified complication; N18.9 Chronic kidney disease, unspecified; M86.671 Other chronic osteomyelitis, right ankle and foot; Z79.4 Long term (current) use of insulin; Z79.84 Long term (current) use of oral hypoglycemic drugs; L84 Corns and callosities; Z89.421 Acquired absence of other right toe(s); Z91.19 Patient's noncompliance with other medical treatment and regimen
CPT/HCPCS: 11042

== ENCOUNTER 2021-06-15 09:30 | Outpatient (CLI) | payer MEDICARE, BC ==
[2021-06-15] MEDS ORDERED: CADEXOMER IODINE UD 5 GM TUBE ONE ×2 (09:50→10:11)
== END 2021-06-15 23:59 | disposition home health service (06) ==
LOC: WOU 09:30
PROVIDERS: ATTEND Podiatrist Foot & Ankle Surgery
DX: E11.621 Type 2 diabetes mellitus with foot ulcer (principal); L97.412 Non-pressure chronic ulcer of right heel and midfoot with fat layer exposed; L97.512 Non-pressure chronic ulcer of other part of right foot with fat layer exposed; E11.22 Type 2 diabetes mellitus with diabetic chronic kidney disease; E11.42 Type 2 diabetes mellitus with diabetic polyneuropathy; E11.69 Type 2 diabetes mellitus with other specified complication; I12.9 Hypertensive chronic kidney disease with stage 1 through stage 4 chronic kidney disease, or unspecified chronic kidney disease; M86.671 Other chronic osteomyelitis, right ankle and foot; N18.9 Chronic kidney disease, unspecified; Z87.891 Personal history of nicotine dependence; Z79.4 Long term (current) use of insulin; Z79.84 Long term (current) use of oral hypoglycemic drugs; L84 Corns and callosities; R60.0 Localized edema; Z89.421 Acquired absence of other right toe(s)
CPT/HCPCS: 11042

== ENCOUNTER 2021-06-19 09:30 | Outpatient (CLI) | payer MEDICARE, BC ==
[2021-06-19] MEDS ORDERED: CADEXOMER IODINE UD 5 GM TUBE ONE ×2 (10:50→11:03)
== END 2021-06-19 23:59 | disposition home health service (06) ==
LOC: WOU 09:30
PROVIDERS: ATTEND Podiatrist Foot & Ankle Surgery
DX: E11.621 Type 2 diabetes mellitus with foot ulcer (principal); L97.412 Non-pressure chronic ulcer of right heel and midfoot with fat layer exposed; L97.512 Non-pressure chronic ulcer of other part of right foot with fat layer exposed; E11.22 Type 2 diabetes mellitus with diabetic chronic kidney disease; I12.9 Hypertensive chronic kidney disease with stage 1 through stage 4 chronic kidney disease, or unspecified chronic kidney disease; Z87.891 Personal history of nicotine dependence; E11.42 Type 2 diabetes mellitus with diabetic polyneuropathy; E11.69 Type 2 diabetes mellitus with other specified complication; M86.671 Other chronic osteomyelitis, right ankle and foot; Z79.4 Long term (current) use of insulin; Z79.84 Long term (current) use of oral hypoglycemic drugs; N18.9 Chronic kidney disease, unspecified; Z79.82 Long term (current) use of aspirin
CPT/HCPCS: 11042

== ENCOUNTER 2021-06-26 11:17 | Outpatient (CLI) | payer MEDICARE, BC | END 2021-06-26 23:59 | disposition home or self-care (01) | LOC: RAD 11:17 | PROVIDERS: ATTEND Podiatrist Foot & Ankle Surgery | DX: E11.621 Type 2 diabetes mellitus with foot ulcer (principal) | CPT/HCPCS: 73630-TC ==

== ENCOUNTER 2021-07-03 09:20 | Outpatient (CLI) | payer MEDICARE, BC ==
[2021-07-03] MEDS ORDERED: CADEXOMER IODINE UD 5 GM TUBE ONE (10:38)
== END 2021-07-03 23:59 | disposition home health service (06) ==
LOC: WOU 09:20
PROVIDERS: ATTEND Podiatrist Foot & Ankle Surgery
DX: E11.621 Type 2 diabetes mellitus with foot ulcer (principal); L97.512 Non-pressure chronic ulcer of other part of right foot with fat layer exposed; E11.42 Type 2 diabetes mellitus with diabetic polyneuropathy; E11.22 Type 2 diabetes mellitus with diabetic chronic kidney disease; I12.9 Hypertensive chronic kidney disease with stage 1 through stage 4 chronic kidney disease, or unspecified chronic kidney disease; Z87.891 Personal history of nicotine dependence; Z79.4 Long term (current) use of insulin; Z79.84 Long term (current) use of oral hypoglycemic drugs; Z79.82 Long term (current) use of aspirin; Z91.19 Patient's noncompliance with other medical treatment and regimen; Z89.421 Acquired absence of other right toe(s)
CPT/HCPCS: 15275; Q4158

== ENCOUNTER 2021-07-06 09:20 | Outpatient (CLI) | payer MEDICARE, BC | END 2021-07-06 23:59 | disposition home health service (06) | LOC: WOU 09:20 | PROVIDERS: ATTEND Podiatrist Foot & Ankle Surgery | DX: E11.621 Type 2 diabetes mellitus with foot ulcer (principal); L97.512 Non-pressure chronic ulcer of other part of right foot with fat layer exposed; E11.22 Type 2 diabetes mellitus with diabetic chronic kidney disease; E11.42 Type 2 diabetes mellitus with diabetic polyneuropathy; E11.69 Type 2 diabetes mellitus with other specified complication; I12.9 Hypertensive chronic kidney disease with stage 1 through stage 4 chronic kidney disease, or unspecified chronic kidney disease; M86.671 Other chronic osteomyelitis, right ankle and foot; N18.9 Chronic kidney disease, unspecified; Z87.891 Personal history of nicotine dependence; Z79.4 Long term (current) use of insulin; Z79.84 Long term (current) use of oral hypoglycemic drugs; Z79.82 Long term (current) use of aspirin | CPT/HCPCS: 11042; A6197 ==

== ENCOUNTER 2021-07-10 09:20 | Outpatient (CLI) | payer MEDICARE, BC | END 2021-07-10 23:59 | disposition home health service (06) | LOC: WOU 09:20 | PROVIDERS: ATTEND Podiatrist Foot & Ankle Surgery | DX: E11.621 Type 2 diabetes mellitus with foot ulcer (principal); L97.512 Non-pressure chronic ulcer of other part of right foot with fat layer exposed; E11.42 Type 2 diabetes mellitus with diabetic polyneuropathy; E11.22 Type 2 diabetes mellitus with diabetic chronic kidney disease; E11.69 Type 2 diabetes mellitus with other specified complication; I12.9 Hypertensive chronic kidney disease with stage 1 through stage 4 chronic kidney disease, or unspecified chronic kidney disease; M86.671 Other chronic osteomyelitis, right ankle and foot; N18.9 Chronic kidney disease, unspecified; Z87.891 Personal history of nicotine dependence; Z79.4 Long term (current) use of insulin; Z79.84 Long term (current) use of oral hypoglycemic drugs; Z79.82 Long term (current) use of aspirin; R60.0 Localized edema | CPT/HCPCS: 15275; Q4158; A6197 ==

== ENCOUNTER 2021-07-13 09:20 | Outpatient (CLI) | payer MEDICARE, BC | END 2021-07-13 23:59 | disposition home health service (06) | LOC: WOU 09:20 | PROVIDERS: ATTEND Podiatrist Foot & Ankle Surgery | DX: E11.621 Type 2 diabetes mellitus with foot ulcer (principal); L97.512 Non-pressure chronic ulcer of other part of right foot with fat layer exposed; E11.22 Type 2 diabetes mellitus with diabetic chronic kidney disease; E11.42 Type 2 diabetes mellitus with diabetic polyneuropathy; E11.69 Type 2 diabetes mellitus with other specified complication; I12.9 Hypertensive chronic kidney disease with stage 1 through stage 4 chronic kidney disease, or unspecified chronic kidney disease; M86.671 Other chronic osteomyelitis, right ankle and foot; N18.9 Chronic kidney disease, unspecified; Z87.891 Personal history of nicotine dependence; Z79.4 Long term (current) use of insulin; Z79.84 Long term (current) use of oral hypoglycemic drugs; L84 Corns and callosities; Z89.421 Acquired absence of other right toe(s) | CPT/HCPCS: 11042 ==

== ENCOUNTER 2021-07-17 10:20 | Outpatient (CLI) | payer MEDICARE, BC | END 2021-07-17 23:59 | disposition home health service (06) | LOC: WOU 10:20 | PROVIDERS: ATTEND Podiatrist Foot & Ankle Surgery | DX: E11.621 Type 2 diabetes mellitus with foot ulcer (principal); L97.512 Non-pressure chronic ulcer of other part of right foot with fat layer exposed; S81.011A Laceration without foreign body, right knee, initial encounter; X58.XXXA Exposure to other specified factors, initial encounter; Y92.89 Other specified places as the place of occurrence of the external cause; E11.22 Type 2 diabetes mellitus with diabetic chronic kidney disease; E11.69 Type 2 diabetes mellitus with other specified complication; E11.42 Type 2 diabetes mellitus with diabetic polyneuropathy; I12.9 Hypertensive chronic kidney disease with stage 1 through stage 4 chronic kidney disease, or unspecified chronic kidney disease; M86.671 Other chronic osteomyelitis, right ankle and foot; N18.9 Chronic kidney disease, unspecified; Z87.891 Personal history of nicotine dependence; Z79.4 Long term (current) use of insulin; Z79.84 Long term (current) use of oral hypoglycemic drugs; Z91.19 Patient's noncompliance with other medical treatment and regimen; L84 Corns and callosities; R60.0 Localized edema; Z89.421 Acquired absence of other right toe(s) | CPT/HCPCS: 11042 ==

== ENCOUNTER 2021-07-20 09:20 | Outpatient (CLI) | payer MEDICARE, BC | END 2021-07-20 23:59 | disposition home health service (06) | LOC: WOU 09:20 | PROVIDERS: ATTEND Podiatrist Foot & Ankle Surgery | DX: E11.621 Type 2 diabetes mellitus with foot ulcer (principal); L97.412 Non-pressure chronic ulcer of right heel and midfoot with fat layer exposed; E11.22 Type 2 diabetes mellitus with diabetic chronic kidney disease; E11.69 Type 2 diabetes mellitus with other specified complication; E11.40 Type 2 diabetes mellitus with diabetic neuropathy, unspecified; I12.9 Hypertensive chronic kidney disease with stage 1 through stage 4 chronic kidney disease, or unspecified chronic kidney disease; M86.671 Other chronic osteomyelitis, right ankle and foot; N18.9 Chronic kidney disease, unspecified; Z87.891 Personal history of nicotine dependence; Z79.4 Long term (current) use of insulin; Z79.84 Long term (current) use of oral hypoglycemic drugs; R60.0 Localized edema; Z89.421 Acquired absence of other right toe(s); Z91.19 Patient's noncompliance with other medical treatment and regimen; Z79.82 Long term (current) use of aspirin | CPT/HCPCS: 11042 ==

== ENCOUNTER 2021-07-24 09:50 | Outpatient (CLI) | payer MEDICARE, BC ==
[2021-07-24] MEDS ORDERED: CADEXOMER IODINE UD 5 GM TUBE ONE (11:11)
[2021-07-24 11:42] LABS: ALBUMIN 3.3 g/dL (3.4-5.0); BILIRUBIN,TOTAL 0.3 mg/dL (0.2-1.0); CALCIUM, SERUM 7.6 mg/dL (8.5-10.1); CREATININE 4.3 mg/dL (0.6-1.3); POTASSIUM 4.4 mmol/L (3.5-5.1)
[2021-07-24 12:19] LABS: BASOPHILS % (AUTO) 0.3 % (0.0-2.0); HEMATOCRIT 30 % (39-51); HEMOGLOBIN 10.3 g/dL (13.5-17.5); LYMPHOCYTES % (AUTO) 13.7 % (20.0-44.0); MEAN CORPUSCULAR HGB CONC 35 g/dl (31.0-36.0); MEAN CORPUSCULAR VOLUME 84 fL (80-96); MONOCYTES # (AUTO) 0.5 K/uL (0.1-1.30); MONOCYTES % (AUTO) 6.3 % (2.0-12.0); NEUTROPHILS # (AUTO) 5.8 K/uL (1.8-8.9); NEUTROPHILS % (AUTO) 78.7 % (43.0-81.0); PLATELET COUNT (AUTO) 209 K/uL (150-450); RED BLOOD CELL COUNT(AUTO) 3.54 MIL/uL (4.5-6.0); WHITE BLOOD COUNT (AUTO) 7.3 K/uL (4.3-11.0)
[2021-07-24 14:59] LABS: C-REACTIVE PROTEIN 0.4 mg/dL (0.0-0.9)
== END 2021-07-24 23:59 | disposition home health service (06) ==
LOC: WOU 09:50
PROVIDERS: ATTEND Podiatrist Foot & Ankle Surgery
DX: E11.621 Type 2 diabetes mellitus with foot ulcer (principal); L97.412 Non-pressure chronic ulcer of right heel and midfoot with fat layer exposed; S81.011D Laceration without foreign body, right knee, subsequent encounter; X58.XXXD Exposure to other specified factors, subsequent encounter; E11.22 Type 2 diabetes mellitus with diabetic chronic kidney disease; E11.42 Type 2 diabetes mellitus with diabetic polyneuropathy; E11.69 Type 2 diabetes mellitus with other specified complication; I12.9 Hypertensive chronic kidney disease with stage 1 through stage 4 chronic kidney disease, or unspecified chronic kidney disease; M86.671 Other chronic osteomyelitis, right ankle and foot; N18.9 Chronic kidney disease, unspecified; Z87.891 Personal history of nicotine dependence; Z79.4 Long term (current) use of insulin; Z79.84 Long term (current) use of oral hypoglycemic drugs; Z79.82 Long term (current) use of aspirin; Z89.421 Acquired absence of other right toe(s)
CPT/HCPCS: 11042; 36415; 80053-TC; 85025-TC; 85652-TC; 86140-TC; 87070-TC; 87075-TC; 87186-TC

== ENCOUNTER 2021-07-24 11:41 | Outpatient (CLI) | payer MEDICARE, BC | END 2021-07-24 23:59 | disposition home or self-care (01) | LOC: RAD 11:41 | PROVIDERS: ATTEND Podiatrist Foot & Ankle Surgery | DX: M19.071 Primary osteoarthritis, right ankle and foot (principal); M85.861 Other specified disorders of bone density and structure, right lower leg; M17.11 Unilateral primary osteoarthritis, right knee; M25.461 Effusion, right knee | CPT/HCPCS: 73560-TC; 73590-TC; 73600-TC ==

== ENCOUNTER 2021-07-27 09:40 | Outpatient (CLI) | payer MEDICARE, BC | END 2021-07-27 23:59 | disposition home health service (06) | LOC: WOU 09:40 | PROVIDERS: ATTEND Podiatrist Foot & Ankle Surgery | DX: E11.621 Type 2 diabetes mellitus with foot ulcer (principal); L97.512 Non-pressure chronic ulcer of other part of right foot with fat layer exposed; E11.22 Type 2 diabetes mellitus with diabetic chronic kidney disease; E11.69 Type 2 diabetes mellitus with other specified complication; E11.42 Type 2 diabetes mellitus with diabetic polyneuropathy; I12.9 Hypertensive chronic kidney disease with stage 1 through stage 4 chronic kidney disease, or unspecified chronic kidney disease; M86.671 Other chronic osteomyelitis, right ankle and foot; N18.9 Chronic kidney disease, unspecified; Z87.891 Personal history of nicotine dependence; Z79.4 Long term (current) use of insulin; Z79.84 Long term (current) use of oral hypoglycemic drugs; Z89.411 Acquired absence of right great toe; S81.011D Laceration without foreign body, right knee, subsequent encounter; X58.XXXD Exposure to other specified factors, subsequent encounter | CPT/HCPCS: 15275; Q4158 ==

== ENCOUNTER 2021-07-31 09:40 | Outpatient (CLI) | payer MEDICARE, BC | END 2021-07-31 23:59 | disposition home health service (06) | LOC: WOU 09:40 | PROVIDERS: ATTEND Podiatrist Foot & Ankle Surgery | DX: E11.621 Type 2 diabetes mellitus with foot ulcer (principal); L97.512 Non-pressure chronic ulcer of other part of right foot with fat layer exposed; S81.011D Laceration without foreign body, right knee, subsequent encounter; X58.XXXD Exposure to other specified factors, subsequent encounter; E11.22 Type 2 diabetes mellitus with diabetic chronic kidney disease; E11.42 Type 2 diabetes mellitus with diabetic polyneuropathy; E11.69 Type 2 diabetes mellitus with other specified complication; I12.9 Hypertensive chronic kidney disease with stage 1 through stage 4 chronic kidney disease, or unspecified chronic kidney disease; M86.671 Other chronic osteomyelitis, right ankle and foot; N18.9 Chronic kidney disease, unspecified; Z87.891 Personal history of nicotine dependence; Z79.4 Long term (current) use of insulin; Z79.84 Long term (current) use of oral hypoglycemic drugs; Z91.19 Patient's noncompliance with other medical treatment and regimen | CPT/HCPCS: 15275; Q4158 ==

== ENCOUNTER 2021-08-03 09:50 | Outpatient (CLI) | payer MEDICARE, BC | END 2021-08-03 23:59 | disposition home health service (06) | LOC: WOU 09:50 | PROVIDERS: ATTEND Podiatrist Foot & Ankle Surgery | DX: E11.621 Type 2 diabetes mellitus with foot ulcer (principal); L97.512 Non-pressure chronic ulcer of other part of right foot with fat layer exposed; E11.22 Type 2 diabetes mellitus with diabetic chronic kidney disease; E11.42 Type 2 diabetes mellitus with diabetic polyneuropathy; I12.9 Hypertensive chronic kidney disease with stage 1 through stage 4 chronic kidney disease, or unspecified chronic kidney disease; N18.9 Chronic kidney disease, unspecified; Z87.891 Personal history of nicotine dependence; R60.0 Localized edema; Z89.411 Acquired absence of right great toe; Z91.19 Patient's noncompliance with other medical treatment and regimen | CPT/HCPCS: 15275; Q4158 ==

== ENCOUNTER 2021-08-07 09:50 | Outpatient (CLI) | payer MEDICARE, BC | END 2021-08-07 23:59 | disposition home health service (06) | LOC: WOU 09:50 | PROVIDERS: ATTEND Podiatrist Foot & Ankle Surgery | DX: E11.621 Type 2 diabetes mellitus with foot ulcer (principal); L97.512 Non-pressure chronic ulcer of other part of right foot with fat layer exposed; E11.22 Type 2 diabetes mellitus with diabetic chronic kidney disease; E11.69 Type 2 diabetes mellitus with other specified complication; E11.42 Type 2 diabetes mellitus with diabetic polyneuropathy; I12.9 Hypertensive chronic kidney disease with stage 1 through stage 4 chronic kidney disease, or unspecified chronic kidney disease; M86.671 Other chronic osteomyelitis, right ankle and foot; N18.9 Chronic kidney disease, unspecified; Z87.891 Personal history of nicotine dependence; Z79.4 Long term (current) use of insulin; Z79.84 Long term (current) use of oral hypoglycemic drugs; L84 Corns and callosities; R60.1 Generalized edema; Z89.421 Acquired absence of other right toe(s); Z91.19 Patient's noncompliance with other medical treatment and regimen | CPT/HCPCS: 11042 ==

== ENCOUNTER 2021-08-10 09:30 | Outpatient (CLI) | payer MEDICARE, BC | END 2021-08-10 23:59 | disposition home health service (06) | LOC: WOU 09:30 | PROVIDERS: ATTEND Podiatrist Foot & Ankle Surgery | DX: E11.621 Type 2 diabetes mellitus with foot ulcer (principal); L97.512 Non-pressure chronic ulcer of other part of right foot with fat layer exposed; E11.22 Type 2 diabetes mellitus with diabetic chronic kidney disease; E11.69 Type 2 diabetes mellitus with other specified complication; E11.42 Type 2 diabetes mellitus with diabetic polyneuropathy; I12.9 Hypertensive chronic kidney disease with stage 1 through stage 4 chronic kidney disease, or unspecified chronic kidney disease; M86.671 Other chronic osteomyelitis, right ankle and foot; N18.9 Chronic kidney disease, unspecified; Z87.891 Personal history of nicotine dependence; Z79.4 Long term (current) use of insulin; Z79.84 Long term (current) use of oral hypoglycemic drugs; R60.0 Localized edema; L84 Corns and callosities; Z91.19 Patient's noncompliance with other medical treatment and regimen | CPT/HCPCS: 15275; Q4158 ==

== ENCOUNTER 2021-08-14 09:40 | Outpatient (CLI) | payer MEDICARE, BC | END 2021-08-14 23:59 | disposition home health service (06) | LOC: WOU 09:40 | PROVIDERS: ATTEND Podiatrist Foot & Ankle Surgery | DX: E11.621 Type 2 diabetes mellitus with foot ulcer (principal); L97.412 Non-pressure chronic ulcer of right heel and midfoot with fat layer exposed; E11.42 Type 2 diabetes mellitus with diabetic polyneuropathy; E11.69 Type 2 diabetes mellitus with other specified complication; E11.22 Type 2 diabetes mellitus with diabetic chronic kidney disease; I12.9 Hypertensive chronic kidney disease with stage 1 through stage 4 chronic kidney disease, or unspecified chronic kidney disease; M86.671 Other chronic osteomyelitis, right ankle and foot; N18.9 Chronic kidney disease, unspecified; Z87.891 Personal history of nicotine dependence; Z79.4 Long term (current) use of insulin; Z79.84 Long term (current) use of oral hypoglycemic drugs; Z79.82 Long term (current) use of aspirin; Z89.421 Acquired absence of other right toe(s); Z91.19 Patient's noncompliance with other medical treatment and regimen | CPT/HCPCS: 11042; A6197 ==

== ENCOUNTER 2021-08-17 09:30 | Outpatient (CLI) | payer MEDICARE, BC | END 2021-08-17 23:59 | disposition home health service (06) | LOC: WOU 09:30 | PROVIDERS: ATTEND Podiatrist Foot & Ankle Surgery | DX: E11.621 Type 2 diabetes mellitus with foot ulcer (principal); L97.412 Non-pressure chronic ulcer of right heel and midfoot with fat layer exposed; E11.22 Type 2 diabetes mellitus with diabetic chronic kidney disease; E11.69 Type 2 diabetes mellitus with other specified complication; E11.42 Type 2 diabetes mellitus with diabetic polyneuropathy; I12.9 Hypertensive chronic kidney disease with stage 1 through stage 4 chronic kidney disease, or unspecified chronic kidney disease; M86.671 Other chronic osteomyelitis, right ankle and foot; N18.9 Chronic kidney disease, unspecified; Z87.891 Personal history of nicotine dependence; Z79.4 Long term (current) use of insulin; Z79.84 Long term (current) use of oral hypoglycemic drugs; Z89.411 Acquired absence of right great toe; Z91.19 Patient's noncompliance with other medical treatment and regimen | CPT/HCPCS: 11042; A6197 ==

== ENCOUNTER 2021-08-21 09:40 | Outpatient (CLI) | payer MEDICARE, BC ==
[2021-08-21] MEDS ORDERED: SILVER NITRATE APPLICATOR 1 EA BOX ONE (10:15)
== END 2021-08-21 23:59 | disposition home health service (06) ==
LOC: WOU 09:40
PROVIDERS: ATTEND Podiatrist Foot & Ankle Surgery
DX: E11.621 Type 2 diabetes mellitus with foot ulcer (principal); L97.412 Non-pressure chronic ulcer of right heel and midfoot with fat layer exposed; E11.22 Type 2 diabetes mellitus with diabetic chronic kidney disease; E11.42 Type 2 diabetes mellitus with diabetic polyneuropathy; E11.69 Type 2 diabetes mellitus with other specified complication; I12.9 Hypertensive chronic kidney disease with stage 1 through stage 4 chronic kidney disease, or unspecified chronic kidney disease; M86.672 Other chronic osteomyelitis, left ankle and foot; M86.671 Other chronic osteomyelitis, right ankle and foot; N18.9 Chronic kidney disease, unspecified; Z87.891 Personal history of nicotine dependence; Z79.4 Long term (current) use of insulin; Z79.84 Long term (current) use of oral hypoglycemic drugs; R60.0 Localized edema; Z79.82 Long term (current) use of aspirin
CPT/HCPCS: 11042; A6197

== ENCOUNTER 2021-08-24 09:30 | Outpatient (CLI) | payer MEDICARE, BC | END 2021-08-24 23:59 | disposition home health service (06) | LOC: WOU 09:30 | PROVIDERS: ATTEND Podiatrist Foot & Ankle Surgery | DX: E11.621 Type 2 diabetes mellitus with foot ulcer (principal); L97.512 Non-pressure chronic ulcer of other part of right foot with fat layer exposed; E11.42 Type 2 diabetes mellitus with diabetic polyneuropathy; E11.22 Type 2 diabetes mellitus with diabetic chronic kidney disease; E11.69 Type 2 diabetes mellitus with other specified complication; I12.9 Hypertensive chronic kidney disease with stage 1 through stage 4 chronic kidney disease, or unspecified chronic kidney disease; M86.671 Other chronic osteomyelitis, right ankle and foot; N18.9 Chronic kidney disease, unspecified; Z87.891 Personal history of nicotine dependence; Z79.4 Long term (current) use of insulin; Z79.84 Long term (current) use of oral hypoglycemic drugs; R60.0 Localized edema; L84 Corns and callosities | CPT/HCPCS: 11042; A6197 ==

== ENCOUNTER 2021-08-28 09:40 | Outpatient (CLI) | payer MEDICARE, BC | END 2021-08-28 23:59 | disposition home health service (06) | LOC: WOU 09:40 | PROVIDERS: ATTEND Podiatrist Foot & Ankle Surgery | DX: E11.621 Type 2 diabetes mellitus with foot ulcer (principal); L97.512 Non-pressure chronic ulcer of other part of right foot with fat layer exposed; S90.821A Blister (nonthermal), right foot, initial encounter; X58.XXXA Exposure to other specified factors, initial encounter; Y92.89 Other specified places as the place of occurrence of the external cause; E11.22 Type 2 diabetes mellitus with diabetic chronic kidney disease; E11.69 Type 2 diabetes mellitus with other specified complication; I12.9 Hypertensive chronic kidney disease with stage 1 through stage 4 chronic kidney disease, or unspecified chronic kidney disease; M86.671 Other chronic osteomyelitis, right ankle and foot; N18.9 Chronic kidney disease, unspecified; Z87.891 Personal history of nicotine dependence; Z79.4 Long term (current) use of insulin; Z79.84 Long term (current) use of oral hypoglycemic drugs; Z79.82 Long term (current) use of aspirin; Z79.899 Other long term (current) drug therapy; L84 Corns and callosities; R60.0 Localized edema; Z91.19 Patient's noncompliance with other medical treatment and regimen | CPT/HCPCS: 11042; 87070; 87075; A6197 ==

== ENCOUNTER 2021-08-31 09:30 | Outpatient (CLI) | payer MEDICARE, BC ==
[2021-08-31] MEDS ORDERED: SILVER NITRATE APPLICATOR 1 EA BOX ONE (09:54)
== END 2021-08-31 23:59 | disposition home health service (06) ==
LOC: WOU 09:30
PROVIDERS: ATTEND Podiatrist Foot & Ankle Surgery
DX: E11.621 Type 2 diabetes mellitus with foot ulcer (principal); L97.512 Non-pressure chronic ulcer of other part of right foot with fat layer exposed; S90.821A Blister (nonthermal), right foot, initial encounter; X58.XXXA Exposure to other specified factors, initial encounter; Y92.89 Other specified places as the place of occurrence of the external cause; E13.22 Other specified diabetes mellitus with diabetic chronic kidney disease; E13.42 Other specified diabetes mellitus with diabetic polyneuropathy; E13.69 Other specified diabetes mellitus with other specified complication; I12.9 Hypertensive chronic kidney disease with stage 1 through stage 4 chronic kidney disease, or unspecified chronic kidney disease; M86.671 Other chronic osteomyelitis, right ankle and foot; N18.9 Chronic kidney disease, unspecified; Z87.891 Personal history of nicotine dependence; Z79.4 Long term (current) use of insulin; Z79.84 Long term (current) use of oral hypoglycemic drugs; Z79.82 Long term (current) use of aspirin
CPT/HCPCS: 11042; 17250; A6197

== ENCOUNTER 2021-09-04 09:40 | Outpatient (CLI) | payer MEDICARE, BC ==
[2021-09-04] MEDS ORDERED: SILVER SULFADIAZINE CREAM 25 GM TUBE ONE (10:55)
== END 2021-09-04 23:59 | disposition home health service (06) ==
LOC: WOU 09:40
PROVIDERS: ATTEND Podiatrist Foot & Ankle Surgery
DX: E11.621 Type 2 diabetes mellitus with foot ulcer (principal); L97.412 Non-pressure chronic ulcer of right heel and midfoot with fat layer exposed; E11.22 Type 2 diabetes mellitus with diabetic chronic kidney disease; E11.69 Type 2 diabetes mellitus with other specified complication; E11.40 Type 2 diabetes mellitus with diabetic neuropathy, unspecified; I12.9 Hypertensive chronic kidney disease with stage 1 through stage 4 chronic kidney disease, or unspecified chronic kidney disease; M86.671 Other chronic osteomyelitis, right ankle and foot; N18.9 Chronic kidney disease, unspecified; B95.61 Methicillin susceptible Staphylococcus aureus infection as the cause of diseases classified elsewhere; Z87.891 Personal history of nicotine dependence; Z79.4 Long term (current) use of insulin; Z79.84 Long term (current) use of oral hypoglycemic drugs; R60.0 Localized edema; Z79.82 Long term (current) use of aspirin; Z91.19 Patient's noncompliance with other medical treatment and regimen
CPT/HCPCS: 11042

== ENCOUNTER 2021-09-06 10:08 | Outpatient (CLI) | payer MEDICARE, BC ==
[2021-09-06 12:07] LABS: BASOPHILS % (AUTO) 0.3 % (0.0-2.0); EOSINOPHILS % (AUTO) 1.2 % (0.0-6.0); HEMATOCRIT 30 % (39-51); HEMOGLOBIN 10.4 g/dL (13.5-17.5); LYMPHOCYTES # (AUTO) 0.8 K/uL (0.8-4.8); LYMPHOCYTES % (AUTO) 11.1 % (20.0-44.0); MEAN CORPUSCULAR HGB CONC 34 g/dl (31.0-36.0); MEAN CORPUSCULAR VOLUME 85 fL (80-96); MONOCYTES # (AUTO) 0.4 K/uL (0.1-1.30); MONOCYTES % (AUTO) 4.9 % (2.0-12.0); NEUTROPHILS % (AUTO) 82.5 % (43.0-81.0); PLATELET COUNT (AUTO) 161 K/uL (150-450); RED BLOOD CELL COUNT(AUTO) 3.58 MIL/uL (4.5-6.0); WHITE BLOOD COUNT (AUTO) 7.3 K/uL (4.3-11.0)
== END 2021-09-06 23:59 | disposition home or self-care (01) ==
LOC: WOU 10:08 → LAB 23:59
PROVIDERS: ATTEND Podiatrist Foot & Ankle Surgery
DX: E11.621 Type 2 diabetes mellitus with foot ulcer (principal)
CPT/HCPCS: 36415; 82040-TC; 85025-TC; 85652-TC

== ENCOUNTER → 2021-09-07 | Outpatient (CLI) | payer MEDICARE, BC ==
[~2021-09-07] MED LIST changes: +SILVER SULFADIAZINE CREAM 25 GM TUBE ONE
== END | disposition home health service (06) ==
LOC: WOU 09:30
PROVIDERS: ATTEND Podiatrist Foot & Ankle Surgery
DX: E11.621 Type 2 diabetes mellitus with foot ulcer (principal); L97.412 Non-pressure chronic ulcer of right heel and midfoot with fat layer exposed; E11.22 Type 2 diabetes mellitus with diabetic chronic kidney disease; E11.69 Type 2 diabetes mellitus with other specified complication; E11.40 Type 2 diabetes mellitus with diabetic neuropathy, unspecified; I12.9 Hypertensive chronic kidney disease with stage 1 through stage 4 chronic kidney disease, or unspecified chronic kidney disease; M86.671 Other chronic osteomyelitis, right ankle and foot; N18.9 Chronic kidney disease, unspecified; Z87.891 Personal history of nicotine dependence; Z79.4 Long term (current) use of insulin; Z79.84 Long term (current) use of oral hypoglycemic drugs; Z89.421 Acquired absence of other right toe(s); R60.0 Localized edema; L84 Corns and callosities; Z79.82 Long term (current) use of aspirin
CPT/HCPCS: 11042

== ENCOUNTER 2021-09-11 09:40 | Outpatient (CLI) | payer MEDICARE, BC ==
[~2021-09-11 09:40] MED LIST changes: -SILVER SULFADIAZINE CREAM 25 GM TUBE ONE
[2021-09-11] MEDS ORDERED: SILVER SULFADIAZINE CREAM 25 GM TUBE ONE (10:11)
== END 2021-09-11 23:59 | disposition home health service (06) ==
LOC: WOU 09:40
PROVIDERS: ATTEND Podiatrist Foot & Ankle Surgery
DX: E11.621 Type 2 diabetes mellitus with foot ulcer (principal); L97.412 Non-pressure chronic ulcer of right heel and midfoot with fat layer exposed; E11.22 Type 2 diabetes mellitus with diabetic chronic kidney disease; E11.69 Type 2 diabetes mellitus with other specified complication; E11.40 Type 2 diabetes mellitus with diabetic neuropathy, unspecified; I12.9 Hypertensive chronic kidney disease with stage 1 through stage 4 chronic kidney disease, or unspecified chronic kidney disease; M86.671 Other chronic osteomyelitis, right ankle and foot; N18.9 Chronic kidney disease, unspecified; Z87.891 Personal history of nicotine dependence; Z79.4 Long term (current) use of insulin; Z79.84 Long term (current) use of oral hypoglycemic drugs; Z89.421 Acquired absence of other right toe(s)
CPT/HCPCS: 11042; A6197

== ENCOUNTER → 2021-09-14 | Outpatient (CLI) | payer MEDICARE, BC | END | disposition home health service (06) | LOC: WOU 09:30 | PROVIDERS: ATTEND Podiatrist Foot & Ankle Surgery | DX: E11.621 Type 2 diabetes mellitus with foot ulcer (principal); L97.412 Non-pressure chronic ulcer of right heel and midfoot with fat layer exposed; E11.22 Type 2 diabetes mellitus with diabetic chronic kidney disease; E11.69 Type 2 diabetes mellitus with other specified complication; E11.42 Type 2 diabetes mellitus with diabetic polyneuropathy; I12.9 Hypertensive chronic kidney disease with stage 1 through stage 4 chronic kidney disease, or unspecified chronic kidney disease; M86.671 Other chronic osteomyelitis, right ankle and foot; N18.9 Chronic kidney disease, unspecified; Z87.891 Personal history of nicotine dependence; Z79.4 Long term (current) use of insulin; Z79.84 Long term (current) use of oral hypoglycemic drugs; Z79.82 Long term (current) use of aspirin; Z89.411 Acquired absence of right great toe | CPT/HCPCS: 11042; A6197 ==

== ENCOUNTER 2021-09-18 09:40 | Outpatient (CLI) | payer MEDICARE, BC ==
[2021-09-18] MEDS ORDERED: SILVER SULFADIAZINE CREAM 25 GM TUBE ONE (10:14)
== END 2021-09-18 23:59 | disposition home health service (06) ==
LOC: WOU 09:40
PROVIDERS: ATTEND Podiatrist Foot & Ankle Surgery
DX: E11.621 Type 2 diabetes mellitus with foot ulcer (principal); L97.412 Non-pressure chronic ulcer of right heel and midfoot with fat layer exposed; E11.22 Type 2 diabetes mellitus with diabetic chronic kidney disease; E11.42 Type 2 diabetes mellitus with diabetic polyneuropathy; E11.69 Type 2 diabetes mellitus with other specified complication; I12.9 Hypertensive chronic kidney disease with stage 1 through stage 4 chronic kidney disease, or unspecified chronic kidney disease; M86.671 Other chronic osteomyelitis, right ankle and foot; N18.9 Chronic kidney disease, unspecified; Z87.891 Personal history of nicotine dependence; Z79.84 Long term (current) use of oral hypoglycemic drugs; Z79.4 Long term (current) use of insulin; Z79.82 Long term (current) use of aspirin
CPT/HCPCS: 11042

== ENCOUNTER 2021-09-21 09:30 | Outpatient (CLI) | payer MEDICARE, BC ==
[2021-09-21] MEDS ORDERED: SILVER SULFADIAZINE CREAM 25 GM TUBE ONE (10:09)
== END 2021-09-21 23:59 | disposition home health service (06) ==
LOC: WOU 09:30
PROVIDERS: ATTEND Podiatrist Foot & Ankle Surgery
DX: E11.621 Type 2 diabetes mellitus with foot ulcer (principal); L97.412 Non-pressure chronic ulcer of right heel and midfoot with fat layer exposed; E11.22 Type 2 diabetes mellitus with diabetic chronic kidney disease; E11.42 Type 2 diabetes mellitus with diabetic polyneuropathy; E11.69 Type 2 diabetes mellitus with other specified complication; I12.9 Hypertensive chronic kidney disease with stage 1 through stage 4 chronic kidney disease, or unspecified chronic kidney disease; M86.671 Other chronic osteomyelitis, right ankle and foot; N18.9 Chronic kidney disease, unspecified; Z87.891 Personal history of nicotine dependence; Z79.4 Long term (current) use of insulin; Z79.84 Long term (current) use of oral hypoglycemic drugs; R60.0 Localized edema
CPT/HCPCS: 11042; A6197

== ENCOUNTER 2021-09-25 09:40 | Outpatient (CLI) | payer MEDICARE, BC ==
[2021-09-25] MEDS ORDERED: SILVER SULFADIAZINE CREAM 25 GM TUBE ONE (10:23)
== END 2021-09-25 23:59 | disposition home health service (06) ==
LOC: WOU 09:40
PROVIDERS: ATTEND Podiatrist Foot & Ankle Surgery
DX: E11.621 Type 2 diabetes mellitus with foot ulcer (principal); L97.412 Non-pressure chronic ulcer of right heel and midfoot with fat layer exposed; E11.22 Type 2 diabetes mellitus with diabetic chronic kidney disease; E11.69 Type 2 diabetes mellitus with other specified complication; E11.42 Type 2 diabetes mellitus with diabetic polyneuropathy; I12.9 Hypertensive chronic kidney disease with stage 1 through stage 4 chronic kidney disease, or unspecified chronic kidney disease; M86.671 Other chronic osteomyelitis, right ankle and foot; N18.9 Chronic kidney disease, unspecified; Z87.891 Personal history of nicotine dependence; Z79.4 Long term (current) use of insulin; Z79.84 Long term (current) use of oral hypoglycemic drugs; Z79.01 Long term (current) use of anticoagulants; R60.0 Localized edema; L84 Corns and callosities
CPT/HCPCS: 11042

== ENCOUNTER 2021-09-28 09:40 | Outpatient (CLI) | payer MEDICARE, BC ==
[2021-09-28] MEDS ORDERED: SILVER NITRATE APPLICATOR 1 EA BOX ONE (11:20)
[2021-09-28] MEDS ORDERED: SILVER SULFADIAZINE CREAM 25 GM TUBE ONE (11:31)
== END 2021-09-28 23:59 | disposition home health service (06) ==
LOC: WOU 09:40
PROVIDERS: ATTEND Podiatrist Foot & Ankle Surgery
DX: E11.621 Type 2 diabetes mellitus with foot ulcer (principal); L97.512 Non-pressure chronic ulcer of other part of right foot with fat layer exposed; E11.22 Type 2 diabetes mellitus with diabetic chronic kidney disease; E11.69 Type 2 diabetes mellitus with other specified complication; E11.42 Type 2 diabetes mellitus with diabetic polyneuropathy; I12.9 Hypertensive chronic kidney disease with stage 1 through stage 4 chronic kidney disease, or unspecified chronic kidney disease; M86.671 Other chronic osteomyelitis, right ankle and foot; N18.9 Chronic kidney disease, unspecified; Z87.891 Personal history of nicotine dependence; Z79.4 Long term (current) use of insulin; Z79.84 Long term (current) use of oral hypoglycemic drugs; R60.0 Localized edema; L84 Corns and callosities; Z91.19 Patient's noncompliance with other medical treatment and regimen; Z89.411 Acquired absence of right great toe; Z89.421 Acquired absence of other right toe(s)
CPT/HCPCS: 11042; A6197

== ENCOUNTER 2021-10-02 09:40 | Outpatient (CLI) | payer MEDICARE, BC ==
[2021-10-02] MEDS ORDERED: SILVER SULFADIAZINE CREAM 25 GM TUBE ONE (10:16)
== END 2021-10-02 23:59 | disposition home health service (06) ==
LOC: WOU 09:40
PROVIDERS: ATTEND Podiatrist Foot & Ankle Surgery
DX: E11.621 Type 2 diabetes mellitus with foot ulcer (principal); L97.413 Non-pressure chronic ulcer of right heel and midfoot with necrosis of muscle; E11.22 Type 2 diabetes mellitus with diabetic chronic kidney disease; I12.9 Hypertensive chronic kidney disease with stage 1 through stage 4 chronic kidney disease, or unspecified chronic kidney disease; N18.9 Chronic kidney disease, unspecified; Z87.891 Personal history of nicotine dependence; Z79.4 Long term (current) use of insulin; Z79.84 Long term (current) use of oral hypoglycemic drugs; Z79.82 Long term (current) use of aspirin; Z91.19 Patient's noncompliance with other medical treatment and regimen
CPT/HCPCS: 11043; A6197

== ENCOUNTER 2021-10-16 09:40 | Outpatient (CLI) | payer MEDICARE, BC ==
[2021-10-16] MEDS ORDERED: SILVER SULFADIAZINE CREAM 25 GM TUBE ONE (10:29)
== END 2021-10-16 23:59 | disposition home health service (06) ==
LOC: WOU 09:40
PROVIDERS: ATTEND Podiatrist Foot & Ankle Surgery
DX: E11.621 Type 2 diabetes mellitus with foot ulcer (principal); L97.513 Non-pressure chronic ulcer of other part of right foot with necrosis of muscle; E11.22 Type 2 diabetes mellitus with diabetic chronic kidney disease; E11.42 Type 2 diabetes mellitus with diabetic polyneuropathy; E11.69 Type 2 diabetes mellitus with other specified complication; I12.9 Hypertensive chronic kidney disease with stage 1 through stage 4 chronic kidney disease, or unspecified chronic kidney disease; M86.671 Other chronic osteomyelitis, right ankle and foot; N18.9 Chronic kidney disease, unspecified; Z87.891 Personal history of nicotine dependence; Z79.4 Long term (current) use of insulin; Z79.84 Long term (current) use of oral hypoglycemic drugs; Z79.82 Long term (current) use of aspirin
CPT/HCPCS: 11043; A6197

== ENCOUNTER 2021-10-19 09:30 | Outpatient (CLI) | payer MEDICARE, BC ==
[~2021-10-19 09:30] MED LIST changes: +SILVER SULFADIAZINE CREAM 25 GM TUBE ONE
[2021-10-19 10:25] LABS: BASOPHILS % (AUTO) 0.3 % (0.0-2.0); EOSINOPHILS % (AUTO) 2.1 % (0.0-6.0); HEMATOCRIT 27 % (39-51); HEMOGLOBIN 9.2 g/dL (13.5-17.5); LYMPHOCYTES # (AUTO) 0.7 K/uL (0.8-4.8); LYMPHOCYTES % (AUTO) 8.8 % (20.0-44.0); MEAN CORPUSCULAR HGB CONC 35 g/dl (31.0-36.0); MEAN CORPUSCULAR VOLUME 85 fL (80-96); MONOCYTES # (AUTO) 0.5 K/uL (0.1-1.30); MONOCYTES % (AUTO) 6.6 % (2.0-12.0); NEUTROPHILS # (AUTO) 6.2 K/uL (1.8-8.9); NEUTROPHILS % (AUTO) 82.2 % (43.0-81.0); PLATELET COUNT (AUTO) 220 K/uL (150-450); RED BLOOD CELL COUNT(AUTO) 3.13 MIL/uL (4.5-6.0); WHITE BLOOD COUNT (AUTO) 7.5 K/uL (4.3-11.0)
[2021-10-19 10:36] LABS: BILIRUBIN,TOTAL 0.4 mg/dL (0.2-1.0); CALCIUM, SERUM 6.7 mg/dL (8.5-10.1); CREATININE 4.7 mg/dL (0.6-1.3); POTASSIUM 4.2 mmol/L (3.5-5.1); TOTAL PROTEIN, SERUM 7.1 g/dL (6.4-8.2)
== END 2021-10-19 23:59 | disposition home health service (06) ==
LOC: WOU 09:30
PROVIDERS: ATTEND Podiatrist Foot & Ankle Surgery
DX: E11.621 Type 2 diabetes mellitus with foot ulcer (principal); L97.513 Non-pressure chronic ulcer of other part of right foot with necrosis of muscle; E11.22 Type 2 diabetes mellitus with diabetic chronic kidney disease; E11.69 Type 2 diabetes mellitus with other specified complication; E11.42 Type 2 diabetes mellitus with diabetic polyneuropathy; I12.9 Hypertensive chronic kidney disease with stage 1 through stage 4 chronic kidney disease, or unspecified chronic kidney disease; M86.671 Other chronic osteomyelitis, right ankle and foot; N18.9 Chronic kidney disease, unspecified; Z87.891 Personal history of nicotine dependence; Z79.4 Long term (current) use of insulin; Z79.84 Long term (current) use of oral hypoglycemic drugs; Z79.82 Long term (current) use of aspirin
CPT/HCPCS: 11043; 36415; 80053; 83036; 85025; 85652; A6197

== ENCOUNTER 2021-10-23 09:40 | Outpatient (CLI) | payer MEDICARE, BC ==
[~2021-10-23 09:40] MED LIST changes: -SILVER SULFADIAZINE CREAM 25 GM TUBE ONE
== END 2021-10-23 23:59 | disposition home health service (06) ==
LOC: WOU 09:40
PROVIDERS: ATTEND Podiatrist Foot & Ankle Surgery
DX: E11.621 Type 2 diabetes mellitus with foot ulcer (principal); L97.516 Non-pressure chronic ulcer of other part of right foot with bone involvement without evidence of necrosis; E11.22 Type 2 diabetes mellitus with diabetic chronic kidney disease; E11.42 Type 2 diabetes mellitus with diabetic polyneuropathy; E11.69 Type 2 diabetes mellitus with other specified complication; I12.9 Hypertensive chronic kidney disease with stage 1 through stage 4 chronic kidney disease, or unspecified chronic kidney disease; M86.671 Other chronic osteomyelitis, right ankle and foot; N18.9 Chronic kidney disease, unspecified; B95.2 Enterococcus as the cause of diseases classified elsewhere; B95.7 Other staphylococcus as the cause of diseases classified elsewhere; Z87.891 Personal history of nicotine dependence; Z79.4 Long term (current) use of insulin; Z79.84 Long term (current) use of oral hypoglycemic drugs; Z79.82 Long term (current) use of aspirin; Z89.411 Acquired absence of right great toe
CPT/HCPCS: 11044; 87070; 87075; 87077; 87186 ×3; A6197

== ENCOUNTER 2021-10-26 09:20 | Outpatient (CLI) | payer MEDICARE, BC ==
[2021-10-26] MEDS ORDERED: SILVER SULFADIAZINE CREAM 25 GM TUBE ONE (10:06)
== END 2021-10-26 23:59 | disposition home health service (06) ==
LOC: WOU 09:20
PROVIDERS: ATTEND Podiatrist Foot & Ankle Surgery
DX: E11.621 Type 2 diabetes mellitus with foot ulcer (principal); L97.516 Non-pressure chronic ulcer of other part of right foot with bone involvement without evidence of necrosis; E11.22 Type 2 diabetes mellitus with diabetic chronic kidney disease; E11.42 Type 2 diabetes mellitus with diabetic polyneuropathy; E11.69 Type 2 diabetes mellitus with other specified complication; I12.9 Hypertensive chronic kidney disease with stage 1 through stage 4 chronic kidney disease, or unspecified chronic kidney disease; M86.671 Other chronic osteomyelitis, right ankle and foot; N18.9 Chronic kidney disease, unspecified; Z87.891 Personal history of nicotine dependence; Z79.4 Long term (current) use of insulin; Z79.84 Long term (current) use of oral hypoglycemic drugs; Z79.01 Long term (current) use of anticoagulants; Z91.19 Patient's noncompliance with other medical treatment and regimen; L84 Corns and callosities; Z89.421 Acquired absence of other right toe(s)
CPT/HCPCS: 11043; A6197

== ENCOUNTER 2021-10-30 09:45 | Outpatient (CLI) | payer MEDICARE, BC ==
[2021-10-30] MEDS ORDERED: GENTAMICIN 0.1% CREAM 15 GM TUBE ONE (10:21)
[2021-10-30] MEDS ORDERED: SILVER SULFADIAZINE CREAM 25 GM TUBE ONE (10:22)
== END 2021-10-30 23:59 | disposition home health service (06) ==
LOC: WOU 09:45
PROVIDERS: ATTEND Podiatrist Foot & Ankle Surgery
DX: E11.621 Type 2 diabetes mellitus with foot ulcer (principal); L97.516 Non-pressure chronic ulcer of other part of right foot with bone involvement without evidence of necrosis; E11.22 Type 2 diabetes mellitus with diabetic chronic kidney disease; E11.69 Type 2 diabetes mellitus with other specified complication; E11.42 Type 2 diabetes mellitus with diabetic polyneuropathy; I12.9 Hypertensive chronic kidney disease with stage 1 through stage 4 chronic kidney disease, or unspecified chronic kidney disease; M86.671 Other chronic osteomyelitis, right ankle and foot; N18.9 Chronic kidney disease, unspecified; Z87.891 Personal history of nicotine dependence; Z79.4 Long term (current) use of insulin; Z79.84 Long term (current) use of oral hypoglycemic drugs; Z79.82 Long term (current) use of aspirin
CPT/HCPCS: 11043; A6197

== ENCOUNTER 2021-11-02 10:00 | Outpatient (CLI) | payer MEDICARE, BC ==
[2021-11-02] MEDS ORDERED: SILVER SULFADIAZINE CREAM 25 GM TUBE ONE (10:55)
[2021-11-02] MEDS ORDERED: GENTAMICIN 0.1% CREAM 15 GM TUBE ONE (10:55)
== END 2021-11-02 23:59 | disposition home health service (06) ==
LOC: WOU 10:00
PROVIDERS: ATTEND Podiatrist Foot & Ankle Surgery
DX: E11.621 Type 2 diabetes mellitus with foot ulcer (principal); L97.516 Non-pressure chronic ulcer of other part of right foot with bone involvement without evidence of necrosis; E11.42 Type 2 diabetes mellitus with diabetic polyneuropathy; E11.69 Type 2 diabetes mellitus with other specified complication; E11.22 Type 2 diabetes mellitus with diabetic chronic kidney disease; I12.9 Hypertensive chronic kidney disease with stage 1 through stage 4 chronic kidney disease, or unspecified chronic kidney disease; N18.9 Chronic kidney disease, unspecified; M86.671 Other chronic osteomyelitis, right ankle and foot; Z87.891 Personal history of nicotine dependence; Z79.4 Long term (current) use of insulin; L84 Corns and callosities; R60.1 Generalized edema; Z89.421 Acquired absence of other right toe(s)
CPT/HCPCS: 11043

== ENCOUNTER 2021-11-06 09:30 | Outpatient (CLI) | payer MEDICARE, BC ==
[2021-11-06] MEDS ORDERED: SILVER SULFADIAZINE CREAM 25 GM TUBE ONE (10:08)
== END 2021-11-06 23:59 | disposition home health service (06) ==
LOC: WOU 09:30
PROVIDERS: ATTEND Podiatrist Foot & Ankle Surgery
DX: E11.621 Type 2 diabetes mellitus with foot ulcer (principal); L97.516 Non-pressure chronic ulcer of other part of right foot with bone involvement without evidence of necrosis; E11.22 Type 2 diabetes mellitus with diabetic chronic kidney disease; E11.42 Type 2 diabetes mellitus with diabetic polyneuropathy; E11.69 Type 2 diabetes mellitus with other specified complication; I12.9 Hypertensive chronic kidney disease with stage 1 through stage 4 chronic kidney disease, or unspecified chronic kidney disease; M86.671 Other chronic osteomyelitis, right ankle and foot; N18.9 Chronic kidney disease, unspecified; Z87.891 Personal history of nicotine dependence; Z79.4 Long term (current) use of insulin; Z79.84 Long term (current) use of oral hypoglycemic drugs; Z79.82 Long term (current) use of aspirin
CPT/HCPCS: 11043; 87070; 87075; 87077; 87186; A6197

== ENCOUNTER 2021-11-09 09:30 | Outpatient (CLI) | payer MEDICARE, BC | END 2021-11-09 23:59 | disposition home health service (06) | LOC: WOU 09:30 | PROVIDERS: ATTEND Podiatrist Foot & Ankle Surgery | DX: E11.621 Type 2 diabetes mellitus with foot ulcer (principal); L97.516 Non-pressure chronic ulcer of other part of right foot with bone involvement without evidence of necrosis; E11.22 Type 2 diabetes mellitus with diabetic chronic kidney disease; E11.69 Type 2 diabetes mellitus with other specified complication; E11.42 Type 2 diabetes mellitus with diabetic polyneuropathy; I12.9 Hypertensive chronic kidney disease with stage 1 through stage 4 chronic kidney disease, or unspecified chronic kidney disease; M86.671 Other chronic osteomyelitis, right ankle and foot; N18.9 Chronic kidney disease, unspecified; Z87.891 Personal history of nicotine dependence; Z79.4 Long term (current) use of insulin; Z79.84 Long term (current) use of oral hypoglycemic drugs; R60.0 Localized edema; Z91.19 Patient's noncompliance with other medical treatment and regimen; Z79.899 Other long term (current) drug therapy | CPT/HCPCS: 11043 ==

== ENCOUNTER 2021-11-13 09:30 | Outpatient (CLI) | payer MEDICARE, BC ==
[2021-11-13] MEDS ORDERED: SILVER SULFADIAZINE CREAM 25 GM TUBE ONE (10:08)
[2021-11-13] MEDS ORDERED: GENTAMICIN 0.1% CREAM 15 GM TUBE ONE (10:09)
== END 2021-11-13 23:59 | disposition home health service (06) ==
LOC: WOU 09:30
PROVIDERS: ATTEND Podiatrist Foot & Ankle Surgery
DX: E11.621 Type 2 diabetes mellitus with foot ulcer (principal); L97.513 Non-pressure chronic ulcer of other part of right foot with necrosis of muscle; E11.22 Type 2 diabetes mellitus with diabetic chronic kidney disease; E11.42 Type 2 diabetes mellitus with diabetic polyneuropathy; E11.69 Type 2 diabetes mellitus with other specified complication; I12.9 Hypertensive chronic kidney disease with stage 1 through stage 4 chronic kidney disease, or unspecified chronic kidney disease; M86.671 Other chronic osteomyelitis, right ankle and foot; N18.9 Chronic kidney disease, unspecified; Z87.891 Personal history of nicotine dependence; Z79.4 Long term (current) use of insulin; Z79.84 Long term (current) use of oral hypoglycemic drugs; L84 Corns and callosities; R60.0 Localized edema; Z91.19 Patient's noncompliance with other medical treatment and regimen
CPT/HCPCS: 11043; A6197; A6407

== ENCOUNTER 2021-11-16 09:15 | Outpatient (CLI) | payer MEDICARE, BC ==
[2021-11-16] MEDS ORDERED: SILVER SULFADIAZINE CREAM 25 GM TUBE ONE (10:15)
[2021-11-16] MEDS ORDERED: GENTAMICIN 0.1% CREAM 15 GM TUBE ONE (10:16)
== END 2021-11-16 23:59 | disposition home health service (06) ==
LOC: WOU 09:15
PROVIDERS: ATTEND Podiatrist Foot & Ankle Surgery
DX: E11.621 Type 2 diabetes mellitus with foot ulcer (principal); L97.513 Non-pressure chronic ulcer of other part of right foot with necrosis of muscle; E11.22 Type 2 diabetes mellitus with diabetic chronic kidney disease; E11.42 Type 2 diabetes mellitus with diabetic polyneuropathy; E11.69 Type 2 diabetes mellitus with other specified complication; I12.9 Hypertensive chronic kidney disease with stage 1 through stage 4 chronic kidney disease, or unspecified chronic kidney disease; M86.671 Other chronic osteomyelitis, right ankle and foot; N18.9 Chronic kidney disease, unspecified; Z87.891 Personal history of nicotine dependence; Z79.4 Long term (current) use of insulin; Z79.84 Long term (current) use of oral hypoglycemic drugs; L84 Corns and callosities; R60.0 Localized edema
CPT/HCPCS: 11043; A6197; A6407

== ENCOUNTER 2021-11-20 09:30 | Outpatient (CLI) | payer MEDICARE, BC ==
[2021-11-20] MEDS ORDERED: SILVER SULFADIAZINE CREAM 25 GM TUBE ONE (10:37)
[2021-11-20] MEDS ORDERED: GENTAMICIN 0.1% CREAM 15 GM TUBE ONE (10:38)
[2021-11-20 10:44] LABS: BASOPHILS % (AUTO) 0.3 % (0.0-2.0); EOSINOPHILS % (AUTO) 1.6 % (0.0-6.0); HEMATOCRIT 26 % (39-51); HEMOGLOBIN 9.2 g/dL (13.5-17.5); LYMPHOCYTES # (AUTO) 0.8 K/uL (0.8-4.8); LYMPHOCYTES % (AUTO) 11.1 % (20.0-44.0); MEAN CORPUSCULAR HGB CONC 35 g/dl (31.0-36.0); MEAN CORPUSCULAR VOLUME 83 fL (80-96); MONOCYTES # (AUTO) 0.4 K/uL (0.1-1.30); MONOCYTES % (AUTO) 5.1 % (2.0-12.0); NEUTROPHILS % (AUTO) 81.9 % (43.0-81.0); PLATELET COUNT (AUTO) 179 K/uL (150-450); RED BLOOD CELL COUNT(AUTO) 3.16 MIL/uL (4.5-6.0); WHITE BLOOD COUNT (AUTO) 7.3 K/uL (4.3-11.0)
[2021-11-20 11:20] LABS: CALCIUM, SERUM 7.7 mg/dL (8.5-10.1); CREATININE 4.5 mg/dL (0.6-1.3); POTASSIUM 4.2 mmol/L (3.5-5.1)
[2021-11-20 14:52] LABS: C-REACTIVE PROTEIN 0.9 mg/dL (0.0-0.9)
== END 2021-11-20 23:59 | disposition home health service (06) ==
LOC: WOU 09:30
PROVIDERS: ATTEND Podiatrist Foot & Ankle Surgery
DX: E11.621 Type 2 diabetes mellitus with foot ulcer (principal); L97.513 Non-pressure chronic ulcer of other part of right foot with necrosis of muscle; E11.65 Type 2 diabetes mellitus with hyperglycemia; E11.22 Type 2 diabetes mellitus with diabetic chronic kidney disease; E11.42 Type 2 diabetes mellitus with diabetic polyneuropathy; E11.69 Type 2 diabetes mellitus with other specified complication; I12.9 Hypertensive chronic kidney disease with stage 1 through stage 4 chronic kidney disease, or unspecified chronic kidney disease; M86.671 Other chronic osteomyelitis, right ankle and foot; N18.9 Chronic kidney disease, unspecified; Z87.891 Personal history of nicotine dependence; Z79.4 Long term (current) use of insulin; Z79.84 Long term (current) use of oral hypoglycemic drugs; Z91.19 Patient's noncompliance with other medical treatment and regimen; R60.0 Localized edema; Z89.421 Acquired absence of other right toe(s)
CPT/HCPCS: 11043; 36415; 80048; 82040; 83036; 84145; 85025; 85652; 86140; A6197

== ENCOUNTER → 2021-11-23 | Outpatient (CLI) | payer MEDICARE, BC ==
[~2021-11-23] MED LIST changes: +GENTAMICIN 0.1% CREAM 15 GM TUBE ONE; +SILVER SULFADIAZINE CREAM 25 GM TUBE ONE
== END | disposition home health service (06) ==
LOC: WOU 09:15
PROVIDERS: ATTEND Podiatrist Foot & Ankle Surgery
DX: E11.621 Type 2 diabetes mellitus with foot ulcer (principal); L97.513 Non-pressure chronic ulcer of other part of right foot with necrosis of muscle; E11.22 Type 2 diabetes mellitus with diabetic chronic kidney disease; E11.69 Type 2 diabetes mellitus with other specified complication; E11.42 Type 2 diabetes mellitus with diabetic polyneuropathy; N18.9 Chronic kidney disease, unspecified; M86.671 Other chronic osteomyelitis, right ankle and foot; Z79.4 Long term (current) use of insulin; Z79.84 Long term (current) use of oral hypoglycemic drugs; Z79.82 Long term (current) use of aspirin; R60.0 Localized edema; L84 Corns and callosities; Z89.421 Acquired absence of other right toe(s); Z91.19 Patient's noncompliance with other medical treatment and regimen
CPT/HCPCS: 11043; A6197; A6407

== ENCOUNTER 2021-11-27 09:00 | Outpatient (CLI) | payer MEDICARE, BC ==
[~2021-11-27 09:00] MED LIST changes: -GENTAMICIN 0.1% CREAM 15 GM TUBE ONE; -SILVER SULFADIAZINE CREAM 25 GM TUBE ONE
[2021-11-27] MEDS ORDERED: SILVER SULFADIAZINE CREAM 25 GM TUBE ONE (11:22)
[2021-11-27] MEDS ORDERED: GENTAMICIN 0.1% CREAM 15 GM TUBE ONE (11:22)
== END 2021-11-27 23:59 | disposition home health service (06) ==
LOC: WOU 09:00
PROVIDERS: ATTEND Podiatrist Foot & Ankle Surgery
DX: E11.621 Type 2 diabetes mellitus with foot ulcer (principal); L97.513 Non-pressure chronic ulcer of other part of right foot with necrosis of muscle; E11.22 Type 2 diabetes mellitus with diabetic chronic kidney disease; E11.42 Type 2 diabetes mellitus with diabetic polyneuropathy; E11.69 Type 2 diabetes mellitus with other specified complication; I12.9 Hypertensive chronic kidney disease with stage 1 through stage 4 chronic kidney disease, or unspecified chronic kidney disease; M86.671 Other chronic osteomyelitis, right ankle and foot; N18.9 Chronic kidney disease, unspecified; Z87.891 Personal history of nicotine dependence; Z79.4 Long term (current) use of insulin; L84 Corns and callosities
CPT/HCPCS: 11043; A6197

== ENCOUNTER 2021-11-27 09:12 | Outpatient (CLI) | payer MEDICARE, BC | END 2021-11-27 23:59 | disposition home or self-care (01) | LOC: MSC 09:12 | PROVIDERS: ATTEND Internal Medicine | DX: E11.22 Type 2 diabetes mellitus with diabetic chronic kidney disease (principal); I12.9 Hypertensive chronic kidney disease with stage 1 through stage 4 chronic kidney disease, or unspecified chronic kidney disease; N18.4 Chronic kidney disease, stage 4 (severe); Z79.4 Long term (current) use of insulin; D64.9 Anemia, unspecified; G47.30 Sleep apnea, unspecified; N25.81 Secondary hyperparathyroidism of renal origin; E11.621 Type 2 diabetes mellitus with foot ulcer; L97.509 Non-pressure chronic ulcer of other part of unspecified foot with unspecified severity; R35.1 Nocturia; Z79.899 Other long term (current) drug therapy ==

== ENCOUNTER 2021-11-30 09:20 | Outpatient (CLI) | payer MEDICARE, BC ==
[2021-11-30] MEDS ORDERED: SILVER NITRATE APPLICATOR 1 EA BOX ONE (10:02)
[2021-11-30] MEDS ORDERED: SILVER SULFADIAZINE CREAM 25 GM TUBE ONE (10:13)
== END 2021-11-30 23:59 | disposition home health service (06) ==
LOC: WOU 09:20
PROVIDERS: ATTEND Podiatrist Foot & Ankle Surgery
DX: E11.621 Type 2 diabetes mellitus with foot ulcer (principal); L97.413 Non-pressure chronic ulcer of right heel and midfoot with necrosis of muscle; L97.512 Non-pressure chronic ulcer of other part of right foot with fat layer exposed; M79.81 Nontraumatic hematoma of soft tissue; E11.22 Type 2 diabetes mellitus with diabetic chronic kidney disease; E11.69 Type 2 diabetes mellitus with other specified complication; E11.42 Type 2 diabetes mellitus with diabetic polyneuropathy; I12.9 Hypertensive chronic kidney disease with stage 1 through stage 4 chronic kidney disease, or unspecified chronic kidney disease; M86.671 Other chronic osteomyelitis, right ankle and foot; N18.9 Chronic kidney disease, unspecified; Z87.891 Personal history of nicotine dependence; Z79.4 Long term (current) use of insulin; Z79.84 Long term (current) use of oral hypoglycemic drugs; Z91.19 Patient's noncompliance with other medical treatment and regimen; Z79.82 Long term (current) use of aspirin
CPT/HCPCS: 10140; 11043; 87070; 87075; 87077; 87186; A6407

== ENCOUNTER 2021-12-03 11:53 | Outpatient (CLI) | payer MEDICARE, BC | END 2021-12-03 23:59 | disposition home or self-care (01) | LOC: MRI 11:53 | PROVIDERS: ATTEND Podiatrist Foot & Ankle Surgery | DX: M86.8X7 Other osteomyelitis, ankle and foot (principal); M24.674 Ankylosis, right foot | CPT/HCPCS: 73718-TC ==

== ENCOUNTER 2021-12-04 09:30 | Outpatient (CLI) | payer MEDICARE, BC ==
[2021-12-04] MEDS ORDERED: GENTAMICIN 0.1% CREAM 15 GM TUBE ONE (10:44)
[2021-12-04] MEDS ORDERED: SILVER SULFADIAZINE CREAM 25 GM TUBE ONE (10:45)
== END 2021-12-04 23:59 | disposition home health service (06) ==
LOC: WOU 09:30
PROVIDERS: ATTEND Podiatrist Foot & Ankle Surgery
DX: E11.621 Type 2 diabetes mellitus with foot ulcer (principal); L97.512 Non-pressure chronic ulcer of other part of right foot with fat layer exposed; L97.513 Non-pressure chronic ulcer of other part of right foot with necrosis of muscle; E11.22 Type 2 diabetes mellitus with diabetic chronic kidney disease; E11.69 Type 2 diabetes mellitus with other specified complication; E11.42 Type 2 diabetes mellitus with diabetic polyneuropathy; I12.9 Hypertensive chronic kidney disease with stage 1 through stage 4 chronic kidney disease, or unspecified chronic kidney disease; M86.671 Other chronic osteomyelitis, right ankle and foot; N18.9 Chronic kidney disease, unspecified; Z87.891 Personal history of nicotine dependence; Z79.4 Long term (current) use of insulin; Z79.84 Long term (current) use of oral hypoglycemic drugs; Z89.411 Acquired absence of right great toe; Z89.421 Acquired absence of other right toe(s); L84 Corns and callosities; Z91.19 Patient's noncompliance with other medical treatment and regimen
CPT/HCPCS: 11042; 11043; A6197; A6407

== ENCOUNTER 2021-12-05 09:45 | Outpatient (CLI) | payer MEDICARE, BC | END 2021-12-05 23:59 | disposition home health service (06) | LOC: WOU 09:45 | PROVIDERS: ATTEND Specialist | DX: E11.621 Type 2 diabetes mellitus with foot ulcer (principal); L97.513 Non-pressure chronic ulcer of other part of right foot with necrosis of muscle; L97.512 Non-pressure chronic ulcer of other part of right foot with fat layer exposed; E11.22 Type 2 diabetes mellitus with diabetic chronic kidney disease; E11.69 Type 2 diabetes mellitus with other specified complication; E11.42 Type 2 diabetes mellitus with diabetic polyneuropathy; I12.9 Hypertensive chronic kidney disease with stage 1 through stage 4 chronic kidney disease, or unspecified chronic kidney disease; M86.671 Other chronic osteomyelitis, right ankle and foot; N18.9 Chronic kidney disease, unspecified; Z87.891 Personal history of nicotine dependence; Z79.4 Long term (current) use of insulin; Z79.84 Long term (current) use of oral hypoglycemic drugs; L84 Corns and callosities; R60.1 Generalized edema; Z89.421 Acquired absence of other right toe(s) | CPT/HCPCS: G0463 ==

== ENCOUNTER 2021-12-06 08:48 | Outpatient (CLI) | payer MEDICARE, BC | END 2021-12-06 23:59 | disposition home or self-care (01) | LOC: RAD 08:48 | PROVIDERS: ATTEND Podiatrist Foot & Ankle Surgery | DX: R91.8 Other nonspecific abnormal finding of lung field (principal); I70.0 Atherosclerosis of aorta; M47.819 Spondylosis without myelopathy or radiculopathy, site unspecified | CPT/HCPCS: 71046 ==

== ENCOUNTER → 2021-12-07 | Outpatient (CLI) | payer MEDICARE, BC ==
[~2021-12-07] MED LIST changes: +ASPI-1420 PO; +GENTAMICIN 0.1% CREAM 15 GM TUBE ONE; +INSU100I4 SQ; +LORA-259 PO; +SILVER SULFADIAZINE CREAM 25 GM TUBE ONE
== END | disposition home health service (06) ==
LOC: WOU 11:00
PROVIDERS: ATTEND Podiatrist Foot & Ankle Surgery
DX: E11.621 Type 2 diabetes mellitus with foot ulcer (principal); L97.512 Non-pressure chronic ulcer of other part of right foot with fat layer exposed; L97.513 Non-pressure chronic ulcer of other part of right foot with necrosis of muscle; E11.42 Type 2 diabetes mellitus with diabetic polyneuropathy; E11.22 Type 2 diabetes mellitus with diabetic chronic kidney disease; E11.69 Type 2 diabetes mellitus with other specified complication; I12.9 Hypertensive chronic kidney disease with stage 1 through stage 4 chronic kidney disease, or unspecified chronic kidney disease; M86.671 Other chronic osteomyelitis, right ankle and foot; N18.9 Chronic kidney disease, unspecified; B95.8 Unspecified staphylococcus as the cause of diseases classified elsewhere; Z87.891 Personal history of nicotine dependence; Z79.4 Long term (current) use of insulin; Z79.84 Long term (current) use of oral hypoglycemic drugs; R60.0 Localized edema; L84 Corns and callosities; Z89.421 Acquired absence of other right toe(s); Z91.19 Patient's noncompliance with other medical treatment and regimen
CPT/HCPCS: 11043; A6197

== ENCOUNTER → 2021-12-11 | Outpatient (CLI) | payer MEDICARE, BC ==
[~2021-12-11] MED LIST changes: -GENTAMICIN 0.1% CREAM 15 GM TUBE ONE; -SILVER SULFADIAZINE CREAM 25 GM TUBE ONE
== END | disposition home health service (06) ==
LOC: WOU 11:00
PROVIDERS: ATTEND Podiatrist Foot & Ankle Surgery
DX: E11.621 Type 2 diabetes mellitus with foot ulcer (principal); L97.513 Non-pressure chronic ulcer of other part of right foot with necrosis of muscle; E11.22 Type 2 diabetes mellitus with diabetic chronic kidney disease; E11.42 Type 2 diabetes mellitus with diabetic polyneuropathy; E11.69 Type 2 diabetes mellitus with other specified complication; I12.9 Hypertensive chronic kidney disease with stage 1 through stage 4 chronic kidney disease, or unspecified chronic kidney disease; M86.671 Other chronic osteomyelitis, right ankle and foot; N18.9 Chronic kidney disease, unspecified; Z87.891 Personal history of nicotine dependence; Z79.899 Other long term (current) drug therapy; Z79.4 Long term (current) use of insulin; Z79.84 Long term (current) use of oral hypoglycemic drugs; R60.0 Localized edema; L84 Corns and callosities; Z91.19 Patient's noncompliance with other medical treatment and regimen
CPT/HCPCS: 11043; 11046; A6197

== ENCOUNTER 2021-12-12 11:15 | Outpatient (CLI) | payer MEDICARE, BC ==
[~2021-12-12 11:15] MED LIST changes: -ASPI-1420 PO; -INSU100I4 SQ; -LORA-259 PO
== END 2021-12-12 23:59 | disposition home or self-care (01) ==
LOC: WOU 11:15
PROVIDERS: ATTEND Registered Nurse
DX: E11.69 Type 2 diabetes mellitus with other specified complication (principal); M86.60 Other chronic osteomyelitis, unspecified site; E11.621 Type 2 diabetes mellitus with foot ulcer; E11.22 Type 2 diabetes mellitus with diabetic chronic kidney disease; L97.509 Non-pressure chronic ulcer of other part of unspecified foot with unspecified severity; I12.9 Hypertensive chronic kidney disease with stage 1 through stage 4 chronic kidney disease, or unspecified chronic kidney disease; N18.9 Chronic kidney disease, unspecified; Z79.4 Long term (current) use of insulin; Z79.84 Long term (current) use of oral hypoglycemic drugs; I25.10 Atherosclerotic heart disease of native coronary artery without angina pectoris; E78.5 Hyperlipidemia, unspecified; G89.29 Other chronic pain; M54.50 Low back pain, unspecified; Z89.429 Acquired absence of other toe(s), unspecified side; E66.9 Obesity, unspecified; Z79.82 Long term (current) use of aspirin
CPT/HCPCS: G0463

== ENCOUNTER 2021-12-14 11:04 | Outpatient (CLI) | payer MEDICARE, BC ==
[2021-12-14] MEDS ORDERED: GENTAMICIN 0.1% CREAM 15 GM TUBE ONE (11:35)
== END 2021-12-14 23:59 | disposition home health service (06) ==
LOC: WOU 11:04
PROVIDERS: ATTEND Podiatrist Foot & Ankle Surgery
DX: E11.621 Type 2 diabetes mellitus with foot ulcer (principal); L97.513 Non-pressure chronic ulcer of other part of right foot with necrosis of muscle; E11.22 Type 2 diabetes mellitus with diabetic chronic kidney disease; E11.69 Type 2 diabetes mellitus with other specified complication; E11.42 Type 2 diabetes mellitus with diabetic polyneuropathy; I12.9 Hypertensive chronic kidney disease with stage 1 through stage 4 chronic kidney disease, or unspecified chronic kidney disease; M86.671 Other chronic osteomyelitis, right ankle and foot; N18.9 Chronic kidney disease, unspecified; Z87.891 Personal history of nicotine dependence; Z79.4 Long term (current) use of insulin; Z79.84 Long term (current) use of oral hypoglycemic drugs; R60.0 Localized edema; L84 Corns and callosities; R60.1 Generalized edema; Z91.19 Patient's noncompliance with other medical treatment and regimen
CPT/HCPCS: 11043; A6197; A6407

== ENCOUNTER 2021-12-15 17:35 | Inpatient (IN) | payer MEDICARE, BC ==
[~2021-12-15] VITALS: Ht 188 cm; Wt 120.2 kg
--- NOTE | 2021-12-15 18:15 | NUR ---
SENT BY DR ENGLISH FOR RIGHT FOOT PAIN 12/07 X1 DAY, SUDDEN ONSET, GREW STEADILY UNTIL RADIATED ABOVE KNEE. PT IS BREATHING EVEN AND UNLABORED ON RA. PT IS A&OX4.
--- NOTE | 2021-12-15 18:28 | NUR ---
MOVE SHEET SUBMITTED.
[2021-12-15 18:54] LABS: CALCIUM, SERUM 7.1 mg/dL (8.5-10.1); POTASSIUM 4.5 mmol/L (3.5-5.1)
[2021-12-15] MEDS ORDERED: HYDROCODONE/APAP 5/325MG TABLET PO PRN (19:00)
[2021-12-15] MEDS ORDERED: MORPHINE SULFATE INJ 2 MG/ML DISP.SYRIN IV PRN (19:00)
[2021-12-15] MEDS ORDERED: ONDANSETRON HCL/PF 4 MG/2 ML VIAL IVP PRN (19:00)
[2021-12-15] MEDS ORDERED: DEXTROSE 50%-WATER 50 ML DISP.SYRIN IV PRN (19:00)
[2021-12-15] MEDS ORDERED: ACETAMINOPHEN 325 MG TABLET PO PRN (19:00)
[2021-12-15] MEDS ORDERED: TEMAZEPAM 15 MG CAPSULE PO PRN (19:00)
[2021-12-15] MEDS ORDERED: MAGNESIUM HYDROXIDE 30 ML UDC PO PRN (19:00)
[2021-12-15] MEDS ORDERED: MAG HYDROX/AL HYDROX/SIMETH 30 ML UDC PO PRN (19:00)
[2021-12-15] MEDS ORDERED: Z GUARD REMEDY 4 OZ OINT TP PRN (19:00)
--- NOTE | 2021-12-15 19:15 | NUR ---
PATIENT IS AA0X4. WITH IV CANNULA G20 ON RIGHT AC. PATIENT IS AWARE THAT WE ARE WAITING FOR ROOM.
[2021-12-15 19:24] LABS: BASOPHILS % (AUTO) 0.1 % (0.0-2.0); EOSINOPHILS % (AUTO) 0.7 % (0.0-6.0); HEMATOCRIT 28 % (39-51); HEMOGLOBIN 9.4 g/dL (13.5-17.5); LYMPHOCYTES # (AUTO) 0.5 K/uL (0.8-4.8); LYMPHOCYTES % (AUTO) 4.9 % (20.0-44.0); MEAN CORPUSCULAR HGB CONC 34 g/dl (31.0-36.0); MEAN CORPUSCULAR VOLUME 84 fL (80-96); MONOCYTES # (AUTO) 0.7 K/uL (0.1-1.30); NEUTROPHILS # (AUTO) 8.7 K/uL (1.8-8.9); NEUTROPHILS % (AUTO) 87.3 % (43.0-81.0); PLATELET COUNT (AUTO) 174 K/uL (150-450); RED BLOOD CELL COUNT(AUTO) 3.31 MIL/uL (4.5-6.0)
--- NOTE | 2021-12-15 21:08 | NUR ---
REPORT GIVEN TO MARYANN VENTURA.
--- NOTE | 2021-12-15 21:10 | NUR ---
PUSHED PATIENT TO [facility].
[2021-12-15 21:30] VITALS: BP 170/74
--- NOTE | 2021-12-15 22:30 | NUR ---
WILDLIFE TECHNICIAN NOTES: RECEIVED PATIENT FROM ER VIA [facility] ON STABLE CONDITION, NO COMPLAIN OF PAIN AND DISCOMFORT AT THIS TIME PLACED IN BED COMFORTABLY, ORIENTED TO PLACE, SKIN ASSESSMENT DONE NO SKIN ISSUES NOTED EXCEPT FOR RIGHT FOOT WITH BANDAGE, PATIENT REFUSED TO REMOVED DRESSING AND TO BE TOUCH EXPLAIN FOR DOCUMENTATION INSTEAD SHOWING THE PICTURE FROM THE CELLPHONE AND STILL PATIENT KEPT ON REFUSING, INVENTORY DONE LISTED AND DOCUMENTED, V/S ARE WNL ARE RECHECK BP AT 2300 PATIENT BP IS WNL PLACED BED IN LOW POSITION CALL LIGHTS WITHIN REACH, ALL NEEDS ATTENDED WILL CONTINUE TO MONITOR.
[2021-12-15] MEDS: INSULIN REGULAR, HUMAN 100 UNIT/ML 3 ML VIAL SQ PRN (22:31)
[2021-12-15] MEDS: BLOOD SUGAR DIAGNOSTIC 1 EACH STRIP IN SCH (22:34)
--- NOTE | 2021-12-15 22:35 | NUR ---
RN NOTES: BS-191 -3 UNITS REG INSULIN GIVEN PER SLIDING SCALE
[2021-12-15 23:00] VITALS: BP 121/53
--- NOTE | 2021-12-16 06:06 | NUR ---
RN CLOSING NOTES: PATIENT WAS PLACED IN BED COMFORTABLY, BED IN LOW POSITION CALL LIGHTS WITHIN REACH, NO COMPLAIN OF PAIN AND DISCOMFORT AT THIS TIME , PATIENT IS A/OX4 ABLE TO MAKE NEEDS KNOWN, ON ROOM AIR SATURATING WELL, PATIENT KEPT CLEAN AND DRY ALL NEEDS MET ENDORSE TO INCOMING SHIFT.
[2021-12-16] MEDS: INSULIN REGULAR, HUMAN 100 UNIT/ML 3 ML VIAL SQ PRN ×4 (06:27→21:55)
[2021-12-16 06:39] LABS: BASOPHILS % (AUTO) 0.2 % (0.0-2.0); HEMATOCRIT 24 % (39-51); HEMOGLOBIN 8.5 g/dL (13.5-17.5); LYMPHOCYTES # (AUTO) 0.6 K/uL (0.8-4.8); LYMPHOCYTES % (AUTO) 8.9 % (20.0-44.0); MEAN CORPUSCULAR HGB CONC 35 g/dl (31.0-36.0); MEAN CORPUSCULAR VOLUME 83 fL (80-96); MONOCYTES # (AUTO) 0.6 K/uL (0.1-1.30); MONOCYTES % (AUTO) 9.3 % (2.0-12.0); NEUTROPHILS # (AUTO) 5.3 K/uL (1.8-8.9); NEUTROPHILS % (AUTO) 80.6 % (43.0-81.0); PLATELET COUNT (AUTO) 143 K/uL (150-450); RED BLOOD CELL COUNT(AUTO) 2.94 MIL/uL (4.5-6.0); WHITE BLOOD COUNT (AUTO) 6.6 K/uL (4.3-11.0)
--- NOTE | 2021-12-16 07:00 | NUR ---
MS RN OPENING NOTES PATIENT LAYING IN BED, A/O X 4, ABLE TO MAKE NEEDS KNOWN. TOLERATING WELL ON ROOM AIR WITH NO S/S RESPIRATORY DISTRESS. NO COMPLAINTS OF PAIN OR DISCOMFORT AT THIS TIME. RFA # 22 G SL CLEAN, INTACT, AND FLUSHING WELL. PATIENT STILL REFUSING TO ALLOW INSPECTION OF HIS FOOT THIS MORNING. SAFETY MEASURES IN PLACE: BED IN LOWEST LOCKED POSITION, SIDE RAILS UP X 2, CALL LIGHT WITHIN REACH. WILL CONTINUE TO MONITOR.
[2021-12-16 07:36] LABS: CALCIUM, SERUM 7.2 mg/dL (8.5-10.1); CREATININE 4.9 mg/dL (0.6-1.3); MAGNESIUM 1.6 mg/dL (1.8-2.4); POTASSIUM 4.1 mmol/L (3.5-5.1)
[2021-12-16] MEDS: BLOOD SUGAR DIAGNOSTIC 1 EACH STRIP IN SCH ×4 (07:49→21:47)
[2021-12-16] MEDS: PANTOPRAZOLE 40 MG TABLET.DR PO SCH (08:12)
[2021-12-16 08:41] VITALS: BP 159/63
[2021-12-16] MEDS ORDERED: INSU100I4 SQ (08:56)
[2021-12-16] MEDS ORDERED: LORA-259 PO (08:56)
[2021-12-16] MEDS ORDERED: ASPI-1420 PO (08:56)
[2021-12-16] MEDS ORDERED: HOME MED MISCELLANEOUS XX SCH (10:00)
[2021-12-16] MEDS ORDERED: LORAZEPAM 1 MG TABLET PO PRN (10:00)
[2021-12-16] MEDS ORDERED: HYDROCODONE/APAP 5/325MG TABLET PO PRN (10:00)
[2021-12-16] MEDS ORDERED: CLONIDINE HCL 0.1 MG TABLET PO PRN (10:30)
[2021-12-16] MEDS: DAPTOMYCIN IV SCH (11:16)
[2021-12-16] MEDS: NS 0.9% IV SCH (11:16)
[2021-12-16] MEDS ORDERED: Magnesium 1GM/D5W 100ML PREMIX PIGGYBACK IV ONE (11:30)
[2021-12-16] MEDS: hydrALAZINE HCL 50 MG TABLET PO SCH ×2 (12:17→16:30)
[2021-12-16] MEDS: glipiZIDE 5 MG TABLET PO SCH (16:24)
[2021-12-16] MEDS: CLOTRIMAZOLE 1% 15 GM TUBE TP SCH (16:28)
[2021-12-16 16:47] VITALS: BP 176/80
[2021-12-16] MEDS: MEROPENEM 500 MG in IV NS 0.9% 50 ML IV SCH (18:33)
--- NOTE | 2021-12-16 19:00 | NUR ---
MS/RN CLOSING NOTES PATIENT LAYING IN BED, A/O X 4, ABLE TO MAKE NEEDS KNOWN. TOLERATING WELL ON ROOM AIR WITH NO S/S RESPIRATORY DISTRESS. NO COMPLAINTS OF PAIN OR DISCOMFORT AT THIS TIME. RFA # 22 G SL CLEAN, INTACT, AND FLUSHING WELL. PATIENT LEFT LOWER FOOT PHOTOGRAPHED TODAY AND WOUND CARE PERFORMED x 2. ALL NEEDS MET. SAFETY MEASURES IN PLACE: BED IN LOWEST LOCKED POSITION, SIDE RAIL UP X 2, CALL LIGHT WITHIN REACH. WILL ENDORSE TO ACADEMY EDUCATION DIRECTOR FOR TITI.
--- NOTE | 2021-12-16 19:20 | NUR ---
RN opening notes Received Pt from morning nurse. Pt is sitting in bed comfortably talking on the phone. Pt is alert and orientedX4. On room air. No SOB. No S/S of distress noted. IV site at RFA# 22 is clean, intact and SL. Safety precautions is maintained. Bed at low position, brakes locked, side rails upX2, hob elevated, urinal at the bedside and call light is within reach. Will continue to monitor.
[2021-12-16 20:00] VITALS: BP 165/65
[2021-12-17 02:56] LABS: BILIRUBIN,URINE NEGATIVE (NEGATIVE); COLOR,URINE YELLOW (YELLOW); LEUKOCYTE ESTERASE ,URINE NEGATIVE (NEGATIVE); NITRITE, URINE NEGATIVE (NEGATIVE); PROTEIN,URINE 100 mg/dl (NEGATIVE); UGLUCOSE NEGATIVE (NEGATIVE); UROBILINOGEN,URINE 0.2 EU/dL (0.2)
[2021-12-17 03:18] LABS: RBC,URINE TOO NUMEROUS TO COUN /HPF (0-2)
[2021-12-17 03:19] LABS: BACTERIA,URINE Few /HPF (None Seen); SQUAMOUS EPITHELIAL CELL,UR None Seen /HPF (None Seen); WBC,URINE 0-2 /HPF (0-3)
[2021-12-17] MEDS: MEROPENEM 500 MG in IV NS 0.9% 50 ML IV SCH ×2 (05:00→18:26)
[2021-12-17 06:18] LABS: BASOPHILS % (AUTO) 0.3 % (0.0-2.0); EOSINOPHILS % (AUTO) 0.3 % (0.0-6.0); HEMATOCRIT 24 % (39-51); HEMOGLOBIN 8.4 g/dL (13.5-17.5); LYMPHOCYTES # (AUTO) 0.5 K/uL (0.8-4.8); LYMPHOCYTES % (AUTO) 8.4 % (20.0-44.0); MEAN CORPUSCULAR HGB CONC 35 g/dl (31.0-36.0); MEAN CORPUSCULAR VOLUME 83 fL (80-96); MONOCYTES # (AUTO) 0.5 K/uL (0.1-1.30); MONOCYTES % (AUTO) 9.4 % (2.0-12.0); NEUTROPHILS # (AUTO) 4.6 K/uL (1.8-8.9); NEUTROPHILS % (AUTO) 81.6 % (43.0-81.0); PLATELET COUNT (AUTO) 151 K/uL (150-450); RED BLOOD CELL COUNT(AUTO) 2.88 MIL/uL (4.5-6.0); WHITE BLOOD COUNT (AUTO) 5.6 K/uL (4.3-11.0)
--- NOTE | 2021-12-17 06:45 | NUR ---
RN closing notes Pt is resting in bed comfortably. Pt is alert and orientedX4. On room air. No SOB. No S/S of distress noted. IV site at RFA# 22 is clean, intact and SL. Routine meds were given as ordered. Pt refused wound care. Offered several times. Explained risks and benefits. Kept Pt clean, dry and comfortable. Safety precautions is maintained. Bed at low position, brakes locked, side rails upX2, hob elevated, urinal at the bedside and call light is within reach. Will endorse to am nurse for TITI.
[2021-12-17] MEDS: BLOOD SUGAR DIAGNOSTIC 1 EACH STRIP IN SCH ×4 (06:54→21:43)
[2021-12-17] MEDS: INSULIN REGULAR, HUMAN 100 UNIT/ML 3 ML VIAL SQ PRN ×4 (06:55→21:46)
[2021-12-17 07:07] LABS: CALCIUM, SERUM 7.5 mg/dL (8.5-10.1); CREATININE 5.3 mg/dL (0.6-1.3)
--- NOTE | 2021-12-17 07:40 | NUR ---
MS RN OPENING NOTES RECEIVED PATIENT LAYING IN BED, A/O X 4, ABLE TO MAKE NEEDS KNOWN. ON ROOM AIR TOLERATING WELL WITH NO S/S OF RESPIRATORY DISTRESS. NO COMPLAINTS OF PAIN OR DISCOMFORT AT THIS TIME. RFA # 22 G SL CLEAN, INTACT, AND FLUSHING WELL. SAFETY MEASURES IN PLACE: BED IN LOWEST LOCKED POSITION, SIDE RAILS UP X 2, CALL LIGHT WITHIN REACH. WILL CONTINUE TO MONITOR PATIENT.
--- NOTE | 2021-12-17 07:44 | NUR ---
WOUND CARE CONSULT: PT FOLLOWED BY DPM FOR RT FOOT ULCER, PRESENT ON ADMISSION. PT DENIES ANY OTHER SKIN ISSUE. PT IS INDEPENDENT WITH BED MOBILITY AND IS CONTINENT. DEFER TO DR YANEZ FOR WOUND TREATMENT PLAN.
[2021-12-17 08:00] VITALS: BP 158/78
[2021-12-17] MEDS: PANTOPRAZOLE 40 MG TABLET.DR PO SCH (08:08)
[2021-12-17] MEDS: ASCORBIC ACID 500 MG TABLET PO SCH (08:08)
[2021-12-17] MEDS: FUROSEMIDE 40 MG TABLET PO SCH (08:09)
[2021-12-17] MEDS: FERROUS SULFATE (325 MG) 325 MG/TAB TABLET PO SCH (08:09)
[2021-12-17] MEDS: glipiZIDE 5 MG TABLET PO SCH ×2 (08:09→16:05)
[2021-12-17] MEDS: MULTIVITAMINS,THERAGRAN 1 UDTAB TABLET PO SCH (08:09)
[2021-12-17] MEDS: ASPIRIN EC 81 MG TABLET.DR PO SCH (08:10)
[2021-12-17] MEDS: hydrALAZINE HCL 50 MG TABLET PO SCH ×3 (08:10→16:06)
[2021-12-17] MEDS: DAKINS QUARTER STRENGTH (0.125%) 480 ML BOTTLE TOP SCH (08:12)
[2021-12-17] MEDS: CLOTRIMAZOLE 1% 15 GM TUBE TP SCH ×2 (08:12→16:07)
[2021-12-17 16:06] VITALS: BP 165/66
--- NOTE | 2021-12-17 18:35 | NUR ---
MS RN CLOSING NOTES PATIENT REMAINS LAYING IN BED, A/O X 4, ABLE TO MAKE NEEDS KNOWN, WATCHING HIS PHONE. ON ROOM AIR TOLERATING WELL WITH NO S/S OF RESPIRATORY DISTRESS DURING SHIFT. NO COMPLAINTS OF PAIN OR DISCOMFORT. RFA # 22 G SL CLEAN, INTACT, AND FLUSHING WELL. ALL NEEDS ATTENDED DURING THE DAY. SAFETY MEASURES IN PLACE: BED IN LOWEST LOCKED POSITION, SIDE RAILS UP X 2, CALL LIGHT WITHIN REACH. WILL ENDORSE TO DIGITAL PRINTER NURSE FOR TITI.
--- NOTE | 2021-12-17 19:21 | NUR ---
MS RN CLOSING NOTES PATIENT REMAINS LAYING IN BED, A/O X 4, ABLE TO MAKE NEEDS KNOWN, WATCHING HIS PHONE. ON ROOM AIR TOLERATING WELL WITH NO S/S OF RESPIRATORY DISTRESS DURING SHIFT. NO COMPLAINTS OF PAIN OR DISCOMFORT. RFA # 22 G SL CLEAN, INTACT, AND FLUSHING WELL. ALL NEEDS ATTENDED DURING THE DAY. SAFETY MEASURES IN PLACE: BED IN LOWEST LOCKED POSITION, SIDE RAILS UP X 2, CALL LIGHT WITHIN REACH. WILL CONTINUE TO MONITOR.
[2021-12-17 20:00] VITALS: BP 143/60
[2021-12-18] MEDS: MEROPENEM 500 MG in IV NS 0.9% 50 ML IV SCH ×2 (05:25→17:07)
[2021-12-18] MEDS: INSULIN REGULAR, HUMAN 100 UNIT/ML 3 ML VIAL SQ PRN ×4 (06:32→21:50)
[2021-12-18] MEDS: BLOOD SUGAR DIAGNOSTIC 1 EACH STRIP IN SCH ×4 (06:32→21:34)
[2021-12-18 06:40] LABS: BASOPHILS % (AUTO) 0.2 % (0.0-2.0); EOSINOPHILS % (AUTO) 2.8 % (0.0-6.0); HEMATOCRIT 25 % (39-51); HEMOGLOBIN 8.5 g/dL (13.5-17.5); LYMPHOCYTES # (AUTO) 0.6 K/uL (0.8-4.8); LYMPHOCYTES % (AUTO) 12.8 % (20.0-44.0); MEAN CORPUSCULAR HGB CONC 34 g/dl (31.0-36.0); MEAN CORPUSCULAR VOLUME 83 fL (80-96); MONOCYTES # (AUTO) 0.5 K/uL (0.1-1.30); MONOCYTES % (AUTO) 10.9 % (2.0-12.0); NEUTROPHILS # (AUTO) 3.3 K/uL (1.8-8.9); NEUTROPHILS % (AUTO) 73.3 % (43.0-81.0); PLATELET COUNT (AUTO) 148 K/uL (150-450); RED BLOOD CELL COUNT(AUTO) 2.96 MIL/uL (4.5-6.0); WHITE BLOOD COUNT (AUTO) 4.4 K/uL (4.3-11.0)
[2021-12-18 07:02] LABS: CALCIUM, SERUM 7.3 mg/dL (8.5-10.1); CREATININE 5.5 mg/dL (0.6-1.3); POTASSIUM 4.1 mmol/L (3.5-5.1)
[2021-12-18 08:00] VITALS: BP 168/73
--- NOTE | 2021-12-18 08:06 | NUR ---
RN OPENING NOTE PATIENT AWAKE IN BED RESTING, A/O X 4. NO S/S OF PAIN NOTED AT THIS TIME. ON ROOM AIR, NO DISTRESS OR SHORTNESS OF BREATH NOTED. IV ACCESS RFA #20G, INTACT, PATENT AND FLUSHING WELL. FALL AND SAFETY MEASURES IN PLACE, BED IN LOW AND LOCK POSITION, CALL LIGHT AND TABLE WITHIN EASY REACH, SIDE RAILS UP X2. WILL CONTINUE TO MONITOR.
[2021-12-18] MEDS: hydrALAZINE HCL 50 MG TABLET PO SCH ×3 (09:00→16:41)
[2021-12-18] MEDS: ASPIRIN EC 81 MG TABLET.DR PO SCH (09:02)
[2021-12-18] MEDS: MULTIVITAMINS,THERAGRAN 1 UDTAB TABLET PO SCH (09:02)
[2021-12-18] MEDS: FUROSEMIDE 40 MG TABLET PO SCH (09:03)
[2021-12-18] MEDS: PANTOPRAZOLE 40 MG TABLET.DR PO SCH (09:03)
[2021-12-18] MEDS: glipiZIDE 5 MG TABLET PO SCH ×2 (09:03→16:41)
[2021-12-18] MEDS: FERROUS SULFATE (325 MG) 325 MG/TAB TABLET PO SCH (09:03)
[2021-12-18] MEDS: ASCORBIC ACID 500 MG TABLET PO SCH (09:04)
[2021-12-18] MEDS: DAKINS QUARTER STRENGTH (0.125%) 480 ML BOTTLE TOP SCH (09:07)
[2021-12-18] MEDS: CLOTRIMAZOLE 1% 15 GM TUBE TP SCH ×2 (09:07→16:41)
[2021-12-18] MEDS: NS 0.9% IV SCH (09:51)
[2021-12-18] MEDS: DAPTOMYCIN IV SCH (09:51)
[2021-12-18 16:00] VITALS: BP 161/66
--- NOTE | 2021-12-18 19:33 | NUR ---
RN OPENING NOTE PATIENT AWAKE, SITTING AT THE EDGE OF THE BED. A/O X 4, ABLE TO MAKE NEEDS KNOWN. ON ROOM AIR, NO DISTRESS OR SHORTNESS OF BREATH NOTED. IV ACCESS RFA 20G, INTACT, PATENT AND FLUSHING WELL. FALL AND SAFETY MEASURES IN PLACE, BED IN LOW AND LOCK POSITION, CALL LIGHT WITHIN REACH, SIDE RAILS UP. WILL MONITOR PATIENT CLOSELY.
--- NOTE | 2021-12-18 19:50 | NUR ---
RN CLOSING NOTE PATIENT AWAKE IN BED RESTING, A/O X 4. NO S/S OF PAIN NOTED AT THIS TIME. ON ROOM AIR, NO DISTRESS OR SHORTNESS OF BREATH NOTED. IV ACCESS RFA #20G, INTACT, PATENT AND FLUSHING WELL. FALL AND SAFETY MEASURES IN PLACE, BED IN LOW AND LOCK POSITION, CALL LIGHT AND TABLE WITHIN EASY REACH, SIDE RAILS UP X2. WILL ENDORSE TO CANVASSING MANAGER.
[2021-12-18 20:00] VITALS: BP 164/59
--- NOTE | 2021-12-18 22:02 | NUR ---
BS 179 MG/DL, 3 UNITS GIVEN FOR COVERAGE PER SLIDING SCALE. SNACKS GIVEN. WILL MONITOR PATIENT CLOSELY FOR HYPO/HYPERGLYCEMIA
--- NOTE | 2021-12-19 03:56 | NUR ---
PATIENT COUGHING MORE, AND VERBALIZES THAT HIS COUGH IS BOTHERING HIM MORE. NOTIFIED MD. MD ORDERED ROBITUSSIN AC 10 CC Q6HR PRN. ORDER READ BACK, CARRIED OUT.
[2021-12-19] MEDS ORDERED: GUAIFENESIN/D-METHORPHAN HB 5 ML UDC PO PRN (04:00)
[2021-12-19] MEDS: MEROPENEM 500 MG in IV NS 0.9% 50 ML IV SCH ×2 (05:52→17:57)
[2021-12-19] MEDS: GUAIFENESIN/CODEINE 10 ML UDC PO PRN ×3 (06:16→17:10)
[2021-12-19] MEDS: INSULIN REGULAR, HUMAN 100 UNIT/ML 3 ML VIAL SQ PRN ×4 (06:24→21:46)
[2021-12-19] MEDS: BLOOD SUGAR DIAGNOSTIC 1 EACH STRIP IN SCH ×4 (06:38→21:44)
[2021-12-19 06:39] LABS: BASOPHILS % (AUTO) 0.3 % (0.0-2.0); EOSINOPHILS % (AUTO) 3.1 % (0.0-6.0); HEMATOCRIT 23 % (39-51); HEMOGLOBIN 8.2 g/dL (13.5-17.5); LYMPHOCYTES # (AUTO) 0.5 K/uL (0.8-4.8); LYMPHOCYTES % (AUTO) 11.7 % (20.0-44.0); MEAN CORPUSCULAR HGB CONC 35 g/dl (31.0-36.0); MEAN CORPUSCULAR VOLUME 83 fL (80-96); MONOCYTES # (AUTO) 0.4 K/uL (0.1-1.30); MONOCYTES % (AUTO) 8.5 % (2.0-12.0); NEUTROPHILS # (AUTO) 3.6 K/uL (1.8-8.9); NEUTROPHILS % (AUTO) 76.4 % (43.0-81.0); PLATELET COUNT (AUTO) 152 K/uL (150-450); RED BLOOD CELL COUNT(AUTO) 2.81 MIL/uL (4.5-6.0); WHITE BLOOD COUNT (AUTO) 4.7 K/uL (4.3-11.0)
--- NOTE | 2021-12-19 06:44 | NUR ---
RN CLOSING NOTE PATIENT AWAKE, IN BED. A/O X 4, ABLE TO MAKE NEEDS KNOWN. ON ROOM AIR, NO DISTRESS OR SHORTNESS OF BREATH NOTED. PATIENT'S COUGH PRESENT, GIVEN ROBITUSSIN FOR RELIEF. IV ACCESS RFA 20G, INTACT, PATENT AND FLUSHING WELL. BS 146 MG/DL, 2 UNITS GIVEN FOR COVERAGE PER SLIDING SCALE. PATIENT REFUSED DRESSING CHANGE DURING THE SHIFT, STATES SHOULD ONLY BE DONE ONCE A DAY AND IT WAS DONE DURING DAY SHIFT. FALL AND SAFETY MEASURES IN PLACE, BED IN LOW AND LOCK POSITION, CALL LIGHT WITHIN REACH, SIDE RAILS UP. ALL NEEDS MET AND ATTENDED. ALL ORDERS CARRIED OUT. WILL ENDORSE TO DAY SHIFT NURSE FOR TITI.
[2021-12-19 07:10] LABS: CALCIUM, SERUM 7.4 mg/dL (8.5-10.1); CREATININE 5.4 mg/dL (0.6-1.3); MAGNESIUM 1.9 mg/dL (1.8-2.4); PHOSPHORUS 6.5 mg/dL (2.5-4.9); POTASSIUM 4.4 mmol/L (3.5-5.1)
[2021-12-19] MEDS: CLOTRIMAZOLE 1% 15 GM TUBE TP SCH ×2 (09:00→17:11)
[2021-12-19] MEDS: ASCORBIC ACID 500 MG TABLET PO SCH (09:47)
[2021-12-19] MEDS: MULTIVITAMINS,THERAGRAN 1 UDTAB TABLET PO SCH (09:48)
[2021-12-19] MEDS: FUROSEMIDE 40 MG TABLET PO SCH (09:48)
[2021-12-19] MEDS: PANTOPRAZOLE 40 MG TABLET.DR PO SCH (09:48)
[2021-12-19] MEDS: hydrALAZINE HCL 50 MG TABLET PO SCH ×3 (09:48→17:00)
[2021-12-19] MEDS: glipiZIDE 5 MG TABLET PO SCH ×2 (09:49→17:03)
[2021-12-19] MEDS: FERROUS SULFATE (325 MG) 325 MG/TAB TABLET PO SCH (09:49)
[2021-12-19] MEDS: ASPIRIN EC 81 MG TABLET.DR PO SCH (09:49)
[2021-12-19] MEDS: DAKINS QUARTER STRENGTH (0.125%) 480 ML BOTTLE TOP SCH (09:53)
--- NOTE | 2021-12-19 18:36 | NUR ---
RN CLOSING NOTE PATIENT AWAKE IN BED RESTING, A/O X 4. NO S/S OF PAIN NOTED AT THIS TIME. ON ROOM AIR, NO DISTRESS OR SHORTNESS OF BREATH NOTED. IV ACCESS RFA #20G, INTACT, PATENT AND FLUSHING WELL. FALL AND SAFETY MEASURES IN PLACE, BED IN LOW AND LOCK POSITION, CALL LIGHT AND TABLE WITHIN EASY REACH, SIDE RAILS UP X2. WILL ENDORSE TO MARKETING PROJECT LEAD.
--- NOTE | 2021-12-19 19:30 | NUR ---
RN OPENING NOTE PATIENT AWAKE, SITTING AT THE EDGE OF THE BED. A/O X 4, ABLE TO MAKE NEEDS KNOWN. ON ROOM AIR, NO DISTRESS OR SHORTNESS OF BREATH NOTED. IV ACCESS RFA 20G, SOME LEAKING NOTED ON IV ACCESS. PATIENT DOES NOT COMPLAIN OF ANY PAIN AT THIS TIME. FALL AND SAFETY MEASURES IN PLACE, BED IN LOW AND LOCK POSITION, CALL LIGHT WITHIN REACH, SIDE RAILS UP. WILL MONITOR PATIENT CLOSELY.
[2021-12-19 20:00] VITALS: BP_SYST 159; BP_SYST 165; BP_DIAS 63; BP_DIAS 70
[2021-12-20 06:16] LABS: BASOPHILS % (AUTO) 0.2 % (0.0-2.0); EOSINOPHILS % (AUTO) 2.5 % (0.0-6.0); HEMATOCRIT 25 % (39-51); HEMOGLOBIN 8.7 g/dL (13.5-17.5); LYMPHOCYTES # (AUTO) 0.6 K/uL (0.8-4.8); LYMPHOCYTES % (AUTO) 10.2 % (20.0-44.0); MEAN CORPUSCULAR HGB CONC 35 g/dl (31.0-36.0); MEAN CORPUSCULAR VOLUME 81 fL (80-96); MONOCYTES # (AUTO) 0.4 K/uL (0.1-1.30); MONOCYTES % (AUTO) 7.6 % (2.0-12.0); NEUTROPHILS # (AUTO) 4.3 K/uL (1.8-8.9); NEUTROPHILS % (AUTO) 79.5 % (43.0-81.0); PLATELET COUNT (AUTO) 171 K/uL (150-450); RED BLOOD CELL COUNT(AUTO) 3.02 MIL/uL (4.5-6.0); WHITE BLOOD COUNT (AUTO) 5.4 K/uL (4.3-11.0)
[2021-12-20] MEDS: MEROPENEM 500 MG in IV NS 0.9% 50 ML IV SCH ×2 (06:21→17:03)
[2021-12-20] MEDS: INSULIN REGULAR, HUMAN 100 UNIT/ML 3 ML VIAL SQ PRN ×3 (06:30→17:06)
[2021-12-20] MEDS: BLOOD SUGAR DIAGNOSTIC 1 EACH STRIP IN SCH ×4 (06:30→21:38)
[2021-12-20] MEDS: IV NS 0.9% 1,000 ML IV SCH ×3 (06:35→21:48)
[2021-12-20 06:45] LABS: CALCIUM, SERUM 7.3 mg/dL (8.5-10.1); CREATININE 5.3 mg/dL (0.6-1.3); PHOSPHORUS 6.6 mg/dL (2.5-4.9); POTASSIUM 4.4 mmol/L (3.5-5.1)
--- NOTE | 2021-12-20 06:51 | NUR ---
RN CLOSING NOTE PATIENT AWAKE, IN BED. A/O X 4, ABLE TO MAKE NEEDS KNOWN. ON ROOM AIR, NO DISTRESS OR SHORTNESS OF BREATH NOTED. COUGH PRESENT, LESS THAN YESTERDAY. IV ACCESS RFA 20G, INTACT, PATENT AND FLUSHING WELL. NS @ 125 ML/HR ONGOING. BS 133 MG/DL, 2 UNITS GIVEN FOR COVERAGE PER SLIDING SCALE. PATIENT REFUSED DRESSING CHANGE DURING THE SHIFT, TO BE CHANGED DURING DAY TIME PER PT. FALL AND SAFETY MEASURES IN PLACE, BED IN LOW AND LOCK POSITION, CALL LIGHT WITHIN REACH, SIDE RAILS UP. ALL NEEDS MET AND ATTENDED. ALL ORDERS CARRIED OUT. WILL ENDORSE TO DAY SHIFT NURSE FOR TITI.
--- NOTE | 2021-12-20 07:30 | NUR ---
MS RN OPENING NOTS: RECEIVED PATIENT IN BED ASLEEP, EASILY AROUSED WITH STIMULI. A/O X4. NO SOB OR CARDIAC DISTRESS NOTED ON ROOM AIR AND TOLERATED WELL. AFEBRILE. NOTED WITH IV ACCESS ON RFA G#20 WITH NS @125 ML/HR PATENT, INTACT AND INFUSING WELL. SAFETY PRECAUTION MAINTAINED: BED IN LOWEST AND LOCKED POSITION, SIDE RAILS UP X 2. CALL LIGHT IN EASY REACH FOR HELP/ASSISTANCE. WILL MONITOR FOR ANY SIGNIFICANT CHANGES AND WILL REPORT TO
[2021-12-20] MEDS: PANTOPRAZOLE 40 MG TABLET.DR PO SCH (07:51)
[2021-12-20 08:00] VITALS: BP 150/58
[2021-12-20] MEDS: ASPIRIN EC 81 MG TABLET.DR PO SCH (08:51)
[2021-12-20] MEDS: FERROUS SULFATE (325 MG) 325 MG/TAB TABLET PO SCH (08:51)
[2021-12-20] MEDS: FUROSEMIDE 40 MG TABLET PO SCH (08:51)
[2021-12-20] MEDS: GUAIFENESIN/CODEINE 10 ML UDC PO PRN (08:51)
[2021-12-20] MEDS: glipiZIDE 5 MG TABLET PO SCH ×2 (08:51→17:03)
[2021-12-20] MEDS: MULTIVITAMINS,THERAGRAN 1 UDTAB TABLET PO SCH (08:51)
[2021-12-20] MEDS: ASCORBIC ACID 500 MG TABLET PO SCH (08:52)
[2021-12-20] MEDS: hydrALAZINE HCL 50 MG TABLET PO SCH ×3 (08:53→17:04)
[2021-12-20] MEDS: DAKINS QUARTER STRENGTH (0.125%) 480 ML BOTTLE TOP SCH (08:54)
[2021-12-20] MEDS: CLOTRIMAZOLE 1% 15 GM TUBE TP SCH ×2 (08:54→17:08)
[2021-12-20] MEDS: DAPTOMYCIN IV SCH (10:16)
[2021-12-20] MEDS: NS 0.9% IV SCH (10:16)
[2021-12-20 16:00] VITALS: BP 148/64
--- NOTE | 2021-12-20 19:30 | NUR ---
MS RN OPENING NOTE RECEIVED PT AWAKE IN BED. A/O X4 AND ABLE TO MAKE NEEDS KNOWN. PT STABLE ON ROOM AIR. NO SOB OR S/S OF RESPIRATORY DISTRESS NOTED. BREATHING EVEN AND UNLABORED. IV ACCESS ON RFA G#20 RUNNING NS @125 ML/HR, INTACT AND PATENT. SAFETY PRECAUTIONS IN PLACE. BED IN LOWEST LOCKED POSITION, HOB ELEVATED, SIDE RAILS UP X2, AND CALL LIGHT AND TABLE WITHIN REACH. ALL NEEDS MET AT THIS TIME.
--- NOTE | 2021-12-20 19:36 | NUR ---
MS RN CLOSING NOTES: PATIENT IN BED AWAKE AT THIS TIME. A/O X4. NO SOB OR CARDIAC DISTRESS NOTED ON ROOM AIR AND TOLERATED WELL. AFEBRILE. NOTED WITH IV ACCESS ON RFA G#20 WITH NS @125 ML/HR PATENT, INTACT AND INFUSING WELL. DUE AND AVAILABLE MEEDS GIVEN ORDERED. WOUND CARE TX DONE AND TOLERATED WELL.SAFETY PRECAUTION MAINTAINED: BED IN LOWEST AND LOCKED POSITION, SIDE RAILS UP X 2. CALL LIGHT IN EASY REACH FOR HELP/ASSISTANCE. WILL MONITOR FOR ANY SIGNIFICANT CHANGES AND WILL REPORT TO MD. ENDORSED TO BUILDING MAINTENANCE TECHNICIAN NURSE FOR TTII.
[2021-12-20 20:00] VITALS: BP 166/82
[2021-12-21] MEDS: MEROPENEM 500 MG in IV NS 0.9% 50 ML IV SCH ×2 (05:09→17:07)
[2021-12-21] MEDS: IV NS 0.9% 1,000 ML IV SCH ×2 (05:54→13:47)
[2021-12-21] MEDS: GUAIFENESIN/CODEINE 10 ML UDC PO PRN ×2 (06:27→12:31)
--- NOTE | 2021-12-21 06:27 | NUR ---
RN NOTE PT COMPLAINED OF NON PRODUCTIVE COUGH. ADMINISTERED ROBITUSSIN AC 10 ML FOR COUGH ORDERED. ALL OTHER NEEDS MET AT THIS TIME.
[2021-12-21] MEDS: BLOOD SUGAR DIAGNOSTIC 1 EACH STRIP IN SCH ×3 (06:40→17:44)
--- NOTE | 2021-12-21 06:42 | NUR ---
MS RN CLOSING NOTE PT AWAKE IN BED. A/O X4 AND ABLE TO MAKE NEEDS KNOWN. PT STABLE ON ROOM AIR. NO SOB OR S/S OF RESPIRATORY DISTRESS NOTED. BREATHING EVEN AND UNLABORED. IV ACCESS ON RFA G#20 RUNNING NS @125 ML/HR, INTACT AND PATENT. ALL DUE MEDS GIVEN ORDERED. SAFETY PRECAUTIONS IN PLACE. BED IN LOWEST LOCKED POSITION, HOB ELEVATED, SIDE RAILS UP X2, AND CALL LIGHT AND TABLE WITHIN REACH. ALL NEEDS MET AT THIS TIME AND WILL ENDORSE TO ONCOMING NURSE FOR TITI.
--- NOTE | 2021-12-21 07:00 | NUR ---
MS RN OPENING NOTES PATIENT LAYING IN BED, A/O X 4, ABLE TO MAKE NEEDS KNOWN. TOLERATING WELL ON ROOM AIR WITH NO S/S RESPIRATORY DISTRESS. NO COMPLAINTS OF PAIN OR DISCOMFORT AT THIS TIME. RFA # 20 G IV CLEAN, INTACT, AND INFUSING NS @ 125 ML/HR. SAFETY MEASURES IN PLACE: BED IN LOWEST LOCKED POSITION, SIDE RAILS UP X 2, CALL LIGHT WITHIN REACH. WILL CONTINUE TO MONITOR.
[2021-12-21 07:50] LABS: BASOPHILS % (AUTO) 0.2 % (0.0-2.0); EOSINOPHILS % (AUTO) 2.2 % (0.0-6.0); HEMATOCRIT 26 % (39-51); LYMPHOCYTES # (AUTO) 0.6 K/uL (0.8-4.8); LYMPHOCYTES % (AUTO) 10.5 % (20.0-44.0); MEAN CORPUSCULAR HGB CONC 34 g/dl (31.0-36.0); MEAN CORPUSCULAR VOLUME 83 fL (80-96); MONOCYTES # (AUTO) 0.4 K/uL (0.1-1.30); MONOCYTES % (AUTO) 6.6 % (2.0-12.0); NEUTROPHILS # (AUTO) 4.7 K/uL (1.8-8.9); NEUTROPHILS % (AUTO) 80.5 % (43.0-81.0); PLATELET COUNT (AUTO) 177 K/uL (150-450); RED BLOOD CELL COUNT(AUTO) 3.18 MIL/uL (4.5-6.0); WHITE BLOOD COUNT (AUTO) 5.9 K/uL (4.3-11.0)
[2021-12-21 08:30] VITALS: BP 165/79
[2021-12-21] MEDS: FUROSEMIDE 40 MG TABLET PO SCH (08:33)
[2021-12-21] MEDS: ASPIRIN EC 81 MG TABLET.DR PO SCH (08:33)
[2021-12-21] MEDS: MULTIVITAMINS,THERAGRAN 1 UDTAB TABLET PO SCH (08:33)
[2021-12-21] MEDS: ASCORBIC ACID 500 MG TABLET PO SCH (08:33)
[2021-12-21] MEDS: PANTOPRAZOLE 40 MG TABLET.DR PO SCH (08:33)
[2021-12-21] MEDS: glipiZIDE 5 MG TABLET PO SCH ×2 (08:33→17:06)
[2021-12-21] MEDS: hydrALAZINE HCL 50 MG TABLET PO SCH ×3 (08:34→17:07)
[2021-12-21] MEDS: FERROUS SULFATE (325 MG) 325 MG/TAB TABLET PO SCH (08:34)
[2021-12-21] MEDS: DAKINS QUARTER STRENGTH (0.125%) 480 ML BOTTLE TOP SCH (08:34)
[2021-12-21] MEDS: CLOTRIMAZOLE 1% 15 GM TUBE TP SCH ×2 (08:35→17:07)
[2021-12-21 09:03] LABS: CALCIUM, SERUM 6.9 mg/dL (8.5-10.1); CREATININE 5.1 mg/dL (0.6-1.3); PHOSPHORUS 5.9 mg/dL (2.5-4.9); POTASSIUM 4.2 mmol/L (3.5-5.1)
[2021-12-21] MEDS: INSULIN REGULAR, HUMAN 100 UNIT/ML 3 ML VIAL SQ PRN ×2 (12:08→17:54)
[2021-12-21 15:46] VITALS: BP 180/86
[2021-12-21 17:07] VITALS: BP 150/86
--- NOTE | 2021-12-21 18:30 | NUR ---
MS TRIBAL JUDGE NOTES PATIENT INFORMED OF MD DISCHARGE INSTRUCTIONS. PATIENT VERBALIZED UNDERSTANDING OF MD DISCHARGE ORDER AND INSTRUCTIONS AND SIGNED MD DISCHARGE INSTRUCTIONS SHEET. PATIENT VERBALIZED POSSESSION OF ALL BELONGINGS AND SIGNED BELONGINGS SHEET. PERIPHERAL IV LINE AND ID BAND REMOVED. PICC LINE IN RHINA LEFT IN PLACE FOR CONTINUED IV ANTIBIOTICS FOLLOWING DISCHARGE. PATIENT TRANSPORTED OFF OF UNIT VIA WHEELCHAIR ACCOMPANIED BY DATA COMPILER FOR TRANSPORT HOME VIA PRIVATE CAR. PATIENT STABLE. ALL NEEDS MET DURING SHIFT.
== END 2021-12-21 18:10 | disposition home health service (06) | DRG 638 ==
LOC: ER 17:41 → MED 21:04
PROVIDERS: ADMIT Nurse Practitioner Acute Care; ATTEND Student in an Organized Health Care Education/Training Program
DX: E11.69 Type 2 diabetes mellitus with other specified complication (principal); E87.1 Hypo-osmolality and hyponatremia; M86.671 Other chronic osteomyelitis, right ankle and foot; L03.115 Cellulitis of right lower limb; I12.9 Hypertensive chronic kidney disease with stage 1 through stage 4 chronic kidney disease, or unspecified chronic kidney disease; N18.4 Chronic kidney disease, stage 4 (severe); E11.22 Type 2 diabetes mellitus with diabetic chronic kidney disease; E83.42 Hypomagnesemia; N17.0 Acute kidney failure with tubular necrosis; Z20.822 Contact with and (suspected) exposure to COVID-19; E11.621 Type 2 diabetes mellitus with foot ulcer; E11.628 Type 2 diabetes mellitus with other skin complications; E11.65 Type 2 diabetes mellitus with hyperglycemia; I25.10 Atherosclerotic heart disease of native coronary artery without angina pectoris; Z95.5 Presence of coronary angioplasty implant and graft; Z79.82 Long term (current) use of aspirin; Z79.84 Long term (current) use of oral hypoglycemic drugs; Z79.899 Other long term (current) drug therapy; E11.42 Type 2 diabetes mellitus with diabetic polyneuropathy; E66.01 Morbid (severe) obesity due to excess calories; E78.5 Hyperlipidemia, unspecified; Z68.34 Body mass index [BMI] 34.0-34.9, adult; D64.9 Anemia, unspecified; G47.30 Sleep apnea, unspecified; G89.29 Other chronic pain; Z89.411 Acquired absence of right great toe; Z89.421 Acquired absence of other right toe(s); Z87.891 Personal history of nicotine dependence; Z79.4 Long term (current) use of insulin; L97.519 Non-pressure chronic ulcer of other part of right foot with unspecified severity
CPT/HCPCS: 36415; 36569; 71045-TC; 76770-TC; 80048-TC; 81001; 82533; 82962-TC; 83605-TC; 83735-TC; 84100-TC; 84443-TC; 85025-TC; 87040-TC; 87081-TC; 87086-TC; 93971-TC; A6253; C9803; G0378; J0878; J1815; J2185; J2270; J3475; J7030; J7050

== ENCOUNTER 2021-12-28 09:13 | Outpatient (CLI) | payer MEDICARE, BC ==
[2021-12-28 11:59] LABS: BILIRUBIN,TOTAL 0.5 mg/dL (0.2-1.0); CALCIUM, SERUM 7.1 mg/dL (8.5-10.1); CREATININE 4.8 mg/dL (0.6-1.3); MAGNESIUM 1.7 mg/dL (1.8-2.4); PHOSPHORUS 5.9 mg/dL (2.5-4.9); TOTAL PROTEIN, SERUM 7.1 g/dL (6.4-8.2)
[2021-12-28 11:59] LABS: BILIRUBIN,URINE NEGATIVE (NEGATIVE); COLOR,URINE YELLOW (YELLOW); LEUKOCYTE ESTERASE ,URINE NEGATIVE (NEGATIVE); NITRITE, URINE NEGATIVE (NEGATIVE); PH,URINE 5.5 (5.0-8.0); PROTEIN,URINE 100 mg/dl (NEGATIVE); UGLUCOSE NEGATIVE (NEGATIVE); UROBILINOGEN,URINE 0.2 EU/dL (0.2)
[2021-12-28 12:20] LABS: THYROID STIMULATING HORMONE 2.938 uIU/mL (0.358-3.74)
[2021-12-28 12:22] LABS: BACTERIA,URINE None seen /HPF (None Seen); SQUAMOUS EPITHELIAL CELL,UR Few /HPF (None Seen); WBC,URINE 0-2 /HPF (0-3)
[2021-12-28 12:29] LABS: C-REACTIVE PROTEIN 2.6 mg/dL (0.0-0.9)
[2021-12-28 12:41] LABS: BASOPHILS % (AUTO) 0.3 % (0.0-2.0); EOSINOPHILS % (AUTO) 1.5 % (0.0-6.0); HEMATOCRIT 24 % (39-51); HEMOGLOBIN 8.3 g/dL (13.5-17.5); LYMPHOCYTES # (AUTO) 0.8 K/uL (0.8-4.8); LYMPHOCYTES % (AUTO) 10.9 % (20.0-44.0); MEAN CORPUSCULAR HGB CONC 34 g/dl (31.0-36.0); MEAN CORPUSCULAR VOLUME 84 fL (80-96); MONOCYTES # (AUTO) 0.3 K/uL (0.1-1.30); MONOCYTES % (AUTO) 4.5 % (2.0-12.0); NEUTROPHILS # (AUTO) 6.4 K/uL (1.8-8.9); NEUTROPHILS % (AUTO) 82.8 % (43.0-81.0); PLATELET COUNT (AUTO) 201 K/uL (150-450); RED BLOOD CELL COUNT(AUTO) 2.88 MIL/uL (4.5-6.0); WHITE BLOOD COUNT (AUTO) 7.7 K/uL (4.3-11.0)
== END 2021-12-28 23:59 | disposition home or self-care (01) ==
LOC: LAB 09:13
PROVIDERS: ATTEND Internal Medicine
DX: I12.9 Hypertensive chronic kidney disease with stage 1 through stage 4 chronic kidney disease, or unspecified chronic kidney disease (principal); E11.22 Type 2 diabetes mellitus with diabetic chronic kidney disease; N18.4 Chronic kidney disease, stage 4 (severe); Z79.899 Other long term (current) drug therapy
CPT/HCPCS: 36415; 80053-TC; 80061-TC; 80158; 80197; 81001; 82306; 82728-TC; 83540-TC; 83735-TC; 83970; 84100-TC; 84155-TC; 84439-TC; 84443-TC; 85025-TC; 85652-TC; 86140-TC; 87086-TC

== ENCOUNTER → 2021-12-28 | Outpatient (CLI) | payer MEDICARE, BC ==
[~2021-12-28] MED LIST changes: +ASPI-1420 PO; -CLOP75TA15 PO; +INSU100I4 SQ; +LORA-259 PO
== END | disposition home health service (06) ==
LOC: WOU 09:00
PROVIDERS: ATTEND Podiatrist Foot & Ankle Surgery
DX: E11.621 Type 2 diabetes mellitus with foot ulcer (principal); L97.513 Non-pressure chronic ulcer of other part of right foot with necrosis of muscle; E11.22 Type 2 diabetes mellitus with diabetic chronic kidney disease; I12.9 Hypertensive chronic kidney disease with stage 1 through stage 4 chronic kidney disease, or unspecified chronic kidney disease; E11.69 Type 2 diabetes mellitus with other specified complication; E11.42 Type 2 diabetes mellitus with diabetic polyneuropathy; M86.671 Other chronic osteomyelitis, right ankle and foot; N18.9 Chronic kidney disease, unspecified; Z87.891 Personal history of nicotine dependence; Z79.4 Long term (current) use of insulin; Z79.84 Long term (current) use of oral hypoglycemic drugs; L84 Corns and callosities; R60.0 Localized edema; Z91.19 Patient's noncompliance with other medical treatment and regimen; Z89.411 Acquired absence of right great toe
CPT/HCPCS: 11043; 11046; A6407

== ENCOUNTER 2022-01-01 08:58 | Outpatient (CLI) | payer MEDICARE, BC ==
[2022-01-01] MEDS ORDERED: GENTAMICIN 0.1% CREAM 15 GM TUBE ONE (09:31)
[2022-01-01] MEDS ORDERED: SILVER SULFADIAZINE CREAM 25 GM TUBE ONE (09:32)
== END 2022-01-01 23:59 | disposition home health service (06) ==
LOC: WOU 08:58
PROVIDERS: ATTEND Podiatrist Foot & Ankle Surgery
DX: E11.621 Type 2 diabetes mellitus with foot ulcer (principal); L97.513 Non-pressure chronic ulcer of other part of right foot with necrosis of muscle; E11.22 Type 2 diabetes mellitus with diabetic chronic kidney disease; I12.9 Hypertensive chronic kidney disease with stage 1 through stage 4 chronic kidney disease, or unspecified chronic kidney disease; E11.42 Type 2 diabetes mellitus with diabetic polyneuropathy; E11.69 Type 2 diabetes mellitus with other specified complication; M86.671 Other chronic osteomyelitis, right ankle and foot; N18.9 Chronic kidney disease, unspecified; Z87.891 Personal history of nicotine dependence; Z79.4 Long term (current) use of insulin; Z79.84 Long term (current) use of oral hypoglycemic drugs; R60.0 Localized edema; Z89.411 Acquired absence of right great toe; Z91.19 Patient's noncompliance with other medical treatment and regimen
CPT/HCPCS: 11043; A6197; A6407

== ENCOUNTER 2022-01-01 10:00 | Outpatient (CLI) | payer MEDICARE, BC | END 2022-01-01 23:59 | disposition home or self-care (01) | LOC: MSC 10:00 | PROVIDERS: ATTEND Internal Medicine | DX: E11.22 Type 2 diabetes mellitus with diabetic chronic kidney disease (principal); I12.9 Hypertensive chronic kidney disease with stage 1 through stage 4 chronic kidney disease, or unspecified chronic kidney disease; N18.4 Chronic kidney disease, stage 4 (severe); Z79.4 Long term (current) use of insulin; E11.621 Type 2 diabetes mellitus with foot ulcer; L97.509 Non-pressure chronic ulcer of other part of unspecified foot with unspecified severity; E83.9 Disorder of mineral metabolism, unspecified; M89.9 Disorder of bone, unspecified; D64.9 Anemia, unspecified; G47.30 Sleep apnea, unspecified; N25.81 Secondary hyperparathyroidism of renal origin; R35.1 Nocturia ==

== ENCOUNTER 2022-01-04 09:11 | Outpatient (CLI) | payer MEDICARE, BC ==
[2022-01-04] MEDS ORDERED: SILVER SULFADIAZINE CREAM 25 GM TUBE ONE (09:14)
== END 2022-01-04 23:59 | disposition home health service (06) ==
LOC: WOU 09:11
PROVIDERS: ATTEND Podiatrist Foot & Ankle Surgery
DX: E11.621 Type 2 diabetes mellitus with foot ulcer (principal); L97.513 Non-pressure chronic ulcer of other part of right foot with necrosis of muscle; E11.22 Type 2 diabetes mellitus with diabetic chronic kidney disease; I12.9 Hypertensive chronic kidney disease with stage 1 through stage 4 chronic kidney disease, or unspecified chronic kidney disease; E11.42 Type 2 diabetes mellitus with diabetic polyneuropathy; E11.69 Type 2 diabetes mellitus with other specified complication; M86.671 Other chronic osteomyelitis, right ankle and foot; N18.9 Chronic kidney disease, unspecified; Z87.891 Personal history of nicotine dependence; Z79.4 Long term (current) use of insulin; Z79.84 Long term (current) use of oral hypoglycemic drugs; R60.0 Localized edema; L84 Corns and callosities; Z91.19 Patient's noncompliance with other medical treatment and regimen; Z89.411 Acquired absence of right great toe
CPT/HCPCS: 11043; A6407; A6197

== ENCOUNTER 2022-01-08 09:42 | Outpatient (CLI) | payer MEDICARE, BC | END 2022-01-08 23:59 | disposition home health service (06) | LOC: WOU 09:42 | PROVIDERS: ATTEND Podiatrist Foot & Ankle Surgery | DX: E11.621 Type 2 diabetes mellitus with foot ulcer (principal); L97.513 Non-pressure chronic ulcer of other part of right foot with necrosis of muscle; E11.22 Type 2 diabetes mellitus with diabetic chronic kidney disease; E11.69 Type 2 diabetes mellitus with other specified complication; E11.42 Type 2 diabetes mellitus with diabetic polyneuropathy; N18.9 Chronic kidney disease, unspecified; M86.671 Other chronic osteomyelitis, right ankle and foot; Z99.2 Dependence on renal dialysis; Z87.891 Personal history of nicotine dependence; Z79.4 Long term (current) use of insulin; Z79.84 Long term (current) use of oral hypoglycemic drugs; R60.0 Localized edema; L84 Corns and callosities; Z91.19 Patient's noncompliance with other medical treatment and regimen; Z89.411 Acquired absence of right great toe; I12.9 Hypertensive chronic kidney disease with stage 1 through stage 4 chronic kidney disease, or unspecified chronic kidney disease | CPT/HCPCS: 11043; A6197; A6407 ==

== ENCOUNTER 2022-01-18 09:30 | Outpatient (CLI) | payer MEDICARE, BC ==
[2022-01-18] MEDS ORDERED: GENTAMICIN 0.1% CREAM 15 GM TUBE ONE (10:04)
[2022-01-18] MEDS ORDERED: SILVER SULFADIAZINE CREAM 25 GM TUBE ONE (10:04)
== END 2022-01-18 23:59 | disposition home health service (06) ==
LOC: WOU 09:30
PROVIDERS: ATTEND Podiatrist Foot & Ankle Surgery
DX: E11.621 Type 2 diabetes mellitus with foot ulcer (principal); L97.513 Non-pressure chronic ulcer of other part of right foot with necrosis of muscle; E11.22 Type 2 diabetes mellitus with diabetic chronic kidney disease; I12.9 Hypertensive chronic kidney disease with stage 1 through stage 4 chronic kidney disease, or unspecified chronic kidney disease; E11.69 Type 2 diabetes mellitus with other specified complication; E11.42 Type 2 diabetes mellitus with diabetic polyneuropathy; M86.671 Other chronic osteomyelitis, right ankle and foot; N18.9 Chronic kidney disease, unspecified; Z87.891 Personal history of nicotine dependence; Z79.4 Long term (current) use of insulin; Z79.84 Long term (current) use of oral hypoglycemic drugs; R60.0 Localized edema; L84 Corns and callosities; Z89.411 Acquired absence of right great toe; Z91.19 Patient's noncompliance with other medical treatment and regimen
CPT/HCPCS: 11043; 11046; A6197

== ENCOUNTER → 2022-01-22 | Outpatient (CLI) | payer MEDICARE, BC ==
[~2022-01-22] MED LIST changes: +SILVER SULFADIAZINE CREAM 25 GM TUBE ONE
== END | disposition home health service (06) ==
LOC: WOU 10:39
PROVIDERS: ATTEND Podiatrist Foot & Ankle Surgery
DX: E11.621 Type 2 diabetes mellitus with foot ulcer (principal); L97.513 Non-pressure chronic ulcer of other part of right foot with necrosis of muscle; E11.22 Type 2 diabetes mellitus with diabetic chronic kidney disease; I12.9 Hypertensive chronic kidney disease with stage 1 through stage 4 chronic kidney disease, or unspecified chronic kidney disease; E11.69 Type 2 diabetes mellitus with other specified complication; E11.42 Type 2 diabetes mellitus with diabetic polyneuropathy; M86.671 Other chronic osteomyelitis, right ankle and foot; N18.9 Chronic kidney disease, unspecified; Z87.891 Personal history of nicotine dependence; Z79.4 Long term (current) use of insulin; Z79.84 Long term (current) use of oral hypoglycemic drugs; L84 Corns and callosities; Z79.82 Long term (current) use of aspirin; R60.0 Localized edema; Z89.411 Acquired absence of right great toe
CPT/HCPCS: 11043; A6197

== ENCOUNTER 2022-01-25 10:59 | Outpatient (CLI) | payer MEDICARE, BC ==
[~2022-01-25 10:59] MED LIST changes: -SILVER SULFADIAZINE CREAM 25 GM TUBE ONE
[2022-01-25 11:22] LABS: BASOPHILS % (AUTO) 0.4 % (0.0-2.0); EOSINOPHILS % (AUTO) 1.5 % (0.0-6.0); HEMATOCRIT 27 % (39-51); LYMPHOCYTES # (AUTO) 0.6 K/uL (0.8-4.8); LYMPHOCYTES % (AUTO) 9.3 % (20.0-44.0); MEAN CORPUSCULAR HGB CONC 34 g/dl (31.0-36.0); MEAN CORPUSCULAR VOLUME 86 fL (80-96); MONOCYTES # (AUTO) 0.3 K/uL (0.1-1.30); MONOCYTES % (AUTO) 4.3 % (2.0-12.0); NEUTROPHILS # (AUTO) 5.6 K/uL (1.8-8.9); NEUTROPHILS % (AUTO) 84.5 % (43.0-81.0); PLATELET COUNT (AUTO) 158 K/uL (150-450); RED BLOOD CELL COUNT(AUTO) 3.13 MIL/uL (4.5-6.0); WHITE BLOOD COUNT (AUTO) 6.6 K/uL (4.3-11.0)
[2022-01-25 11:45] LABS: ALBUMIN 3.2 g/dL (3.4-5.0); BILIRUBIN,TOTAL 0.5 mg/dL (0.2-1.0); CALCIUM, SERUM 7.3 mg/dL (8.5-10.1); CREATININE 4.8 mg/dL (0.6-1.3); MAGNESIUM 1.9 mg/dL (1.8-2.4); PHOSPHORUS 6.1 mg/dL (2.5-4.9); TOTAL PROTEIN, SERUM 7.4 g/dL (6.4-8.2)
== END 2022-01-25 23:59 | disposition home or self-care (01) ==
LOC: LAB 10:59
PROVIDERS: ATTEND Internal Medicine
DX: I12.9 Hypertensive chronic kidney disease with stage 1 through stage 4 chronic kidney disease, or unspecified chronic kidney disease (principal); N18.4 Chronic kidney disease, stage 4 (severe); G47.30 Sleep apnea, unspecified
CPT/HCPCS: 36415; 80053-TC; 83735-TC; 84100-TC; 85025-TC

== ENCOUNTER 2022-01-25 11:00 | Outpatient (CLI) | payer MEDICARE, BC ==
[2022-01-25] MEDS ORDERED: GENTAMICIN 0.1% CREAM 15 GM TUBE ONE (11:12)
[2022-01-25] MEDS ORDERED: SILVER SULFADIAZINE CREAM 25 GM TUBE ONE (11:12)
== END 2022-01-25 23:59 | disposition home health service (06) ==
LOC: WOU 11:00
PROVIDERS: ATTEND Podiatrist Foot & Ankle Surgery
DX: E11.621 Type 2 diabetes mellitus with foot ulcer (principal); L97.513 Non-pressure chronic ulcer of other part of right foot with necrosis of muscle; E11.22 Type 2 diabetes mellitus with diabetic chronic kidney disease; I12.9 Hypertensive chronic kidney disease with stage 1 through stage 4 chronic kidney disease, or unspecified chronic kidney disease; E11.69 Type 2 diabetes mellitus with other specified complication; E11.42 Type 2 diabetes mellitus with diabetic polyneuropathy; M86.671 Other chronic osteomyelitis, right ankle and foot; N18.9 Chronic kidney disease, unspecified; Z87.891 Personal history of nicotine dependence; Z79.4 Long term (current) use of insulin; Z79.84 Long term (current) use of oral hypoglycemic drugs; Z89.411 Acquired absence of right great toe; Z91.19 Patient's noncompliance with other medical treatment and regimen; R60.0 Localized edema; L84 Corns and callosities
CPT/HCPCS: 11043; A6197

== ENCOUNTER 2022-01-29 11:00 | Outpatient (CLI) | payer MEDICARE, BC ==
[2022-01-29] MEDS ORDERED: SILVER SULFADIAZINE CREAM 25 GM TUBE ONE (11:43)
[2022-01-29] MEDS ORDERED: GENTAMICIN 0.1% CREAM 15 GM TUBE ONE (11:43)
== END 2022-01-29 23:59 | disposition home health service (06) ==
LOC: WOU 11:00
PROVIDERS: ATTEND Podiatrist Foot & Ankle Surgery
DX: E11.621 Type 2 diabetes mellitus with foot ulcer (principal); L97.513 Non-pressure chronic ulcer of other part of right foot with necrosis of muscle; E11.22 Type 2 diabetes mellitus with diabetic chronic kidney disease; I12.9 Hypertensive chronic kidney disease with stage 1 through stage 4 chronic kidney disease, or unspecified chronic kidney disease; E11.69 Type 2 diabetes mellitus with other specified complication; E11.42 Type 2 diabetes mellitus with diabetic polyneuropathy; M86.671 Other chronic osteomyelitis, right ankle and foot; N18.9 Chronic kidney disease, unspecified; Z87.891 Personal history of nicotine dependence; Z79.4 Long term (current) use of insulin; Z79.84 Long term (current) use of oral hypoglycemic drugs; Z79.82 Long term (current) use of aspirin; R60.0 Localized edema; L84 Corns and callosities; Z89.411 Acquired absence of right great toe; Z91.19 Patient's noncompliance with other medical treatment and regimen
CPT/HCPCS: 11043; A6197

== ENCOUNTER 2022-01-31 12:45 | Outpatient (CLI) | payer MEDICARE, BC | END 2022-01-31 23:59 | disposition home or self-care (01) | LOC: MRI 12:45 | PROVIDERS: ATTEND Podiatrist Foot & Ankle Surgery | DX: L97.419 Non-pressure chronic ulcer of right heel and midfoot with unspecified severity (principal); M79.89 Other specified soft tissue disorders; M25.871 Other specified joint disorders, right ankle and foot; Z89.431 Acquired absence of right foot | CPT/HCPCS: 73718-TC ==

== ENCOUNTER 2022-02-01 10:45 | Outpatient (CLI) | payer MEDICARE, BC ==
[2022-02-01] MEDS ORDERED: GENTAMICIN 0.1% CREAM 15 GM TUBE ONE (11:45)
[2022-02-01] MEDS ORDERED: SILVER SULFADIAZINE CREAM 25 GM TUBE ONE (11:45)
== END 2022-02-01 23:59 | disposition home health service (06) ==
LOC: WOU 10:45
PROVIDERS: ATTEND Podiatrist Foot & Ankle Surgery
DX: E11.621 Type 2 diabetes mellitus with foot ulcer (principal); L97.513 Non-pressure chronic ulcer of other part of right foot with necrosis of muscle; E11.22 Type 2 diabetes mellitus with diabetic chronic kidney disease; I12.9 Hypertensive chronic kidney disease with stage 1 through stage 4 chronic kidney disease, or unspecified chronic kidney disease; E11.69 Type 2 diabetes mellitus with other specified complication; E11.42 Type 2 diabetes mellitus with diabetic polyneuropathy; M86.671 Other chronic osteomyelitis, right ankle and foot; N18.9 Chronic kidney disease, unspecified; Z87.891 Personal history of nicotine dependence; Z79.4 Long term (current) use of insulin; Z79.84 Long term (current) use of oral hypoglycemic drugs; L84 Corns and callosities; R60.0 Localized edema; Z89.411 Acquired absence of right great toe
CPT/HCPCS: 11043; 87075; 87070; 87186 ×2; A6197

== ENCOUNTER → 2022-02-01 | Outpatient (CLI) | payer MEDICARE, BC | END | disposition home or self-care (01) | LOC: MSC 14:30 | PROVIDERS: ATTEND Internal Medicine | DX: E11.22 Type 2 diabetes mellitus with diabetic chronic kidney disease (principal); I12.9 Hypertensive chronic kidney disease with stage 1 through stage 4 chronic kidney disease, or unspecified chronic kidney disease; N18.4 Chronic kidney disease, stage 4 (severe); Z79.4 Long term (current) use of insulin; E11.621 Type 2 diabetes mellitus with foot ulcer; L97.509 Non-pressure chronic ulcer of other part of unspecified foot with unspecified severity; E83.9 Disorder of mineral metabolism, unspecified; M89.9 Disorder of bone, unspecified; D64.9 Anemia, unspecified; G47.30 Sleep apnea, unspecified; N25.81 Secondary hyperparathyroidism of renal origin; R35.1 Nocturia ==

== ENCOUNTER 2022-02-05 10:30 | Outpatient (CLI) | payer MEDICARE, BC ==
[2022-02-05] MEDS ORDERED: SILVER SULFADIAZINE CREAM 25 GM TUBE ONE (11:08)
[2022-02-05] MEDS ORDERED: GENTAMICIN 0.1% CREAM 15 GM TUBE ONE (11:09)
== END 2022-02-05 23:59 | disposition home health service (06) ==
LOC: WOU 10:30
PROVIDERS: ATTEND Podiatrist Foot & Ankle Surgery
DX: E11.621 Type 2 diabetes mellitus with foot ulcer (principal); L97.513 Non-pressure chronic ulcer of other part of right foot with necrosis of muscle; E11.22 Type 2 diabetes mellitus with diabetic chronic kidney disease; I12.9 Hypertensive chronic kidney disease with stage 1 through stage 4 chronic kidney disease, or unspecified chronic kidney disease; E11.69 Type 2 diabetes mellitus with other specified complication; E11.42 Type 2 diabetes mellitus with diabetic polyneuropathy; M86.671 Other chronic osteomyelitis, right ankle and foot; N18.9 Chronic kidney disease, unspecified; Z87.891 Personal history of nicotine dependence; Z79.4 Long term (current) use of insulin; Z79.84 Long term (current) use of oral hypoglycemic drugs; Z91.19 Patient's noncompliance with other medical treatment and regimen; R60.0 Localized edema; L84 Corns and callosities
CPT/HCPCS: 11043; A6197

== ENCOUNTER 2022-02-08 10:30 | Outpatient (CLI) | payer MEDICARE, BC ==
[2022-02-08] MEDS ORDERED: SILVER SULFADIAZINE CREAM 25 GM TUBE ONE (11:32)
== END 2022-02-08 23:59 | disposition home health service (06) ==
LOC: WOU 10:30
PROVIDERS: ATTEND Podiatrist Foot & Ankle Surgery
DX: E11.621 Type 2 diabetes mellitus with foot ulcer (principal); L97.514 Non-pressure chronic ulcer of other part of right foot with necrosis of bone; E11.42 Type 2 diabetes mellitus with diabetic polyneuropathy; E11.69 Type 2 diabetes mellitus with other specified complication; M86.671 Other chronic osteomyelitis, right ankle and foot; Z91.19 Patient's noncompliance with other medical treatment and regimen; E11.22 Type 2 diabetes mellitus with diabetic chronic kidney disease; N18.9 Chronic kidney disease, unspecified; I12.9 Hypertensive chronic kidney disease with stage 1 through stage 4 chronic kidney disease, or unspecified chronic kidney disease; I25.10 Atherosclerotic heart disease of native coronary artery without angina pectoris; Z95.5 Presence of coronary angioplasty implant and graft; Z79.4 Long term (current) use of insulin; Z79.84 Long term (current) use of oral hypoglycemic drugs; Z79.82 Long term (current) use of aspirin; Z79.899 Other long term (current) drug therapy
CPT/HCPCS: 11043; A6197

== ENCOUNTER 2022-02-15 08:30 | Outpatient (CLI) | payer MEDICARE, BC ==
[2022-02-15] MEDS ORDERED: GENTAMICIN 0.1% CREAM 15 GM TUBE ONE (08:38)
[2022-02-15] MEDS ORDERED: SILVER SULFADIAZINE CREAM 25 GM TUBE ONE (08:38)
== END 2022-02-15 23:59 | disposition home health service (06) ==
LOC: WOU 08:30
PROVIDERS: ATTEND Podiatrist Foot & Ankle Surgery
DX: E11.621 Type 2 diabetes mellitus with foot ulcer (principal); L97.514 Non-pressure chronic ulcer of other part of right foot with necrosis of bone; E11.69 Type 2 diabetes mellitus with other specified complication; M86.671 Other chronic osteomyelitis, right ankle and foot; E11.42 Type 2 diabetes mellitus with diabetic polyneuropathy; E11.22 Type 2 diabetes mellitus with diabetic chronic kidney disease; I12.9 Hypertensive chronic kidney disease with stage 1 through stage 4 chronic kidney disease, or unspecified chronic kidney disease; N18.9 Chronic kidney disease, unspecified; Z79.84 Long term (current) use of oral hypoglycemic drugs; Z79.4 Long term (current) use of insulin; Z89.421 Acquired absence of other right toe(s); Z86.31 Personal history of diabetic foot ulcer; L84 Corns and callosities; R60.0 Localized edema
CPT/HCPCS: 11043; A6197

== ENCOUNTER 2022-02-19 10:30 | Outpatient (CLI) | payer MEDICARE, OTHER ==
[2022-02-19] MEDS ORDERED: GENTAMICIN 0.1% CREAM 15 GM TUBE ONE (10:59)
[2022-02-19] MEDS ORDERED: SILVER SULFADIAZINE CREAM 25 GM TUBE ONE (10:59)
[2022-02-19 12:53] LABS: BASOPHILS % (AUTO) 0.3 % (0.0-2.0); EOSINOPHILS % (AUTO) 1.8 % (0.0-6.0); HEMATOCRIT 28 % (39-51); HEMOGLOBIN 9.3 g/dL (13.5-17.5); LYMPHOCYTES # (AUTO) 0.9 K/uL (0.8-4.8); LYMPHOCYTES % (AUTO) 11.3 % (20.0-44.0); MEAN CORPUSCULAR HGB CONC 34 g/dl (31.0-36.0); MEAN CORPUSCULAR VOLUME 86 fL (80-96); MONOCYTES # (AUTO) 0.5 K/uL (0.1-1.30); MONOCYTES % (AUTO) 6.4 % (2.0-12.0); NEUTROPHILS # (AUTO) 6.1 K/uL (1.8-8.9); NEUTROPHILS % (AUTO) 80.2 % (43.0-81.0); PLATELET COUNT (AUTO) 143 K/uL (150-450); RED BLOOD CELL COUNT(AUTO) 3.23 MIL/uL (4.5-6.0); WHITE BLOOD COUNT (AUTO) 7.6 K/uL (4.3-11.0)
[2022-02-19 13:39] LABS: ALBUMIN 3.3 g/dL (3.4-5.0); BILIRUBIN,TOTAL 0.4 mg/dL (0.2-1.0); CALCIUM, SERUM 6.8 mg/dL (8.5-10.1); CREATININE 5.4 mg/dL (0.6-1.3); POTASSIUM 4.5 mmol/L (3.5-5.1); TOTAL PROTEIN, SERUM 7.2 g/dL (6.4-8.2)
== END 2022-02-19 23:59 | disposition home health service (06) ==
LOC: WOU 10:30
PROVIDERS: ATTEND Podiatrist Foot & Ankle Surgery
DX: E11.621 Type 2 diabetes mellitus with foot ulcer (principal); L97.413 Non-pressure chronic ulcer of right heel and midfoot with necrosis of muscle; Z89.411 Acquired absence of right great toe; I25.10 Atherosclerotic heart disease of native coronary artery without angina pectoris; Z95.5 Presence of coronary angioplasty implant and graft; I10 Essential (primary) hypertension; I12.9 Hypertensive chronic kidney disease with stage 1 through stage 4 chronic kidney disease, or unspecified chronic kidney disease; E11.22 Type 2 diabetes mellitus with diabetic chronic kidney disease; N18.9 Chronic kidney disease, unspecified; Z79.4 Long term (current) use of insulin; Z79.84 Long term (current) use of oral hypoglycemic drugs; Z79.82 Long term (current) use of aspirin; Z79.899 Other long term (current) drug therapy; E11.69 Type 2 diabetes mellitus with other specified complication; M86.8X7 Other osteomyelitis, ankle and foot; Z87.891 Personal history of nicotine dependence
CPT/HCPCS: 11043; 85025; 83036; 36415; 80053; 11042; A6197

== ENCOUNTER 2022-02-22 10:45 | Outpatient (CLI) | payer MEDICARE, BC ==
[2022-02-22] MEDS ORDERED: GENTAMICIN 0.1% CREAM 15 GM TUBE ONE (11:33)
[2022-02-22] MEDS ORDERED: SILVER SULFADIAZINE CREAM 25 GM TUBE ONE (11:34)
== END 2022-02-22 23:59 | disposition home or self-care (01) ==
LOC: WOU 10:45
PROVIDERS: ATTEND Podiatrist Foot & Ankle Surgery
DX: E11.621 Type 2 diabetes mellitus with foot ulcer (principal); L97.514 Non-pressure chronic ulcer of other part of right foot with necrosis of bone; E11.42 Type 2 diabetes mellitus with diabetic polyneuropathy; R60.0 Localized edema; E11.69 Type 2 diabetes mellitus with other specified complication; M86.671 Other chronic osteomyelitis, right ankle and foot; Z91.19 Patient's noncompliance with other medical treatment and regimen; Z86.31 Personal history of diabetic foot ulcer; Z89.421 Acquired absence of other right toe(s); M86.672 Other chronic osteomyelitis, left ankle and foot; E11.22 Type 2 diabetes mellitus with diabetic chronic kidney disease; I12.9 Hypertensive chronic kidney disease with stage 1 through stage 4 chronic kidney disease, or unspecified chronic kidney disease; N18.9 Chronic kidney disease, unspecified; Z79.4 Long term (current) use of insulin; Z79.84 Long term (current) use of oral hypoglycemic drugs; Z79.82 Long term (current) use of aspirin
CPT/HCPCS: 11042; 11043

== ENCOUNTER 2022-02-26 10:00 | Outpatient (CLI) | payer MEDICARE, BC ==
[2022-02-26] MEDS ORDERED: HYDROCORTISONE 1% CREAM 28.35 GM TUBE TP ONE (10:45)
[2022-02-26] MEDS ORDERED: GENTAMICIN 0.1% CREAM 15 GM TUBE ONE (10:46)
== END 2022-02-26 23:59 | disposition home or self-care (01) ==
LOC: WOU 10:00
PROVIDERS: ATTEND Podiatrist Foot & Ankle Surgery
DX: E11.621 Type 2 diabetes mellitus with foot ulcer (principal); L97.514 Non-pressure chronic ulcer of other part of right foot with necrosis of bone; E11.69 Type 2 diabetes mellitus with other specified complication; M86.671 Other chronic osteomyelitis, right ankle and foot; E11.42 Type 2 diabetes mellitus with diabetic polyneuropathy; Z86.31 Personal history of diabetic foot ulcer; Z89.421 Acquired absence of other right toe(s); Z91.19 Patient's noncompliance with other medical treatment and regimen; L84 Corns and callosities; R60.1 Generalized edema; I25.10 Atherosclerotic heart disease of native coronary artery without angina pectoris; Z95.5 Presence of coronary angioplasty implant and graft; Z79.4 Long term (current) use of insulin; Z79.84 Long term (current) use of oral hypoglycemic drugs; Z79.82 Long term (current) use of aspirin; Z79.899 Other long term (current) drug therapy; I12.9 Hypertensive chronic kidney disease with stage 1 through stage 4 chronic kidney disease, or unspecified chronic kidney disease; E11.22 Type 2 diabetes mellitus with diabetic chronic kidney disease; N18.9 Chronic kidney disease, unspecified; Z87.891 Personal history of nicotine dependence
CPT/HCPCS: 11043

== ENCOUNTER → 2022-03-01 | Outpatient (CLI) | payer MEDICARE, BC ==
[~2022-03-01] MED LIST changes: +DAKINS HALF STRENGTH (0.25%) 480 ML BOTTLE ONE; +GENTAMICIN 0.1% CREAM 15 GM TUBE ONE; +SILVER SULFADIAZINE CREAM 25 GM TUBE ONE
[2022-03-01 09:45] LABS: BASOPHILS % (AUTO) 0.4 % (0.0-2.0); EOSINOPHILS % (AUTO) 2.1 % (0.0-6.0); HEMATOCRIT 27 % (39-51); HEMOGLOBIN 9.2 g/dL (13.5-17.5); LYMPHOCYTES # (AUTO) 0.8 K/uL (0.8-4.8); LYMPHOCYTES % (AUTO) 11.4 % (20.0-44.0); MEAN CORPUSCULAR HGB CONC 34 g/dl (31.0-36.0); MEAN CORPUSCULAR VOLUME 87 fL (80-96); MONOCYTES # (AUTO) 0.4 K/uL (0.1-1.30); MONOCYTES % (AUTO) 5.2 % (2.0-12.0); NEUTROPHILS % (AUTO) 80.9 % (43.0-81.0); PLATELET COUNT (AUTO) 134 K/uL (150-450); RED BLOOD CELL COUNT(AUTO) 3.16 MIL/uL (4.5-6.0); WHITE BLOOD COUNT (AUTO) 7.4 K/uL (4.3-11.0)
[2022-03-01 10:09] LABS: ALBUMIN 3.5 g/dL (3.4-5.0); CALCIUM, SERUM 7.2 mg/dL (8.5-10.1); CREATININE 5.9 mg/dL (0.6-1.3)
[2022-03-01 10:17] LABS: C-REACTIVE PROTEIN 0.9 mg/dL (0.0-0.9)
== END | disposition home health service (06) ==
LOC: WOU 08:20
PROVIDERS: ATTEND Podiatrist Foot & Ankle Surgery
DX: E11.621 Type 2 diabetes mellitus with foot ulcer (principal); L97.513 Non-pressure chronic ulcer of other part of right foot with necrosis of muscle; E11.22 Type 2 diabetes mellitus with diabetic chronic kidney disease; I12.9 Hypertensive chronic kidney disease with stage 1 through stage 4 chronic kidney disease, or unspecified chronic kidney disease; E11.69 Type 2 diabetes mellitus with other specified complication; E11.42 Type 2 diabetes mellitus with diabetic polyneuropathy; M86.671 Other chronic osteomyelitis, right ankle and foot; N18.9 Chronic kidney disease, unspecified; Z87.891 Personal history of nicotine dependence; Z79.4 Long term (current) use of insulin; Z79.84 Long term (current) use of oral hypoglycemic drugs; L84 Corns and callosities; R60.0 Localized edema; Z89.421 Acquired absence of other right toe(s); Z91.19 Patient's noncompliance with other medical treatment and regimen; Z79.82 Long term (current) use of aspirin
CPT/HCPCS: 11043; 82040; 84145; 85025; 80048; 87077; 87075; 87070; 83036; 85652; 87186 ×2; 36415; 86140; A6197

== ENCOUNTER → 2022-03-05 | Outpatient (CLI) | payer MEDICARE, BC ==
[~2022-03-05] MED LIST changes: -DAKINS HALF STRENGTH (0.25%) 480 ML BOTTLE ONE
== END | disposition home health service (06) ==
LOC: WOU 10:30
PROVIDERS: ATTEND Podiatrist Foot & Ankle Surgery
DX: E11.621 Type 2 diabetes mellitus with foot ulcer (principal); L97.813 Non-pressure chronic ulcer of other part of right lower leg with necrosis of muscle; E11.22 Type 2 diabetes mellitus with diabetic chronic kidney disease; I12.9 Hypertensive chronic kidney disease with stage 1 through stage 4 chronic kidney disease, or unspecified chronic kidney disease; E11.42 Type 2 diabetes mellitus with diabetic polyneuropathy; E11.69 Type 2 diabetes mellitus with other specified complication; M86.671 Other chronic osteomyelitis, right ankle and foot; N18.9 Chronic kidney disease, unspecified; Z87.891 Personal history of nicotine dependence; Z79.4 Long term (current) use of insulin; Z79.84 Long term (current) use of oral hypoglycemic drugs; R60.0 Localized edema; L84 Corns and callosities
CPT/HCPCS: 11043; A6197

== ENCOUNTER 2022-03-08 10:30 | Outpatient (CLI) | payer MEDICARE, BC ==
[~2022-03-08 10:30] MED LIST changes: -GENTAMICIN 0.1% CREAM 15 GM TUBE ONE; -SILVER SULFADIAZINE CREAM 25 GM TUBE ONE
[2022-03-08] MEDS ORDERED: SILVER SULFADIAZINE CREAM 25 GM TUBE ONE (10:39)
[2022-03-08] MEDS ORDERED: GENTAMICIN 0.1% CREAM 15 GM TUBE ONE (10:39)
== END 2022-03-08 23:59 | disposition home health service (06) ==
LOC: WOU 10:30
PROVIDERS: ATTEND Podiatrist Foot & Ankle Surgery
DX: E11.621 Type 2 diabetes mellitus with foot ulcer (principal); L97.515 Non-pressure chronic ulcer of other part of right foot with muscle involvement without evidence of necrosis; E11.22 Type 2 diabetes mellitus with diabetic chronic kidney disease; I12.9 Hypertensive chronic kidney disease with stage 1 through stage 4 chronic kidney disease, or unspecified chronic kidney disease; E11.42 Type 2 diabetes mellitus with diabetic polyneuropathy; E11.69 Type 2 diabetes mellitus with other specified complication; M86.671 Other chronic osteomyelitis, right ankle and foot; N18.9 Chronic kidney disease, unspecified; Z87.891 Personal history of nicotine dependence; Z79.4 Long term (current) use of insulin; Z79.84 Long term (current) use of oral hypoglycemic drugs; R60.0 Localized edema; L84 Corns and callosities; Z79.82 Long term (current) use of aspirin; Z79.899 Other long term (current) drug therapy; Z89.421 Acquired absence of other right toe(s)
CPT/HCPCS: 15275; Q4101 ×2; A6197

== ENCOUNTER 2022-03-12 08:15 | Outpatient (CLI) | payer MEDICARE, BC | END 2022-03-12 23:59 | disposition home health service (06) | LOC: WOU 08:15 | PROVIDERS: ATTEND Podiatrist Foot & Ankle Surgery | DX: E11.621 Type 2 diabetes mellitus with foot ulcer (principal); L97.515 Non-pressure chronic ulcer of other part of right foot with muscle involvement without evidence of necrosis; E11.22 Type 2 diabetes mellitus with diabetic chronic kidney disease; I12.9 Hypertensive chronic kidney disease with stage 1 through stage 4 chronic kidney disease, or unspecified chronic kidney disease; E11.69 Type 2 diabetes mellitus with other specified complication; E11.42 Type 2 diabetes mellitus with diabetic polyneuropathy; M86.671 Other chronic osteomyelitis, right ankle and foot; N18.9 Chronic kidney disease, unspecified; Z87.891 Personal history of nicotine dependence; Z79.4 Long term (current) use of insulin; Z79.84 Long term (current) use of oral hypoglycemic drugs; R60.0 Localized edema; L84 Corns and callosities; Z89.421 Acquired absence of other right toe(s); Z79.82 Long term (current) use of aspirin | CPT/HCPCS: 11042 ==

== ENCOUNTER 2022-03-15 10:30 | Outpatient (CLI) | payer MEDICARE, BC | END 2022-03-15 23:59 | disposition home health service (06) | LOC: WOU 10:30 | PROVIDERS: ATTEND Podiatrist Foot & Ankle Surgery | DX: E11.621 Type 2 diabetes mellitus with foot ulcer (principal); L97.512 Non-pressure chronic ulcer of other part of right foot with fat layer exposed; E11.22 Type 2 diabetes mellitus with diabetic chronic kidney disease; I12.9 Hypertensive chronic kidney disease with stage 1 through stage 4 chronic kidney disease, or unspecified chronic kidney disease; E11.69 Type 2 diabetes mellitus with other specified complication; E11.42 Type 2 diabetes mellitus with diabetic polyneuropathy; M86.671 Other chronic osteomyelitis, right ankle and foot; N18.9 Chronic kidney disease, unspecified; Z87.891 Personal history of nicotine dependence; Z79.4 Long term (current) use of insulin; Z79.84 Long term (current) use of oral hypoglycemic drugs; R60.0 Localized edema; L84 Corns and callosities; Z79.82 Long term (current) use of aspirin | CPT/HCPCS: 15275; Q4101 ×2 ==

== ENCOUNTER 2022-03-19 08:30 | Outpatient (CLI) | payer MEDICARE, BC ==
[2022-03-19] MEDS ORDERED: MUPIROCIN 2% CREAM 15 GM TUBE TP ONE (09:28)
== END 2022-03-19 23:59 | disposition home health service (06) ==
LOC: WOU 08:30
PROVIDERS: ATTEND Podiatrist Foot & Ankle Surgery
DX: E11.621 Type 2 diabetes mellitus with foot ulcer (principal); L97.512 Non-pressure chronic ulcer of other part of right foot with fat layer exposed; E11.22 Type 2 diabetes mellitus with diabetic chronic kidney disease; I12.9 Hypertensive chronic kidney disease with stage 1 through stage 4 chronic kidney disease, or unspecified chronic kidney disease; E11.69 Type 2 diabetes mellitus with other specified complication; E11.42 Type 2 diabetes mellitus with diabetic polyneuropathy; M86.671 Other chronic osteomyelitis, right ankle and foot; N18.9 Chronic kidney disease, unspecified; Z87.891 Personal history of nicotine dependence; Z79.4 Long term (current) use of insulin; Z79.84 Long term (current) use of oral hypoglycemic drugs; R60.0 Localized edema; L84 Corns and callosities; Z89.421 Acquired absence of other right toe(s); Z91.19 Patient's noncompliance with other medical treatment and regimen; Z79.82 Long term (current) use of aspirin
CPT/HCPCS: 11042

== ENCOUNTER 2022-03-22 09:30 | Outpatient (CLI) | payer MEDICARE, BC ==
[2022-03-22] MEDS ORDERED: MUPIROCIN 2% CREAM 15 GM TUBE TP ONE (10:07)
== END 2022-03-22 23:59 | disposition home health service (06) ==
LOC: WOU 09:30
PROVIDERS: ATTEND Podiatrist Foot & Ankle Surgery
DX: E11.621 Type 2 diabetes mellitus with foot ulcer (principal); L97.512 Non-pressure chronic ulcer of other part of right foot with fat layer exposed; E11.22 Type 2 diabetes mellitus with diabetic chronic kidney disease; I12.9 Hypertensive chronic kidney disease with stage 1 through stage 4 chronic kidney disease, or unspecified chronic kidney disease; E11.40 Type 2 diabetes mellitus with diabetic neuropathy, unspecified; E11.69 Type 2 diabetes mellitus with other specified complication; M86.671 Other chronic osteomyelitis, right ankle and foot; N18.9 Chronic kidney disease, unspecified; Z87.891 Personal history of nicotine dependence; Z79.4 Long term (current) use of insulin; Z79.84 Long term (current) use of oral hypoglycemic drugs; Z89.411 Acquired absence of right great toe; Z79.82 Long term (current) use of aspirin
CPT/HCPCS: 11042; A6197

== ENCOUNTER 2022-03-26 09:30 | Outpatient (CLI) | payer MEDICARE, BC ==
[2022-03-26] MEDS ORDERED: MUPIROCIN 2% CREAM 15 GM TUBE TP ONE (10:46)
== END 2022-03-26 23:59 | disposition home health service (06) ==
LOC: WOU 09:30
PROVIDERS: ATTEND Podiatrist Foot & Ankle Surgery
DX: E11.621 Type 2 diabetes mellitus with foot ulcer (principal); L97.512 Non-pressure chronic ulcer of other part of right foot with fat layer exposed; E11.22 Type 2 diabetes mellitus with diabetic chronic kidney disease; I12.9 Hypertensive chronic kidney disease with stage 1 through stage 4 chronic kidney disease, or unspecified chronic kidney disease; E11.69 Type 2 diabetes mellitus with other specified complication; E11.42 Type 2 diabetes mellitus with diabetic polyneuropathy; M86.671 Other chronic osteomyelitis, right ankle and foot; N18.9 Chronic kidney disease, unspecified; Z87.891 Personal history of nicotine dependence; Z79.4 Long term (current) use of insulin; Z79.84 Long term (current) use of oral hypoglycemic drugs; R60.0 Localized edema; L84 Corns and callosities; Z89.411 Acquired absence of right great toe
CPT/HCPCS: 11042

== ENCOUNTER 2022-03-29 09:30 | Outpatient (CLI) | payer MEDICARE, BC ==
[2022-03-29 11:42] LABS: C-REACTIVE PROTEIN 0.7 mg/dL (0.0-0.9); CALCIUM, SERUM 7.7 mg/dL (8.5-10.1); CREATININE 6.2 mg/dL (0.6-1.3); POTASSIUM 4.2 mmol/L (3.5-5.1)
[2022-03-29 11:53] LABS: BASOPHILS % (AUTO) 0.2 % (0.0-2.0); EOSINOPHILS % (AUTO) 1.5 % (0.0-6.0); HEMATOCRIT 27 % (39-51); HEMOGLOBIN 9.2 g/dL (13.5-17.5); LYMPHOCYTES # (AUTO) 0.9 K/uL (0.8-4.8); LYMPHOCYTES % (AUTO) 14.2 % (20.0-44.0); MEAN CORPUSCULAR HGB CONC 34 g/dl (31.0-36.0); MEAN CORPUSCULAR VOLUME 87 fL (80-96); MONOCYTES # (AUTO) 0.3 K/uL (0.1-1.30); MONOCYTES % (AUTO) 5.8 % (2.0-12.0); NEUTROPHILS # (AUTO) 4.7 K/uL (1.8-8.9); NEUTROPHILS % (AUTO) 78.3 % (43.0-81.0); PLATELET COUNT (AUTO) 126 K/uL (150-450); RED BLOOD CELL COUNT(AUTO) 3.08 MIL/uL (4.5-6.0)
== END 2022-03-29 23:59 | disposition home health service (06) ==
LOC: WOU 09:30
PROVIDERS: ATTEND Podiatrist Foot & Ankle Surgery
DX: E11.621 Type 2 diabetes mellitus with foot ulcer (principal); L97.512 Non-pressure chronic ulcer of other part of right foot with fat layer exposed; E11.22 Type 2 diabetes mellitus with diabetic chronic kidney disease; I12.9 Hypertensive chronic kidney disease with stage 1 through stage 4 chronic kidney disease, or unspecified chronic kidney disease; E11.69 Type 2 diabetes mellitus with other specified complication; E11.42 Type 2 diabetes mellitus with diabetic polyneuropathy; M86.671 Other chronic osteomyelitis, right ankle and foot; N18.9 Chronic kidney disease, unspecified; Z87.891 Personal history of nicotine dependence; Z79.4 Long term (current) use of insulin; Z79.84 Long term (current) use of oral hypoglycemic drugs; R60.0 Localized edema; Z89.411 Acquired absence of right great toe
CPT/HCPCS: 15275; 84145; 85025; 80048; 83036; 85652; 36415; 86140; Q4101 ×2

== ENCOUNTER 2022-04-01 11:46 | Outpatient (CLI) | payer MEDICARE, BC | END 2022-04-01 23:59 | disposition home or self-care (01) | LOC: MRI 11:46 | PROVIDERS: ATTEND Podiatrist Foot & Ankle Surgery | DX: E11.621 Type 2 diabetes mellitus with foot ulcer (principal); L97.511 Non-pressure chronic ulcer of other part of right foot limited to breakdown of skin; M62.571 Muscle wasting and atrophy, not elsewhere classified, right ankle and foot; Z98.890 Other specified postprocedural states | CPT/HCPCS: 73718-TC ==

== ENCOUNTER 2022-04-02 09:43 | Outpatient (CLI) | payer MEDICARE, BC | END 2022-04-02 23:59 | disposition home health service (06) | LOC: WOU 09:43 | PROVIDERS: ATTEND Podiatrist Foot & Ankle Surgery | DX: E11.621 Type 2 diabetes mellitus with foot ulcer (principal); L97.512 Non-pressure chronic ulcer of other part of right foot with fat layer exposed; E11.22 Type 2 diabetes mellitus with diabetic chronic kidney disease; I12.9 Hypertensive chronic kidney disease with stage 1 through stage 4 chronic kidney disease, or unspecified chronic kidney disease; E11.69 Type 2 diabetes mellitus with other specified complication; E11.42 Type 2 diabetes mellitus with diabetic polyneuropathy; M86.671 Other chronic osteomyelitis, right ankle and foot; N18.9 Chronic kidney disease, unspecified; Z87.891 Personal history of nicotine dependence; Z79.4 Long term (current) use of insulin; Z79.84 Long term (current) use of oral hypoglycemic drugs; L84 Corns and callosities; Z89.411 Acquired absence of right great toe | CPT/HCPCS: G0463 ==

== ENCOUNTER 2022-04-05 09:20 | Outpatient (CLI) | payer MEDICARE, BC | END 2022-04-05 23:59 | disposition home health service (06) | LOC: WOU 09:20 | PROVIDERS: ATTEND Podiatrist Foot & Ankle Surgery | DX: E11.621 Type 2 diabetes mellitus with foot ulcer (principal); L97.512 Non-pressure chronic ulcer of other part of right foot with fat layer exposed; E11.22 Type 2 diabetes mellitus with diabetic chronic kidney disease; I12.9 Hypertensive chronic kidney disease with stage 1 through stage 4 chronic kidney disease, or unspecified chronic kidney disease; E11.69 Type 2 diabetes mellitus with other specified complication; E11.42 Type 2 diabetes mellitus with diabetic polyneuropathy; M86.671 Other chronic osteomyelitis, right ankle and foot; N18.9 Chronic kidney disease, unspecified; Z87.891 Personal history of nicotine dependence; Z79.4 Long term (current) use of insulin; Z79.84 Long term (current) use of oral hypoglycemic drugs; L84 Corns and callosities; R60.0 Localized edema; Z89.411 Acquired absence of right great toe | CPT/HCPCS: 11042 ==

== ENCOUNTER 2022-04-09 09:15 | Outpatient (CLI) | payer MEDICARE, BC ==
[2022-04-09] MEDS ORDERED: HYDROCORTISONE 1% CREAM 28.35 GM TUBE TP ONE (09:44)
== END 2022-04-09 23:59 | disposition home health service (06) ==
LOC: WOU 09:15
PROVIDERS: ATTEND Podiatrist Foot & Ankle Surgery
DX: E11.621 Type 2 diabetes mellitus with foot ulcer (principal); L97.512 Non-pressure chronic ulcer of other part of right foot with fat layer exposed; E11.22 Type 2 diabetes mellitus with diabetic chronic kidney disease; I12.9 Hypertensive chronic kidney disease with stage 1 through stage 4 chronic kidney disease, or unspecified chronic kidney disease; E11.69 Type 2 diabetes mellitus with other specified complication; E11.42 Type 2 diabetes mellitus with diabetic polyneuropathy; M86.671 Other chronic osteomyelitis, right ankle and foot; N18.9 Chronic kidney disease, unspecified; Z87.891 Personal history of nicotine dependence; Z79.4 Long term (current) use of insulin; Z79.84 Long term (current) use of oral hypoglycemic drugs; R60.0 Localized edema; L84 Corns and callosities; Z79.82 Long term (current) use of aspirin; Z89.411 Acquired absence of right great toe
CPT/HCPCS: 11042

== ENCOUNTER 2022-04-12 09:30 | Outpatient (CLI) | payer MEDICARE, BC | END 2022-04-12 23:59 | disposition home health service (06) | LOC: WOU 09:30 | PROVIDERS: ATTEND Podiatrist Foot & Ankle Surgery | DX: E11.621 Type 2 diabetes mellitus with foot ulcer (principal); L97.512 Non-pressure chronic ulcer of other part of right foot with fat layer exposed; E11.22 Type 2 diabetes mellitus with diabetic chronic kidney disease; I12.9 Hypertensive chronic kidney disease with stage 1 through stage 4 chronic kidney disease, or unspecified chronic kidney disease; E11.69 Type 2 diabetes mellitus with other specified complication; E11.42 Type 2 diabetes mellitus with diabetic polyneuropathy; M86.671 Other chronic osteomyelitis, right ankle and foot; N18.9 Chronic kidney disease, unspecified; Z87.891 Personal history of nicotine dependence; Z79.4 Long term (current) use of insulin; Z79.84 Long term (current) use of oral hypoglycemic drugs; L84 Corns and callosities; R60.0 Localized edema; Z79.82 Long term (current) use of aspirin | CPT/HCPCS: 11042 ==

== ENCOUNTER 2022-04-16 09:15 | Outpatient (CLI) | payer MEDICARE, BC | END 2022-04-16 23:59 | disposition home health service (06) | LOC: WOU 09:15 | PROVIDERS: ATTEND Podiatrist Foot & Ankle Surgery | DX: E11.621 Type 2 diabetes mellitus with foot ulcer (principal); L97.512 Non-pressure chronic ulcer of other part of right foot with fat layer exposed; E11.22 Type 2 diabetes mellitus with diabetic chronic kidney disease; I12.9 Hypertensive chronic kidney disease with stage 1 through stage 4 chronic kidney disease, or unspecified chronic kidney disease; E11.42 Type 2 diabetes mellitus with diabetic polyneuropathy; E11.69 Type 2 diabetes mellitus with other specified complication; M86.671 Other chronic osteomyelitis, right ankle and foot; N18.9 Chronic kidney disease, unspecified; Z87.891 Personal history of nicotine dependence; Z79.4 Long term (current) use of insulin; Z79.84 Long term (current) use of oral hypoglycemic drugs; Z79.82 Long term (current) use of aspirin | CPT/HCPCS: 11042 ==

== ENCOUNTER 2022-04-18 09:49 | Outpatient (CLI) | payer MEDICARE, BC ==
[2022-04-18 11:27] LABS: BASOPHILS % (AUTO) 0.3 % (0.0-2.0); EOSINOPHILS % (AUTO) 1.5 % (0.0-6.0); HEMATOCRIT 29 % (39-51); HEMOGLOBIN 9.8 g/dL (13.5-17.5); LYMPHOCYTES # (AUTO) 0.8 K/uL (0.8-4.8); LYMPHOCYTES % (AUTO) 11.4 % (20.0-44.0); MEAN CORPUSCULAR HGB CONC 34 g/dl (31.0-36.0); MEAN CORPUSCULAR VOLUME 87 fL (80-96); MONOCYTES # (AUTO) 0.4 K/uL (0.1-1.30); MONOCYTES % (AUTO) 5.4 % (2.0-12.0); NEUTROPHILS # (AUTO) 5.7 K/uL (1.8-8.9); NEUTROPHILS % (AUTO) 81.4 % (43.0-81.0); PLATELET COUNT (AUTO) 137 K/uL (150-450)
[2022-04-19 09:57] LABS: ALBUMIN 3.6 g/dL (3.4-5.0); BILIRUBIN,TOTAL 0.4 mg/dL (0.2-1.0); CALCIUM, SERUM 6.7 mg/dL (8.5-10.1); CREATININE 6.9 mg/dL (0.6-1.3); POTASSIUM 4.8 mmol/L (3.5-5.1); TOTAL PROTEIN, SERUM 7.1 g/dL (6.4-8.2)
== END 2022-04-18 23:59 | disposition home or self-care (01) ==
LOC: LAB 09:49
PROVIDERS: ATTEND Podiatrist Foot & Ankle Surgery
DX: Z01.818 Encounter for other preprocedural examination (principal); E11.621 Type 2 diabetes mellitus with foot ulcer; M86.671 Other chronic osteomyelitis, right ankle and foot
CPT/HCPCS: 36415; 71045-TC; 80053-TC; 85025-TC; 85730-TC

== ENCOUNTER 2022-04-19 09:00 | Outpatient (CLI) | payer MEDICARE, BC ==
[2022-04-19] MEDS ORDERED: HYDROCORTISONE 1% CREAM 28.35 GM TUBE TP ONE (09:36)
== END 2022-04-19 23:59 | disposition home health service (06) ==
LOC: WOU 09:00
PROVIDERS: ATTEND Podiatrist Foot & Ankle Surgery
DX: E11.621 Type 2 diabetes mellitus with foot ulcer (principal); L97.512 Non-pressure chronic ulcer of other part of right foot with fat layer exposed; E11.22 Type 2 diabetes mellitus with diabetic chronic kidney disease; I12.9 Hypertensive chronic kidney disease with stage 1 through stage 4 chronic kidney disease, or unspecified chronic kidney disease; E11.42 Type 2 diabetes mellitus with diabetic polyneuropathy; E11.69 Type 2 diabetes mellitus with other specified complication; M86.671 Other chronic osteomyelitis, right ankle and foot; N18.9 Chronic kidney disease, unspecified; Z87.891 Personal history of nicotine dependence; Z79.4 Long term (current) use of insulin; Z79.84 Long term (current) use of oral hypoglycemic drugs; R60.0 Localized edema; L84 Corns and callosities; Z89.411 Acquired absence of right great toe
CPT/HCPCS: 11042

== ENCOUNTER 2022-04-23 09:35 | Outpatient (CLI) | payer MEDICARE, BC ==
[2022-04-23] MEDS ORDERED: HYDROCORTISONE 1% CREAM 28.35 GM TUBE TP ONE (09:55)
[2022-04-23 12:17] LABS: BASOPHILS % (AUTO) 0.2 % (0.0-2.0); EOSINOPHILS % (AUTO) 1.4 % (0.0-6.0); HEMATOCRIT 28 % (39-51); HEMOGLOBIN 9.6 g/dL (13.5-17.5); LYMPHOCYTES # (AUTO) 0.7 K/uL (0.8-4.8); LYMPHOCYTES % (AUTO) 9.2 % (20.0-44.0); MEAN CORPUSCULAR HGB CONC 34 g/dl (31.0-36.0); MEAN CORPUSCULAR VOLUME 87 fL (80-96); MONOCYTES # (AUTO) 0.4 K/uL (0.1-1.30); MONOCYTES % (AUTO) 5.4 % (2.0-12.0); NEUTROPHILS # (AUTO) 6.8 K/uL (1.8-8.9); NEUTROPHILS % (AUTO) 83.8 % (43.0-81.0); PLATELET COUNT (AUTO) 139 K/uL (150-450); RED BLOOD CELL COUNT(AUTO) 3.24 MIL/uL (4.5-6.0); WHITE BLOOD COUNT (AUTO) 8.2 K/uL (4.3-11.0)
[2022-04-23 12:18] LABS: C-REACTIVE PROTEIN 1.6 mg/dL (0.0-0.9)
[2022-04-23 12:43] LABS: ALBUMIN 3.2 g/dL (3.4-5.0); BILIRUBIN,TOTAL 0.4 mg/dL (0.2-1.0); CALCIUM, SERUM 6.8 mg/dL (8.5-10.1); CREATININE 6.6 mg/dL (0.6-1.3); MAGNESIUM 2.2 mg/dL (1.8-2.4); PHOSPHORUS 6.4 mg/dL (2.5-4.9); POTASSIUM 4.4 mmol/L (3.5-5.1); TOTAL PROTEIN, SERUM 7.2 g/dL (6.4-8.2)
== END 2022-04-23 23:59 | disposition home health service (06) ==
LOC: WOU 09:35
PROVIDERS: ATTEND Podiatrist Foot & Ankle Surgery
DX: E11.621 Type 2 diabetes mellitus with foot ulcer (principal); L97.512 Non-pressure chronic ulcer of other part of right foot with fat layer exposed; E11.22 Type 2 diabetes mellitus with diabetic chronic kidney disease; I12.9 Hypertensive chronic kidney disease with stage 1 through stage 4 chronic kidney disease, or unspecified chronic kidney disease; E11.69 Type 2 diabetes mellitus with other specified complication; E11.42 Type 2 diabetes mellitus with diabetic polyneuropathy; M86.671 Other chronic osteomyelitis, right ankle and foot; N18.9 Chronic kidney disease, unspecified; Z87.891 Personal history of nicotine dependence; Z79.4 Long term (current) use of insulin; Z79.84 Long term (current) use of oral hypoglycemic drugs; L84 Corns and callosities; Z89.411 Acquired absence of right great toe
CPT/HCPCS: 11042; 36415; 80053-TC; 83735-TC; 83970; 84100-TC; 85025-TC; 85652-TC; 86140-TC

== ENCOUNTER 2022-04-23 10:27 | Outpatient (CLI) | payer MEDICARE, BC | END 2022-04-23 23:59 | disposition home or self-care (01) | LOC: MSC 10:27 | PROVIDERS: ATTEND Internal Medicine | DX: Z01.818 Encounter for other preprocedural examination (principal); E11.621 Type 2 diabetes mellitus with foot ulcer; L97.519 Non-pressure chronic ulcer of other part of right foot with unspecified severity; E11.69 Type 2 diabetes mellitus with other specified complication; E11.21 Type 2 diabetes mellitus with diabetic nephropathy; M86.671 Other chronic osteomyelitis, right ankle and foot; Z79.4 Long term (current) use of insulin; E11.22 Type 2 diabetes mellitus with diabetic chronic kidney disease; I12.0 Hypertensive chronic kidney disease with stage 5 chronic kidney disease or end stage renal disease; N18.5 Chronic kidney disease, stage 5; E83.9 Disorder of mineral metabolism, unspecified; M89.9 Disorder of bone, unspecified; D64.9 Anemia, unspecified; G47.30 Sleep apnea, unspecified; N25.81 Secondary hyperparathyroidism of renal origin; R35.1 Nocturia | CPT/HCPCS: 85025; 83735; 83036; 84100; 85652; 36415; 80053; 86140; 83970; G0463 ==

== ENCOUNTER 2022-04-26 08:50 | Outpatient (CLI) | payer MEDICARE, BC | END 2022-04-26 23:59 | disposition home health service (06) | LOC: WOU 08:50 | PROVIDERS: ATTEND Podiatrist Foot & Ankle Surgery | DX: E11.621 Type 2 diabetes mellitus with foot ulcer (principal); L97.512 Non-pressure chronic ulcer of other part of right foot with fat layer exposed; E11.22 Type 2 diabetes mellitus with diabetic chronic kidney disease; I12.9 Hypertensive chronic kidney disease with stage 1 through stage 4 chronic kidney disease, or unspecified chronic kidney disease; E11.69 Type 2 diabetes mellitus with other specified complication; E11.42 Type 2 diabetes mellitus with diabetic polyneuropathy; M86.671 Other chronic osteomyelitis, right ankle and foot; N18.9 Chronic kidney disease, unspecified; Z87.891 Personal history of nicotine dependence; Z79.4 Long term (current) use of insulin; Z79.84 Long term (current) use of oral hypoglycemic drugs; L84 Corns and callosities; Z89.411 Acquired absence of right great toe; R60.0 Localized edema; Z79.82 Long term (current) use of aspirin | CPT/HCPCS: 11042 ==

== ENCOUNTER 2022-04-30 09:30 | Outpatient (CLI) | payer MEDICARE, BC | END 2022-04-30 23:59 | disposition home health service (06) | LOC: WOU 09:30 | PROVIDERS: ATTEND Podiatrist Foot & Ankle Surgery | DX: E11.621 Type 2 diabetes mellitus with foot ulcer (principal); L97.512 Non-pressure chronic ulcer of other part of right foot with fat layer exposed; E11.22 Type 2 diabetes mellitus with diabetic chronic kidney disease; I12.9 Hypertensive chronic kidney disease with stage 1 through stage 4 chronic kidney disease, or unspecified chronic kidney disease; E11.42 Type 2 diabetes mellitus with diabetic polyneuropathy; E11.69 Type 2 diabetes mellitus with other specified complication; M86.671 Other chronic osteomyelitis, right ankle and foot; N18.9 Chronic kidney disease, unspecified; Z87.891 Personal history of nicotine dependence; Z79.4 Long term (current) use of insulin; Z79.84 Long term (current) use of oral hypoglycemic drugs; Z89.411 Acquired absence of right great toe; L84 Corns and callosities; R60.0 Localized edema | CPT/HCPCS: 11042 ==

== ENCOUNTER 2022-05-03 09:22 | Outpatient (CLI) | payer MEDICARE, BC | END 2022-05-03 23:59 | disposition home health service (06) | LOC: WOU 09:22 | PROVIDERS: ATTEND Podiatrist Foot & Ankle Surgery | DX: Z48.89 Encounter for other specified surgical aftercare (principal); E11.621 Type 2 diabetes mellitus with foot ulcer; L97.512 Non-pressure chronic ulcer of other part of right foot with fat layer exposed; E11.22 Type 2 diabetes mellitus with diabetic chronic kidney disease; I12.9 Hypertensive chronic kidney disease with stage 1 through stage 4 chronic kidney disease, or unspecified chronic kidney disease; E11.69 Type 2 diabetes mellitus with other specified complication; E11.42 Type 2 diabetes mellitus with diabetic polyneuropathy; M86.671 Other chronic osteomyelitis, right ankle and foot; N18.9 Chronic kidney disease, unspecified; Z87.891 Personal history of nicotine dependence; Z79.4 Long term (current) use of insulin; Z79.84 Long term (current) use of oral hypoglycemic drugs; Z79.82 Long term (current) use of aspirin | CPT/HCPCS: G0463 ==

== ENCOUNTER 2022-05-07 08:50 | Outpatient (CLI) | payer MEDICARE, BC | END 2022-05-07 23:59 | disposition home health service (06) | LOC: WOU 08:50 | PROVIDERS: ATTEND Podiatrist Foot & Ankle Surgery | DX: E11.621 Type 2 diabetes mellitus with foot ulcer (principal); L97.512 Non-pressure chronic ulcer of other part of right foot with fat layer exposed; E11.22 Type 2 diabetes mellitus with diabetic chronic kidney disease; I12.9 Hypertensive chronic kidney disease with stage 1 through stage 4 chronic kidney disease, or unspecified chronic kidney disease; E11.42 Type 2 diabetes mellitus with diabetic polyneuropathy; E11.69 Type 2 diabetes mellitus with other specified complication; M86.671 Other chronic osteomyelitis, right ankle and foot; N18.9 Chronic kidney disease, unspecified; B96.1 Klebsiella pneumoniae [K. pneumoniae] as the cause of diseases classified elsewhere; B96.5 Pseudomonas (aeruginosa) (mallei) (pseudomallei) as the cause of diseases classified elsewhere; Z87.891 Personal history of nicotine dependence; Z79.4 Long term (current) use of insulin; Z79.84 Long term (current) use of oral hypoglycemic drugs; Z89.411 Acquired absence of right great toe; Z79.82 Long term (current) use of aspirin; Z79.899 Other long term (current) drug therapy | CPT/HCPCS: 11042 ==

== ENCOUNTER 2022-05-10 09:07 | Outpatient (CLI) | payer MEDICARE, BC | END 2022-05-10 23:59 | disposition home health service (06) | LOC: WOU 09:07 | PROVIDERS: ATTEND Podiatrist Foot & Ankle Surgery | DX: E11.621 Type 2 diabetes mellitus with foot ulcer (principal); L97.512 Non-pressure chronic ulcer of other part of right foot with fat layer exposed; E11.22 Type 2 diabetes mellitus with diabetic chronic kidney disease; I12.9 Hypertensive chronic kidney disease with stage 1 through stage 4 chronic kidney disease, or unspecified chronic kidney disease; E11.42 Type 2 diabetes mellitus with diabetic polyneuropathy; E11.69 Type 2 diabetes mellitus with other specified complication; M86.671 Other chronic osteomyelitis, right ankle and foot; N18.9 Chronic kidney disease, unspecified; B96.1 Klebsiella pneumoniae [K. pneumoniae] as the cause of diseases classified elsewhere; B96.5 Pseudomonas (aeruginosa) (mallei) (pseudomallei) as the cause of diseases classified elsewhere; Z87.891 Personal history of nicotine dependence; Z79.4 Long term (current) use of insulin; Z79.84 Long term (current) use of oral hypoglycemic drugs; R60.0 Localized edema; Z89.411 Acquired absence of right great toe | CPT/HCPCS: 11042 ==

== ENCOUNTER 2022-05-14 09:00 | Outpatient (CLI) | payer MEDICARE, BC ==
[2022-05-14] MEDS ORDERED: UREA 10% -AHA 4% CREAM 57 GM TUBE ONE (09:29)
== END 2022-05-14 23:59 | disposition home health service (06) ==
LOC: WOU 09:00
PROVIDERS: ATTEND Podiatrist Foot & Ankle Surgery
DX: E11.621 Type 2 diabetes mellitus with foot ulcer (principal); L97.512 Non-pressure chronic ulcer of other part of right foot with fat layer exposed; E11.22 Type 2 diabetes mellitus with diabetic chronic kidney disease; I12.9 Hypertensive chronic kidney disease with stage 1 through stage 4 chronic kidney disease, or unspecified chronic kidney disease; E11.42 Type 2 diabetes mellitus with diabetic polyneuropathy; E11.69 Type 2 diabetes mellitus with other specified complication; M86.671 Other chronic osteomyelitis, right ankle and foot; N18.9 Chronic kidney disease, unspecified; B96.5 Pseudomonas (aeruginosa) (mallei) (pseudomallei) as the cause of diseases classified elsewhere; B96.1 Klebsiella pneumoniae [K. pneumoniae] as the cause of diseases classified elsewhere; Z87.891 Personal history of nicotine dependence; Z79.4 Long term (current) use of insulin; Z79.84 Long term (current) use of oral hypoglycemic drugs; L84 Corns and callosities; R60.0 Localized edema; Z89.411 Acquired absence of right great toe
CPT/HCPCS: 11042

== ENCOUNTER 2022-05-17 08:21 | Outpatient (CLI) | payer MEDICARE, BC ==
[2022-05-17] MEDS ORDERED: BACI/NEOM/POLY B OINT PKT 1 UDPKT PACKET ONE (08:44)
== END 2022-05-17 23:59 | disposition home health service (06) ==
LOC: WOU 08:21
PROVIDERS: ATTEND Podiatrist Foot & Ankle Surgery
DX: E11.621 Type 2 diabetes mellitus with foot ulcer (principal); L97.512 Non-pressure chronic ulcer of other part of right foot with fat layer exposed; E11.22 Type 2 diabetes mellitus with diabetic chronic kidney disease; I12.0 Hypertensive chronic kidney disease with stage 5 chronic kidney disease or end stage renal disease; E11.42 Type 2 diabetes mellitus with diabetic polyneuropathy; E11.69 Type 2 diabetes mellitus with other specified complication; M86.671 Other chronic osteomyelitis, right ankle and foot; N18.6 End stage renal disease; Z99.2 Dependence on renal dialysis; Z87.891 Personal history of nicotine dependence; Z79.4 Long term (current) use of insulin; Z79.84 Long term (current) use of oral hypoglycemic drugs; R60.0 Localized edema; L84 Corns and callosities
CPT/HCPCS: 11042

== ENCOUNTER 2022-05-21 08:20 | Outpatient (CLI) | payer MEDICARE, BC | END 2022-05-21 23:59 | disposition home health service (06) | LOC: WOU 08:20 | PROVIDERS: ATTEND Podiatrist Foot & Ankle Surgery | DX: E11.621 Type 2 diabetes mellitus with foot ulcer (principal); L97.512 Non-pressure chronic ulcer of other part of right foot with fat layer exposed; E11.22 Type 2 diabetes mellitus with diabetic chronic kidney disease; I12.9 Hypertensive chronic kidney disease with stage 1 through stage 4 chronic kidney disease, or unspecified chronic kidney disease; E11.42 Type 2 diabetes mellitus with diabetic polyneuropathy; E11.69 Type 2 diabetes mellitus with other specified complication; M86.671 Other chronic osteomyelitis, right ankle and foot; N18.9 Chronic kidney disease, unspecified; Z87.891 Personal history of nicotine dependence; Z79.4 Long term (current) use of insulin; Z79.84 Long term (current) use of oral hypoglycemic drugs; T81.89XD Other complications of procedures, not elsewhere classified, subsequent encounter; R60.0 Localized edema; L84 Corns and callosities; Z89.411 Acquired absence of right great toe | CPT/HCPCS: 11042; A6209 ==